=== PATIENT | male | born 1945 | race Caucasian/White ===

== ENCOUNTER → 2016-12-21 | Outpatient (CLI) | payer OTHER ==
[~2016-12-21] MED LIST: ALL300 PO; ASPEC81 PO; ASPI81TA28 PO; ATOR-26 PO; CARV25TA2 PO; CHOL100010 PO; CLOP1TAB15 PO; CPR500 PO; CRG25 PO; DULA1INJ SC; ENAL5TAB83 PO; FINA5TAB PO; INSU1SOL SQ; INSUINJ2 SC; LPR25 PO; MECL1TAB42 PO; METF-384 PO; METF1TAB53 PO; METO25TA56 PO; MULT-1093 PO; MULT-506 PO; OMEP20CA9 PO; ONDA4TAB46 PO; PLV75 PO; PRAV40TA2 PO; PRAV80TA2 PO; THIA50TA3 PO; VST5 PO; ZNT150 PO; ZNTT/150 PO
[2016-12-21 12:39] LABS: BASO % 0.6 %; BASO ABS # 0.04 K/uL (0-0.2); COMPLETE YES; EOS % 3.1 %; IG% 0.3 %; LYMPH % 30.7 %; LYMPH ABS # 2.15 K/uL (1.2-3.4); MEAN CELL VOLUME 96.2 fL (80-100); MEAN CORPUSCULAR HEMOGLOBIN 30.8 pg (25-34); NEUT % 58.3 %; PLATELET COUNT 208 K/uL (130-400); RED BLOOD COUNT 4.26 M/uL (4.7-6.1); WHITE BLOOD COUNT 7.01 K/uL (4.8-10.8)
[2016-12-21 12:59] LABS: ESTIMATED AVERAGE GLUCOSE 148 mg/dl; HA1C FLAG Normal (Normal)
[2016-12-21 13:04] LABS: ALT/SGPT 36 U/L (12-78); BLOOD UREA NITROGEN 18 mg/dl (7-18); BUN/CREATININE RATIO 12.8 (10-20); CARBON DIOXIDE 29 mmol/L (21-32); CHLORIDE 107 mmol/L (98-107); CHOLESTEROL 136 mg/dl (0-200); GLUCOSE 172 mg/dl (70-99); POTASSIUM 4.6 mmol/L (3.5-5.1); SODIUM 141 mmol/L (136-145); TRIGLYCERIDES 160 mg/dl (0-150); VERY LOW DENSITY LIPOPROT CALC 32 mg/dl
[2016-12-21 13:09] LABS: CALCIUM 8.9 mg/dl (8.5-10.1)
[2016-12-21 13:10] LABS: URINE APPEARANCE CLEAR (CLEAR); URINE BILIRUBIN NEG (NEG); URINE COLOR DK YELLOW; URINE EPITHELIAL CELL AUTO 20-30 /lpf (0-5); URINE NITRITE NEG (NEG); URINE SPECIFIC GRAVITY 1.023 (1.000-1.030); UROBILINOGEN NEG (NEG)
[2016-12-21 13:15] LABS: ALB/GLOB RATIO 1.1 (0.9-2); ALKALINE PHOSPHATASE 77 U/L (45-117); AST/SGOT 19 U/L (15-37); HDL CHOLESTEROL 34 mg/dl; LDL CHOLESTEROL CALCULATED 70 mg/dl; PROSTATE SPECIFIC ANTIGEN 0.285 ng/ml (0.000-4.000)
[2016-12-21 13:18] LABS: MANUAL MICROSCOPIC REQUIRED? NO; REVIEW REQ? YES
== END | disposition home or self-care (01) ==
LOC: C.LABPBG 09:35
PROVIDERS: ATTEND Internal Medicine
DX: N40.1 Benign prostatic hyperplasia with lower urinary tract symptoms (principal); N39.0 Urinary tract infection, site not specified; R33.9 Retention of urine, unspecified; E11.649 Type 2 diabetes mellitus with hypoglycemia without coma

== ENCOUNTER 2017-02-19 16:12 | Inpatient (IN) | payer OTHER ==
[~2017-02-19] VITALS: Ht 180.3 cm; Wt 122.7 kg
[~2017-02-19 16:12] MED LIST changes: -ASPEC81 PO; -ASPI81TA28 PO; -ATOR-26 PO; -CLOP1TAB15 PO; -CPR500 PO; -CRG25 PO; -DULA1INJ SC; -INSUINJ2 SC; -LPR25 PO; -METF-384 PO; -METO25TA56 PO; -MULT-1093 PO; -PLV75 PO; -PRAV80TA2 PO; -VST5 PO; -ZNT150 PO; -ZNTT/150 PO
[2017-02-19] MEDS ORDERED: ASPIRIN 81 MG CHEW PO STA (18:24)
[2017-02-19] MEDS ORDERED: ALUMINUM/MAGNESIUM SUSP 30 ML UDC PO STA (18:24)
--- NOTE | 2017-02-19 18:38 | EMERGENCY ROOM VISIT NOTE ---
History Report prepared by Jack: Farnaz Morgan Under the Supervision of: Dr. Kieran Sarah D.O. First contact with patient: 18:20 Chief Complaint: CHEST PAIN Stated Complaint: CHEST PAIN Nursing Triage Summary: Pt reports he has mikael having indigesting for about 4-5 days, today worsening chest pain that radiates into thoat and neck and mid back. Pt reports SOB with exertion. Pt spoke with his Inspector Chief Dr Lovell who referred to ED. Pt currently rates pain 09/22. Hx of Bipass surgeries 5 years ago. Hx of Diabetes History of Present Illness The patient is a 71 year old male who presents to the Emergency Room with complaints of chest pain beginning 5 days ago. The patient states that he is having indigestion and chest pain that radiates into his throat and intermittently into his back. He reports that his pain is worsened while he is laying down and at night. He denies any abdominal pain and chest pressure. The patient states that he has a history of 4 heart blockages and notes that he had bypass surgery. He notes that he felt chest pressure with his previous heart problems and he notes that he does not feel that same symptom today. The patient reports that he had a stress test 5 years ago and is scheduled for an echocardiogram in April. Source of History: patient Onset: 5 days ago Position: chest Quality: other (indegestion) Timing: intermittent Modifying Factors (Worsening): other (night time and laying down) Associated Symptoms: + back pain, No abdominal pain Note: The patient complains of throat pain. He denies any chest pressure. Review of Systems See HPI for pertinent positives & negatives. A total of 10 systems reviewed and were otherwise negative. Past Medical & Surgical Medical Problems: (1) ACS (acute coronary syndrome) (2) Cholecystectomy (3) Coronary artery bypass grafting (4) Diabetes (5) Diabetes mellitus (6) Heart disease (7) History of prostatitis (8) Post-op bleeding Surgical Problems: (1) H/O heart bypass surgery Family History FH: heart disease FHx: cancer Hypertension Social History Smoking Status: Never Smoker Smokeless Tobacco Use: No Alcohol Use: none Drug Use: none Marital Status: Housing Status: lives with family Occupation Status: retired Current/Historical Medications Scheduled Allopurinol (Allopurinol), 300 MG PO HS Carvedilol (Carvedilol), 12.5 MG PO BID Dulaglutide (Trulicity), 0.75 MG SC WK Enalapril Maleate (Enalapril Maleate), 5 MG PO HS Insulin Regular (Human) (Humulin R U-500 (Concentr), 18-20 UNITS SC TID Metformin Hcl (Glucophage), 1,000 MG PO BID Multivitamin (Multivitamin), 1 TAB PO QAM Omeprazole (Prilosec), 20 MG PO QAM Pravastatin Sodium (Pravastatin Sodium), 80 MG PO HS Allergies Coded Allergies: No Known Allergies (Verified , 04/20/16) Physical Exam Vital Signs Date Time Temp Pulse Resp B/P (MAP) Pulse Ox O2 Delivery O2 Flow Rate FiO2 02/19/17 19:07 83 02/19/17 18:44 96 Room Air 02/19/17 18:44 96 Room Air 02/19/17 18:15 87 16 152/81 95 Room Air 02/19/17 16:21 36.7 89 18 131/74 96 Room Air Physical Exam GENERAL: Patient is awake, alert, and in no acute distress. Patient is resting comfortably and mild anxiety EYES: The conjunctivae are clear. The pupils are round and reactive. EARS, NOSE, MOUTH AND THROAT: The nose is without any evidence of any deformity. Mucous membranes are moist tongue is midline NECK: The neck is nontender and supple. RESPIRATORY: Normal respiratory effort is noted there is no evidence of wheezing rhonchi or rales CARDIOVASCULAR: Regular rate and rhythm noted there no murmurs rubs or gallops normal S1 normal S2 GASTROINTESTINAL: The abdomen is soft. Bowel sounds are present in all quadrants. Abdomen is nontender MUSCULOSKELETAL/EXTREMITIES: There is no evidence of gross deformity full range of motion is noted in the hips and shoulders SKIN: There is no obvious evidence of any rash. There are no petechiae, pallor or cyanosis noted. Pedal edema bilaterally NEUROLOGIC: Patient is awake alert and oriented x3 Medical Decision & Procedures ER Provider Diagnostic Interpretation: X-ray results as stated below per interpretation by me and the radiologist. SINGLE VIEW CHEST FINDINGS: 2 AP, portable, upright chest radiographs are compared to study dated 04/03/2016 and correlated with chest CT dated 07/12/2015. The examination is degraded by portable technique and patient rotation. The patient is status post midline sternotomy. The heart is enlarged and there is atherosclerotic calcification of the thoracic aorta. The pulmonary vasculature is noncongested. There is bibasilar atelectasis. No airspace consolidation, large pleural effusion, or pneumothorax is seen. Scattered calcific granulomas are observed. The skeletal structures are osteopenic. Degenerative change is present throughout the thoracic spine. IMPRESSION: Cardiomegaly with no acute cardiopulmonary abnormality. Electronically signed by: Bernardino Billingsley M.D. 02/19/2017 6:59 PM Dictated Date/Time: 02/19/2017 6:56 PM Laboratory Results 02/19/17 18:35 Red Blood Count 4.64, Mean Corpuscular Volume 94.0, Mean Corpuscular Hemoglobin 29.3, Mean Corpuscular Hemoglobin Concent 31.2, Mean Platelet Volume 10.2, Neutrophils (%) (Auto) 61.9, Lymphocytes (%) (Auto) 28.0, Monocytes (%) (Auto) 6.8, Eosinophils (%) (Auto) 2.5, Basophils (%) (Auto) 0.7, Neutrophils # (Auto) 5.50, Lymphocytes # (Auto) 2.48, Monocytes # (Auto) 0.60, Eosinophils # (Auto) 0.22, Basophils # (Auto) 0.06 02/19/17 18:35 Test 02/19/17 18:35 White Blood Count 8.87 K/uL (4.8-10.8) Red Blood Count 4.64 M/uL (4.7-6.1) Hemoglobin 13.6 g/dL (14.0-18.0) Hematocrit 43.6 % (42-52) Mean Corpuscular Volume 94.0 fL (80-100) Mean Corpuscular Hemoglobin 29.3 pg (25-34) Mean Corpuscular Hemoglobin Concent 31.2 g/dl (32-36) Platelet Count 231 K/uL (130-400) Mean Platelet Volume 10.2 fL (7.4-10.4) Neutrophils (%) (Auto) 61.9 % Lymphocytes (%) (Auto) 28.0 % Monocytes (%) (Auto) 6.8 % Eosinophils (%) (Auto) 2.5 % Basophils (%) (Auto) 0.7 % Neutrophils # (Auto) 5.50 K/uL (1.4-6.5) Lymphocytes # (Auto) 2.48 K/uL (1.2-3.4) Monocytes # (Auto) 0.60 K/uL (0.11-0.59) Eosinophils # (Auto) 0.22 K/uL (0-0.5) Basophils # (Auto) 0.06 K/uL (0-0.2) RDW Standard Deviation 46.6 fL (36.4-46.3) RDW Coefficient of Variation 13.7 % (11.5-14.5) Immature Granulocyte % (Auto) 0.1 % Immature Granulocyte # (Auto) 0.01 K/uL (0.00-0.02) Prothrombin Time 10.0 SECONDS (9.0-12.0) Prothromb Time International Ratio 0.9 (0.9-1.1) Activated Partial Thromboplast Time 28.8 SECONDS (21.0-31.0) Partial Thromboplastin Ratio 1.1 Anion Gap 7.0 mmol/L (3-11) Est Creatinine Clear Calc Drug Dose 55.3 ml/min Estimated GFR () 48.8 Estimated GFR (Non- 42.1 BUN/Creatinine Ratio 10.0 (10-20) Calcium Level 9.5 mg/dl (8.5-10.1) Total Bilirubin 0.2 mg/dl (0.2-1) Direct Bilirubin < 0.1 mg/dl (0-0.2) Aspartate Amino Transf (AST/SGOT) 20 U/L (15-37) Alanine Aminotransferase (ALT/SGPT) 40 U/L (12-78) Alkaline Phosphatase 84 U/L (45-117) Total Creatine Kinase 87 U/L (39-308) Creatine Kinase MB 1.5 ng/ml (0.5-3.6) Creatine Kinase MB Ratio 1.7 (0-3.0) Pro-B-Type Natriuretic Peptide 628 pg/ml (0-900) Total Protein 7.7 gm/dl (6.4-8.2) Albumin 3.7 gm/dl (3.4-5.0) Lipase 463 U/L (73-393) Laboratory results per my review. Medications Administered Medications (Trade) Dose Ordered Sig/Mathew Route Start Time Stop Time Status Last Admin Dose Admin Aspirin (Aspirin Chew) 324 mg NOW STAT PO 02/19/17 18:24 02/19/17 18:26 DC 02/19/17 18:47 324 MG Al Hydroxide/Mg Hydroxide (Maalox Susp) 30 ml NOW STAT PO 02/19/17 18:24 02/19/17 18:26 DC 02/19/17 18:47 30 ML ECG Indication: chest pain Rate (beats per minute): 89 Rhythm: normal sinus Findings: RBBB, ST depression (Inferior and Lateral), T-wave inversion Comparison ECG Date: 04/03/16 Change: Changes are new. ED Course 1819: The patient was evaluated in room C4. A complete history and physical examination were performed. 1823: Maalox Susp 30ml PO, Aspirin Chew 324mg PO. 1931: I reevaluated and updated the patient. 1940: I discussed the patient's case with the resident for [place]. [place] [facility] The patient will be evaluated for further management. 1953: Upon reevaluation, the patient is doing well. I discussed results and treatment plan with the patient. He verbalizes agreement and understanding. I spoke with the resident for Dr. [place] [facility] The patient will be evaluated for further management and care. Medical Decision Differential diagnosis: Etiologies such as cardiac ischemia, aortic dissection, pulmonary embolism, pneumonia, pneumothorax, musculoskeletal, infections, pericarditis, myocarditis , esophageal rupture, gastrointestinal, as well as others were entertained. Medication Reconciliation: I attest that I have personally reviewed the patient' s current medications list. Blood pressure screening: Patient was found to have an elevated blood pressure and was referred to their primary doctor for recheck and further treatment. The patient is a 71-year-old male who presented to the emergency department for an evaluation of chest discomfort. The patient describes his discomfort as heartburn. He was found have a very abnormal EKG with ST segment depressions. The patient at the time of evaluation states his pain was significantly improved. He was treated with aspirin in emergency department and reevaluated multiple times. The patient was found have a mild elevation in his troponin. At this time I feel his condition is likely consistent with an acute coronary syndrome. For this reason I discussed his case with the on-call [facility] hospitalist. They've agreed to evaluate the patient in emergency department for further management and disposition. The patient continued to be pain-free. Consults Time Called: 1938 Consulting Physician: Resident of Dr. Corea Returned Call: 1940 I discussed the patient's case with the resident for Dr. Corea of [facility] The patient will be evaluated for further management. Impression Primary Impression: Substernal chest pain Additional Impressions: Abnormal EKG Elevated troponin Scribe Attestation The scribe's documentation has been prepared under my direction and personally reviewed by me in its entirety. I confirm that the note above accurately reflects all work, treatment, procedures, and medical decision making performed by me. Departure Information Dispostion Being Evaluated By Hospitalist Referrals No Doctor, Assigned (PCP) Patient Instructions [facility] Problem Qualifiers
--- NOTE | 2017-02-19 19:00 | DIAGNOSTIC IMAGING REPORT ---
SINGLE VIEW CHEST CLINICAL HISTORY: Atypical chest pain. FINDINGS: 2 AP, portable, upright chest radiographs are compared to study dated 04/03/2016 and correlated with chest CT dated 07/12/2015. The examination is degraded by portable technique and patient rotation. The patient is status post midline sternotomy. The heart is enlarged and there is atherosclerotic calcification of the thoracic aorta. The pulmonary vasculature is noncongested. There is bibasilar atelectasis. No airspace consolidation, large pleural effusion, or pneumothorax is seen. Scattered calcific granulomas are observed. The skeletal structures are osteopenic. Degenerative change is present throughout the thoracic spine. IMPRESSION: Cardiomegaly with no acute cardiopulmonary abnormality. Electronically signed by: Bernardino Billingsley M.D. 02/19/2017 6:59 PM Dictated Date/Time: 02/19/2017 6:56 PM
[2017-02-19 19:05] LABS: BASO % 0.7 %; BASO ABS # 0.06 K/uL (0-0.2); COMPLETE YES; EOS % 2.5 %; HEMATOCRIT 43.6 % (42-52); IG% 0.1 %; LYMPH ABS # 2.48 K/uL (1.2-3.4); MEAN CORPUSCULAR HEMOGLOBIN 29.3 pg (25-34); MEAN CORPUSCULAR HGB CONC 31.2 g/dl (32-36); MEAN PLATELET VOLUME 10.2 fL (7.4-10.4); MONO % 6.8 %; NEUT % 61.9 %; PLATELET COUNT 231 K/uL (130-400); RED BLOOD COUNT 4.64 M/uL (4.7-6.1); WHITE BLOOD COUNT 8.87 K/uL (4.8-10.8)
[2017-02-19 19:16] LABS: INR 0.9 (0.9-1.1); PARTIAL THROMBOPLASTIN RATIO 1.1
[2017-02-19] MEDS ORDERED: INSUINJ2 SC (19:20)
[2017-02-19] MEDS ORDERED: ALL300 PO (19:20)
[2017-02-19] MEDS ORDERED: CRG25 PO (19:20)
[2017-02-19] MEDS ORDERED: DULA1INJ SC (19:20)
[2017-02-19] MEDS ORDERED: PRAV80TA2 PO (19:20)
[2017-02-19] MEDS ORDERED: METF-384 PO (19:20)
[2017-02-19] MEDS ORDERED: VST5 PO (19:20)
[2017-02-19 19:25] LABS: ALT/SGPT 40 U/L (12-78); BLOOD UREA NITROGEN 16 mg/dl (7-18); CALCIUM 9.5 mg/dl (8.5-10.1); CARBON DIOXIDE 29 mmol/L (21-32); CHLORIDE 108 mmol/L (98-107); GLUCOSE 105 mg/dl (70-99); POTASSIUM 4.4 mmol/L (3.5-5.1); SODIUM 144 mmol/L (136-145)
[2017-02-19 19:31] LABS: ALKALINE PHOSPHATASE 84 U/L (45-117); AST/SGOT 20 U/L (15-37); CKMB/CK RATIO 1.7 (0-3.0)
[2017-02-19] MEDS ORDERED: ONDANSETRON INJ 2 MG/ML 2 ML VIAL IV PRN (21:00)
[2017-02-19] MEDS ORDERED: POLYETHYLENE (MIRALAX) 17 GM PACK PO PRN (21:00)
[2017-02-19] MEDS ORDERED: NITROGLYCERIN 0.4 MG SL PER TAB CHARGE SL PRN (21:00)
[2017-02-19] MEDS ORDERED: ALUMINUM/MAGNESIUM/SIMETH (MAALOX MAX) 30 ML UDC PO PRN (21:00)
[2017-02-19] MEDS ORDERED: ACETAMINOPHEN 325 MG TAB PO PRN (21:00)
--- NOTE | 2017-02-19 21:05 | History and Physical ---
History & Physical Date & Time of Service: Feb 19, 2017 at 21:05 Chief Complaint: Chest Pain Primary Care Physician: Ras Norton M.D. History of Present Illness 71-year-old male with past medical history of coronary artery disease status post CABG 5 years ago, diabetes mellitus presented to the ER with complaints of indigestion and chest pain which started about 5 days ago. The patient complains about chest pain in the middle of his chest radiating up to his throat and to the middle of his back. The pain is worse on exertion and on laying down. Denies any shortness of breath, palpitations, nausea or vomiting, diaphoresis. Denies any abdominal pain, fevers or chills or coughing. The patient has a history of coronary artery disease and had coronary artery bypass done about 5 years ago. Past Medical/Surgical History Medical Problems: (1) Cholecystectomy Status: Resolved (2) Coronary artery bypass grafting Status: Resolved (3) Diabetes Status: Chronic (4) Diabetes mellitus Status: Chronic (5) Heart disease Status: Chronic (6) History of prostatitis Status: Chronic Surgical Problems: (1) H/O heart bypass surgery Status: Chronic Family History FH: heart disease FHx: cancer Hypertension Social History Smoking Status: Never Smoker Smokeless Tobacco Use: No Drug Use: none Marital Status: Occupational Status: retired Immunizations History of Influenza Vaccine: Unknown Influenza Vaccine Date: May 16, 2013 History of Tetanus Vaccine?: Unknown History of Pneumococcal: Unknown Pneumococcal Date: Feb 07, 2009 History of Hepatitis B Vaccine: Unknown Multi-Drug Resistant Organisms History of MDRO: No Allergies Coded Allergies: No Known Allergies (Verified , 04/20/16) Home Medications Scheduled Allopurinol (Allopurinol), 300 MG PO HS Carvedilol (Carvedilol), 12.5 MG PO BID Dulaglutide (Trulicity), 0.75 MG SC WK Enalapril Maleate (Enalapril Maleate), 5 MG PO HS Insulin Regular (Human) (Humulin R U-500 (Concentr), 18-20 UNITS SC TID Metformin Hcl (Glucophage), 1,000 MG PO BID Multivitamin (Multivitamin), 1 TAB PO QAM Omeprazole (Prilosec), 20 MG PO QAM Pravastatin Sodium (Pravastatin Sodium), 80 MG PO HS Review of Systems Constitutional: No fever, No chills Eyes: No worsening of vision ENT: No hearing loss Respiratory: No cough, No sputum, No shortness of breath Cardiovascular: + chest pain, No edema, No palpitations Abdomen: No pain, No nausea, No vomiting, No diarrhea, No GI bleeding Musculoskeletal: No joint pain Genitourinary - Male: No hematuria, No dysuria, No urinary frequency Neurologic: No memory loss, No paralysis Psychiatric: No depression symptoms Endocrine: No fatigue Hematologic / Lymphatic: No abnormal bleeding/bruising Integumentary: No rash Physical Exam Vital Signs Date Time Temp Pulse Resp B/P (MAP) Pulse Ox O2 Delivery O2 Flow Rate FiO2 02/19/17 19:07 83 02/19/17 18:44 96 Room Air 02/19/17 18:44 96 Room Air 02/19/17 18:15 87 16 152/81 95 Room Air 02/19/17 16:21 36.7 89 18 131/74 96 Room Air General Appearance: WD/WN, no apparent distress Head: normocephalic Eyes: normal inspection ENT: hearing grossly normal Neck: supple Respiratory/Chest: chest non-tender, lungs clear, normal breath sounds, no respiratory distress, no accessory muscle use Cardiovascular: regular rate, rhythm Abdomen/GI: normal bowel sounds, non tender, soft Extremities/Musculoskelatal: no pedal edema Neurologic/Psych: alert, normal mood/affect, oriented x 3 Skin: normal color Diagnostics Laboratory Results Results Past 24 Hours Test 02/19/17 18:35 Range/Units White Blood Count 8.87 4.8-10.8 K/uL Red Blood Count 4.64 4.7-6.1 M/uL Hemoglobin 13.6 14.0-18.0 g/dL Hematocrit 43.6 42-52 % Mean Corpuscular Volume 94.0 80-100 fL Mean Corpuscular Hemoglobin 29.3 25-34 pg Mean Corpuscular Hemoglobin Concent 31.2 32-36 g/dl Platelet Count 231 130-400 K/uL Mean Platelet Volume 10.2 7.4-10.4 fL Neutrophils (%) (Auto) 61.9 % Lymphocytes (%) (Auto) 28.0 % Monocytes (%) (Auto) 6.8 % Eosinophils (%) (Auto) 2.5 % Basophils (%) (Auto) 0.7 % Neutrophils # (Auto) 5.50 1.4-6.5 K/uL Lymphocytes # (Auto) 2.48 1.2-3.4 K/uL Monocytes # (Auto) 0.60 0.11-0.59 K/uL Eosinophils # (Auto) 0.22 0-0.5 K/uL Basophils # (Auto) 0.06 0-0.2 K/uL RDW Standard Deviation 46.6 36.4-46.3 fL RDW Coefficient of Variation 13.7 11.5-14.5 % Immature Granulocyte % (Auto) 0.1 % Immature Granulocyte # (Auto) 0.01 0.00-0.02 K/uL Prothrombin Time 10.0 9.0-12.0 SECONDS Prothromb Time International Ratio 0.9 0.9-1.1 Activated Partial Thromboplast Time 28.8 21.0-31.0 SECONDS Partial Thromboplastin Ratio 1.1 Sodium Level 144 136-145 mmol/L Potassium Level 4.4 3.5-5.1 mmol/L Chloride Level 108 98-107 mmol/L Carbon Dioxide Level 29 21-32 mmol/L Anion Gap 7.0 3-11 mmol/L Blood Urea Nitrogen 16 7-18 mg/dl Creatinine 1.60 0.60-1.40 mg/dl Est Creatinine Clear Calc Drug Dose 55.3 ml/min Estimated GFR () 48.8 Estimated GFR (Non- 42.1 BUN/Creatinine Ratio 10.0 10-20 Random Glucose 105 70-99 mg/dl Calcium Level 9.5 8.5-10.1 mg/dl Total Bilirubin 0.2 0.2-1 mg/dl Direct Bilirubin < 0.1 0-0.2 mg/dl Aspartate Amino Transf (AST/SGOT) 20 15-37 U/L Alanine Aminotransferase (ALT/SGPT) 40 12-78 U/L Alkaline Phosphatase 84 45-117 U/L Total Creatine Kinase 87 39-308 U/L Creatine Kinase MB 1.5 0.5-3.6 ng/ml Creatine Kinase MB Ratio 1.7 0-3.0 Troponin I 0.039 0-0.045 ng/ml Pro-B-Type Natriuretic Peptide 628 0-900 pg/ml Total Protein 7.7 6.4-8.2 gm/dl Albumin 3.7 3.4-5.0 gm/dl Lipase 463 73-393 U/L Diagnostic Radiology SINGLE VIEW CHEST CLINICAL HISTORY: Atypical chest pain. FINDINGS: 2 AP, portable, upright chest radiographs are compared to study dated 04/03/2016 and correlated with chest CT dated 07/12/2015. The examination is degraded by portable technique and patient rotation. The patient is status post midline sternotomy. The heart is enlarged and there is atherosclerotic calcification of the thoracic aorta. The pulmonary vasculature is noncongested. There is bibasilar atelectasis. No airspace consolidation, large pleural effusion, or pneumothorax is seen. Scattered calcific granulomas are observed. The skeletal structures are osteopenic. Degenerative change is present throughout the thoracic spine. IMPRESSION: Cardiomegaly with no acute cardiopulmonary abnormality. Electronically signed by: Bernardino Billingsley M.D. 02/19/2017 6:59 PM Dictated Date/Time: 02/19/2017 6:56 PM EKG Normal sinus rhythm Left axis deviation Right bundle branch block T wave abnormality, consider lateral ischemia ST & T wave abnormality, consider anterior ischemia Abnormal ECG When compared with ECG of 03-APR-2016 13:48, ST now depressed in Anterior leads T wave inversion more evident in Anterolateral leads Confirmed by JEB MORRISSEY ([id number]) on 02/19/2017 10:16:11 PM Impression Assessment and Plan 71-year-old male with past medical history of coronary artery disease status post CABG 5 years ago, diabetes mellitus presented to the ER with complaints of indigestion and chest pain which started about 5 days ago. In the ER the patient was found to have EKG changes- ST-T depressions in anterior leads with T-wave inversions the patient complains of minimal chest pain. ACS/ CAD status post CABG 5 years ago - EKG: Normal sinus rhythm Left axis deviation Right bundle branch block T wave abnormality, consider lateral ischemia ST & T wave abnormality, consider anterior ischemia Abnormal ECG When compared with ECG of 03-APR-2016 13:48, ST now depressed in Anterior leads T wave inversion more evident in Anterolateral leads - Initial troponin 0.039-->0.030, trended every 8 hours - Started on heparin drip, Nitropaste - Cardiology consult - Continue aspirin, carvedilol, pravastatin, enalapril - Echo ordered - Lipid panel from 12/27: Total cholesterol 136, LDL 70, triglycerides 160, HDL 34 Acute kidney injury: Likely related to demand - Creatinine at 1.6, baseline 1.4 - Continue IV fluids Elevated lipase ? Pancreatitis - Lipase at 463 - Monitor lipase level - Triglycerides within normal limits, no history of alcohol abuse Diabetes mellitus: - Held home medications - Hemoglobin A1c 12/27 6.8 - Insulin sliding scale DVT prophylaxis: Heparin drip Full code Disposition: Admitted to telemetry Level of Care Telemetry Resuscitation Status FULL RESUSCITATION VTE Prophylaxis VTE Risk Assessment Done? Y/N: Yes Risk Level: Moderate Given or contraindicated: Other Anticoagulation (heparin drip) Resident Tracking Resident Involvement: Resident Care Provided Care Provided: [facility] Assessment and Plan Attending Addendum: I physically seen and examined this patient, have supervised the medical residents activities, and agree with the H&P as noted above with the following exceptions: NONE The patient is awake, well-developed and adequately nourished, alert and oriented 3, normocephalic and atraumatic, lying in bed and in no acute distress. HEENT--PERRL, EOMI, mucous membranes and oropharynx dry. Neck--supple, no JVD or bruits, thyroid normal, trachea midline, no adenopathy. Heart--normal S1 and S2, no extra beats, no murmurs, rubs or gallops. Lungs--clear bilaterally with good air movement, no respiratory distress, no accessory muscle use. Abdomen--normal bowel sounds and soft, nontender and nondistended, no hernias or masses, no organomegaly. Extremities--no cyanosis, clubbing or edema. There are good distal pulses b/l. Dermatologic--normal skin turgor, normal color, warm and dry, no abnormal lymph nodes, no rash. Neurologic--cranial nerves II through XII grossly intact. Rheumatologic--normal range of motion, nontender, muscles and joints. Psychiatric--normal affect. Assessment and Plan: 1. CAD/status post CABG 5 years ago/hypertension/presents with acute coronary syndrome--the patient will be admitted to telemetry for serial cardiac enzymes, cardiac rhythm monitoring and a 2-D echocardiogram with Dopplers. Place on Nitropaste 1 inch to anterior chest wall every 6 hours. Start heparin drip IV standard dose with bolus per protocol. Continue aspirin 81 mg by mouth daily, carvedilol, pravastatin and enalapril. Follow serial CBC with differential, BMP and magnesium levels. Consult cardiology.
[2017-02-19] MEDS ORDERED: HEPARIN 25000 UNIT/500 ML D5W ONE (21:57)
[2017-02-19] MEDS ORDERED: HEPARIN SOD 5000 UNIT/0.5 ML CARP ONE (21:57)
[2017-02-19] MEDS ORDERED: NITROGLYCERIN OINT 2% 1GM PACKET EXT STA (22:36)
[2017-02-19] MEDS: SODIUM CHLORIDE 0.9% 1000ML 1,000 ML IV SCH (22:43)
[2017-02-19 22:47] VITALS: BP 162/89; PULSE 87; TEMP 36.9; O2SAT 96; Ht 180.3 cm; Wt 122.7 kg
[2017-02-20] MEDS ORDERED: SODIUM CHLORIDE 0.9% 1000ML 1,000 ML IV SCH (01:30)
[2017-02-20] MEDS ORDERED: DEXTROSE 50% 50 ML SYR IV PRN (02:00)
[2017-02-20] MEDS ORDERED: GLUCOSE 40% GEL 15 GM TUBE PO PRN (02:00)
[2017-02-20] MEDS ORDERED: GLUCOSE 10 TABS/TUBE PO PRN (02:00)
[2017-02-20] MEDS ORDERED: GLUCAGON FOR INJ 1 MG VIAL SQ PRN (02:00)
[2017-02-20] MEDS: NITROGLYCERIN OINT 2% 1GM PACKET EXT SCH ×4 (03:32→21:38)
[2017-02-20 03:47] VITALS: BP 148/85; PULSE 80; TEMP 36.6; O2SAT 95
[2017-02-20 04:05] LABS: HEMATOCRIT 39.9 % (42-52); MEAN CELL VOLUME 95.7 fL (80-100); MEAN CORPUSCULAR HEMOGLOBIN 29.5 pg (25-34); MEAN CORPUSCULAR HGB CONC 30.8 g/dl (32-36); MEAN PLATELET VOLUME 10.5 fL (7.4-10.4); PLATELET COUNT 186 K/uL (130-400); RED BLOOD COUNT 4.17 M/uL (4.7-6.1); WHITE BLOOD COUNT 8.23 K/uL (4.8-10.8)
[2017-02-20 04:25] LABS: PARTIAL THROMBOPLASTIN RATIO 2.2
[2017-02-20 04:30] LABS: BUN/CREATININE RATIO 11.5 (10-20); CALCIUM 8.7 mg/dl (8.5-10.1); CREATININE 1.4 mg/dl (0.60-1.40); POTASSIUM 4.8 mmol/L (3.5-5.1)
[2017-02-20] MEDS: INSULIN ASPART 100 UNITS/ML 3 ML PEN SC SCH ×4 (07:00→21:00)
[2017-02-20 07:17] VITALS: BP 145/81; PULSE 78; TEMP 36.6; O2SAT 92
[2017-02-20] MEDS: SODIUM CHLORIDE 0.9% 1000ML 1,000 ML IV SCH ×2 (07:54→17:20)
[2017-02-20] MEDS: PANTOprazole SOD 40 MG TAB PO SCH ×2 (08:03→09:00)
[2017-02-20] MEDS: CARVEDILOL 12.5 MG TAB PO SCH ×3 (08:03→19:35)
--- NOTE | 2017-02-20 08:03 | Family Medicine Progress Note ---
Progress Note Date of Service Feb 20, 2017. Subjective Pt evaluation today including: conversation w/ patient, physical exam Voiding: no voiding problems, no incontinence Reviewed hx w/patient - reports hx of quadruple bypass surgery years ago, completed in [place]. Did not have an MD at that time, but had decreased exercise tolerance when walking 4 miles per day. Since then, has not had chest pain at rest or on exertion, and has not had any cardiac procedures. Is diabetic and BSGs usually 110 in AM. He reports Sunday he was urinating more frequently than usual and it was dark in color - denies hematuria, dysuria, hesitancy (though has known BPH s/p TURP). Over the last 5-6 days has had severe indigestion, was concerned it was cardiac. Reports is worse when laying flat, is associated with spells of diaphoresis, does not radiate. Denies any nausea/vomiting. Constitutional: No fever, No chills, No weakness Cardiovascular: + chest pain Abdomen: No pain, No nausea All Other Systems: Reviewed and Negative Medications Current Inpatient Medications Medications (Trade) Dose Ordered Sig/Mathew Route Start Time Stop Time Status Last Admin Dose Admin Acetaminophen (Tylenol Tab) 650 mg Q4H PRN PO 02/19/17 21:00 03/21/17 20:59 Al Hydrox/Mg Hydrox/Simethicone (Maalox Max Susp) 15 ml Q4H PRN PO 02/19/17 21:00 03/21/17 20:59 Ondansetron HCl (Zofran Inj) 4 mg Q6H PRN IV 02/19/17 21:00 03/21/17 20:59 Nitroglycerin (Nitrostat Tab) 0.4 mg UD PRN SL 02/19/17 21:00 03/21/17 20:59 Polyethylene (Miralax Powder Packet) 17 gm DAILY PRN PO 02/19/17 21:00 03/21/17 20:59 Allopurinol (Zyloprim Tab) 300 mg HS PO 02/20/17 21:00 03/22/17 20:59 Carvedilol (Coreg Tab) 12.5 mg BID PO 02/20/17 09:00 03/22/17 08:59 Enalapril Maleate (Vasotec Tab) 5 mg HS PO 02/20/17 21:00 03/22/17 20:59 Pantoprazole Sodium (Protonix Tab) 40 mg QAM PO 02/20/17 09:00 03/22/17 08:59 Pravastatin Sodium (Pravachol Tab) 80 mg HS PO 02/20/17 21:00 03/22/17 20:59 Sodium Chloride 1,000 ml @ 100 mls/hr Q10H IV 02/19/17 22:30 03/21/17 22:29 02/19/17 22:43 100 MLS/HR Nitroglycerin (Nitroglycerin 2% Oint) 1 inch Q6H EXT 02/20/17 04:00 03/22/17 03:59 02/20/17 03:32 1 INCH Heparin Sodium/ Dextrose 500 ml @ 34 mls/hr [id number] PRN IV 02/19/17 22:45 03/21/17 22:44 Insulin Aspart (novoLOG ASPART) SLIDING SCALE G... ACHS SC 02/20/17 07:00 03/22/17 06:59 Glucose (Glucose 40% Gel) 15-30 GRAMS 15 GRAMS... UD PRN PO 02/20/17 02:00 03/22/17 01:59 Glucose (Glucose Chew Tab) 4-8 Tablets 4 Tabl... UD PRN PO 02/20/17 02:00 03/22/17 01:59 Dextrose (Dextrose 50% 50ML Syringe) 25-50ML OF 50% DW IV FOR... UD PRN IV 02/20/17 02:00 03/22/17 01:59 Glucagon (Glucagon Inj) 1 mg UD PRN SQ 02/20/17 02:00 03/22/17 01:59 Objective Vital Signs Date Time Temp Pulse Resp B/P (MAP) Pulse Ox O2 Delivery O2 Flow Rate FiO2 02/20/17 07:17 36.6 78 16 145/81 (102) 92 Room Air 02/20/17 04:00 Room Air 02/20/17 03:47 36.6 80 18 148/85 (106) 95 Room Air 02/19/17 23:59 Room Air 02/19/17 22:47 36.9 87 18 162/89 96 Room Air 02/19/17 22:15 88 20 142/91 97 02/19/17 21:30 90 20 180/92 96 Room Air 02/19/17 19:07 83 02/19/17 18:44 96 Room Air 02/19/17 18:44 96 Room Air 02/19/17 18:15 87 16 152/81 95 Room Air 02/19/17 16:21 36.7 89 18 131/74 96 Room Air Physical Exam General Appearance: WD/WN, no apparent distress, + obese Eyes: normal inspection, PERRL ENT: hearing grossly normal Neck: supple, no JVD Respiratory/Chest: chest non-tender, lungs clear, normal breath sounds, no respiratory distress Cardiovascular: regular rate, rhythm, no murmur Abdomen: normal bowel sounds, non tender, soft Extremities: non-tender, no pedal edema Neurologic/Psychiatric: alert, normal mood/affect, oriented x 3 Skin: no rash Laboratory Results Last 24 Hours Test 02/19/17 18:35 02/19/17 21:30 02/20/17 03:42 02/20/17 06:37 White Blood Count 8.87 K/uL 8.23 K/uL Red Blood Count 4.64 M/uL 4.17 M/uL Hemoglobin 13.6 g/dL 12.3 g/dL Hematocrit 43.6 % 39.9 % Mean Corpuscular Volume 94.0 fL 95.7 fL Mean Corpuscular Hemoglobin 29.3 pg 29.5 pg Mean Corpuscular Hemoglobin Concent 31.2 g/dl 30.8 g/dl Platelet Count 231 K/uL 186 K/uL Mean Platelet Volume 10.2 fL 10.5 fL Neutrophils (%) (Auto) 61.9 % Lymphocytes (%) (Auto) 28.0 % Monocytes (%) (Auto) 6.8 % Eosinophils (%) (Auto) 2.5 % Basophils (%) (Auto) 0.7 % Neutrophils # (Auto) 5.50 K/uL Lymphocytes # (Auto) 2.48 K/uL Monocytes # (Auto) 0.60 K/uL Eosinophils # (Auto) 0.22 K/uL Basophils # (Auto) 0.06 K/uL RDW Standard Deviation 46.6 fL 47.7 fL RDW Coefficient of Variation 13.7 % 13.7 % Immature Granulocyte % (Auto) 0.1 % Immature Granulocyte # (Auto) 0.01 K/uL Prothrombin Time 10.0 SECONDS Prothromb Time International Ratio 0.9 Activated Partial Thromboplast Time 28.8 SECONDS 57.9 SECONDS Partial Thromboplastin Ratio 1.1 2.2 Sodium Level 144 mmol/L 146 mmol/L Potassium Level 4.4 mmol/L 4.8 mmol/L Chloride Level 108 mmol/L 110 mmol/L Carbon Dioxide Level 29 mmol/L 30 mmol/L Anion Gap 7.0 mmol/L 6.0 mmol/L Blood Urea Nitrogen 16 mg/dl 16 mg/dl Creatinine 1.60 mg/dl 1.40 mg/dl Est Creatinine Clear Calc Drug Dose 55.3 ml/min 63.2 ml/min Estimated GFR () 48.8 57.4 Estimated GFR (Non- 42.1 49.5 BUN/Creatinine Ratio 10.0 11.5 Random Glucose 105 mg/dl 171 mg/dl Calcium Level 9.5 mg/dl 8.7 mg/dl Total Bilirubin 0.2 mg/dl Direct Bilirubin < 0.1 mg/dl Aspartate Amino Transf (AST/SGOT) 20 U/L Alanine Aminotransferase (ALT/SGPT) 40 U/L Alkaline Phosphatase 84 U/L Total Creatine Kinase 87 U/L Creatine Kinase MB 1.5 ng/ml Creatine Kinase MB Ratio 1.7 Troponin I 0.039 ng/ml 0.030 ng/ml 0.029 ng/ml Pro-B-Type Natriuretic Peptide 628 pg/ml Total Protein 7.7 gm/dl Albumin 3.7 gm/dl Lipase 463 U/L 225 U/L Bedside Glucose 177 mg/dl Assessment and Plan 71 yo M with known CAD, s/p CABG, and T2DM who presents with 5 days of chest pain / indigestion - with EKG changes - ddx cardiac vs GI Chest pain on background of known CAD, s/p CABG 5y ago - Continue home aspirin, beta mis, statin, and ANETA-I - Echo ordered, pending for this AM - Cardiology consulted - Pt is NPO in case of cath - Trending cardiac enzymes, though they have already decreased (0.039 to 0.029). - Is on heparin drip Indigestion - Pt takes Nexium at home - Will provide IV Zantac now as pt is NPO, will transition to PO tomorrow/later today Acute on chronic renal insufficiency - Continue to monitor - Is on IV fluids Elevated lipase on admission (463) - Has decreased to 220 - No clinical signs of pancreatitis - Will continue to monitor Type 2 DM - Placed on insulin sliding scale - Last A1c on 12/21/16 was 6.8% DVT prophylaxis: Heparin drip Full code Disposition: Admitted to telemetry Resident Physician Supervision Note: I interviewed and examined the patient. Discussed with Dr. Grossman and agree with findings and plan as documented in the note. Any exceptions or clarifications are listed here: None Documented By: Owen Rose 2 different chest pains - came for chest pain substernal with associated burping and belching worse when he lays down no sob just worse sx. 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 revisited after stress test and explained results discussed situation at length answered all questions to the best of my ability and to his satisfaction/family satisfaction. d/w cardiology as well vitals noted nad breathing unlabored no pallor or icterus epigastric mild tenderness no guarding no rebound indigestion - ?related to GLP-1 - notes started shortly after resuming trulicity CAD/unstable angina - as manifest by exertional sx and then later (+) stress. for [facility] tomorrow. med management Resident Tracking Resident Involvement: Resident Care Provided Care Provided: Adult Hospital Medicine
[2017-02-20] MEDS ORDERED: RANITIDINE IV 50 MG in DEXTROSE 5% 100ML 100 ML IV ONE (08:30)
--- NOTE | 2017-02-20 09:34 | Cardiology Consultation ---
Cardiology Consultation Date of Consultation: Feb 20, 2017. Reason for Consultation: Chest Pain Pt evaluation today including: conversation w/ patient, physical exam, chart review, lab review, review of inpatient medication list History of Present Illness Mr. Goyal is a pleasant 71 year old man with a background history of a CABG, Diabetes Mellitus Type 2, hypercholesterolemia and hypertension who presented to the ED yesterday afternoon (02/19/2017) complaining of a 4-5 day history of a slow onset of chest pain. The pain has been constant, 2/10 in severity and then increasing to 7/10 at night or upon exertion. He reports that if he walked approximately ten feet, the pain would worsen and only lessen when he rested. The pain is substernal, just above his epigastric region, and radiates up to his throat and to his back. He denies radiation to his jaw or arms. He denies SOB, n/v, syncopal episodes, but states that he had episodes where he felt warm and sweaty. The pain is not pleuritic in nature. He took Tums, but this did not alleviate the pain. He subsequently called his tap grinder who advised that he come to the ED to be seen. With regards to his cardiac history, he had a quadruple bypass in April of 2012. This was done due to anginal symptoms - he states he had chest pain upon walking 4-5 miles that was relieved by rest. After this procedure, he has been free of chest pain until approximately one month ago, where he noticed that if he walked ~20 yards or more, he would experience chest pain that was relieved by approximately 2 minutes of rest. Past Medical/Surgical History Past Medical History: - CAD s/p quadruple bypass (Apr 2012) - Atrial Fibrillation (one episode after bypass, cardioverted on 08/08/10 and no episodes since) - Diabetes Mellitus Type 2 - Hypercholesterolemia - Hypertension - [place] - GERD Past Surgical History: - Cholecystectomy - Left knee replacement - TURP (2015) Family History FH: heart disease FHx: cancer Hypertension Social History Smoking Status: Never Smoker History of Alcohol Use: No Review of Systems Constitutional: No fever, No weight loss, No weakness, No fatigue Respiratory: No cough, No sputum, No wheezing, No shortness of breath, No dyspnea on exertion Cardiac: + chest pain, No orthopnea, No PND, No edema, No claudication, No palpitations Abdomen: No pain, No nausea, No vomiting, No diarrhea, No constipation Neurologic: No numbness/tingling All Other Systems: Reviewed and Negative Allergies Coded Allergies: No Known Allergies (Verified , 04/20/16) Medications Current Inpatient Medications Medications (Trade) Dose Ordered Sig/Mathew Route Start Time Stop Time Status Last Admin Dose Admin Acetaminophen (Tylenol Tab) 650 mg Q4H PRN PO 02/19/17 21:00 03/21/17 20:59 Al Hydrox/Mg Hydrox/Simethicone (Maalox Max Susp) 15 ml Q4H PRN PO 02/19/17 21:00 03/21/17 20:59 Ondansetron HCl (Zofran Inj) 4 mg Q6H PRN IV 02/19/17 21:00 03/21/17 20:59 Nitroglycerin (Nitrostat Tab) 0.4 mg UD PRN SL 02/19/17 21:00 03/21/17 20:59 Polyethylene (Miralax Powder Packet) 17 gm DAILY PRN PO 02/19/17 21:00 03/21/17 20:59 Allopurinol (Zyloprim Tab) 300 mg HS PO 02/20/17 21:00 03/22/17 20:59 Carvedilol (Coreg Tab) 12.5 mg BID PO 02/20/17 09:00 03/22/17 08:59 Enalapril Maleate (Vasotec Tab) 5 mg HS PO 02/20/17 21:00 03/22/17 20:59 Pantoprazole Sodium (Protonix Tab) 40 mg QAM PO 02/20/17 09:00 03/22/17 08:59 Pravastatin Sodium (Pravachol Tab) 80 mg HS PO 02/20/17 21:00 03/22/17 20:59 Sodium Chloride 1,000 ml @ 100 mls/hr Q10H IV 02/19/17 22:30 03/21/17 22:29 02/20/17 07:54 100 MLS/HR Nitroglycerin (Nitroglycerin 2% Oint) 1 inch Q6H EXT 02/20/17 04:00 03/22/17 03:59 02/20/17 08:53 1 INCH Heparin Sodium/ Dextrose 500 ml @ 34 mls/hr [id number] PRN IV 02/19/17 22:45 03/21/17 22:44 Insulin Aspart (novoLOG ASPART) SLIDING SCALE G... ACHS SC 02/20/17 07:00 03/22/17 06:59 Glucose (Glucose 40% Gel) 15-30 GRAMS 15 GRAMS... UD PRN PO 02/20/17 02:00 03/22/17 01:59 Glucose (Glucose Chew Tab) 4-8 Tablets 4 Tabl... UD PRN PO 02/20/17 02:00 03/22/17 01:59 Dextrose (Dextrose 50% 50ML Syringe) 25-50ML OF 50% DW IV FOR... UD PRN IV 02/20/17 02:00 03/22/17 01:59 Glucagon (Glucagon Inj) 1 mg UD PRN SQ 02/20/17 02:00 03/22/17 01:59 Physical Exam Vital Signs Past 12 Hours Date Time Temp Pulse Resp B/P (MAP) Pulse Ox O2 Delivery O2 Flow Rate FiO2 02/20/17 07:17 36.6 78 16 145/81 (102) 92 Room Air 02/20/17 04:00 Room Air 02/20/17 03:47 36.6 80 18 148/85 (106) 95 Room Air 02/19/17 23:59 Room Air 02/19/17 22:47 36.9 87 18 162/89 96 Room Air 02/19/17 22:15 88 20 142/91 97 02/19/17 21:30 90 20 180/92 96 Room Air Head: normocephalic, atraumatic Neck: supple, trachea midline Lungs: Respiratory effort: no dyspnea, good air movement Auscultation: breath sounds normal, CTA except as noted, no wheezing, no rales/crackles, no rhonchi Cardiovascular: Apical Impulse: not displaced Heart Auscultation: RRR, normal S1, normal S2, no murmurs, no rubs, no gallops Peripheral Pulses: Carotid Pulse: normal on the left, normal on the right Radial Pulse: normal on the right Abdomen: Bowel Sounds: normal Inspection & Palpation: soft, non-distended, no tenderness, guarding & rebound, no masses, no CVA tenderness Extremities: no cyanosis, no edema Data Laboratory Results: Last 24 Hours Test 02/19/17 18:35 02/19/17 21:30 02/20/17 03:42 02/20/17 06:37 White Blood Count 8.87 K/uL 8.23 K/uL Red Blood Count 4.64 M/uL 4.17 M/uL Hemoglobin 13.6 g/dL 12.3 g/dL Hematocrit 43.6 % 39.9 % Mean Corpuscular Volume 94.0 fL 95.7 fL Mean Corpuscular Hemoglobin 29.3 pg 29.5 pg Mean Corpuscular Hemoglobin Concent 31.2 g/dl 30.8 g/dl Platelet Count 231 K/uL 186 K/uL Mean Platelet Volume 10.2 fL 10.5 fL Neutrophils (%) (Auto) 61.9 % Lymphocytes (%) (Auto) 28.0 % Monocytes (%) (Auto) 6.8 % Eosinophils (%) (Auto) 2.5 % Basophils (%) (Auto) 0.7 % Neutrophils # (Auto) 5.50 K/uL Lymphocytes # (Auto) 2.48 K/uL Monocytes # (Auto) 0.60 K/uL Eosinophils # (Auto) 0.22 K/uL Basophils # (Auto) 0.06 K/uL RDW Standard Deviation 46.6 fL 47.7 fL RDW Coefficient of Variation 13.7 % 13.7 % Immature Granulocyte % (Auto) 0.1 % Immature Granulocyte # (Auto) 0.01 K/uL Prothrombin Time 10.0 SECONDS Prothromb Time International Ratio 0.9 Activated Partial Thromboplast Time 28.8 SECONDS 57.9 SECONDS Partial Thromboplastin Ratio 1.1 2.2 Sodium Level 144 mmol/L 146 mmol/L Potassium Level 4.4 mmol/L 4.8 mmol/L Chloride Level 108 mmol/L 110 mmol/L Carbon Dioxide Level 29 mmol/L 30 mmol/L Anion Gap 7.0 mmol/L 6.0 mmol/L Blood Urea Nitrogen 16 mg/dl 16 mg/dl Creatinine 1.60 mg/dl 1.40 mg/dl Est Creatinine Clear Calc Drug Dose 55.3 ml/min 63.2 ml/min Estimated GFR () 48.8 57.4 Estimated GFR (Non- 42.1 49.5 BUN/Creatinine Ratio 10.0 11.5 Random Glucose 105 mg/dl 171 mg/dl Calcium Level 9.5 mg/dl 8.7 mg/dl Total Bilirubin 0.2 mg/dl Direct Bilirubin < 0.1 mg/dl Aspartate Amino Transf (AST/SGOT) 20 U/L Alanine Aminotransferase (ALT/SGPT) 40 U/L Alkaline Phosphatase 84 U/L Total Creatine Kinase 87 U/L Creatine Kinase MB 1.5 ng/ml Creatine Kinase MB Ratio 1.7 Troponin I 0.039 ng/ml 0.030 ng/ml 0.029 ng/ml Pro-B-Type Natriuretic Peptide 628 pg/ml Total Protein 7.7 gm/dl Albumin 3.7 gm/dl Lipase 463 U/L 225 U/L Bedside Glucose 177 mg/dl Imaging: EKG: Telemetry reviewed: Assessment & Plan Chest Pain Chest xray in ED was normal, apart from cardiomegaly EKGs performed show left axis deviation, RBBB and ST wave inversions in anterior leads, however these changes were present on EKGs from 2014 and 2016. No new changes Initial troponin was 0.03 and 0.029 6 hours later. This downward trend is reassuring that his recent chest pain is likely not cardiac in origin His one month history of anginal symptoms is concerning, and therefore he will be sent for a stress test ECHO to assess overall heart function Continue aspirin, carvedilol, enalapril and pravastatin Indigestion IV Zantac, and patient takes Nexium at home Diabetes Mellitus type 2 home medications held On Insulin sliding scale Last Hemoglobin A1c 2 months ago - 6.8% The patient was seen and examined by me in conjunction with Dr. Lott. His case was discussed with her by me. His case was discussed with . Assessment and plan were discussed with the patient and his family. History, medications, social history, review of systems as above. The patient has a longstanding history of coronary artery disease. He underwent a cardiac catheterization March [address] This revealed a 70 percent left main stenosis. 80 percent lad stenosis. 50 percent left circumflex stenosis. 30 percent RCA stenosis. LV ejection fraction 55 percent. He underwent 4 vessel CABG surgery on May 02, 2010. Left internal mammary artery graft to LAD. Saphenous vein graft to LAD diagonal. Saphenous vein bridge graft to 3rd and 4th marginal branches. The patient states at that time his anginal symptoms were a retrosternal pressure. He presents now with 2 different types of chest discomfort. One is a lower retrosternal discomfort which improves with sitting up and belching. It is worsened by lying down. It is been constant for the past few days. No associated symptoms. No increase in the intensity with exertion. For the past month he also complains of an exertionally precipitated retrosternal aching pressure pain. This can radiate to his jaw and back. It can be associated with weakness and dyspnea. The episodes are relieved with rest within a few minutes. He feels that over the past month the discomfort is worsening in intensity. Is also being precipitated by decreasing amounts of exertion. No rest episodes. Today he underwent a stress echocardiogram. This precipitated this type of discomfort. It was relieved with rest within several minutes in the recovery phase. He was given a sublingual nitroglycerin tablet. He feels that the discomfort with likely resolved with rest by itself. Since the stress test no further complaints of chest discomfort. He normally has no dyspnea on exertion. No orthopnea or PND. Occasional episodes of vertigo. No palpitations or syncope. No peripheral edema. No claudication type complaints. No bleeding complaints. No cerebrovascular or peripheral vascular complaints. He has a history of sleep apnea. He does not wear CPAP. He states he cannot tolerate it. History of dyslipidemia, hypertension, diabetes mellitus, and family history of premature coronary artery disease. He also has a history of GE reflux disease and nephrolithiasis. History of diverticulosis and diverticulitis. Past surgical history includes CABG surgery, hand and carpal tunnel release surgery, cholecystectomy, arthroscopic knee surgery, left total knee replacement, TURP. He states that he may require full upper teeth extraction in the future. Exam this afternoon reveals an to be in no distress. Short and thick neck. Mouth: Moist mucous membranes. Poor dentition. Oropharynx not visualized. Neck: No jugular venous distention noted. Carotids 2/2 bilaterally. Normal upstroke. No bruits. Lungs: Normal respiratory effort. Clear. No rales or wheezes. Heart: PMI not palpable. No lifts or heaves. Regular rate and rhythm. S1-S2 normal. No S3 or S4. 2/6 systolic murmur 2nd right costal space lower sternal border. No diastolic murmur or rub. Abdomen: Obese. Soft. Nontender. No palpable masses organomegaly. Extremities: No pretibial edema. No cyanosis or clubbing. Radial pulses strongly palpable bilaterally. Dorsalis pedis and posterior tibial pulses weakly palpable bilaterally. Neurologic: Alert and oriented x3. Motor grossly intact. Psychiatric: Affect is normal. Her resting echocardiogram today with normal biventricular systolic function, mild concentric left ventricular hypertrophy, left ventricular diastolic dysfunction, moderate left atrial and mild right atrial dilatation, trace mitral regurgitation, normal central venous pressure, and mildly elevated estimated right ventricular systolic pressure. Labs today with WBC 8.23, hemoglobin 12.3, hematocrit 39.9, platelet count 186. Troponin I is than 0.039, 0.030, 0.029, and 0.051. Metabolic profile today revealed sodium 146, potassium 4.9, chloride 110, carbon dioxide 30, BUN 16, creatinine 1.40, random glucose 171. Electrocardiogram with normal sinus rhythm, right bundle branch block, T-wave inversions V2-V6. The ST depression V2-V6. Compared to an electrocardiogram of April 03, 2016 anterior T-wave inversions are now present. ST segment depressions are more prominent. The patient underwent a stress echocardiogram today. Positive for his typical anginal symptoms. Worsening of baseline ST segment depressions following exercise. Decrease in blood pressure with exercise. Slight dilatation of the left ventricle post exercise compared to rest. Relative hypokinesis of the anterior, apical, and inferior leavitt following exercise compared to the resting echo images. Findings consistent with multi-vessel and/ or left main disease. Assessment: 1. 2 types of chest discomfort. One exertionally precipitated. Present for the past month. Progressively worsening in regards to use of precipitation and intensity. No rest episodes. This discomfort radiates to his jaw and back. Associated weakness and dyspnea. This symptom is consistent with angina. He had the same symptom with exercise today. The other chest discomfort is suggestive of a GI discomfort. It is relieved with sitting up and or belching. 2. Normal resting left ventricular systolic function wall motion. No evidence of heart failure on exam. 3. CAD risk factors include hypertension, dyslipidemia, diabetes mellitus. 4. Sleep apnea. He is not compliant with CPAP. Despite this he has no evidence of any right ventricular dilatation or right ventricular systolic dysfunction. He does have mild pulmonary hypertension on today's resting echo. 5. Mildly elevated creatinine. 6. Initial troponin eyes were normal. last troponin night mildly increased. recommendations: 1. This been recommended patient to the undergo cardiac catheterization. The procedure, risks, benefits, alternatives were extensively discussed with the patient his . The possible therapeutic recommendations following cardiac catheterization were discussed with him. This would include continued medical therapy, repeat CABG surgery, or a percutaneous coronary intervention. The procedure, risks, benefits, alternatives of coronary intervention were discussed with him. He is agreeable to undergoing cardiac catheterization and possible coronary intervention. The procedures and was scheduled to be performed late tomorrow morning. NPO after 12 midnight tonight. 2. Intravenous fluids overnight to help decrease risk of contrast dye nephropathy. 3. For recommendations and plans will be based upon results of the cardiac catheterization procedure. Thank you for asking us to see this patient cardiology consultation. Resident Tracking Resident Involvement: Resident Care Provided Care Provided: [facility]
[2017-02-20 11:40] VITALS: BP 172/97; PULSE 82; TEMP 36.6; O2SAT 95
[2017-02-20] MEDS: HEPARIN 25,000 UNIT/500ML D5W 500 ML IV PRN (12:09)
[2017-02-20 15:30] VITALS: BP 148/82; PULSE 82; TEMP 36.6; O2SAT 96
--- NOTE | 2017-02-20 17:47 | Medical Student: [facility] ---
Med Student Progress Note Date of Service Feb 20, 2017. Subjective Pt evaluation today including: conversation w/ patient Mr. Goyal is a 71 year old male with a PMH significant for CAD s/p CABG in Apr 2012, b/l torn rotator cuffs, GERD, DM II, cholecystectomy, prostatitis, HLD, HTN, and left knee arthroplasty who presented on 02/19 with 1 month of worsening chest pain. The chest pain has been going on for a month and radiates to his throat, but not his arms. The pain comes on during exertion and is dull in nature. He denies associated diaphoresis, N/V, and SOB. On admission, vitals were WNL. Today, the patient denies any chest pain, SOB, SARMIENTO, abdominal pain, diarrhea or constipation. He does feel fatigued however. He is confused as to whether his pain is associated with indigestion or truly cardiac in nature. Review of Systems Constitutional: No fever, No chills Eyes: No worsening of vision ENT: No hearing loss Respiratory: No cough, No sputum, No wheezing, No shortness of breath Cardiac: No chest pain, No edema, No palpitations Abdomen: No pain, No nausea, No vomiting, No diarrhea, No constipation Musculoskeletal: No joint pain Male : No dysuria, No urinary frequency Endo: + fatigue Objective Vital Signs Date Time Temp Pulse Resp B/P (MAP) Pulse Ox O2 Delivery O2 Flow Rate FiO2 02/20/17 16:00 Room Air 02/20/17 15:30 36.6 82 22 148/82 (104) 96 Room Air 02/20/17 12:00 Room Air 02/20/17 11:40 36.6 82 16 172/97 (122) 95 02/20/17 08:00 Room Air 02/20/17 07:17 36.6 78 16 145/81 (102) 92 Room Air 02/20/17 04:00 Room Air 02/20/17 03:47 36.6 80 18 148/85 (106) 95 Room Air 02/19/17 23:59 Room Air 02/19/17 22:47 36.9 87 18 162/89 96 Room Air 02/19/17 22:15 88 20 142/91 97 02/19/17 21:30 90 20 180/92 96 Room Air 02/19/17 19:07 83 02/19/17 18:44 96 Room Air 02/19/17 18:44 96 Room Air 02/19/17 18:15 87 16 152/81 95 Room Air Physical Exam General Appearance: no apparent distress Eyes: bilateral eyes normal inspection, bilateral eyes PERRL, bilateral eyes EOMI ENT: normal ENT inspection, hearing grossly normal Neck: supple, no adenopathy, thyroid normal, no JVD Respiratory/Chest: lungs clear, normal breath sounds, no respiratory distress, no accessory muscle use Cardiovascular: regular rate, rhythm, no edema, no gallop, no murmur Abdomen: normal bowel sounds, non tender, soft, no organomegaly Extremities: normal range of motion, non-tender, no pedal edema, no calf tenderness 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, no motor/sensory deficits Skin: normal color, warm/dry Laboratory Results Last 24 Hours Test 02/19/17 18:35 02/19/17 21:30 02/20/17 03:42 02/20/17 06:37 White Blood Count 8.87 K/uL 8.23 K/uL Red Blood Count 4.64 M/uL 4.17 M/uL Hemoglobin 13.6 g/dL 12.3 g/dL Hematocrit 43.6 % 39.9 % Mean Corpuscular Volume 94.0 fL 95.7 fL Mean Corpuscular Hemoglobin 29.3 pg 29.5 pg Mean Corpuscular Hemoglobin Concent 31.2 g/dl 30.8 g/dl Platelet Count 231 K/uL 186 K/uL Mean Platelet Volume 10.2 fL 10.5 fL Neutrophils (%) (Auto) 61.9 % Lymphocytes (%) (Auto) 28.0 % Monocytes (%) (Auto) 6.8 % Eosinophils (%) (Auto) 2.5 % Basophils (%) (Auto) 0.7 % Neutrophils # (Auto) 5.50 K/uL Lymphocytes # (Auto) 2.48 K/uL Monocytes # (Auto) 0.60 K/uL Eosinophils # (Auto) 0.22 K/uL Basophils # (Auto) 0.06 K/uL RDW Standard Deviation 46.6 fL 47.7 fL RDW Coefficient of Variation 13.7 % 13.7 % Immature Granulocyte % (Auto) 0.1 % Immature Granulocyte # (Auto) 0.01 K/uL Prothrombin Time 10.0 SECONDS Prothromb Time International Ratio 0.9 Activated Partial Thromboplast Time 28.8 SECONDS 57.9 SECONDS Partial Thromboplastin Ratio 1.1 2.2 Sodium Level 144 mmol/L 146 mmol/L Potassium Level 4.4 mmol/L 4.8 mmol/L Chloride Level 108 mmol/L 110 mmol/L Carbon Dioxide Level 29 mmol/L 30 mmol/L Anion Gap 7.0 mmol/L 6.0 mmol/L Blood Urea Nitrogen 16 mg/dl 16 mg/dl Creatinine 1.60 mg/dl 1.40 mg/dl Est Creatinine Clear Calc Drug Dose 55.3 ml/min 63.2 ml/min Estimated GFR () 48.8 57.4 Estimated GFR (Non- 42.1 49.5 BUN/Creatinine Ratio 10.0 11.5 Random Glucose 105 mg/dl 171 mg/dl Calcium Level 9.5 mg/dl 8.7 mg/dl Total Bilirubin 0.2 mg/dl Direct Bilirubin < 0.1 mg/dl Aspartate Amino Transf (AST/SGOT) 20 U/L Alanine Aminotransferase (ALT/SGPT) 40 U/L Alkaline Phosphatase 84 U/L Total Creatine Kinase 87 U/L Creatine Kinase MB 1.5 ng/ml Creatine Kinase MB Ratio 1.7 Troponin I 0.039 ng/ml 0.030 ng/ml 0.029 ng/ml Pro-B-Type Natriuretic Peptide 628 pg/ml Total Protein 7.7 gm/dl Albumin 3.7 gm/dl Lipase 463 U/L 225 U/L Bedside Glucose 177 mg/dl Test 02/20/17 10:59 02/20/17 11:19 02/20/17 16:05 Troponin I 0.051 ng/ml Bedside Glucose 164 mg/dl 173 mg/dl Assessment and Plan Assessment and Plan: Assessment: Mr. Goyal is a 71 year old male with a PMH significant for CAD s/p CABG in Apr 2012, b/l torn rotator cuffs, GERD, DM II, cholecystectomy, prostatitis, HLD, HTN, and left knee arthroplasty who presented on 02/19 with 1 month of worsening chest pain. Differential diagnosis for the chest pain includes NSTEMI, unstable angina, GERD, aortic dissection, pneumothorax, and pneumonia. Chest X-ray showed cardiomegaly, calcifications in the thoracic aorta , a calcified granuloma and bibasilar atelectasis with no signs of pneumothorax , a widened mediastinum, or consolidation. The patient has remained afebrile, has had normal WBC counts, and does not have a history of cough, which also makes it unlikely the patient has pneumonia. It is also unlikely the patient has an aortic dissection considering the pain does not radiate to his back and the CXR did not show a widened mediastinum. EKGs have shown RBBB, anterolateral ST depressions and T wave inversions. Serial troponins were negative until today at 0.051. Stress testing today elicited anginal symptoms after 4 minutes on the treadmill, showed anterior wall motion abnormalities, and LV dilatation. It is likely the patient has been experiencing chest pain attributed to both a NSTEMI and indigestion considering symptomatology of different types of chest pain, one upon laying down at night and the other upon exertion. BNP was normal at 628. Plan: Chest pain - ACS/NSTEMI vs. GERD -Stress testing was positive for anginal symptoms, anterior wall motion abnormalities, and LV dilatation indicating that chest pain is cardiac in nature -most recent lipid panel on 12/27 - t chol 136, LDL 70, TRIG 160, and HDL 39 -per cardiology recommendation - heart catheterization planned for tomorrow, keep NPO overnight & d/c IV heparin and ASA for procedure tmr AM -order echo -nitropaste for chest pain -continue carvedilol 12.5 mg PO BID -continue enalapril 5 mg PO daily Dehydration & elevated Cr - resolved, Cr decreased from 1.6 to 1.4 -continue IVF NS 1000 cc @ 100cc/hr Diabetes -most recent HbA1C on 12/27 was 6.8 -d/c home dulaglutide -continue insulin sliding scale GERD Protonix 40 mg PO daily Hx nephrolithiasis -allopurinol 200 mg PO daily
--- NOTE | 2017-02-20 18:47 | EXERCISE STRESS ECHO ---
*NOTICE TO RECEIVING [employer] This information is strictly Confidential and protected under [place] law. [place] law prohibits you from making any further disclosure of this information unless further disclosure is expressly permitted by the written consent of the person to whom it pertains or is authorized by law. A general authorization for the release of medical or other information is not sufficient for this purpose. Hospital accepts no responsibility if the information is made available to any other person, INCLUDING THE PATIENT. Interpretation Summary * Name: AMY CONLEY Study Date: 02/20/2017 01:19 PM BP: 162/92 mmHg * Patient Location: .2T\S\S230\S\1 HR: 90 * : 1945 (M/d/yyy) Gender: Male Height: 71 in * Age: 71 yrs Ethnicity: [place] Weight: 275 lb * Ordering Physician: Owen Rose * Referring Physician: Alexa Lovell * Performed By: Peggy Hammond RDCS * * Reason For Study: Chest pain, ROSARIO * BSA: 2.4 m2 * Exercise stress echocardiogram to maximal heart rate of 137 beats per minute (93 percent maximum predicted heart rate) positive for patient's typical chest discomfort. The electrocardiographic ST segment changes following exercise are diagnostic of myocardial ischemia. Left ventricular dilatation post exercise. Relative hypokinesis in multiple LV segments postexercise. These findings are consistent with left main and or triple-vessel coronary artery disease. * Resting echocardiogram with normal biventricular systolic function. Mild concentric left ventricular hypertrophy. Left ventricular diastolic dysfunction. Moderate left atrial dilatation. Mild right atrial dilatation. Trace tricuspid regurgitation. Mild pulmonary hypertension. Normal estimated central venous pressure based on the appearance of the inferior vena cava. * -- Conclusions -- * Aortic valve sclerosis moderate, without significant aortic valvular stenosis. Procedure Details * ECHOEX, CPT #[id number] * ECHO DOPPLER, CPT #[id number] * ECHO COLOR FLOW, CPT #[id number] * A contrast injection of Definity was performed to improve assessment of LV function. * Contrast was injected into an intravenous site in the left arm. * One vial of Definity ultrasound contrast was diluted in normal saline to a total volume of 10 ml. A total of '5' ml of solution was administered during imaging. * Lot # [id number] of Definity utilized for procedure. * Expiration date MAR 30. * The attending nurse who injected the contrast agent was Fiorella Holguin RN. Left Ventricle * The left ventricle is normal in size. * There is mild concentric left ventricular hypertrophy. * Left ventricular systolic function is normal. * Ejection Fraction = 60-65%. * A full diastolic examination was done with clinical findings of Class I diastolic dysfunction. * The left ventricular wall motion is normal at rest. * Following exercise the left ventricle appeared to dilate compared to the resting images. Relative hypokinesis in the anteroseptal, anterior, and inferior leavitt compared with the resting echo images. Right Ventricle * The right ventricle is normal in size and function. * The right ventricular systolic function is normal as assessed by tricuspid annular plane systolic excursion (TAPSE) (normal >1.5 cm). Atria * The left atrium is moderately dilated. * The right atrium is mildly dilated. * No ASD detected; PFO is not assessed. Mitral Valve * There is moderate mitral annular calcification. * There is no mitral valve stenosis. * There is no mitral regurgitation noted. Tricuspid Valve * The tricuspid valve is not well visualized, but is grossly normal. * There is no tricuspid stenosis. * Right ventricular systolic pressure is elevated at 30-40mmHg. * There is trace tricuspid regurgitation. Aortic Valve * The aortic valve is trileaflet. * The aortic valve opens well. * Aortic valve sclerosis moderate, without significant aortic valvular stenosis. * No hemodynamically significant valvular aortic stenosis. * No aortic regurgitation is present. Pulmonic Valve * The pulmonic valve is not well seen, but is grossly normal. * Pulmonic stenosis is absent. * There is no pulmonic valvular regurgitation. Pericardium * There is no pericardial effusion. Stress Parameters * Normal sinus rhythm, right bundle branch block, ST depressions leads 2, 3, AVF, V2-V6. Inverted T-waves to biphasic T-waves in the inferior and anterolateral leads. * Worsening of the ST depression seen in the inferior and anterolateral leads. Initially pseudonormalization of the T-wave inversions. In the recovery phase T-wave inversions in leads 2, 3, AVF, V2-V6. 2.4-3.[address] depressions in the inferior leads post exercise. 1.0-2.0 ST depressions leads V2-V6. * Arrhythmia noted in recovery: frequent PVC's. * Rest heart rate was '90' BPM. * Rest blood pressure was '197/46' * Maximum heart rate achieved was 137 bpm. * Maximum heart rate was 93 % of maximum age-predicted heart rate. * Maximum blood pressure was '197/46' * Total exercise time was '3:30' * Maximum exercise MET level achieved was '5.20' METS * Maximum treadmill speed was '2.50' miles per hour. * Maximum treadmill elevation was '12.00'% grade. * Exercise was terminated due to 'dyspnea' * The patient experienced his typical anginal chest discomfort radiating to his back control with exercise. It resolved in the recovery phase. Decrease in systolic blood pressure with exercise. MMode 2D Measurements and Calculations IVSd 1.2 cm LVIDd 3.8 cm LVIDs 2.6 cm LVPWd 1.2 cm IVS/LVPW 1.1 FS 32.9 % EDV(Teich) 62.7 ml ESV(Teich) 23.8 ml EF(Teich) 62.1 % EDV(cubed) 55.8 ml ESV(cubed) 16.9 ml EF(cubed) 69.7 % LV mass(C)d 157.3 grams LV mass(C)dI 65.1 grams/m\S\2 SV(Teich) 39.0 ml SI(Teich) 16.1 ml/m\S\2 SV(cubed) 38.9 ml SI(cubed) 16.1 ml/m\S\2 Ao root diam 3.4 cm Ao root area 8.9 cm\S\2 ACS 1.7 cm LA dimension 5.0 cm LA/Ao 1.5 LVOT diam 2.0 cm LVOT area 3.1 cm\S\2 LVAd ap4 33.9 cm\S\2 LVLd ap4 8.6 cm EDV(MOD-sp4) 108.8 ml EDV(sp4-el) 113.6 ml LVAs ap4 20.5 cm\S\2 LVLs ap4 7.8 cm ESV(MOD-sp4) 45.6 ml ESV(sp4-el) 45.8 ml EF(MOD-sp4) 58.1 % EF(sp4-el) 59.7 % LVAd ap2 24.7 cm\S\2 LVLd ap2 7.9 cm EDV(MOD-sp2) 62.5 ml EDV(sp2-el) 65.4 ml LVAs ap2 14.6 cm\S\2 LVLs ap2 7.1 cm ESV(MOD-sp2) 24.6 ml ESV(sp2-el) 25.4 ml EF(MOD-sp2) 60.7 % EF(sp2-el) 61.2 % LVLd %diff -8.17 % EDV(MOD-bp) 86.2 ml LVLs %diff -9.42 % ESV(MOD-bp) 34.5 ml EF(MOD-bp) 59.9 % SV(MOD-sp4) 63.2 ml SI(MOD-sp4) 26.2 ml/m\S\2 SV(MOD-sp2) 38.0 ml SI(MOD-sp2) 15.7 ml/m\S\2 SV(MOD-bp) 51.7 ml SI(MOD-bp) 21.4 ml/m\S\2 SV(sp4-el) 67.8 ml SI(sp4-el) 28.1 ml/m\S\2 SV(sp2-el) 40.0 ml SI(sp2-el) 16.6 ml/m\S\2 Doppler Measurements and Calculations MV E max xuan 108.7 cm/sec MV A max xuan 108.2 cm/sec MV E/A 1.0 MV dec time 0.19 sec Ao V2 max 149.3 cm/sec Ao max PG 8.9 mmHg Ao max PG (full) 4.6 mmHg MILAN(V,A) 2.2 cm\S\2 MILAN(V,D) 2.2 cm\S\2 LV V1 max PG 4.3 mmHg LV V1 max 103.8 cm/sec PA V2 max 97.7 cm/sec PA max PG 3.8 mmHg PA acc slope 436.9 cm/sec\S\2 PA acc time 0.12 sec TR max xuan 275.5 cm/sec PA pr(Accel) 23.5 mmHg
[2017-02-20] MEDS: ALLOPURINOL 300 MG TAB PO SCH (19:35)
[2017-02-20] MEDS: ENALAPRIL MALEATE 5 MG TAB PO SCH (19:36)
[2017-02-20] MEDS ORDERED: ASPIRIN 81 MG CHEW PO STA (19:42)
[2017-02-20 19:52] VITALS: BP 152/92; PULSE 79; TEMP 36.7; O2SAT 93
[2017-02-20] MEDS ORDERED: PRAVASTATIN SOD 40 MG TAB PO SCH (21:00)
[2017-02-20 23:14] VITALS: BP 143/66; PULSE 80; TEMP 36.9; O2SAT 95
[2017-02-21] VITALS (17 sets, daily range): BP systolic 129–173; BP diastolic 62–91; PULSE 68–91; TEMP 36.5–37; O2SAT 93–98
[2017-02-21] MEDS: NITROGLYCERIN OINT 2% 1GM PACKET EXT SCH ×4 (03:26→21:04)
[2017-02-21] MEDS: SODIUM CHLORIDE 0.9% 1000ML 1,000 ML IV SCH (03:26)
[2017-02-21] MEDS: HEPARIN 25,000 UNIT/500ML D5W 500 ML IV PRN ×2 (05:11→07:01)
--- NOTE | 2017-02-21 06:22 | Procedure Note ---
Pre-Mod Sedation Assessment General Date of Moderate Sedation: Feb 21, 2017. Vital Signs: Vital Signs Past 12 Hours Date Time Temp Pulse Resp B/P (MAP) Pulse Ox O2 Delivery O2 Flow Rate FiO2 02/21/17 04:23 36.9 80 18 143/66 95 Room Air 02/21/17 04:11 36.5 74 18 159/64 (95) 98 Room Air 02/21/17 04:00 Room Air 02/21/17 00:14 Room Air 02/20/17 23:14 36.9 80 18 143/66 (91) 95 Room Air 02/20/17 19:52 36.7 79 22 152/92 (112) 93 Room Air 02/20/17 19:35 Room Air Review Cardiovascular: regular rate, rhythm, no edema, no gallop, + systolic murmur Abdomen: normal bowel sounds, non tender, soft Lungs: lungs clear Pre-Sedation Airway Assessment Oral Cavity: Dental Abnormalities Able to Visualize Vocal Cords: No Short Thick Neck: Yes Hx of Sleep Apnea: Yes Smoking Status: Never Smoker Mallampati Classification: Class IV Procedure Planning Contraindications-for Mod Sed: None Yes Notes The planned sedation has been discussed with the patient and consent obtained. I have identified the patient, determined the appropriateness of sedation and have assessed the patient immediately prior to the procedure. All medicine(s) and interventions are by my order.
[2017-02-21 06:25] LABS: HEMATOCRIT 38.2 % (42-52); MEAN CELL VOLUME 93.2 fL (80-100); MEAN CORPUSCULAR HGB CONC 31.2 g/dl (32-36); MEAN PLATELET VOLUME 10.1 fL (7.4-10.4); PLATELET COUNT 180 K/uL (130-400); WHITE BLOOD COUNT 6.88 K/uL (4.8-10.8)
[2017-02-21] MEDS: INSULIN ASPART 100 UNITS/ML 3 ML PEN SC SCH ×4 (07:00→20:28)
--- NOTE | 2017-02-21 07:12 | Clinical Documentation Query ---
QUERY 1 OF [address] HUTCHINSON, In your clinical opinion is this patient being managed for: ( x ) NSTEMI ( ) Other explanation of clinical findings (Please Explain) ( ) Unable to determine (Please Define) ( ) Need to Discuss ( ) Not Agree The medical record reflects the following clinical findings, treatment, and risk factors. Clinical Indicators: 71 yo male presenting with chest pain radiating into throat and back and indigestion symptoms x 5 days. Trops 0.039/0.030/0.029/0.051. ECHO showed The electrocardiographic ST segment changes following exercise are diagnostic of myocardial ischemia. Left ventricular dilatation post exercise. Relative hypokinesis in multiple LV segments postexercise. Treatment: IV heparin, pending cardiac cath, IV heparin, ECHO, cardiology consult, nitropaste, Continue aspirin, carvedilol, enalapril and pravastatin Risk Factors: age, DM, CAD QUERY 2 OF 2 The diagnosis of Acute Kidney Injury is noted on the H/P. Subsequent progress notes indicate "Acute on chronic renal insufficiency". Unfortunately, many physicians will use the terms acute renal insufficiency and acute renal failure as interchangeable diagnoses. In coding language, they are not synonymous. The code assignment for acute renal insufficiency is considered an unspecified disorder of the kidney and ureter - not likely the diagnosis or acuity intended by the physician. In your clinical opinion is this patient being managed for: ( x ) Acute kidney failure on CKD stage III ( ) Other explanation of clinical findings (Please Explain) ( ) Unable to determine (Please Define) ( ) Need to Discuss ( ) Not Agree The medical record reflects the following clinical findings, treatment, and risk factors. Clinical Indicators: GFR range of 42.1-60.1 over the past 2 years Treatment: acute phase treated with IV fluids, monitor PRP's, treatment of acute and chronic diseases Risk Factors: CAD, DM, age, NSTEMI Please clarify and document your clinical opinion in the progress notes and discharge summary. Terms such as "probable", "suspected", "likely", "questionable", "possible", or "still to be ruled out" are acceptable. IF IN AGREEMENT, YOU MUST DOCUMENT ABOVE DIAGNOSTIC STATEMENT IN DAILY PROGRESS NOTES AND DISCHARGE SUMMARY. This document is not part of the patient's record. Thank You, Lily Khan RN [phone]
--- NOTE | 2017-02-21 07:17 | Clinical Documentation Query ---
QUERY 1 OF [address] YOUNG, In your clinical opinion is this patient being managed for: ( x ) NSTEMI ( ) Other explanation of clinical findings (Please Explain) ( ) Unable to determine (Please Define) ( ) Need to Discuss ( ) Not Agree The medical record reflects the following clinical findings, treatment, and risk factors. Clinical Indicators: 71 yo male presenting with chest pain radiating into throat and back and indigestion symptoms x 5 days. Trops 0.039/0.030/0.029/0.051. EKG: ST & T wave abnormality, consider anterior ischemia. ECHO showed The electrocardiographic ST segment changes following exercise are diagnostic of myocardial ischemia. Left ventricular dilatation post exercise. Relative hypokinesis in multiple LV segments postexercise. Treatment: IV heparin, pending cardiac cath, IV heparin, ECHO, cardiology consult, nitropaste, Continue aspirin, carvedilol, enalapril and pravastatin Risk Factors: age, DM, CAD QUERY 2 OF 2 The diagnosis of Acute Kidney Injury is noted on the H/P. Subsequent progress notes indicate "Acute on chronic renal insufficiency". Unfortunately, many physicians will use the terms acute renal insufficiency and acute renal failure as interchangeable diagnoses. In coding language, they are not synonymous. The code assignment for acute renal insufficiency is considered an unspecified disorder of the kidney and ureter - not likely the diagnosis or acuity intended by the physician. In your clinical opinion is this patient being managed for: ( x) Acute kidney failure on CKD stage III ( ) Other explanation of clinical findings (Please Explain) ( ) Unable to determine (Please Define) ( ) Need to Discuss ( ) Not Agree The medical record reflects the following clinical findings, treatment, and risk factors. Clinical Indicators: GFR range of 42.1-60.1 over the past 2 years Treatment: acute phase treated with IV fluids, monitor PRP's, treatment of acute and chronic diseases Risk Factors: CAD, DM, age, NSTEMI Please clarify and document your clinical opinion in the progress notes and discharge summary. Terms such as "probable", "suspected", "likely", "questionable", "possible", or "still to be ruled out" are acceptable. IF IN AGREEMENT, YOU MUST DOCUMENT ABOVE DIAGNOSTIC STATEMENT IN DAILY PROGRESS NOTES AND DISCHARGE SUMMARY. This document is not part of the patient's record. Thank You, Lily Khan RN [phone]
[2017-02-21] MEDS: ASPIRIN 81 MG ECTAB PO SCH (07:56)
[2017-02-21] MEDS: PANTOprazole SOD 40 MG TAB PO SCH (07:56)
[2017-02-21] MEDS: CARVEDILOL 12.5 MG TAB PO SCH (07:56)
--- NOTE | 2017-02-21 11:26 | Family Medicine Progress Note ---
Progress Note Date of Service Feb 21, 2017. Subjective Pt evaluation today including: conversation w/ patient Feels well, is getting cath this AM, has been NPO. Denies any pain. Constitutional: No fever ENT: No hearing loss Respiratory: No cough, No sputum Cardiovascular: No chest pain All Other Systems: Reviewed and Negative Medications Current Inpatient Medications Medications (Trade) Dose Ordered Sig/Mathew Route Start Time Stop Time Status Last Admin Dose Admin Acetaminophen (Tylenol Tab) 650 mg Q4H PRN PO 02/19/17 21:00 03/21/17 20:59 Al Hydrox/Mg Hydrox/Simethicone (Maalox Max Susp) 15 ml Q4H PRN PO 02/19/17 21:00 03/21/17 20:59 Ondansetron HCl (Zofran Inj) 4 mg Q6H PRN IV 02/19/17 21:00 03/21/17 20:59 Nitroglycerin (Nitrostat Tab) 0.4 mg UD PRN SL 02/19/17 21:00 03/21/17 20:59 Polyethylene (Miralax Powder Packet) 17 gm DAILY PRN PO 02/19/17 21:00 03/21/17 20:59 Allopurinol (Zyloprim Tab) 300 mg HS PO 02/20/17 21:00 03/22/17 20:59 02/20/17 19:35 300 MG Carvedilol (Coreg Tab) 12.5 mg BID PO 02/20/17 09:00 03/22/17 08:59 02/21/17 07:56 12.5 MG Enalapril Maleate (Vasotec Tab) 5 mg HS PO 02/20/17 21:00 03/22/17 20:59 02/20/17 19:36 5 MG Pantoprazole Sodium (Protonix Tab) 40 mg QAM PO 02/20/17 09:00 03/22/17 08:59 02/21/17 07:56 40 MG Pravastatin Sodium (Pravachol Tab) 80 mg HS PO 02/20/17 21:00 03/22/17 20:59 02/20/17 19:36 80 MG Sodium Chloride 1,000 ml @ 100 mls/hr Q10H IV 02/19/17 22:30 03/21/17 22:29 02/21/17 03:26 100 MLS/HR Nitroglycerin (Nitroglycerin 2% Oint) 1 inch Q6H EXT 02/20/17 04:00 03/22/17 03:59 02/21/17 09:37 1 INCH Heparin Sodium/ Dextrose 500 ml @ 34 mls/hr [id number] PRN IV 02/19/17 22:45 03/21/17 22:44 02/21/17 05:11 34 MLS/HR Insulin Aspart (novoLOG ASPART) SLIDING SCALE G... ACHS SC 02/20/17 07:00 03/22/17 06:59 02/20/17 17:23 1 UNITS Glucose (Glucose 40% Gel) 15-30 GRAMS 15 GRAMS... UD PRN PO 02/20/17 02:00 03/22/17 01:59 Glucose (Glucose Chew Tab) 4-8 Tablets 4 Tabl... UD PRN PO 02/20/17 02:00 03/22/17 01:59 Dextrose (Dextrose 50% 50ML Syringe) 25-50ML OF 50% DW IV FOR... UD PRN IV 02/20/17 02:00 03/22/17 01:59 Glucagon (Glucagon Inj) 1 mg UD PRN SQ 02/20/17 02:00 03/22/17 01:59 Aspirin (Ecotrin Tab) 81 mg QAM PO 02/21/17 09:00 03/23/17 08:59 02/21/17 07:56 81 MG Objective Vital Signs Date Time Temp Pulse Resp B/P (MAP) Pulse Ox O2 Delivery O2 Flow Rate FiO2 02/21/17 11:02 36.8 72 18 149/77 (101) 97 Room Air 02/21/17 08:00 Room Air 02/21/17 07:54 36.7 73 20 157/73 (101) 94 Room Air 02/21/17 04:23 36.9 80 18 143/66 95 Room Air 02/21/17 04:11 36.5 74 18 159/64 (95) 98 Room Air 02/21/17 04:00 Room Air 02/21/17 00:14 Room Air 02/20/17 23:14 36.9 80 18 143/66 (91) 95 Room Air 02/20/17 19:52 36.7 79 22 152/92 (112) 93 Room Air 02/20/17 19:35 Room Air 02/20/17 16:00 Room Air 02/20/17 15:30 36.6 82 22 148/82 (104) 96 Room Air 02/20/17 12:00 Room Air 02/20/17 11:40 36.6 82 16 172/97 (122) 95 Physical Exam General Appearance: WD/WN, no apparent distress, + obese Eyes: normal inspection, PERRL ENT: hearing grossly normal Neck: supple, no JVD Respiratory/Chest: lungs clear, normal breath sounds, no respiratory distress Cardiovascular: regular rate, rhythm, no murmur Abdomen: normal bowel sounds, non tender, soft Extremities: non-tender, no pedal edema Neurologic/Psychiatric: alert, normal mood/affect, oriented x 3 Laboratory Results Last 24 Hours Test 02/20/17 16:05 02/20/17 20:06 02/21/17 05:28 02/21/17 06:49 Bedside Glucose 173 mg/dl 163 mg/dl 160 mg/dl White Blood Count 6.88 K/uL Red Blood Count 4.10 M/uL Hemoglobin 11.9 g/dL Hematocrit 38.2 % Mean Corpuscular Volume 93.2 fL Mean Corpuscular Hemoglobin 29.0 pg Mean Corpuscular Hemoglobin Concent 31.2 g/dl RDW Standard Deviation 46.2 fL RDW Coefficient of Variation 13.5 % Platelet Count 180 K/uL Mean Platelet Volume 10.1 fL Activated Partial Thromboplast Time 53.0 SECONDS Partial Thromboplastin Ratio 2.0 Assessment and Plan 71 yo M with known CAD, s/p CABG, and T2DM who presents with 5 days of chest pain / indigestion - with EKG changes - for cardiac cath today. Chest pain on background of known CAD, s/p CABG 5y ago - Continue home aspirin, beta mis, statin, and ANETA-I - Pending cardiac cath Indigestion - Pt takes Nexium at home - Will provide IV Zantac now as pt is NPO, will transition to PO tomorrow/later today Acute on chronic renal insufficiency - Continue to monitor - Is on IV fluids Elevated lipase on admission (463) - Has decreased to 220 - No clinical signs of pancreatitis - Will continue to monitor Type 2 DM - Placed on insulin sliding scale - Last A1c on 12/21/16 was 6.8% DVT prophylaxis: Heparin drip Full code Disposition: Admitted to telemetry Resident Physician Supervision Note: I interviewed and examined the patient. Discussed with Dr. Grossman and agree with findings and plan as documented in the note. Any exceptions or clarifications are listed here: None Documented By: wOen Rose feeling good post cath understands results stent and med plan. discussed med changes w pt and family. notes that he thinks maybe he got leg cramps w lipitor before and crestor upset his stomach, that's how he ended up on pravachol. also notes that w superiority for CAD he's more than willing to try again w lipitor and knows what to watch for if aches happen. all other ROS otherwise negative except for as above vitals noted nad breathing unlabored no pallor or icterus CAD unstable angina - stable post cath med management hopefully home tomorrow Resident Tracking Resident Involvement: Resident Care Provided Care Provided: Adult Hospital Medicine
[2017-02-21] MEDS ORDERED: MIDAZOLAM HCL 1 MG/ML 2ML VIAL ONE ×2 (11:59→13:31)
[2017-02-21] MEDS ORDERED: FENTANYL CITRATE INJ 50 MCG/1 ML 2 ML VIAL ONE ×2 (11:59→13:32)
[2017-02-21] MEDS ORDERED: NiCARDipine HCL INJ 2.5 MG/ML 10 ML AMP ONE (13:20)
[2017-02-21] MEDS ORDERED: HEPARIN SOD (PORCINE) 1000 UNIT/ML 10 ML VIAL ONE (13:20)
[2017-02-21] MEDS ORDERED: NITROGLYCERIN/D5W 100MCG/ML 20ML SYR ONE (13:20)
[2017-02-21] MEDS ORDERED: CLOPIDOGREL BISULFATE 300 MG TAB PO ONE (13:55)
--- NOTE | 2017-02-21 14:14 | Procedure Note ---
Pre-Mod Sedation Assessment General Date of Moderate Sedation: Feb 21, 2017. Vital Signs: Vital Signs Past 12 Hours Date Time Temp Pulse Resp B/P (MAP) Pulse Ox O2 Delivery O2 Flow Rate FiO2 02/21/17 13:54 69 18 158/97 (117) 97 Mask 3 02/21/17 11:44 36.8 72 18 149/77 97 Room Air 02/21/17 11:40 Room Air 02/21/17 11:02 36.8 72 18 149/77 (101) 97 Room Air 02/21/17 08:00 Room Air 02/21/17 07:54 36.7 73 20 157/73 (101) 94 Room Air 02/21/17 04:23 36.9 80 18 143/66 95 Room Air 02/21/17 04:11 36.5 74 18 159/64 (95) 98 Room Air 02/21/17 04:00 Room Air Review Cardiovascular: regular rate, rhythm, no edema, + systolic murmur Abdomen: normal bowel sounds, non tender, soft Lungs: lungs clear Pre-Sedation Airway Assessment Oral Cavity: WNL Able to Visualize Vocal Cords: No Short Thick Neck: Yes Hx of Sleep Apnea: Yes Smoking Status: Never Smoker Mallampati Classification: Class III ASA Classification: Class III Procedure Planning Contraindications-for Mod Sed: None Yes Notes The planned sedation has been discussed with the patient and consent obtained. I have identified the patient, determined the appropriateness of sedation and have assessed the patient immediately prior to the procedure. All medicine(s) and interventions are by my order.
--- NOTE | 2017-02-21 14:14 | Procedure Note ---
Post-Mod Sedation Assessment General Date of Moderate Sedation Feb 21, 2017. Vital Signs: Vital Signs Past 12 Hours Date Time Temp Pulse Resp B/P (MAP) Pulse Ox O2 Delivery O2 Flow Rate FiO2 02/21/17 13:54 69 18 158/97 (117) 97 Mask 3 02/21/17 11:44 36.8 72 18 149/77 97 Room Air 02/21/17 11:40 Room Air 02/21/17 11:02 36.8 72 18 149/77 (101) 97 Room Air 02/21/17 08:00 Room Air 02/21/17 07:54 36.7 73 20 157/73 (101) 94 Room Air 02/21/17 04:23 36.9 80 18 143/66 95 Room Air 02/21/17 04:11 36.5 74 18 159/64 (95) 98 Room Air 02/21/17 04:00 Room Air Review - Discharge Criteria Vital Signs Stable: Yes Alert/Oriented/Conversant: Yes Returned to Baseline Mental St: Yes Nausea Absent/Minimal: Yes Pain/Discomfort/Absent/Minimal: Yes Normal/Baseline Respirations: Yes Active Bleeding?: No Pt Received D/C Instructions: N/A Prescriptions Given: None Specific Proced. D/C Criteria Distal Pulses Present (Cardiac: Yes Groin site assessed-Card Cath: N/A Voided Prior To Discharge: N/A Discharged Patients Adult Escort/Transportation: Yes
--- NOTE | 2017-02-21 14:34 | Cardiac Catheterization ---
Procedure Note Procedure Date Feb 21, 2017. Pre-Procedure Diagnosis Non STEMI, Positive Stress Test AUC Score 8 Post-Procedure Diagnosis Severe CAD, Successful PCI Procedure(s) Performed Coronary Angiography, Drug Eluting Stent, Bypass Graft Angiography, Femoral Artery Angiography Supervisor [employer] Bill Creative Services Manager(s) Roger Estimated Blood Loss 20 Medication(s) Clopidogrel, Fentanyl, Heparin, Nicardipine, Versed, Lidocaine 1% Summary of Findings Indication: NSTEM, accelerating angina, Positive stress test Access: 6Fr Right Femoral Artery Catheters: JL4, JR4, LCB, AR1 guide Findings: LM - Heavily calcified, 70-80% distal stenosis LAD - Heavily calcified, 80% proximal stenosis, 70-80% stenosis in mid segment after 1st diagonal. Circumflex - Heavily calcified, subtotal occlusion at ostium RCA - Small caliber vessel, co-dominant, 30-40% proximally. Right to left septal collaterals. HAILE-LAD - small atretic SVG-Diagonal - not visualized. suspect chronically occluded SVG-OM3-OM4 - 95% proximal stenosis, remainder of graft without significant disease; retrofills OM1, OM2 and distal L-PDA -- PCI -- Antithrombotic therapy: Heparin, Clopidogrel Procedure: SVG-OM cannulated with AR1 guide Attempted to place filter wire distally but unable to pass past severe, fibrotic proximal SVG lesion despite pre-dilation with 2.0 balloon. BMW passed into distal vein graft, la posta circumflex SVG lesion predilated with 2.0, 3.0 compliant balloon Dilated lesion stented with 3.5 x 18 Resolute LAURIE brought back to ostium of SVG Stent post-dilated with 3.75 noncompliant balloon IC vasodilators administered for spasm Post procedure KAREN 3 flow, stent well expanded with minimal residual stenosis and no apparent cardiac complications. Arterial Closure: AngioSeal Summary: 1. Severe la posta multivessel coronary artery disease - 80% distal left main - 80% proximal, 70-80% mid LAD - Subtotal ostial circumflex occlusion 2. Patent SVG to OM3-OM4 with 95% proximal stenosis - Atretic HAILE-LAD - Occluded SVG-Diagonal 3. Successful PCI of ostial/proximal SVG-OM3-OM4 with 3.5 x 18 Resolute LAURIE Recommendations: To PCU for continued monitoring Loaded with Clopidogrel 600 mg Continue dual-antiplatelet therapy for at least 1 year Continue statin, and ASCVD risk factor modification Consult cardiac Rehab Medical management of chronic LM/LAD disease. If severe refractory symptoms as an outpatient PCI to LM/LAD could be considered. Due to heavy calcification would likely require atherectomy at a tertiary center. Hemodynamics Rest Ao: 151/78/110 Final Ao: 145/75/106 LV: -- Recommendations PCI without planned CABG Specimens None Radiation Exposure (mGy) 6413 Contrast (mls) 235 Fluids (cc crystalloids) 185 Drains None Anesthesia Moderate (12:13 - 13:54) Procedural Complication(s) None Disposition PCU ACC Data Cardiac Status Clinical evaluation leading to the procedure CAD Presntation: Non STEMI, Positive Stress Test Anginal Classification: CCS III Heart Failure: No, NYHA Class: CCS I Cardiogenic Shock w/in 24Hrs: No Cardiac Arrest w/in 24Hrs: No Imaging studies past 6 months: Yes Stress studies past 6 months: Yes Stress Echocardiogram: Yes - Positive, Risk/Extent of Ischemia (High) Coronary Anatomy Dominant: Co-dominant Left Main (% Stenosis): Distal LAD (% Stenosis): Proximal (80), Mid (80) Circumflex (% Stenosis): Ostial (99) RCA (% Stenosis): Proximal (30-40) Grafts - LAD (%): Distal (Atretic) Grafts - Circumflex (%): Proximal (95) Diagnostic Physician's Name: Lul Khan MD Status: Elective Closure Device Percutaneous Entry Location: Femoral Closure Device: Angio-Seal Recommendations: PCI without planned CABG PCI Indication: PCI for high risk Non-STEMI, + Stress Test Lesion Segment Name: SVG-OM3/4 Culprit Artery: Yes Stenosis Prior to Rx (%): 95 Chronic Total Occlusion: No IVUS: No FFR: No Ratio: less than or equal to 0.75% Pre-Procedure KAREN Flow: 3 Previously Treated Lesion: No Lesion Complexity: High/C Lesion Length (mm): 15 Thrombus Present: No Bifurcation Lesion: No Guidewire Across Lesion: Yes Guidewire: Stenosis Post-Procedure (%): 0 Post-Procedure KAREN Flow: 3 Device(s) Deployed: Yes Intraprocedure Events Significant Dissection: No Perforation: No
[2017-02-21] MEDS ORDERED: ATROPINE SULFATE 0.1 MG/ML 5ML SYR IV PRN (14:45)
[2017-02-21] MEDS ORDERED: ONDANSETRON INJ 2 MG/ML 2 ML VIAL IV PRN (14:45)
[2017-02-21] MEDS ORDERED: SODIUM CHLORIDE 0.9% 1000ML 1,000 ML IV SCH (14:45)
[2017-02-21] MEDS ORDERED: ACETAMINOPHEN 325 MG TAB PO PRN (14:45)
--- NOTE | 2017-02-21 17:46 | Medical Student: [facility] ---
Med Student Progress Note Date of Service Feb 21, 2017. Subjective No acute events overnight. Keep NPO for heart catheterization today. No complications from catheterization. Denies SARMIENTO, chest pain, SOB, abdominal pain, diarrhea or constipation. Review of Systems Constitutional: No fever, No chills, No sweats Eyes: No worsening of vision ENT: No hearing loss Respiratory: No cough, No sputum, No wheezing, No shortness of breath Cardiac: No chest pain, No edema, No palpitations Abdomen: No pain, No nausea, No vomiting, No diarrhea, No constipation Musculoskeletal: No joint pain Male : No dysuria Endo: + fatigue Skin: No rash, No itch Objective Vital Signs Date Time Temp Pulse Resp B/P (MAP) Pulse Ox O2 Delivery O2 Flow Rate FiO2 02/21/17 17:30 78 20 171/90 (117) 02/21/17 16:30 73 20 173/91 (118) 02/21/17 16:00 68 20 157/83 (107) 02/21/17 16:00 Room Air 02/21/17 15:30 69 20 135/77 (96) 02/21/17 15:15 74 20 134/76 (95) 02/21/17 15:00 71 20 142/77 (98) 02/21/17 14:45 76 20 131/62 (85) 02/21/17 14:25 36.5 73 18 129/75 (93) 93 Room Air 02/21/17 13:54 69 18 158/97 (117) 97 Mask 3 02/21/17 11:44 36.8 72 18 149/77 97 Room Air 02/21/17 11:40 Room Air 02/21/17 11:02 36.8 72 18 149/77 (101) 97 Room Air 02/21/17 08:00 Room Air 02/21/17 07:54 36.7 73 20 157/73 (101) 94 Room Air 02/21/17 04:23 36.9 80 18 143/66 95 Room Air 02/21/17 04:11 36.5 74 18 159/64 (95) 98 Room Air 02/21/17 04:00 Room Air 02/21/17 00:14 Room Air 02/20/17 23:14 36.9 80 18 143/66 (91) 95 Room Air 02/20/17 19:52 36.7 79 22 152/92 (112) 93 Room Air 02/20/17 19:35 Room Air Physical Exam General Appearance: WD/WN, no apparent distress Eyes: bilateral eyes normal inspection, bilateral eyes PERRL, bilateral eyes EOMI ENT: normal ENT inspection Neck: supple, no adenopathy Respiratory/Chest: chest non-tender, normal breath sounds, no respiratory distress Cardiovascular: regular rate, rhythm, no edema, no gallop, no JVD, no murmur Abdomen: normal bowel sounds, non tender, soft, no organomegaly Extremities: normal inspection, no pedal edema, no calf tenderness Neurologic/Psychiatric: rn bariatric II-XII nml as tested, no motor/sensory deficits, alert Skin: normal color, warm/dry, no rash Laboratory Results Last 24 Hours Test 02/20/17 20:06 02/21/17 05:28 02/21/17 06:49 02/21/17 11:19 Bedside Glucose 163 mg/dl 160 mg/dl 139 mg/dl White Blood Count 6.88 K/uL Red Blood Count 4.10 M/uL Hemoglobin 11.9 g/dL Hematocrit 38.2 % Mean Corpuscular Volume 93.2 fL Mean Corpuscular Hemoglobin 29.0 pg Mean Corpuscular Hemoglobin Concent 31.2 g/dl RDW Standard Deviation 46.2 fL RDW Coefficient of Variation 13.5 % Platelet Count 180 K/uL Mean Platelet Volume 10.1 fL Activated Partial Thromboplast Time 53.0 SECONDS Partial Thromboplastin Ratio 2.0 Test 02/21/17 13:14 02/21/17 16:27 Kaolin Activated Coagulation Time 235 SECONDS Bedside Glucose 136 mg/dl Assessment and Plan Assessment and Plan: Assessment: Mr. Goyal is a 71 year old male with a PMH significant for CAD s/p CABG in Apr 2012, b/l torn rotator cuffs, GERD, DM II, cholecystectomy, prostatitis, HLD, HTN, and left knee arthroplasty who presented on 02/19 with 1 month of worsening chest pain. Differential diagnosis for the chest pain includes NSTEMI, unstable angina, GERD, aortic dissection, pneumothorax, and pneumonia. Chest X-ray showed cardiomegaly, calcifications in the thoracic aorta , a calcified granuloma and bibasilar atelectasis with no signs of pneumothorax , a widened mediastinum, or consolidation. The patient has remained afebrile, has had normal WBC counts, and does not have a history of cough, which also makes it unlikely the patient has pneumonia. It is also unlikely the patient has an aortic dissection considering the pain does not radiate to his back and the CXR did not show a widened mediastinum. EKGs have shown RBBB, anterolateral ST depressions and T wave inversions. Serial troponins were negative until today at 0.051. Stress testing today elicited anginal symptoms after 4 minutes on the treadmill, showed anterior wall motion abnormalities, and LV dilatation. It is likely the patient has been experiencing chest pain attributed to both a NSTEMI and indigestion considering the symptomatology of different types of chest pain, one upon laying down at night and the other upon exertion. BNP was normal at 628. Plan: Chest pain - ACS/NSTEMI vs. GERD -Stress testing was positive for anginal symptoms, anterior wall motion abnormalities, and LV dilatation indicating that chest pain is cardiac in nature -Heart catheterization 02/21/2017 showed severe craig multi-vessel CAD -80% distal left main -80% proximal, 70-80% mid-LAD -subtotal ostial circumflex occlusion -patent SVG to OM3-OM4 with 95% proximal stenosis -atretic HAILE-LAD -occluded SVG-diagonal -per cardiology recommendations: -given Clopidogrel 600 mg -continue dual antiplatelet therapy for 1 year -most recent lipid panel on 12/27 - t chol 136, LDL 70, TRIG 160, and HDL 39 -nitropaste for chest pain -switch from carvedilol 12.5 mg PO BID to metoprolol 12.5 PO BID d/t patient hx of extreme fatigue -switch from pravastatin to atorvastatin 80 mg HS for more effective statin coverage -continue enalapril 5 mg PO daily -continue heparin/dextrose 500 mg @ 34 cc/hr Dehydration & elevated Cr - resolved, Cr decreased from 1.6 to 1.4 -continue IVF NS 1000 cc @ 100cc/hr Diabetes -most recent HbA1C on 12/27 was 6.8 -d/c home dulaglutide -continue insulin sliding scale GERD -possibly attributed in part to dulaglutide -Protonix 40 mg PO daily -start Raniditine 150 mg PO BID for better GERD control Hx nephrolithiasis -allopurinol 200 mg PO daily
[2017-02-21] MEDS ORDERED: ATORVASTATIN 40 MG TAB PO SCH (21:00)
[2017-02-21] MEDS: RANITIDINE HCL 150 MG TAB PO SCH (21:04)
[2017-02-21] MEDS: METOPROLOL TARTRATE 25 MG TAB PO SCH (21:04)
[2017-02-21] MEDS: ENALAPRIL MALEATE 5 MG TAB PO SCH (21:05)
[2017-02-21] MEDS: ALLOPURINOL 300 MG TAB PO SCH (21:05)
[2017-02-22 03:26] VITALS: BP 139/68; PULSE 72; TEMP 36.8; O2SAT 96
[2017-02-22] MEDS: NITROGLYCERIN OINT 2% 1GM PACKET EXT SCH ×2 (04:00→08:15)
[2017-02-22 05:33] LABS: BASO % 0.5 %; BASO ABS # 0.03 K/uL (0-0.2); COMPLETE YES; EOS % 2.9 %; HEMATOCRIT 37.1 % (42-52); IG% 0.2 %; LYMPH % 24.1 %; LYMPH ABS # 1.49 K/uL (1.2-3.4); MEAN CELL VOLUME 93.7 fL (80-100); MEAN CORPUSCULAR HEMOGLOBIN 29.8 pg (25-34); MEAN CORPUSCULAR HGB CONC 31.8 g/dl (32-36); MEAN PLATELET VOLUME 10.1 fL (7.4-10.4); MONO % 7.9 %; NEUT % 64.4 %; PLATELET COUNT 169 K/uL (130-400); RED BLOOD COUNT 3.96 M/uL (4.7-6.1); WHITE BLOOD COUNT 6.17 K/uL (4.8-10.8)
[2017-02-22 05:48] LABS: PARTIAL THROMBOPLASTIN RATIO 1.1
[2017-02-22 05:56] LABS: CALCIUM 8.5 mg/dl (8.5-10.1); CREATININE 1.4 mg/dl (0.60-1.40); POTASSIUM 4.7 mmol/L (3.5-5.1)
[2017-02-22] MEDS: INSULIN ASPART 100 UNITS/ML 3 ML PEN SC SCH (07:00)
[2017-02-22] MEDS ORDERED: ATOR-26 PO (07:26)
[2017-02-22] MEDS ORDERED: PLV75 PO (07:26)
[2017-02-22] MEDS ORDERED: LPR25 PO ×2 (07:26→10:19)
[2017-02-22] MEDS ORDERED: ZNT150 PO (07:26)
--- NOTE | 2017-02-22 07:33 | Discharge Instructions ---
Discharge Instructions Date of Service Feb 22, 2017. Admission Reason for Admission: ACS Discharge Discharge Diagnosis / Problem: NSTEMI Discharge Goals Goal(s): Improve disease control, Therapeutic intervention Activity Recommendations Activity Limitations: per Instructions/Follow-up section Exercise/Sports Limitations: as tolerated May Resume Sexual Activity: when tolerated Shower/Bathe: no limitations Driving or Machine Use: resume 3 days after discharge Follow up with Cardiology in 1-2 weeks, and your PCP within 1 week. . Instructions / Follow-Up Instructions / Follow-Up You were started on multiple medications for your heart, and some of your current medications were changed. HEART MEDICATIONS: Aspirin - 81mg daily - This keeps your blood thin. With this, avoid taking Ibuprofen or Aleve at the same time, as it can irritate the lining of the stomach. Clopidogrel (Plavix) - 75mg daily - This also keeps your blood thin. You will need to be on this for at least a year from when you had your stent placed (so until 02/21/2018) BLOOD PRESSURE MEDICATIONS: Carvedilol (Coreg) was switched to Metoprolol (Lopressor) - You may not even a notice a difference, but hopefully you feel less fatigued than when you were on the Coreg. CHOLESTEROL MEDICATIONS: Pravastatin was switched to Atorvastatin (Lipitor) - Lipitor is better at lowering cholesterol in the long run. If you notice muscle aches in your legs recur, please talk to your doctor about switching back to Pravastatin 80mg. REFLUX MEDICATIONS: Keep taking RANITIDINE (Zantac) every morning and night - this should help change the acid in your stomach to make indigestion less frequent. Keep taking PROTONIX (Pantoprazole) or NEXIUM in the morning and at night - but you should not be on this longer than 8 weeks. DIABETES MEDICATIONS: No changes were made. If you have any questions about your medications, please contact your PCP. Home Care: * Take your medications exactly as directed. Don't skip doses. * Remember that recovery after a heart attack takes time. Plan to rest for at lease 4-8 weeks while you recover. Then return to normal activity when your doctor says it's okay. * Ask your doctor about joining a heart rehabilitation program. * Tell your doctor if you are feeling depressed. Feelings of sadness are common after a heart attack, but it is important that you speak to someone if you are feeling overwhelmed by these feelings. * If you are having chest pain, call 911 for an ambulance. Do NOT drive yourself to the hospital. * Ask your family members to learn CPR. * Learn to take your own blood pressure and pulse. Keep a record of your results. Ask your doctor when you should seek emergency medical attention. He or she will tell you which blood pressure reading is dangerous. Lifestyle Changes: * Maintain a healthy weight. Get help to lose any extra pounds. * Cut back on salt. * Limit canned, dried, packaged, and fast foods. * Don't add salt to your food. * Season foods with herbs instead of salt when you cook. * Break the smoking habit. Enroll in a stop-smoking program to improve your chances of success. * Limit fatty foods. * Check your lipid levels regularly. (Your doctor can show you how to do this.) * Build up your activity according to your doctor's recommendation. * Ask your doctor when it's okay to resume sexual activity. * Tell your doctor about any erectile dysfunction (ED) medication you are taking. Some ED medications are not safe if you take certain heart medications. * Try to manage stress. Follow Up: It is important for you to keep your follow up appointments with your medical provider. Current Hospital Diet Patient's current hospital diet: AHA Diet (Heart Healthy) Discharge Diet Recommended Diet: AHA Diet (Heart Healthy), Diabetes Type 2 Diet Pending Studies Studies pending at discharge: no Laboratory Results Hemoglobin A1c Test 12/21/16 09:38 Range/Units Estimated Average Glucose 148 mg/dl Hemoglobin A1c 6.8 H 4.5-5.6 % Lipid Panel Test 12/21/16 09:38 Range/Units Triglycerides Level 160 H 0-150 mg/dl Cholesterol Level 136 0-200 mg/dl HDL Cholesterol 34 mg/dl Cholesterol/HDL Ratio 4.0 LDL Cholesterol, Calculated 70 mg/dl Medical Emergencies . Who to Call and When: Medical Emergencies: If at any time you feel your situation is an emergency, please call 911 immediately. Call 911 immediately or go to your nearest Emergency Room if you experience any of the following: Warning Signs and Symptoms of a Heart Attack * Chest pain that is not relieved by medication * Shortness of breath . Non-Emergent Contact Non-Emergency issues call your: Primary Care Provider, Financial Market Dealer . . "Provider Documentation" section prepared by Christina Grossman. . AMI Core Measures Reason no ASA as I/P: Treatment provided - N/A Reason no ASA at D/C: Treatment provided - N/A Reason no statin as I/P: Treatment provided - N/A Reason no statin at D/C: Treatment provided - N/A VTE Core Measure Inpt VTE Proph given/why not?: Other Anticoagulation (heparin drip)
[2017-02-22] MEDS ORDERED: ASPEC81 PO (07:34)
[2017-02-22 07:54] VITALS: BP 160/86; PULSE 69; TEMP 36.6; O2SAT 93
--- NOTE | 2017-02-22 08:10 | Discharge Summary ---
Discharge Summary Date of Service Feb 22, 2017. (Christina Grossman MD) Discharge Summary Admission Date: Feb 19, 2017 at 21:05 Discharge Date: Feb 22, 2017 Discharge Disposition: Home Principal Diagnosis: NSTEMI Problems/Secondary Diagnoses: GERD, Hiatal hernia, Hyperlipidemia, T2DM Immunizations: Have You Had Influenza Vaccine: Unknown Influenza Vaccine Date: May 16, 2013 History of Tetanus Vaccine?: Unknown History of Pneumococcal: Unknown Pneumococcal Date: Feb 07, 2009 History of Hepatitis B Vaccine: Unknown Procedures: Cardiac cath by Dr Khan on 02/21/17 1. Severe [place] multivessel coronary artery disease - 80% distal left main - 80% proximal, 70-80% mid LAD - Subtotal ostial circumflex occlusion 2. Patent SVG to OM3-OM4 with 95% proximal stenosis - Atretic HAILE-LAD - Occluded SVG-Diagonal 3. Successful PCI of ostial/proximal SVG-OM3-OM4 with 3.5 x 18 Resolute LAURIE Consultations: Cardiology (Christina Grossman MD) Medication Reconciliation New Medications: Aspirin (Aspirin EC Low Dose) 81 Mg Ectab 81 MG PO DAILY for 30 Days, #30 TAB Atorvastatin (Lipitor) 80 Mg Tab 1 TAB PO HS for 30 Days, #30 TAB Clopidogrel Bisulfate (Clopidogrel) 75 Mg Tab 75 MG PO QAM for 30 Days, #30 TAB 4 Refills You must remain on Plavix AND Aspirin for 1 year until 02/21/2018 Metoprolol Tartrate (Lopressor) 25 Mg Tab 25 MG PO BID for 30 Days, #60 TAB Ranitidine HCl (Ranitidine HCl) 150 Mg Tab 150 MG PO BID for 30 Days, #60 TAB Continued Medications: Allopurinol (Allopurinol) 300 Mg Tab 300 MG PO HS Dulaglutide (Trulicity) 0.75 Mg/0.5 Ml Inj 0.75 MG SC WK ADMINISTER EVERY SUNDAY Enalapril Maleate (Enalapril Maleate) 5 Mg Tab 5 MG PO HS Insulin Regular (Human) (Humulin R U-500 (Concentr) 500 Unit/Ml Inj 18-20 UNITS SC TID COVERAGE DIRECTED BY SLIDING SCALE Metformin Hcl (Glucophage) 1,000 Mg Tab 1000 MG PO BID Multivitamin (Multivitamin) Tab 1 TAB PO QAM, TAB Discontinued Medications: Carvedilol (Carvedilol) 25 Mg Tab 12.5 MG PO BID Omeprazole (Prilosec) 20 Mg Cap 20 MG PO QAM Pravastatin Sodium (Pravastatin Sodium) 80 Mg Tab 80 MG PO HS Discharge Exam Review of Systems: Constitutional: No fever, No chills, No sweats, No weight loss, No weakness Eyes: No worsening of vision ENT: No hearing loss Respiratory: No cough, No sputum, No wheezing Cardiovascular: No chest pain, No orthopnea Abdomen: No pain, No nausea, No vomiting Musculoskeletal: No joint pain Genitourinary - Male: No hematuria, No dysuria, No urinary frequency Neurologic: No paralysis, No weakness Psychiatric: No depression symptoms, No anhedonism Endocrine: No fatigue Hematologic / Lymphatic: No abnormal bleeding/bruising Integumentary: No rash Physical Exam: General Appearance: WD/WN, no apparent distress Eyes: normal inspection, PERRL ENT: hearing grossly normal Neck: supple, no JVD Respiratory/Chest: lungs clear, normal breath sounds, no respiratory distress Cardiovascular: regular rate, rhythm, no murmur, normal peripheral pulses Abdomen / GI: normal bowel sounds, non tender, soft Extremities: no calf tenderness, no pedal edema Neurologic/Psychiatric: alert, normal mood/affect, normal reflexes, oriented x 3 Skin: no rash (Christina Grossman MD) Hospital Course HPI: 71 yo M with known CAD, s/p CABG 5 y ago, hyperlipidemia and T2DM presented to the ED 02/19/17 with indigestion. He described pain which sounded like indigestion, as it was in the middle of his chest, radiating up to his throat and back, worse w/laying down, and burning sensation. He did have EKG changes, which showed lateral ischemia with ST and T wave changes. On further r/ v, he did report a new decreased exercise tolerance, fatigue with Carvedilol. HOSPITAL COURSE: Chest pain on background of known CAD, s/p CABG 5y ago - Cardiac cath on 02/21/17 as above, graft was stented - Should be on Aspirin and Plavix for 1 year, then Aspirin onwards (pt reports he is taking Aspirin EC daily) - Coreg changed to Metoprolol 25 mg BID - can increase / decrease as tolerated - F/U with Dr Khan Hyperlipidemia - Pravastatin changed to Atorvastatin, pt tolerated overnight - He reported a previous hx of muscle aches, but was ok with trying, advised him to monitor Indigestion - Pt takes Nexium at home - Provided Protonix 40mg BID and Zantac 150mg BID Elevated lipase on admission (463) - Has decreased to 220 - No clinical signs of pancreatitis, normalized during admission Type 2 DM - Placed on insulin sliding scale during admission - PCP to r/v his Trulicity, he does not feel as great on it. - Last A1c on 12/21/16 was 6.8% DVT prophylaxis: Heparin drip Full code Disposition: Discharged in good condition on 02/22/17 Total Time Spent: Greater than 30 minutes This includes examination of the patient, discharge planning, medication reconciliation, and communication with other providers. (Christina Grossman MD) Resident Physician Supervision Note: I interviewed and examined the patient. Discussed with Dr. Grossman and agree with findings and plan as documented in the note. Any exceptions or clarifications are listed here: None Documented By: Owen Rose feeling good wants to go home reviewed meds again. no complaints, expresses understanding. all questions answered to the best of my ability and to his satisfaction. all other ROS otherwise negative except for as above vitals noted nad breathing unlabored no pallor or icterus CAD/ ACS - doing better post stenting, meds changed (coreg changed to metoprolol due to his feeling that coreg might have been causing fatigue - we discussed this can happen with any beta mis but worth trial of changing to another that is still very beneficial for CAD to see if fatigue maybe goes away , discussed dose likely needing titration once he's "in the real world") ( pravachol changed to lipitor for better plaque stabilization - he recalls leg cramps probably related to lipitor but in discussions yesterday he indicated it wasn't completely clear the aches were related and for better disease management he wants to try again; can stop and revert to pravachol if happens ( crestor upset stomach)). stable for home (Owen Rose, D.O.) Discharge Instructions Please refer to the electronic Patient Visit Report (Discharge Instructions) for additional information. (Christina Grossman MD) Follow-Up - With PCP Dr Norton within a week - With Mannequin [facility]in[facility] Dr Khan within 1-2 weeks (Christina Grossman MD) Additional Copies To Ras Norton M.D.
[2017-02-22] MEDS: ASPIRIN 81 MG ECTAB PO SCH (08:11)
[2017-02-22] MEDS: METOPROLOL TARTRATE 25 MG TAB PO SCH (08:11)
[2017-02-22] MEDS: PANTOprazole SOD 40 MG TAB PO SCH (08:11)
[2017-02-22] MEDS: RANITIDINE HCL 150 MG TAB PO SCH (08:11)
[2017-02-22] MEDS ORDERED: CLOPIDOGREL BISULFATE 75 MG TAB PO SCH (09:00)
[2017-02-22 11:35] VITALS: BP 160/86; PULSE 69; TEMP 36.6; O2SAT 93
== END 2017-02-22 11:45 | disposition home or self-care (01) | DRG 247 ==
LOC: C.EDB 16:13 → C.2T 21:05 → ENRESERV 21:22
PROVIDERS: ADMIT Family Medicine; ATTEND Family Medicine
PROC: B2111ZZ Fluoroscopy of Multiple Coronary Arteries using Low Osmolar Contrast (ICD-10-PCS; principal; 2017-02-21 12:00)
PROC: 027034Z Dilation of Coronary Artery, One Artery with Drug-eluting Intraluminal Device, Percutaneous Approach (ICD-10-PCS; principal; 2017-02-21 12:00)
PROC: B2121ZZ Fluoroscopy of Single Coronary Artery Bypass Graft using Low Osmolar Contrast (ICD-10-PCS; principal; 2017-02-21 12:00)
PROC: 3E053PZ Introduction of Platelet Inhibitor into Peripheral Artery, Percutaneous Approach (ICD-10-PCS; principal; 2017-02-21 12:00)
DX: I21.4 Non-ST elevation (NSTEMI) myocardial infarction (principal); N17.9 Acute kidney failure, unspecified; I25.710 Atherosclerosis of autologous vein coronary artery bypass graft(s) with unstable angina pectoris; I25.110 Atherosclerotic heart disease of native coronary artery with unstable angina pectoris; Z95.1 Presence of aortocoronary bypass graft; E11.9 Type 2 diabetes mellitus without complications; K44.9 Diaphragmatic hernia without obstruction or gangrene; E78.5 Hyperlipidemia, unspecified; I10 Essential (primary) hypertension; K21.9 Gastro-esophageal reflux disease without esophagitis; G47.33 Obstructive sleep apnea (adult) (pediatric); Z96.652 Presence of left artificial knee joint; Z82.49 Family history of ischemic heart disease and other diseases of the circulatory system

== ENCOUNTER → 2017-02-23 | Outpatient (CLI) | payer OTHER ==
[~2017-02-23] MED LIST changes: +ASPEC81 PO; +ATOR-26 PO; -CARV25TA2 PO; -CHOL100010 PO; +DULA1INJ SC; -ENAL5TAB83 PO; -FINA5TAB PO; -INSU1SOL SQ; +INSUINJ2 SC; +LPR25 PO; -MECL1TAB42 PO; +METF-384 PO; -METF1TAB53 PO; -OMEP20CA9 PO; -ONDA4TAB46 PO; +PLV75 PO; -PRAV40TA2 PO; -THIA50TA3 PO; +VST5 PO; +ZNT150 PO
[2017-02-23 12:59] LABS: BLOOD UREA NITROGEN 13 mg/dl (7-18); BUN/CREATININE RATIO 8.4 (10-20); CALCIUM 9.3 mg/dl (8.5-10.1); CARBON DIOXIDE 26 mmol/L (21-32); CHLORIDE 107 mmol/L (98-107); GLUCOSE 161 mg/dl (70-99); PHOSPHORUS 2.9 mg/dl (2.5-4.9); POTASSIUM 4.3 mmol/L (3.5-5.1); SODIUM 142 mmol/L (136-145)
== END | disposition home or self-care (01) ==
LOC: C.LABPBG 11:08
PROVIDERS: ATTEND Internal Medicine Interventional Cardiology
DX: N28.9 Disorder of kidney and ureter, unspecified (principal)

== ENCOUNTER 2017-07-06 23:38 | Observation (INO) | payer OTHER ==
[~2017-07-06] VITALS: Ht 180.3 cm; Wt 110.3 kg
[2017-07-07 00:04] LABS: URINE APPEARANCE CLEAR (CLEAR); URINE BILIRUBIN NEG (NEG); URINE COLOR YELLOW; URINE EPITHELIAL CELL AUTO 0-5 /lpf (0-5); URINE NITRITE NEG (NEG); URINE PH 6.5 (4.5-7.5); URINE SPECIFIC GRAVITY 1.013 (1.000-1.030); UROBILINOGEN NEG (NEG); ZZUR CULT IF INDIC CLEAN CATCH YES
[2017-07-07] MEDS ORDERED: SODIUM CHLORIDE 0.9% 1000ML 1,000 ML IV STA ×2 (00:05→01:50)
[2017-07-07 00:13] LABS: MANUAL MICROSCOPIC REQUIRED? NO; REVIEW REQ? NO
[2017-07-07] MEDS ORDERED: PIPERACILLIN/TAZOBACTAM 3.375 GM/100ML D5W IV STA (00:28)
[2017-07-07] MEDS ORDERED: MULT-1093 PO (00:38)
[2017-07-07] MEDS ORDERED: ATOR-26 PO (00:38)
[2017-07-07] MEDS ORDERED: METO25TA56 PO (00:38)
[2017-07-07] MEDS ORDERED: MECL1TAB42 PO (00:38)
[2017-07-07] MEDS ORDERED: CLOP1TAB15 PO (00:38)
[2017-07-07] MEDS ORDERED: ZNTT/150 PO (00:38)
[2017-07-07] MEDS ORDERED: ASPI81TA28 PO (00:38)
[2017-07-07 00:49] LABS: BASO % 0.3 %; BASO ABS # 0.03 K/uL (0-0.2); COMPLETE YES; EOS % 1.8 %; HEMATOCRIT 41.8 % (42-52); IG% 0.3 %; LYMPH % 13.8 %; LYMPH ABS # 1.58 K/uL (1.2-3.4); MEAN CORPUSCULAR HEMOGLOBIN 30.9 pg (25-34); MEAN CORPUSCULAR HGB CONC 32.5 g/dl (32-36); MEAN PLATELET VOLUME 10.5 fL (7.4-10.4); NEUT % 75.8 %; PLATELET COUNT 186 K/uL (130-400); WHITE BLOOD COUNT 11.44 K/uL (4.8-10.8)
[2017-07-07 01:02] LABS: PROTHROMBIN TIME (PATIENT) 10.6 SECONDS (9.0-12.0)
[2017-07-07 01:06] LABS: ALT/SGPT 38 U/L (12-78); AST/SGOT 22 U/L (15-37); BLOOD UREA NITROGEN 21 mg/dl (7-18); BUN/CREATININE RATIO 13.3 (10-20); CALCIUM 9.1 mg/dl (8.5-10.1); CARBON DIOXIDE 26 mmol/L (21-32); CHLORIDE 101 mmol/L (98-107); CREATININE 1.58 mg/dl (0.60-1.40); GLUCOSE 113 mg/dl (70-99); MAGNESIUM 1.6 mg/dl (1.8-2.4); POTASSIUM 4.2 mmol/L (3.5-5.1); SODIUM 135 mmol/L (136-145)
[2017-07-07 01:11] LABS: ALB/GLOB RATIO 0.9 (0.9-2); ALKALINE PHOSPHATASE 119 U/L (45-117)
--- NOTE | 2017-07-07 02:15 | EMERGENCY ROOM VISIT NOTE ---
History Report prepared by Jack: Lorraine Mejía Under the Supervision of: Dr. Brook Pack D.O. First contact with patient: 23:54 Chief Complaint: URINARY SYMPTOMS Stated Complaint: INFECTION History of Present Illness The patient is a 72 year old male who presents to the Emergency Room with complaints of persistent urinary symptoms starting 1.5 weeks ago. He has not noticed any change in his urine itself, but notes that he has been urinating very little. This afternoon, he started having a headache, fever, and chills. He tried to warm up in bed, but continued to shiver. He thinks that he has a UTI. He has previously had a UTI which got into his blood and required a 5 day stay in the ICU. He is feeling weak, off balance, and dizzy. He denies any nausea or vomiting. He was able to eat and drink today. He denies any abdominal pain, back pain, or leg swelling. He has been having some diarrhea for the past week. He notes that he has had intermittent diarrhea with taking Trulicity. He notes that he has lost 40 lbs over the 9 months that he has been on Trulicity. He has a history of prostate problems and TURP. He denies any history of kidney problems. He denies any recent medication changes. Source of History: patient Onset: 1.5 weeks ago Position: other (global) Quality: other (urinary symptoms) Timing: other (persistent) Associated Symptoms: + fevers, + chills, + headache, + weakness, No nausea, No vomiting Note: Pt reports feeling dizzy, off balance. Review of Systems See HPI for pertinent positives & negatives. A total of 10 systems reviewed and were otherwise negative. Past Medical & Surgical Medical Problems: (1) ACS (acute coronary syndrome) (2) Cholecystectomy (3) Coronary artery bypass grafting (4) Diabetes (5) Diabetes mellitus (6) Heart disease (7) History of prostatitis (8) Post-op bleeding Surgical Problems: (1) H/O heart bypass surgery Family History FH: heart disease FHx: cancer Hypertension Social History Smoking Status: Never Smoker Alcohol Use: none Drug Use: none Marital Status: Housing Status: lives with family Occupation Status: retired Current/Historical Medications Scheduled Allopurinol (Allopurinol), 300 MG PO HS Aspirin (Aspirin Ec), 81 MG PO DAILY Atorvastatin (Lipitor), 80 MG PO HS Clopidogrel (Plavix), 75 MG PO QAM Dulaglutide (Trulicity), 0.75 MG SC WK Enalapril Maleate (Enalapril Maleate), 5 MG PO HS Insulin Regular (Human) (Humulin R U-500 (Concentr), UNITS SC TID Metformin Hcl (Glucophage), 1,000 MG PO BID Metoprolol Tartrate (Lopressor) (Lopressor), 25 MG PO BID Multiple Vitamins W/ Minerals (Centrum Silver 50+Men), 1 TAB PO DAILY Ranitidine (Zantac), 150 MG PO BID Scheduled PRN Meclizine Hcl (Meclizine Hcl), 25 MG PO Q6H PRN for Dizziness or Vertigo Allergies Coded Allergies: No Known Allergies (Verified , 07/07/17) Physical Exam Vital Signs Date Time Temp Pulse Resp B/P (MAP) Pulse Ox O2 Delivery O2 Flow Rate FiO2 07/07/17 01:45 107 15 151/81 97 Room Air 07/06/17 23:43 37.3 102 20 132/74 97 Room Air Physical Exam GENERAL: alert, ill appearing, well nourished, no distress, non-toxic EYE EXAM: normal conjunctiva, PERRL and EOM's grossly intact OROPHARYNX: no exudate, no erythema, lips, buccal mucosa, and tongue normal and mucous membranes are moist NECK: supple, no nuchal rigidity, no adenopathy, non-tender LUNGS: Clear to auscultation. Normal chest wall mechanics HEART: no murmurs, S1 normal and S2 normal ABDOMEN: abdomen soft, non-tender, normo-active bowel sounds, no masses, no rebound or guarding. BACK: Back is symmetrical on inspection and there is no deformity, no midline tenderness, no CVA tenderness. SKIN: no rashes and no bruising UPPER EXTREMITIES: upper extremities are grossly normal. LOWER EXTREMITIES: No pitting edema. NEURO EXAM: Normal sensorium, cranial nerves II-XII grossly intact, normal speech, no gross weakness of arms, no gross weakness of legs. Medical Decision & Procedures ER Provider Diagnostic Interpretation: Radiology results have been interpreted by the [facility] radiologist and reviewed by me. CT Abdomen & Pelvis without Contrast: Comparison: CT abdomen and pelvis 01/22/16. Status post cholecystectomy. Liver, spleen, pancreas, and adrenal glands are unremarkable. Extrarenal pelvises of both kidneys with mild caliectasis of the left kidney and bilateral mild perinephric stranding, nonspecific but can be seen with urinary tract infections. No radiopaque urinary stones. Urinary bladder is mildly distended. Prostate is enlarged. Normal appendix. No bowel obstruction or diverticulitis. No acute osseous findings. Laboratory Results 07/07/17 00:15 Red Blood Count 4.40, Mean Corpuscular Volume 95.0, Mean Corpuscular Hemoglobin 30.9, Mean Corpuscular Hemoglobin Concent 32.5, Mean Platelet Volume 10.5, Neutrophils (%) (Auto) 75.8, Lymphocytes (%) (Auto) 13.8, Monocytes (%) (Auto) 8.0, Eosinophils (%) (Auto) 1.8, Basophils (%) (Auto) 0.3, Neutrophils # (Auto) 8.67, Lymphocytes # (Auto) 1.58, Monocytes # (Auto) 0.92, Eosinophils # (Auto) 0.21, Basophils # (Auto) 0.03 07/07/17 00:15 Test 07/06/17 23:48 07/07/17 00:15 07/07/17 00:34 Urine Color YELLOW Urine Appearance CLEAR (CLEAR) Urine pH 6.5 (4.5-7.5) Urine Specific Outlook 1.013 (1.000-1.030) Urine Protein TRACE (NEG) Urine Glucose (UA) NEG (NEG) Urine Ketones NEG (NEG) Urine Occult Blood 1+ (NEG) Urine Nitrite NEG (NEG) Urine Bilirubin NEG (NEG) Urine Urobilinogen NEG (NEG) Urine Leukocyte Esterase LARGE (NEG) Urine WBC (Auto) >30 /hpf (0-5) Urine RBC (Auto) 5-10 /hpf (0-4) Urine Hyaline Casts (Auto) 1-5 /lpf (0-5) Urine Epithelial Cells (Auto) 0-5 /lpf (0-5) Urine Bacteria (Auto) NEG (NEG) White Blood Count 11.44 K/uL (4.8-10.8) Red Blood Count 4.40 M/uL (4.7-6.1) Hemoglobin 13.6 g/dL (14.0-18.0) Hematocrit 41.8 % (42-52) Mean Corpuscular Volume 95.0 fL (80-100) Mean Corpuscular Hemoglobin 30.9 pg (25-34) Mean Corpuscular Hemoglobin Concent 32.5 g/dl (32-36) Platelet Count 186 K/uL (130-400) Mean Platelet Volume 10.5 fL (7.4-10.4) Neutrophils (%) (Auto) 75.8 % Lymphocytes (%) (Auto) 13.8 % Monocytes (%) (Auto) 8.0 % Eosinophils (%) (Auto) 1.8 % Basophils (%) (Auto) 0.3 % Neutrophils # (Auto) 8.67 K/uL (1.4-6.5) Lymphocytes # (Auto) 1.58 K/uL (1.2-3.4) Monocytes # (Auto) 0.92 K/uL (0.11-0.59) Eosinophils # (Auto) 0.21 K/uL (0-0.5) Basophils # (Auto) 0.03 K/uL (0-0.2) RDW Standard Deviation 47.9 fL (36.4-46.3) RDW Coefficient of Variation 13.9 % (11.5-14.5) Immature Granulocyte % (Auto) 0.3 % Immature Granulocyte # (Auto) 0.03 K/uL (0.00-0.02) Prothrombin Time 10.6 SECONDS (9.0-12.0) Prothromb Time International Ratio 1.0 (0.9-1.1) Anion Gap 8.0 mmol/L (3-11) Est Creatinine Clear Calc Drug Dose 51.8 ml/min Estimated GFR () 49.2 Estimated GFR (Non- 42.5 BUN/Creatinine Ratio 13.3 (10-20) Calcium Level 9.1 mg/dl (8.5-10.1) Magnesium Level 1.6 mg/dl (1.8-2.4) Total Bilirubin 0.6 mg/dl (0.2-1) Aspartate Amino Transf (AST/SGOT) 22 U/L (15-37) Alanine Aminotransferase (ALT/SGPT) 38 U/L (12-78) Alkaline Phosphatase 119 U/L (45-117) Troponin I < 0.015 ng/ml (0-0.045) Pro-B-Type Natriuretic Peptide 299 pg/ml (0-900) Total Protein 7.8 gm/dl (6.4-8.2) Albumin 3.7 gm/dl (3.4-5.0) Globulin 4.1 gm/dl (2.5-4.0) Albumin/Globulin Ratio 0.9 (0.9-2) Bedside Lactic Acid Venous 1.59 mmol/L (0.90-1.70) Laboratory results per my review. Medications Administered Medications (Trade) Dose Ordered Sig/Mathew Route Start Time Stop Time Status Last Admin Dose Admin Sodium Chloride 1,000 ml @ 999 mls/hr Q1H1M STAT IV 07/07/17 00:05 07/07/17 01:05 DC 07/07/17 01:02 999 MLS/HR Piperacillin Sod/ Tazobactam Sod (Zosyn Iv) 3.375 gm NOW STAT IV 07/07/17 00:28 07/07/17 00:29 DC 07/07/17 01:02 3.375 GM Sodium Chloride 1,000 ml @ 999 mls/hr Q1H1M STAT IV 07/07/17 01:50 07/07/17 02:50 DC 07/07/17 02:06 999 MLS/HR ECG Indication: tachycardia Rate (beats per minute): 105 Rhythm: sinus tachycardia Findings: 1st degree AV block, RBBB, no acute ischemic change, other (normal axis, normal QTc) Comparison ECG Date: 21-Feb-2017 Change: Lateral TWI now appear more upgoing, otherwise no significant change. ED Course 2357: The patient was evaluated in room A10. A complete history and physical exam was performed. Review of EMR urine cultures shows patient has grown out E coli and klebsiella that are typically schmid sensitive. 0005: NSS 1000 ml @ 999 mls/hr IV. 0028: Zosyn Iv 3.375 gm IV. 0150: NSS 1000 ml @ 999 mls/hr IV. 0200: Upon reevaluation, the patient is feeling better. I discussed the findings and the treatment plan with the patient. He expresses agreement and understanding. He will be evaluated for further management. 0249: I reviewed the patient's case with Dr. Reeves, [facility] hospitalist. He will evaluate the patient for further management. Medical Decision Differential Diagnosis includes but is not limited to dehydration, stroke, anemia, hypoglycemia, hyponatremia, hypernatremia, urinary tract infection, pneumonia, bronchitis, sepsis, gastroenteritis, additional abdominal pathology, metabolic abnormalities and infections. Patient elderly, with prior history of urinary tract infections, clear UTI on UA tonight, and concern for evolving infection or sepsis. Patient ill-appearing , tachycardic on arrival, with minimal improvement and tachycardia following IV fluids. No significant leukocytosis, and renal insufficiency appears to be at baseline. Patient elderly and a diabetic, with prior history of UTIs evolving into sepsis requiring ICU stay. Given concern for the patient who is higher risk , asked hospitalist to evaluate for admission. CT did not reveal any additional acute obstructive pathology, however concern for possible perinephric stranding. Given clinical setting and symptoms over the last 7-10 days, patient with possibly evolving pyelonephritis. Medication Reconcilliation Current Medication List: was personally reviewed by me Blood Pressure Screening Patient's blood pressure: Elevated blood pressure Blood pressure disposition: Elevated BP felt to be situational Consults Time Called: 021 Consulting Physician: Dr. Reeves [facility] hospitalist Returned Call: [phone] I reviewed the patient's case with him. He will evaluate the patient for further management. Impression Primary Impression: UTI (urinary tract infection) Additional Impressions: Tachycardia CKD (chronic kidney disease) Scribe Attestation The scribe's documentation has been prepared under my direction and personally reviewed by me in its entirety. I confirm that the note above accurately reflects all work, treatment, procedures, and medical decision making performed by me. Departure Information Dispostion Being Evaluated By Hospitalist Referrals Ras Norton M.D. (PCP) Patient Instructions My [facility] Problem Qualifiers Primary Impression: UTI (urinary tract infection) Urinary tract infection type: acute cystitis Hematuria presence: with hematuria Qualified Codes: N30.01 - Acute cystitis with hematuria Additional Impressions: CKD (chronic kidney disease) Chronic kidney disease stage: unspecified stage Qualified Codes: N18.9 - Chronic kidney disease, unspecified
[2017-07-07] MEDS ORDERED: ONDANSETRON INJ 2 MG/ML 2 ML VIAL IV PRN (02:45)
[2017-07-07] MEDS ORDERED: GLUCOSE 10 TABS/TUBE PO PRN (02:45)
[2017-07-07] MEDS ORDERED: DEXTROSE 50% 50 ML SYR IV PRN (02:45)
[2017-07-07] MEDS ORDERED: POLYETHYLENE (MIRALAX) 17 GM PACK PO PRN (02:45)
[2017-07-07] MEDS ORDERED: MECLIZINE HCL 25 MG TAB PO PRN (02:45)
[2017-07-07] MEDS ORDERED: GLUCAGON FOR INJ 1 MG VIAL SQ PRN (02:45)
[2017-07-07] MEDS ORDERED: MAGNESIUM HYDROXIDE SUSP 30 ML UDC PO PRN (02:45)
[2017-07-07] MEDS ORDERED: ALUMINUM/MAGNESIUM/SIMETH (MAALOX MAX) 30 ML UDC PO PRN (02:45)
[2017-07-07] MEDS ORDERED: GLUCOSE 40% GEL 15 GM TUBE PO PRN (02:45)
--- NOTE | 2017-07-07 03:12 | History and Physical ---
History & Physical Date & Time of Service: Jul 07, 2017 at 03:04 Chief Complaint: Infection Primary Care Physician: Ras Norton M.D. History of Present Illness Source: patient 72 yo M with CAD, s/p CABG, type 2 diabetes, hx of urosepsis, and BPH, who presents with urinary symptoms for 1.5 weeks. He reports it initially started with dysuria, then he had more hesitancy going to the bathroom, and frequency as well. He denies any hematuria. He noticed fevers and chills yesterday evening so decided to come in. He reports he tends to get urine infections every 2 years or so. He was trying to drink more water yesterday, and had about 6 bottles, but that did not make him pee more. Once he drank unsweetened iced tea, he had to go. He is concerned about developing urosepsis again. He denies any chest pain, shortness of breath, leg swelling, or other new symptoms. Past Medical/Surgical History Medical Problems: (1) Cholecystectomy Status: Resolved (2) Coronary artery bypass grafting Status: Resolved (3) Diabetes Status: Chronic (4) Diabetes mellitus Status: Chronic (5) Heart disease Status: Chronic (6) History of prostatitis Status: Chronic Surgical Problems: (1) H/O heart bypass surgery Status: Chronic Family History FH: heart disease FHx: cancer Hypertension Social History Smoking Status: Never Smoker Drug Use: none Marital Status: Occupational Status: retired Immunizations History of Influenza Vaccine: Unknown Influenza Vaccine Date: May 16, 2013 History of Tetanus Vaccine?: Unknown History of Pneumococcal: Unknown Pneumococcal Date: Feb 07, 2009 History of Hepatitis B Vaccine: Unknown Multi-Drug Resistant Organisms History of MDRO: No Allergies Coded Allergies: No Known Allergies (Verified , 07/07/17) Home Medications Scheduled Allopurinol (Allopurinol), 300 MG PO HS Aspirin (Aspirin Ec), 81 MG PO DAILY Atorvastatin (Lipitor), 80 MG PO HS Clopidogrel (Plavix), 75 MG PO QAM Dulaglutide (Trulicity), 0.75 MG SC WK Enalapril Maleate (Enalapril Maleate), 5 MG PO HS Insulin Regular (Human) (Humulin R U-500 (Concentr), UNITS SC TID Metformin Hcl (Glucophage), 1,000 MG PO BID Metoprolol Tartrate (Lopressor) (Lopressor), 25 MG PO BID Multiple Vitamins W/ Minerals (Centrum Silver 50+Men), 1 TAB PO DAILY Ranitidine (Zantac), 150 MG PO BID Scheduled PRN Meclizine Hcl (Meclizine Hcl), 25 MG PO Q6H PRN for Dizziness or Vertigo Review of Systems See HPI for pertinent positives & negatives. A total of 10 systems reviewed and were otherwise negative. Physical Exam Vital Signs Date Time Temp Pulse Resp B/P (MAP) Pulse Ox O2 Delivery O2 Flow Rate FiO2 07/07/17 03:01 109 16 138/84 94 07/07/17 02:46 109 17 138/84 94 Room Air 07/07/17 01:45 107 15 151/81 97 Room Air 07/06/17 23:43 37.3 102 20 132/74 97 Room Air General Appearance: WD/WN, no apparent distress Head: normocephalic, atraumatic Eyes: normal inspection, PERRL ENT: hearing grossly normal Neck: supple, no JVD Respiratory/Chest: lungs clear, normal breath sounds, no respiratory distress Cardiovascular: regular rate, rhythm, no murmur, normal peripheral pulses Abdomen/GI: normal bowel sounds, non tender, soft, + pertinent finding (no suprapubic tenderness, no CVA tenderness) Back: no CVA tenderness, no muscle spasm, normal range of motion Extremities/Musculoskelatal: no calf tenderness, no pedal edema Neurologic/Psych: alert, normal mood/affect, normal reflexes, oriented x 3 Skin: no rash Diagnostics Laboratory Results Results Past 24 Hours Test 07/06/17 23:48 07/07/17 00:15 07/07/17 00:34 Range/Units Urine Color YELLOW Urine Appearance CLEAR CLEAR Urine pH 6.5 4.5-7.5 Urine Specific [place] 1.013 1.000-1.030 Urine Protein TRACE NEG Urine Glucose (UA) NEG NEG Urine Ketones NEG NEG Urine Occult Blood 1+ NEG Urine Nitrite NEG NEG Urine Bilirubin NEG NEG Urine Urobilinogen NEG NEG Urine Leukocyte Esterase LARGE NEG Urine WBC (Auto) >30 0-5 /hpf Urine RBC (Auto) 5-10 0-4 /hpf Urine Hyaline Casts (Auto) 1-5 0-5 /lpf Urine Epithelial Cells (Auto) 0-5 0-5 /lpf Urine Bacteria (Auto) NEG NEG White Blood Count 11.44 4.8-10.8 K/uL Red Blood Count 4.40 4.7-6.1 M/uL Hemoglobin 13.6 14.0-18.0 g/dL Hematocrit 41.8 42-52 % Mean Corpuscular Volume 95.0 80-100 fL Mean Corpuscular Hemoglobin 30.9 25-34 pg Mean Corpuscular Hemoglobin Concent 32.5 32-36 g/dl Platelet Count 186 130-400 K/uL Mean Platelet Volume 10.5 7.4-10.4 fL Neutrophils (%) (Auto) 75.8 % Lymphocytes (%) (Auto) 13.8 % Monocytes (%) (Auto) 8.0 % Eosinophils (%) (Auto) 1.8 % Basophils (%) (Auto) 0.3 % Neutrophils # (Auto) 8.67 1.4-6.5 K/uL Lymphocytes # (Auto) 1.58 1.2-3.4 K/uL Monocytes # (Auto) 0.92 0.11-0.59 K/uL Eosinophils # (Auto) 0.21 0-0.5 K/uL Basophils # (Auto) 0.03 0-0.2 K/uL RDW Standard Deviation 47.9 36.4-46.3 fL RDW Coefficient of Variation 13.9 11.5-14.5 % Immature Granulocyte % (Auto) 0.3 % Immature Granulocyte # (Auto) 0.03 0.00-0.02 K/uL Prothrombin Time 10.6 9.0-12.0 SECONDS Prothromb Time International Ratio 1.0 0.9-1.1 Sodium Level 135 136-145 mmol/L Potassium Level 4.2 3.5-5.1 mmol/L Chloride Level 101 98-107 mmol/L Carbon Dioxide Level 26 21-32 mmol/L Anion Gap 8.0 3-11 mmol/L Blood Urea Nitrogen 21 7-18 mg/dl Creatinine 1.58 0.60-1.40 mg/dl Est Creatinine Clear Calc Drug Dose 51.8 ml/min Estimated GFR () 49.2 Estimated GFR (Non- 42.5 BUN/Creatinine Ratio 13.3 10-20 Random Glucose 113 70-99 mg/dl Calcium Level 9.1 8.5-10.1 mg/dl Magnesium Level 1.6 1.8-2.4 mg/dl Total Bilirubin 0.6 0.2-1 mg/dl Aspartate Amino Transf (AST/SGOT) 22 15-37 U/L Alanine Aminotransferase (ALT/SGPT) 38 12-78 U/L Alkaline Phosphatase 119 45-117 U/L Troponin I < 0.015 0-0.045 ng/ml Pro-B-Type Natriuretic Peptide 299 0-900 pg/ml Total Protein 7.8 6.4-8.2 gm/dl Albumin 3.7 3.4-5.0 gm/dl Globulin 4.1 2.5-4.0 gm/dl Albumin/Globulin Ratio 0.9 0.9-2 Bedside Lactic Acid Venous 1.59 0.90-1.70 mmol/L Microbiology Results 07/07/17 Blood Culture, Received Pending 07/07/17 Blood Culture, Received Pending 07/06/17 Urine Culture, Received Pending Diagnostic Radiology CT A/P Pending EKG Sinus tachycardia with occasional Premature ventricular complexes and Fusion complexes Right bundle branch block Abnormal ECG No change from prior EKG Impression Assessment and Plan 72 yo M, hx of urosepsis and prostatitis, who presents with 1.5 wks of urinary sx with UTI findings on UA. Urinary tract infection - Awaiting CT A/P to evaluate for pyelonephritis - Received a dose of Zosyn in ED. 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 Grossman during the history and exam. I discussed the case with the resident and agree with the findings and plan as documented in the note. Any exceptions or clarifications are listed here: 72 y/o M Hx CAD, HTN, HPL, DM, CKD 2-3, urosepsis. Pt presents with dysuria > 1 week followed by rigors, weakness and generalized "ill feeling" - The pt has a history of urosepsis and a resultant prolonged ICU stay although he is not presently septic. UA is positive as expected OE AAO x 3 S1,2 R CTAB NT, ND No CCE P: Placed on Ceftriaxone based on previous cultures - his UTIs are infrequent but tend to occur every 1-2 years - additionally he received a dose of Cefepime in the ER Placed on SS for DM CKD/creat appears at baseline - IVF provided Cont B mis, ASA, Statin as prescribed Documented By: Nadir Reeves Level of Care Med/Surg VTE Prophylaxis VTE Risk Assessment Done? Y/N: Yes Risk Level: Moderate Resident Tracking Resident Involvement: Resident Care Provided Care Provided: Adult Hospital Medicine
[2017-07-07 03:15] VITALS: BP 139/87; PULSE 116; TEMP 37.2; O2SAT 98; Ht 180.3 cm; Wt 110.3 kg
[2017-07-07] MEDS ORDERED: IV FLUIDS COMPLETED PRN (04:15)
[2017-07-07] MEDS ORDERED: LACTATED RINGER'S 1000ML 1,000 ML IV SCH (04:30)
[2017-07-07] MEDS: INSULIN ASPART 100 UNITS/ML 3 ML PEN SC SCH ×4 (06:30→20:44)
[2017-07-07] MEDS: CEROVITE ADV FORMULA TAB PO SCH (07:34)
[2017-07-07] MEDS: ACETAMINOPHEN 325 MG TAB PO PRN (07:34)
[2017-07-07] MEDS: CLOPIDOGREL BISULFATE 75 MG TAB PO SCH (07:34)
[2017-07-07] MEDS: RANITIDINE HCL 150 MG TAB PO SCH ×2 (07:34→20:43)
[2017-07-07] MEDS: CEFTRIAXONE SOD INJ 1 GM in DEXTROSE 5% ADD-VANTAGE 50ML 50 ML IV SCH (07:34)
[2017-07-07] MEDS: ASPIRIN 81 MG ECTAB PO SCH (07:34)
[2017-07-07] MEDS: METOPROLOL TARTRATE 25 MG TAB PO SCH ×2 (07:34→20:44)
[2017-07-07 07:40] VITALS: BP 116/51; PULSE 114; TEMP 38.1; O2SAT 97
[2017-07-07 08:24] VITALS: TEMP 37.2
--- NOTE | 2017-07-07 09:34 | DIAGNOSTIC IMAGING REPORT ---
CT OF THE ABDOMEN AND PELVIS WITHOUT CONTRAST CLINICAL HISTORY: Urinary tract infection. Renal failure. COMPARISON STUDY: CT of the abdomen and pelvis January 22, 2016 and renal ultrasound January 24, 2016. TECHNIQUE: Axial images of the abdomen and pelvis were obtained without IV contrast. Images were reviewed in the axial, sagittal, and coronal planes. A dose lowering technique was utilized adhering to the principles of ALARA. FINDINGS: There is mild dilatation of the right renal pelvis which suggests an extrarenal pelvis. There is mild left pelvicaliectasis. There are no ureteral calculi. No renal or bladder calculi are identified. Bladder is moderately distended. Prostate is mildly enlarged. Evaluation of the remainder of the abdomen and pelvis is suboptimal on this unenhanced examination. Unenhanced images of liver, spleen, adrenal glands and pancreas are unremarkable. There is sigmoid diverticulosis without evidence for acute diverticulitis. There are no suspicious osseous lesions. There is no biliary ductal dilatation status post cholecystectomy. IMPRESSION: 1. No urinary calculi. Mild left pelvicaliectasis of uncertain etiology. Moderate dilatation of the bladder. 2. Sigmoid diverticulosis without evidence for acute diverticulitis. Electronically signed by: Jos Holt M.D. 07/07/2017 9:32 AM Dictated Date/Time: 07/07/2017 9:26 AM
--- NOTE | 2017-07-07 12:03 | Progress Note ---
Subjective Date of Service: Jul 07, 2017. Subjective pt feels somewhat better but is fatigued and washed out, inital CT reading of some perinephric inflammation has been revised to not comment on this, clinically has a uti at the least Problem List Medical Problems: (1) Abdominal pain Status: Acute (2) Abnormal EKG Status: Acute (3) JULIO CESAR (acute kidney injury) Status: Acute (4) Chest wall pain Status: Acute (5) CKD (chronic kidney disease) Status: Acute (6) Constipation Status: Acute (7) Hydronephrosis of left kidney Status: Acute (8) Pyelonephritis Status: Acute (9) Pyelonephritis Status: Acute (10) Renal colic on left side Status: Acute (11) SIRS (systemic inflammatory response syndrome) Status: Acute (12) Substernal chest pain Status: Acute (13) Tachycardia Status: Acute (14) UTI (urinary tract infection) Status: Acute Review of Systems Constitutional: + weakness, + fatigue, No fever, No chills Respiratory: No cough, No sputum Cardiac: No chest pain, No orthopnea Abdomen: + pain (improved from admission tho), No nausea, No vomiting, No diarrhea Psychiatric: No depression symptoms, No anhedonism Objective Vital Signs Date Time Temp Pulse Resp B/P (MAP) Pulse Ox O2 Delivery O2 Flow Rate FiO2 07/07/17 07:40 38.1 114 20 116/51 (72) 97 Room Air 07/07/17 03:15 37.2 116 18 139/87 98 Room Air 07/07/17 03:01 109 16 138/84 94 07/07/17 02:46 109 17 138/84 94 Room Air 07/07/17 01:45 107 15 151/81 97 Room Air 07/06/17 23:43 37.3 102 20 132/74 97 Room Air Physical Exam General Appearance: WD/WN, + mild distress Eyes: PERRL, EOMI Neck: supple, no JVD Respiratory/Chest: chest non-tender, lungs clear, normal breath sounds Cardiovascular: regular rate, rhythm, no murmur Abdomen: normal bowel sounds, soft, + tenderness (mild) Neurologic/Psychiatric: alert, oriented x 3 Laboratory Results Last 24 Hours Test 07/06/17 23:48 07/07/17 00:15 07/07/17 00:34 07/07/17 07:26 Urine Color YELLOW Urine Appearance CLEAR Urine pH 6.5 Urine Specific [place] 1.013 Urine Protein TRACE Urine Glucose (UA) NEG Urine Ketones NEG Urine Occult Blood 1+ Urine Nitrite NEG Urine Bilirubin NEG Urine Urobilinogen NEG Urine Leukocyte Esterase LARGE Urine WBC (Auto) >30 /hpf Urine RBC (Auto) 5-10 /hpf Urine Hyaline Casts (Auto) 1-5 /lpf Urine Epithelial Cells (Auto) 0-5 /lpf Urine Bacteria (Auto) NEG White Blood Count 11.44 K/uL Red Blood Count 4.40 M/uL Hemoglobin 13.6 g/dL Hematocrit 41.8 % Mean Corpuscular Volume 95.0 fL Mean Corpuscular Hemoglobin 30.9 pg Mean Corpuscular Hemoglobin Concent 32.5 g/dl Platelet Count 186 K/uL Mean Platelet Volume 10.5 fL Neutrophils (%) (Auto) 75.8 % Lymphocytes (%) (Auto) 13.8 % Monocytes (%) (Auto) 8.0 % Eosinophils (%) (Auto) 1.8 % Basophils (%) (Auto) 0.3 % Neutrophils # (Auto) 8.67 K/uL Lymphocytes # (Auto) 1.58 K/uL Monocytes # (Auto) 0.92 K/uL Eosinophils # (Auto) 0.21 K/uL Basophils # (Auto) 0.03 K/uL RDW Standard Deviation 47.9 fL RDW Coefficient of Variation 13.9 % Immature Granulocyte % (Auto) 0.3 % Immature Granulocyte # (Auto) 0.03 K/uL Prothrombin Time 10.6 SECONDS Prothromb Time International Ratio 1.0 Sodium Level 135 mmol/L Potassium Level 4.2 mmol/L Chloride Level 101 mmol/L Carbon Dioxide Level 26 mmol/L Anion Gap 8.0 mmol/L Blood Urea Nitrogen 21 mg/dl Creatinine 1.58 mg/dl Est Creatinine Clear Calc Drug Dose 51.8 ml/min Estimated GFR () 49.2 Estimated GFR (Non- 42.5 BUN/Creatinine Ratio 13.3 Random Glucose 113 mg/dl Calcium Level 9.1 mg/dl Magnesium Level 1.6 mg/dl Total Bilirubin 0.6 mg/dl Aspartate Amino Transf (AST/SGOT) 22 U/L Alanine Aminotransferase (ALT/SGPT) 38 U/L Alkaline Phosphatase 119 U/L Troponin I < 0.015 ng/ml Pro-B-Type Natriuretic Peptide 299 pg/ml Total Protein 7.8 gm/dl Albumin 3.7 gm/dl Globulin 4.1 gm/dl Albumin/Globulin Ratio 0.9 Bedside Lactic Acid Venous 1.59 mmol/L Bedside Glucose 177 mg/dl Assessment and Plan 72 yo M, hx of uti, sepsis and prostatitis, who presents with 1.5 wks of urinary sx with UTI findings on UA. Urinary tract infection recent actual infection was E Coli, pansensitive - Rocephin daily based on previous cultures, inital night CT suggests some perinephric inflammation, will treat as such CKD 2-3- Hold Metformin and Trulicity CAD s/p CABG stable no symptoms, aspirin, ANETA-I, statin, Metoprolol Type 2 DM held metformin and trulicity- Sliding scale insulin Full code, DVT prevention is Heparin
[2017-07-07 16:55] VITALS: BP 119/71; PULSE 105; TEMP 37.5; O2SAT 95
[2017-07-07 20:41] VITALS: BP 109/68; PULSE 105
[2017-07-07] MEDS: ALLOPURINOL 300 MG TAB PO SCH (20:43)
[2017-07-07] MEDS: ATORVASTATIN 40 MG TAB PO SCH (20:43)
[2017-07-07] MEDS: ENALAPRIL MALEATE 5 MG TAB PO SCH (20:44)
[2017-07-08] VITALS (9 sets, daily range): BP systolic 93–127; BP diastolic 60–70; PULSE 82–101; TEMP 36.4–38; O2SAT 93–94
[2017-07-08] MEDS: ACETAMINOPHEN 325 MG TAB PO PRN (03:19)
[2017-07-08] MEDS: CEFTRIAXONE SOD INJ 1 GM in DEXTROSE 5% ADD-VANTAGE 50ML 50 ML IV SCH (07:30)
[2017-07-08] MEDS: RANITIDINE HCL 150 MG TAB PO SCH ×2 (07:34→20:24)
[2017-07-08] MEDS: ASPIRIN 81 MG ECTAB PO SCH (07:35)
[2017-07-08] MEDS: CLOPIDOGREL BISULFATE 75 MG TAB PO SCH (07:35)
[2017-07-08] MEDS: CEROVITE ADV FORMULA TAB PO SCH (07:35)
[2017-07-08] MEDS: METOPROLOL TARTRATE 25 MG TAB PO SCH ×3 (07:35→20:23)
[2017-07-08] MEDS: INSULIN ASPART 100 UNITS/ML 3 ML PEN SC SCH ×4 (07:54→20:21)
[2017-07-08] MEDS: CIPROFLOXACIN / D5W 400 MG in PREMIXED IN D5W 200 ML IV SCH ×2 (09:39→20:22)
--- NOTE | 2017-07-08 14:11 | Progress Note ---
Subjective Date of Service: Jul 08, 2017. Subjective fever again overnight, change of antibiotic, urine growing gram negative pt clinically feels improved except during times of fever Problem List Medical Problems: (1) Abdominal pain Status: Acute (2) Abnormal EKG Status: Acute (3) JULIO CESAR (acute kidney injury) Status: Acute (4) Chest wall pain Status: Acute (5) CKD (chronic kidney disease) Status: Acute (6) Constipation Status: Acute (7) Hydronephrosis of left kidney Status: Acute (8) Pyelonephritis Status: Acute (9) Pyelonephritis Status: Acute (10) Renal colic on left side Status: Acute (11) SIRS (systemic inflammatory response syndrome) Status: Acute (12) Substernal chest pain Status: Acute (13) Tachycardia Status: Acute (14) UTI (urinary tract infection) Status: Acute Review of Systems Constitutional: No fever, No chills Respiratory: No cough, No sputum, No wheezing Cardiac: No chest pain, No PND, No edema Abdomen: No pain, No nausea, No vomiting, No diarrhea Musculoskeletal: No joint pain, No muscle pain Male : No dysuria, No urinary frequency, No incontinence Psychiatric: No depression symptoms, No anhedonism Objective Vital Signs Date Time Temp Pulse Resp B/P (MAP) Pulse Ox O2 Delivery O2 Flow Rate FiO2 07/08/17 08:00 93 Room Air 07/08/17 07:57 36.4 82 20 93/70 (78) 93 Room Air 07/08/17 04:58 36.6 07/08/17 03:18 38.0 07/08/17 00:16 37.7 101 18 107/65 (79) 93 Room Air 07/08/17 00:00 Room Air 07/07/17 20:41 105 109/68 (82) 07/07/17 16:55 37.5 105 18 119/71 (87) 95 Room Air 07/07/17 16:00 Room Air Physical Exam General Appearance: WD/WN, no apparent distress Eyes: PERRL, EOMI Respiratory/Chest: chest non-tender, lungs clear, normal breath sounds Cardiovascular: regular rate, rhythm, no murmur Abdomen: normal bowel sounds, non tender, soft Extremities: no pedal edema, no calf tenderness Neurologic/Psychiatric: alert, oriented x 3 Laboratory Results Last 24 Hours Test 07/07/17 16:44 07/07/17 20:39 07/08/17 05:12 07/08/17 07:10 Bedside Glucose 144 mg/dl 136 mg/dl 151 mg/dl Test 07/08/17 11:29 Bedside Glucose 202 mg/dl Assessment and Plan 72 yo M, hx of uti, sepsis and prostatitis, who presents with 1.5 wks of urinary sx with UTI findings on UA. Urinary tract infection recent infection was E Coli, pansensitive -, inital night CT suggests some perinephric inflammation,fever on rocephin will change to cipro 07/08, urine shows gram negative >100,000 CKD 2-3 follow labs clinically taking po wekk CAD s/p CABG stable no symptoms, aspirin, ANETA-I, statin, Metoprolol Type 2 DM initially held metformin and trulicity- Sliding scale insulin, will consider restart metformin 07/08 Full code, DVT prevention is Heparin
[2017-07-08] MEDS: METFORMIN HCL 500 MG TAB PO SCH (18:04)
[2017-07-08] MEDS: ATORVASTATIN 40 MG TAB PO SCH (20:23)
[2017-07-08] MEDS: ENALAPRIL MALEATE 5 MG TAB PO SCH (20:24)
[2017-07-08] MEDS: ALLOPURINOL 300 MG TAB PO SCH (20:24)
[2017-07-09] VITALS: O2SAT 93
[2017-07-09 07:33] VITALS: BP 113/70; PULSE 84; TEMP 36.9; O2SAT 93
[2017-07-09 07:44] LABS: BUN/CREATININE RATIO 15.7 (10-20); CALCIUM 8.8 mg/dl (8.5-10.1); CREATININE 1.38 mg/dl (0.60-1.40); POTASSIUM 4.2 mmol/L (3.5-5.1)
[2017-07-09 08:00] LABS: ESTIMATED AVERAGE GLUCOSE 140 mg/dl; HA1C FLAG Normal (Normal)
[2017-07-09] MEDS: CIPROFLOXACIN / D5W 400 MG in PREMIXED IN D5W 200 ML IV SCH (08:27)
[2017-07-09] MEDS: CLOPIDOGREL BISULFATE 75 MG TAB PO SCH (08:27)
[2017-07-09] MEDS: ASPIRIN 81 MG ECTAB PO SCH (08:27)
[2017-07-09] MEDS: CEROVITE ADV FORMULA TAB PO SCH (08:28)
[2017-07-09] MEDS: METFORMIN HCL 500 MG TAB PO SCH (08:28)
[2017-07-09] MEDS: RANITIDINE HCL 150 MG TAB PO SCH (08:28)
[2017-07-09] MEDS: METOPROLOL TARTRATE 25 MG TAB PO SCH (08:28)
[2017-07-09] MEDS: INSULIN ASPART 100 UNITS/ML 3 ML PEN SC SCH ×2 (08:37→12:53)
[2017-07-09 09:58] LABS: HEMATOCRIT 34.8 % (42-52); MEAN CELL VOLUME 94.6 fL (80-100); MEAN CORPUSCULAR HEMOGLOBIN 30.7 pg (25-34); MEAN CORPUSCULAR HGB CONC 32.5 g/dl (32-36); MEAN PLATELET VOLUME 10.1 fL (7.4-10.4); PLATELET COUNT 159 K/uL (130-400); RED BLOOD COUNT 3.68 M/uL (4.7-6.1); WHITE BLOOD COUNT 9.95 K/uL (4.8-10.8)
[2017-07-09] MEDS ORDERED: CPR500 PO (13:43)
--- NOTE | 2017-07-09 13:56 | Discharge Instructions ---
Discharge Instructions Date of Service Jul 09, 2017. Admission Reason for Admission: UTI Discharge Discharge Diagnosis / Problem: Urinary tract infection, prostatitis Discharge Goals Goal(s): Decrease discomfort, Improve function, Diagnostic testing, Therapeutic intervention Activity Recommendations Activity Limitations: resume your previous activity (as tolerated) . Instructions / Follow-Up Instructions / Follow-Up You were admitted to the hospital after presenting with fevers, chills, weakness and some burning with urination. You were found to have a urinary tract infection. You were initially treated with IV antibiotics. Due to your history of prostatitis and enlarged prostate on CT scan, you will be treated with a prolonged course of an oral antibiotic for presumed prostatitis ( inflammation of the prostate). Medications: *Please take ciprofloxacin (Cipro) 500 mg by mouth twice daily for 4 weeks. *Continue your home medications as prescribed. Follow up: *You have been scheduled to follow up at Dr. Norton's office on July 16 at 2:30 pm. Please seek medical attention if you experience fevers, chills, sweats, dizziness/lightheadedness, loss of consciousness, chest pain, shortness of breath, nausea, vomiting, numbness or tingling. Current Hospital Diet Patient's current hospital diet: Diabetes Type 2 Diet, AHA Diet (Heart Healthy) Discharge Diet Recommended Diet: AHA Diet (Heart Healthy), Diabetes Type 2 Diet Pending Studies Studies pending at discharge: no Laboratory Results Hemoglobin A1c Test 07/08/17 05:12 Range/Units Estimated Average Glucose 140 mg/dl Hemoglobin A1c 6.5 H 4.5-5.6 % Lipid Panel Test 06/15/17 11:11 Range/Units Triglycerides Level 146 0-150 mg/dl Cholesterol Level 103 0-200 mg/dl HDL Cholesterol 35 mg/dl Cholesterol/HDL Ratio 2.9 LDL Cholesterol, Calculated 39 mg/dl Medical Emergencies . Who to Call and When: Medical Emergencies: If at any time you feel your situation is an emergency, please call 911 immediately. . Non-Emergent Contact Non-Emergency issues call your: Primary Care Provider, Urologist Call Non-Emergent contact if: you have a fever, you have any medication questions . Past History Medical & Surgical History: (1) Prostatitis (2) UTI (urinary tract infection) . "Provider Documentation" section prepared by Mame Drew. . VTE Core Measure Inpt VTE Proph given/why not?: SCD's Reviewed: Pt Seen/Exam by Me Assessment/Plan You should take a probiotic for the next 2 months due to the extensive amount of time you will be on antibiotics. You should ask the pharmacist for help finding a probiotic that contains multiple strains, including both Lactobacillus and Bifidobacter. A good brand is [employer] EPS, it is available at [employer] [employer] in [place]. It may also be available at [facility]
[2017-07-09 14:11] VITALS: BP 113/70; PULSE 84; TEMP 36.9; O2SAT 93
--- NOTE | 2017-07-09 14:18 | Discharge Summary ---
Discharge Summary Date of Service Jul 09, 2017. (Mame Drew .TIARA) Discharge Summary Admission Date: Jul 07, 2017 at 02:40 Discharge Date: Jul 09, 2017 Discharge Disposition: Home Principal Diagnosis: UTI, prostatitis Immunizations: Have You Had Influenza Vaccine: Unknown Influenza Vaccine Date: May 16, 2013 History of Tetanus Vaccine?: Unknown History of Pneumococcal: Unknown Pneumococcal Date: Feb 07, 2009 History of Hepatitis B Vaccine: Unknown Procedures: CT OF THE ABDOMEN AND PELVIS WITHOUT CONTRAST CLINICAL HISTORY: Urinary tract infection. Renal failure. COMPARISON STUDY: CT of the abdomen and pelvis January 22, 2016 and renal ultrasound January 24, 2016. TECHNIQUE: Axial images of the abdomen and pelvis were obtained without IV contrast. Images were reviewed in the axial, sagittal, and coronal planes. A dose lowering technique was utilized adhering to the principles of ALARA. FINDINGS: There is mild dilatation of the right renal pelvis which suggests an extrarenal pelvis. There is mild left pelvicaliectasis. There are no ureteral calculi. No renal or bladder calculi are identified. Bladder is moderately distended. Prostate is mildly enlarged. Evaluation of the remainder of the abdomen and pelvis is suboptimal on this unenhanced examination. Unenhanced images of liver, spleen, adrenal glands and pancreas are unremarkable. There is sigmoid diverticulosis without evidence for acute diverticulitis. There are no suspicious osseous lesions. There is no biliary ductal dilatation status post cholecystectomy. IMPRESSION: 1. No urinary calculi. Mild left pelvicaliectasis of uncertain etiology. Moderate dilatation of the bladder. 2. Sigmoid diverticulosis without evidence for acute diverticulitis. (Mame Drew .ALEXANDERC) Medication Reconciliation New Medications: Ciprofloxacin (Ciprofloxacin HCl) 500 Mg Tab 500 MG PO BID for 28 Days, #56 TAB Continued Medications: Allopurinol (Allopurinol) 300 Mg Tab 300 MG PO HS Aspirin (Aspirin Ec) 81 Mg Tab 81 MG PO DAILY Atorvastatin (Lipitor) 80 Mg Tab 80 MG PO HS, TAB Clopidogrel (Plavix) 75 Mg Tab 75 MG PO QAM, TAB Dulaglutide (Trulicity) 0.75 Mg/0.5 Ml Inj 0.75 MG SC WK ADMINISTER EVERY SUNDAY Enalapril Maleate (Enalapril Maleate) 5 Mg Tab 5 MG PO HS Insulin Regular (Human) (Humulin R U-500 (Concentr) 500 Unit/Ml Inj UNITS SC TID COVERAGE DIRECTED BY SLIDING SCALE Meclizine Hcl (Meclizine Hcl) 25 Mg Tab 25 MG PO Q6H PRN for Dizziness or Vertigo for 10 Days, #40 TAB Metformin Hcl (Glucophage) 1,000 Mg Tab 1000 MG PO BID Metoprolol Tartrate (Lopressor) (Lopressor) 25 Mg Tab 25 MG PO BID, TAB Multiple Vitamins W/ Minerals (Centrum Silver 50+Men) 1 Tab Tab 1 TAB PO DAILY Ranitidine (Zantac) 150 Mg Tab 150 MG PO BID, TAB Discharge Exam Patient reports feeling well. He denies any fevers or chills in the last 24 hours and states that his initial weakness has now resolved and he feels back to normal. He denies any urinary symptoms. The patient denies fevers, chills, sweats, chest pain, palpitations, claudication, cough, wheezing, shortness of breath, nausea, vomiting, abdominal pain, dysuria, hematuria, urinary retention , paralysis, weakness, numbness and tingling. Review of Systems: Constitutional: No fever, No chills, No sweats, No weakness, No fatigue Eyes: No worsening of vision, No eye pain, No diplopia ENT: No hearing loss, No nasal symptoms, No trouble swallowing Respiratory: No cough, No wheezing, No shortness of breath Cardiovascular: No chest pain, No claudication, No palpitations Abdomen: No pain, No nausea, No vomiting Musculoskeletal: No joint pain, No muscle pain, No swelling Genitourinary - Male: No hematuria, No dysuria, No urinary frequency, No urinary urgency, No urinary retention Neurologic: No paralysis, No weakness, No numbness/tingling Integumentary: No rash, No itch, No color change Physical Exam: General Appearance: WD/WN, no apparent distress, + obese Eyes: normal inspection, PERRL, EOMI ENT: normal ENT inspection, hearing grossly normal, pharynx normal Neck: supple, no JVD, trachea midline Respiratory/Chest: lungs clear, normal breath sounds, no respiratory distress Cardiovascular: regular rate, rhythm, no gallop, no murmur Abdomen / GI: normal bowel sounds, non tender, soft Extremities: normal inspection, no calf tenderness, no pedal edema Neurologic/Psychiatric: alert, normal mood/affect, oriented x 3 (Mame Drew ., PA-C) Hospital Course 72 y/o male with a history of recurrent UTI w/sepsis, prostatitis, HTN, HLD, chronic diastolic CHF, h/o a-fib, DM II, BPH, gout and GERD who presents with urinary symptoms and UTI. Urinary tract infection, prostatitis -Admit to med/surg for obs -A/P CT shows mild left hydronephrosis of unknown etiology. No stones. Mild distention of bladder and enlargement of prostate -Cipro 500 mg PO BID x 4 weeks for prostatitis -Blood culture NGTD -Urine culture positive for klebsiella, resistant to Macrobid but otherwise sensitive H/o A-fib, HTN, HLD, chronic diastolic CHF--stable, NSR -Continue ASA, Plavix, enalapril 5 mg PO qd, Lopressor 25 mg PO BID, Lipitor 80 mg PO qd CKD stage III--stable, at baseline DM II--A1c 6.5 on 07/08/17 -Insulin sliding scale -Check BSGs q ac and qhs -Resume metformin 1000 mg PO BID -Resume Trulicity 0.75 mg SC weekly Gout -Continue allopurinol 300 mg PO qd DVT prophylaxis -SCDs Code Status -Level I, FULL RESUSCITATION STATUS Total Time Spent: Greater than 30 minutes This includes examination of the patient, discharge planning, medication reconciliation, and communication with other providers. (Mame Drew PA-C) Discharge Instructions Please refer to the electronic Patient Visit Report (Discharge Instructions) for additional information. (Mame Drew PA-C) Additional Copies To Ras Norton M.D. Reviewed: Pt Seen/Exam by Me (Rashida Mayen DO) History Pt is feeling overall improved. Tolerating PO without issue. No chest pain or SOB. Agree with HPI/ROS as noted. (Rashida Mayen, ) General Appearance: WD/WN, no apparent distress Respiratory: normal breath sounds, no respiratory distress Cardiovascular: regular rate, rhythm, no edema Gastrointestinal: non tender, soft Extremities: non-tender, no pedal edema Neurologic/Psychiatric: alert, normal mood/affect, oriented x 3 Skin Characteristics: normal color, warm/dry (Rashida Mayen DO) Assessment/Plan Agree with plan as outlined above Prostatitis, will cover with cipro x4 weeks given hx of same Urine cx noted with sensitivity to cipro Blood cx neg Advised concurrent probiotic as well (Rashida Mayen, DO)
[2017-07-09] MEDS ORDERED: CIPROFLOXACIN 500 MG TAB PO SCH (21:00)
== END 2017-07-09 15:33 | disposition home or self-care (01) ==
LOC: C.EDB 23:39 → C.MED 07-07 02:40 → ENRESERV 07-07 02:52 → C.MS2W 07-08 19:34
PROVIDERS: ADMIT Internal Medicine; ATTEND Internal Medicine
DX: N39.0 Urinary tract infection, site not specified (principal); B96.20 Unspecified Escherichia coli [E. coli] as the cause of diseases classified elsewhere; N41.9 Inflammatory disease of prostate, unspecified; I13.0 Hypertensive heart and chronic kidney disease with heart failure and stage 1 through stage 4 chronic kidney disease, or unspecified chronic kidney disease; N18.3 Chronic kidney disease, stage 3 (moderate); I50.32 Chronic diastolic (congestive) heart failure; N40.0 Benign prostatic hyperplasia without lower urinary tract symptoms; E11.9 Type 2 diabetes mellitus without complications; M10.9 Gout, unspecified; Z79.82 Long term (current) use of aspirin; Z79.4 Long term (current) use of insulin; Z87.440 Personal history of urinary (tract) infections; Z86.19 Personal history of other infectious and parasitic diseases; Z95.1 Presence of aortocoronary bypass graft; Z90.49 Acquired absence of other specified parts of digestive tract; Z82.49 Family history of ischemic heart disease and other diseases of the circulatory system

== ENCOUNTER → 2018-02-27 | Outpatient (CLI) | payer OTHER ==
[~2018-02-27] MED LIST changes: -ASPEC81 PO; +ASPI81TA28 PO; +CLOP1TAB15 PO; +CPR500 PO; -LPR25 PO; +MECL1TAB42 PO; +METO25TA56 PO; +MULT-1093 PO; -MULT-506 PO; -PLV75 PO; +RANI150T85 PO; -ZNT150 PO
[2018-02-27 16:45] LABS: BASO % 0.5 %; BASO ABS # 0.03 K/uL (0-0.2); EOS % 4.1 %; EOS ABS # 0.25 K/uL (0-0.5); HEMATOCRIT 38.6 % (42-52); HEMOGLOBIN 12.4 g/dL (14.0-18.0); IG# 0.01 K/uL (0.00-0.02); LYMPH % 25.3 %; LYMPH ABS # 1.56 K/uL (1.2-3.4); MEAN CELL VOLUME 92.8 fL (80-100); MEAN CORPUSCULAR HEMOGLOBIN 29.8 pg (25-34); MEAN CORPUSCULAR HGB CONC 32.1 g/dl (32-36); MEAN PLATELET VOLUME 10.5 fL (7.4-10.4); MONO % 8.4 %; MONO ABS # 0.52 K/uL (0.11-0.59); NEUT % 61.5 %; PLATELET COUNT 208 K/uL (130-400); RED CELL DISTRIBUTION WIDTH CV 14.5 % (11.5-14.5); RED CELL DISTRIBUTION WIDTH SD 48.7 fL (36.4-46.3); WHITE BLOOD COUNT 6.17 K/uL (4.8-10.8)
[2018-02-27 17:13] LABS: ALBUMIN 3.5 gm/dl (3.4-5.0); ALKALINE PHOSPHATASE 111 U/L (45-117); ALT/SGPT 27 U/L (12-78); AST/SGOT 13 U/L (15-37); BLOOD UREA NITROGEN 21 mg/dl (7-18); CALCIUM 8.7 mg/dl (8.5-10.1); CARBON DIOXIDE 26 mmol/L (21-32); CHOLESTEROL 109 mg/dl (0-200); CREATININE 1.43 mg/dl (0.60-1.40); GLUCOSE 150 mg/dl (70-99); LDL CHOLESTEROL CALCULATED 28 mg/dl; POTASSIUM 4.5 mmol/L (3.5-5.1); SODIUM 140 mmol/L (136-145); TOTAL PROTEIN 7.3 gm/dl (6.4-8.2)
[2018-02-28 06:54] LABS: HEMOGLOBIN A1C 7.3 % (4.5-5.6)
== END | disposition home or self-care (01) ==
LOC: C.LABPBG 14:07
PROVIDERS: ATTEND Internal Medicine
DX: I25.10 Atherosclerotic heart disease of native coronary artery without angina pectoris (principal); E11.22 Type 2 diabetes mellitus with diabetic chronic kidney disease

== ENCOUNTER 2022-08-27 20:00 | Inpatient (IN) ==
[2022-08-27 20:30] LABS: Basophils # (auto) 0.06 K/uL (0-0.2); Basophils % (auto) 0.7 %; Eosinophils # (auto) 0.17 K/uL (0-0.50); Hematocrit (blood only) 39.4 % (40.1-51.0); Hemoglobin 12.7 g/dl (14.0-18.0); Immature Granulocytes # (auto) 0.03 K/uL (0.00-0.02); Immature Granulocytes % (auto) 0.4 %; Lymphocytes # (auto) 1.84 K/uL (1.2-3.4); Mean Corpuscular Hemoglobin 28.9 pg (25.0-34.0); Mean Corpuscular Hgb Conc 32.2 g/dL (32.0-36.0); Mean Corpuscular Volume 89.5 fL (80.0-100.0); Mean Platelet Volume 10.3 fL (9.4-12.4); Monocytes # (auto) 0.58 K/uL (0.24-0.82); Monocytes % (auto) 6.9 %; Neutrophils # (auto) 5.67 K/uL (1.4-6.5); Platelet Count 203 K/uL (130-400); RDW Coefficient of Variation 15.4 % (11.5-14.5); RDW Standard Deviation 50.4 fL (36.4-46.3); White Blood Count 8.35 K/ul (4.8-10.8)
[2022-08-27 20:48] LABS: BUN Creatinine Ratio 15.6 (10-20); Calcium 9.6 mg/dl (8.5-10.1); Creatinine Clr Calc Pharmacy 52.2 ml/min; Est GFR (African American) 51.8 ml/min; Est GFR (Non-African American) 44.7 ml/min; Potassium 4.2 mmol/L (3.5-5.1)
[2022-08-27 20:54] LABS: Troponin I High Sensitivity 21.3 pg/ml (0-20)
--- NOTE | 2022-08-27 22:13 | XRay Report ---
SINGLE VIEW CHEST CLINICAL HISTORY: Atypical chest pain FINDINGS: An AP, portable, upright chest radiograph is compared to study dated 02/19/2017. The examina tion is degraded by portable technique and apical lordotic positioning. The patient is status post mi dline sternotomy. The heart is enlarged. The pulmonary vasculature is noncongested. There is bibasila r scarring/atelectasis. There are scattered calcified granulomas. The lungs and pleural spaces are ot herwise clear. No pneumothorax is seen. The skeletal structures are osteopenic. The bony thorax is gr ossly intact. IMPRESSION: Cardiomegaly with no acute cardiopulmonary abnormality identified. ACT 112: Negative or not required by law. Electronically signed by: Bernardino Billingsley M.D. 08/27/2022 10:11 PM
--- NOTE | 2022-08-27 22:38 | History & Physical Report ---
Date of Service August 27, 2022 Assessment & Plan (1) Chest pain: Plan: 77yo male with known CAD s/p CABG with subsequent stenting presents with episode of acute chest pain 08/27/22 at 17:30 which was relieved with Nitro. Troponin has increased from 21.3 --> 117.6. Patient remains chest pain free -Admit to medical with telemetry -Trend troponin to peak -Check 2D echo -Initiate heparin gtt for concern for NSTEMI -Continue ASA 81mg daily -Continue Plavix 75mg daily -Continue Atorvastatin 80mg daily -Continue Isosorbide -Cardiology consultation appreciated -Patient reports he has been unable to tolerate a beta mis in the past due to fatigue and low energy caused by them (2) Hyperlipidemia: Plan: Chronic. Stable -Continue Atorvastatin 80mg po daily (3) Controlled type 2 diabetes mellitus with insulin therapy: Plan: Chronic. Overall fairly well controlled on Trulicity, Insulin 70/30 and Metformin. Last HgbA1C in January 2022 = 7.3 -Lantus 10u BID -ISS -Goal blood sugar 110- 140 (4) Hypertension: Plan: Well controlled -Continue Isosorbide -Monitor (5) Esophageal reflux: Plan: Chronic. Stable -Continue Protonix 40mg po daily History of Present Illness Chief Complaint: chest pain Primary Care Provider: Lj Cho DO [place] Goyal is a 77yo male with multiple medical comorbidities to include CAD s/p CABG x 4V with subsequent stenting, DM, HTN, HLP, CHF and AF presenting with chest pain. Patient was at home around 17:30 today when he developed acute onset of substernal chest pressure with radiation into his back. He denies diaphoresis, nausea or lightheadedness. He took two Nitro with improvement. He does admit to an episode of chest pain yesterday as well which occurred while he was walking to his daughter's house in the cold. Presently feeling well. Patient is chest pain free. He denies cough, SOB, abdominal pain, nausea, vomiting, diarrhea. Patient follows with Cardiology, Dr. Lovell in [place]. He last saw him several weeks ago. Patient had CABG x 4V approximately 15 years ago. He has had multiple stents placed since with most recent being 6 months ago. Allergies Allergy/AdvReac Type Severity Reaction Status Date / Time No Known Drug Allergies Allergy Verified 06/14/22 12:47 Home Medications Medication Instructions Recorded Confirmed Type multivitamin 1 tab PO DAILY 05/08/19 06/14/22 History blood-glucose meter (OneTouch #1 ea 05/09/19 06/14/22 Rx Verio Flex Start kit) insulin syringe-needle U-100 1 mL #200 ea 02/23/20 06/14/22 Rx 31 gauge x 5/16" (BD Insulin Syringe Ultra-Fine) metformin 1,000 mg tablet 1,000 mg PO BID #180 tabs 03/08/21 06/14/22 Rx insulin aspar prt-insulin aspart See Rx Instructions subcut BIDM 03/11/21 06/14/22 Rx 100 unit/mL (70-30) subcutaneous #50 mL soln (Novolog Mix 70-30 U-100 Insuln) atorvastatin 80 mg tablet 80 mg PO DAILY #90 tabs 03/25/21 06/14/22 Rx clopidogrel 75 mg tablet 75 mg PO DAILY #90 tabs 04/08/21 06/14/22 Rx blood sugar diagnostic #300 ea 04/28/21 06/14/22 Rx allopurinol 300 mg tablet 300 mg PO DAILY #90 tabs 10/04/21 06/14/22 Rx aspirin 325 mg tablet 325 mg PO DAILY 05/30/22 06/14/22 History bisoprolol fumarate 5 mg tablet 2.5 mg PO DAILY 05/30/22 06/14/22 History clotrimazole 1 % topical solution 1 applic topical BID 05/30/22 06/14/22 History dulaglutide 1.5 mg/0.5 mL 3 mg subcut WEEKLY 05/30/22 06/14/22 History subcutaneous pen injector (Trulicity) isosorbide mononitrate 60 mg 60 mg PO DAILY 05/30/22 06/14/22 History tablet,extended release 24 hr pantoprazole 40 mg tablet,delayed 40 mg PO DAILY 05/30/22 06/14/22 History release (Protonix) Past Med/Surg History Medical History ACS (acute coronary syndrome) Basal cell carcinoma of skin of trunk Basal cell carcinoma, face Cerumen impaction Incomplete bladder emptying Iron deficiency anemia Kidney stone Pericardial effusion Primary osteoarthritis of left knee Sepsis Stage 3b chronic kidney disease Vitamin D deficiency Surgical History H/O transurethral resection of prostate History of ankle surgery History of arthroplasty of knee (~05/14/13) left - Dr. Peterson History of cholecystectomy History of four vessel coronary artery bypass graft History of lithotripsy Status post repair of nerve Family History Brother Diabetes Heart disease Prostate cancer End stage renal disease Myocardial infarction Sister Diabetes Mother Heart disease Myocardial infarction Father Heart disease Myocardial infarction Unknown Hypercholesteremia Denies family history of Ovarian cancer Hearing loss Breast cancer Colorectal cancer Hypertension Social History Smoking Status: Never smoker Second Hand Exposure: No; Hx Alcohol Use: No Hx Substance Use: No Preferred Language: Turkmen Communication Ability: Effective Visual Impairment: No Limitations Hearing Ability: Use of Hearing Aid Sill Worker Required: No Beliefs That Will Affect Care: None marital status: Current Living Situation: Spouse current occupational status: retired 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 Other Information That Helps Us Care for You: No Feels Safe at Home: Yes Safety Concerns: Feels Safe At This Time Childhood Exposure to Second-Hand Smoke: Yes Diet Comment: no added salt caffeine: Yes Dental Care, Regularly: No Physical Activity Frequency: Daily Seatbelt Use: never Sunscreen Use: No Assistive Devices: Denture - Upper Review of Systems Review of Systems: All systems reviewed & are unremarkable except as noted in HPI & below Physical Exam Physical Exam: General: patient resting comfortably, NAD, non-toxic in appearance, AA&O x 4 Skin: warm, dry, intact, no rashes or lesions HEENT: NC/AT, PERRL, EOMI, anicteric sclera, conjunctiva without injection, external ear normal to inspection and nontender, nares patent, moist mucus membranes, dentition intact, no oropharyngeal lesions, neck supple, trachea midline, no LAD, no thyromegaly, no JVD Heart: +S1/S2, regular, no m/r/g Lungs: equal air entry bilaterally, no rales/rhonchi/wheezes Abd: +BS, soft, NT/ND, no masses/organomegaly/ascites Ext: warm, 2+ pulses in UE/LE bilaterally, no clubbing/cyanosis or edema Neuro: nonfocal, patient AA&O x 4, speech intact, no facial droop, moving all extremities on command with equal strength 5/5 Results & Data Results & Data ([facility]) Vital Signs (Past 12 Hours) Vital Signs Temp Pulse Pulse Resp BP BP Pulse Ox 08/27/22 22:20 89 17 98 08/27/22 22:10 89 22 95 08/27/22 22:00 91 H 23 95 08/27/22 22:00 149/73 H 08/27/22 21:50 92 H 23 95 08/27/22 21:40 95 H 22 96 08/27/22 21:30 96 H 23 96 08/27/22 21:30 151/72 H 08/27/22 21:20 97 H 17 96 08/27/22 21:19 143/79 H 08/27/22 21:19 94 H 24 96 08/27/22 21:10 98 H 20 97 08/27/22 21:01 106 H 99 08/27/22 20:50 95 H 24 95 08/27/22 20:45 171/99 H 08/27/22 20:45 96 H 20 97 08/27/22 20:40 95 H 22 96 08/27/22 20:30 97 H 21 97 08/27/22 20:30 193/100 H 08/27/22 20:20 94 H 21 97 08/27/22 20:16 185/99 H 08/27/22 20:16 97 H 20 96 08/27/22 20:10 96 H 22 97 08/27/22 20:05 99 H 18 96 08/27/22 20:04 178/100 H 08/27/22 20:14 95 H 20 96 08/27/22 20:03 36.5 C 97 H 20 178/100 H 98 08/27/22 20:03 97 08/27/22 20:03 101 H 19 178/100 H 98 O2 Del Method 08/27/22 22:20 08/27/22 22:10 08/27/22 22:00 08/27/22 22:00 08/27/22 21:50 08/27/22 21:40 08/27/22 21:30 08/27/22 21:30 08/27/22 21:20 08/27/22 21:19 08/27/22 21:19 08/27/22 21:10 08/27/22 21:01 08/27/22 20:50 08/27/22 20:45 08/27/22 20:45 08/27/22 20:40 08/27/22 20:30 08/27/22 20:30 08/27/22 20:20 08/27/22 20:16 08/27/22 20:16 08/27/22 20:10 08/27/22 20:05 08/27/22 20:04 08/27/22 20:14 Room Air 08/27/22 20:03 Room Air 08/27/22 20:03 Room Air 08/27/22 20:03 Room Air Laboratory Results Laboratory Results WBC 8.35 K/ul (4.8-10.8) 08/27/22 20:19 RBC 4.40 M/uL (4.63-6.08) L 08/27/22 20:19 Hgb 12.7 g/dl (14.0-18.0) L 08/27/22 20:19 Hct 39.4 % (40.1-51.0) L 08/27/22 20:19 MCV 89.5 fL (80.0-100.0) 08/27/22 20:19 MCH 28.9 pg (25.0-34.0) 08/27/22 20:19 MCHC 32.2 g/dL (32.0-36.0) 08/27/22 20:19 RDW Std Deviation 50.4 fL (36.4-46.3) H 08/27/22 20:19 RDW Coeff of Cherelle 15.4 % (11.5-14.5) H 08/27/22 20:19 Plt Count 203 K/uL (130-400) 08/27/22 20:19 MPV 10.3 fL (9.4-12.4) 08/27/22 20:19 Immature Gran % (Auto) 0.4 % 08/27/22 20:19 Neut % (Auto) 68.0 % 08/27/22 20:19 Lymph % (Auto) 22.0 % 08/27/22 20:19 [place] % (Auto) 6.9 % 08/27/22 20:19 Eos % (Auto) 2.0 % 08/27/22 20:19 Baso % (Auto) 0.7 % 08/27/22 20:19 Neut # (Auto) 5.67 K/uL (1.4-6.5) 08/27/22 20:19 Lymph # (Auto) 1.84 K/uL (1.2-3.4) 08/27/22 20:19 [place] # (Auto) 0.58 K/uL (0.24-0.82) 08/27/22 20:19 Eos # (Auto) 0.17 K/uL (0-0.50) 08/27/22 20:19 Baso # (Auto) 0.06 K/uL (0-0.2) 08/27/22 20:19 Immature Gran # (Auto) 0.03 K/uL (0.00-0.02) H 08/27/22 20:19 Sodium 139 mmol/L (136-145) 08/27/22 20:19 Potassium 4.2 mmol/L (3.5-5.1) 08/27/22 20:19 Chloride 103 mmol/L (98-107) 08/27/22 20:19 Carbon Dioxide 27 mmol/L (21-32) 08/27/22 20:19 Anion Gap 9 (3-11) 08/27/22 20:19 BUN 23 mg/dl (6-23) 08/27/22 20:19 Creatinine 1.47 mg/dl (0.6-1.4) H 08/27/22 20:19 Est Cr Clr Drug Dosing 52.2 ml/min 08/27/22 20:19 Est GFR ( Amer) 51.8 ml/min 08/27/22 20:19 Est GFR (Non-Af Amer) 44.7 ml/min 08/27/22 20:19 BUN/Creatinine Ratio 15.6 (10-20) 08/27/22 20:19 Glucose 174 mg/dl (70-99(Fasting)) H 08/27/22 20:19 Calcium 9.6 mg/dl (8.5-10.1) 08/27/22 20:19 Magnesium 1.5 mg/dl (1.7-2.4) L 08/28/22 00:49 Troponin I High Sens 117.6 pg/ml (0-20) H* D 08/28/22 00:49 Lipase 52 U/L (11-82) 08/27/22 20:19 SARS-CoV-2, RNA, NAAT NEGATIVE (NEGATIVE) 08/27/22 22:51 Impressions Chest X-Ray 08/27/22 20:13 SINGLE VIEW CHEST CLINICAL HISTORY: Atypical chest pain FINDINGS: An AP, portable, upright chest radiograph is compared to study dated 02/19/2017. The examination is degraded by portable technique and apical lordotic positioning. The patient is status post midline sternotomy. The heart is enlarged. The pulmonary vasculature is noncongested. There is bibasilar scarring/atelectasis. There are scattered calcified granulomas. The lungs and pleural spaces are otherwise clear. No pneumothorax is seen. The skeletal structures are osteopenic. The bony thorax is grossly intact. IMPRESSION: Cardiomegaly with no acute cardiopulmonary abnormality identified. ACT 112: Negative or not required by law. Electronically signed by: Bernardino Billingsley M.D. 08/27/2022 10:11 PM PG Care Time/CCT Total # of Minutes Spent Total Time Spent with Patient: Total time spent is greater than 50% in coordination of care (as documented) at patient's floor/unit and/or counseling patient: Coding Level of Care Code 77051 INT INP/OBS CARE 2/55MIN Diagnoses Chest pain R07.9 Chest pain type: unspecified Hyperlipidemia E78.5 Controlled type 2 diabetes mellitus with insulin therapy E11.9; Z79.4 Hypertension I10 Esophageal reflux K21.9 (1) Chest pain Chest pain type: unspecified Qualified Code(s): R07.9 - Chest pain, unspecified
[2022-08-28] MEDS ORDERED: GLUCOSE 40% GEL 15 GM TUBE PO PRN (00:22)
[2022-08-28] MEDS ORDERED: DEXTROSE 50% 50 ML SYRINGE IV PRN (00:22)
[2022-08-28] MEDS ORDERED: NITROGLYCERIN SL 0.4 MG/TAB TAB SL PRN (00:22)
[2022-08-28] MEDS ORDERED: CARBOHYDRATES FOR HYPOGLYCEMIA PO PRN (00:22)
[2022-08-28] MEDS ORDERED: ACETAMINOPHEN 325 MG TAB PO PRN (00:22)
[2022-08-28] MEDS ORDERED: GLUCAGON FOR INJ 1 MG VIAL SQ PRN (00:22)
[2022-08-28] MEDS ORDERED: GLUCOSE 10 TAB/TUBE PO PRN (00:22)
[2022-08-28] MEDS: INSULIN ASPART PER UNIT SC SCH ×5 (01:11→20:56)
--- NOTE | 2022-08-28 01:18 | Emergency Department Note ---
History of Present Illness General Chief complaint: Cardiac Assessment Time Seen by Provider: 08/27/22 20:08 History of Present Illness Provider complaint: Chest pain Onset (ago): hour(s) (2.5) Maximum Pain Intensity: 3 Current Pain Intensity: 0 Quality: + aching Relieved By: + medication (SL NTG) Exacerbated By: + none Associated symptoms: + chest pain 77-year-old male with history of coronary artery disease presents emergency department for chest pain. Chest pain began acutely today at 1730 while he was eating. He states the chest pain resolved with 2 sublingual nitroglycerin and aspirin administered by EMS. He reports no difficulty breathing. No palpitations. Patient is not on any blood thinners except for Plavix. Patient reports no chest pain at this time. Home Medications Medication Instructions Recorded Confirmed Type multivitamin 1 tab PO DAILY 05/08/19 06/14/22 History blood-glucose meter (OneTouch #1 ea 05/09/19 06/14/22 Rx Verio Flex Start kit) insulin syringe-needle U-100 1 mL #200 ea 02/23/20 06/14/22 Rx 31 gauge x 5/16" (BD Insulin Syringe Ultra-Fine) metformin 1,000 mg tablet 1,000 mg PO BID #180 tabs 03/08/21 06/14/22 Rx insulin aspar prt-insulin aspart See Rx Instructions subcut BIDM 03/11/21 06/14/22 Rx 100 unit/mL (70-30) subcutaneous #50 mL soln (Novolog Mix 70-30 U-100 Insuln) atorvastatin 80 mg tablet 80 mg PO DAILY #90 tabs 03/25/21 06/14/22 Rx clopidogrel 75 mg tablet 75 mg PO DAILY #90 tabs 04/08/21 06/14/22 Rx blood sugar diagnostic #300 ea 04/28/21 06/14/22 Rx allopurinol 300 mg tablet 300 mg PO DAILY #90 tabs 10/04/21 06/14/22 Rx aspirin 325 mg tablet 325 mg PO DAILY 05/30/22 06/14/22 History bisoprolol fumarate 5 mg tablet 2.5 mg PO DAILY 05/30/22 06/14/22 History clotrimazole 1 % topical solution 1 applic topical BID 05/30/22 06/14/22 History dulaglutide 1.5 mg/0.5 mL 3 mg subcut WEEKLY 05/30/22 06/14/22 History subcutaneous pen injector (Trulicity) isosorbide mononitrate 60 mg 60 mg PO DAILY 05/30/22 06/14/22 History tablet,extended release 24 hr pantoprazole 40 mg tablet,delayed 40 mg PO DAILY 05/30/22 06/14/22 History release (Protonix) Allergies Allergy/AdvReac Type Severity Reaction Status Date / Time No Known Drug Allergies Allergy Verified 06/14/22 12:47 Past Med/Surg History Medical History ACS (acute coronary syndrome) Basal cell carcinoma of skin of trunk Basal cell carcinoma, face Cerumen impaction Incomplete bladder emptying Iron deficiency anemia Kidney stone Pericardial effusion Primary osteoarthritis of left knee Sepsis Stage 3b chronic kidney disease Vitamin D deficiency Surgical History H/O transurethral resection of prostate History of ankle surgery History of arthroplasty of knee (~05/14/13) left - Dr. Peterson History of cholecystectomy History of four vessel coronary artery bypass graft History of lithotripsy Status post repair of nerve Family History Brother Diabetes Heart disease Prostate cancer End stage renal disease Myocardial infarction Sister Diabetes Mother Heart disease Myocardial infarction Father Heart disease Myocardial infarction Unknown Hypercholesteremia Denies family history of Ovarian cancer Hearing loss Breast cancer Colorectal cancer Hypertension Social History Smoking Status: Never smoker Second Hand Exposure: No; Hx Alcohol Use: No Hx Substance Use: No Preferred Language: Citizen Of [place] Communication Ability: Effective Visual Impairment: No Limitations Hearing Ability: Use of Hearing Aid marital status: Current Living Situation: Spouse current occupational status: retired 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 Feels Safe at Home: Yes Childhood Exposure to Second-Hand Smoke: Yes Diet Comment: no added salt caffeine: Yes Dental Care, Regularly: No Physical Activity Frequency: Daily Seatbelt Use: never Sunscreen Use: No Assistive Devices: Denture - Upper, Denture - Lower and Hearing Aid - Right Physical Exam Vital Signs Vital Signs - 24 hr 08/27/22 20:03 08/27/22 20:03 08/27/22 20:03 Temperature 36.5 C Temperature Source Oral Pulse Rate 101 H Pulse Rate [Apical] 97 H Pulse Rate from SpO2 Sensor Pulse Rhythm Regular Pulse Rhythm [Apical] Regular Pulse Strength Normal Pulse Strength [Apical] Normal Respiratory Rate 19 20 Respiratory Effort / Characteristics Non-Labored Spontaneous Non-Labored Spontaneous Respiratory Depth Normal Normal Respiratory Pattern Regular Regular Blood Pressure 178/100 H Blood Pressure [Right Arm] 178/100 H Blood Pressure Mean 126 Blood Pressure Mean [Right Arm] 126 Pulse Oximetry 98 97 98 Oxygen Delivery Method Room Air Room Air Room Air Sepsis Recent Fever Within 48 Hours No Sepsis New/Unexplained Change in Mental Status No Sepsis Action Taken by Nursing No Action Required 08/27/22 20:14 08/27/22 20:04 08/27/22 20:05 Temperature Temperature Source Pulse Rate 95 H 99 H Pulse Rate [Apical] Pulse Rate from SpO2 Sensor 100 H Pulse Rhythm Regular Pulse Rhythm [Apical] Pulse Strength Pulse Strength [Apical] Respiratory Rate 20 18 Respiratory Effort / Characteristics Respiratory Depth Respiratory Pattern Blood Pressure 178/100 H Blood Pressure [Right Arm] Blood Pressure Mean 126 Blood Pressure Mean [Right Arm] Pulse Oximetry 96 96 Oxygen Delivery Method Room Air Sepsis Recent Fever Within 48 Hours Sepsis New/Unexplained Change in Mental Status Sepsis Action Taken by Nursing 08/27/22 20:10 08/27/22 20:16 08/27/22 20:16 Temperature Temperature Source Pulse Rate 96 H 97 H Pulse Rate [Apical] Pulse Rate from SpO2 Sensor 98 H 97 H Pulse Rhythm Pulse Rhythm [Apical] Pulse Strength Pulse Strength [Apical] Respiratory Rate 22 20 Respiratory Effort / Characteristics Respiratory Depth Respiratory Pattern Blood Pressure 185/99 H Blood Pressure [Right Arm] Blood Pressure Mean 127 Blood Pressure Mean [Right Arm] Pulse Oximetry 97 96 Oxygen Delivery Method Sepsis Recent Fever Within 48 Hours Sepsis New/Unexplained Change in Mental Status Sepsis Action Taken by Nursing 08/27/22 20:20 08/27/22 20:30 08/27/22 20:30 Temperature Temperature Source Pulse Rate 94 H 97 H Pulse Rate [Apical] Pulse Rate from SpO2 Sensor 93 H 96 H Pulse Rhythm Pulse Rhythm [Apical] Pulse Strength Pulse Strength [Apical] Respiratory Rate 21 21 Respiratory Effort / Characteristics Respiratory Depth Respiratory Pattern Blood Pressure 193/100 H Blood Pressure [Right Arm] Blood Pressure Mean 131 Blood Pressure Mean [Right Arm] Pulse Oximetry 97 97 Oxygen Delivery Method Sepsis Recent Fever Within 48 Hours Sepsis New/Unexplained Change in Mental Status Sepsis Action Taken by Nursing 08/27/22 20:40 08/27/22 20:45 08/27/22 20:45 Temperature Temperature Source Pulse Rate 95 H 96 H Pulse Rate [Apical] Pulse Rate from SpO2 Sensor 95 H 95 H Pulse Rhythm Pulse Rhythm [Apical] Pulse Strength Pulse Strength [Apical] Respiratory Rate 22 20 Respiratory Effort / Characteristics Respiratory Depth Respiratory Pattern Blood Pressure 171/99 H Blood Pressure [Right Arm] Blood Pressure Mean 123 Blood Pressure Mean [Right Arm] Pulse Oximetry 96 97 Oxygen Delivery Method Sepsis Recent Fever Within 48 Hours Sepsis New/Unexplained Change in Mental Status Sepsis Action Taken by Nursing 08/27/22 20:50 08/27/22 21:01 08/27/22 21:10 Temperature Temperature Source Pulse Rate 95 H 106 H 98 H Pulse Rate [Apical] Pulse Rate from SpO2 Sensor 95 H 106 H 97 H Pulse Rhythm Pulse Rhythm [Apical] Pulse Strength Pulse Strength [Apical] Respiratory Rate 24 20 Respiratory Effort / Characteristics Respiratory Depth Respiratory Pattern Blood Pressure Blood Pressure [Right Arm] Blood Pressure Mean Blood Pressure Mean [Right Arm] Pulse Oximetry 95 99 97 Oxygen Delivery Method Sepsis Recent Fever Within 48 Hours Sepsis New/Unexplained Change in Mental Status Sepsis Action Taken by Nursing 08/27/22 21:19 08/27/22 21:19 08/27/22 21:20 Temperature Temperature Source Pulse Rate 94 H 97 H Pulse Rate [Apical] Pulse Rate from SpO2 Sensor 95 H 98 H Pulse Rhythm Pulse Rhythm [Apical] Pulse Strength Pulse Strength [Apical] Respiratory Rate 24 17 Respiratory Effort / Characteristics Respiratory Depth Respiratory Pattern Blood Pressure 143/79 H Blood Pressure [Right Arm] Blood Pressure Mean 100 Blood Pressure Mean [Right Arm] Pulse Oximetry 96 96 Oxygen Delivery Method Sepsis Recent Fever Within 48 Hours Sepsis New/Unexplained Change in Mental Status Sepsis Action Taken by Nursing 08/27/22 21:30 08/27/22 21:30 08/27/22 21:40 Temperature Temperature Source Pulse Rate 96 H 95 H Pulse Rate [Apical] Pulse Rate from SpO2 Sensor 97 H 96 H Pulse Rhythm Pulse Rhythm [Apical] Pulse Strength Pulse Strength [Apical] Respiratory Rate 23 22 Respiratory Effort / Characteristics Respiratory Depth Respiratory Pattern Blood Pressure 151/72 H Blood Pressure [Right Arm] Blood Pressure Mean 98 Blood Pressure Mean [Right Arm] Pulse Oximetry 96 96 Oxygen Delivery Method Sepsis Recent Fever Within 48 Hours Sepsis New/Unexplained Change in Mental Status Sepsis Action Taken by Nursing 08/27/22 21:50 08/27/22 22:00 08/27/22 22:00 Temperature Temperature Source Pulse Rate 92 H 91 H Pulse Rate [Apical] Pulse Rate from SpO2 Sensor 93 H 91 H Pulse Rhythm Pulse Rhythm [Apical] Pulse Strength Pulse Strength [Apical] Respiratory Rate 23 23 Respiratory Effort / Characteristics Respiratory Depth Respiratory Pattern Blood Pressure 149/73 H Blood Pressure [Right Arm] Blood Pressure Mean 98 Blood Pressure Mean [Right Arm] Pulse Oximetry 95 95 Oxygen Delivery Method Sepsis Recent Fever Within 48 Hours Sepsis New/Unexplained Change in Mental Status Sepsis Action Taken by Nursing 08/27/22 22:10 08/27/22 22:20 08/27/22 22:30 Temperature Temperature Source Pulse Rate 89 89 Pulse Rate [Apical] Pulse Rate from SpO2 Sensor 90 90 Pulse Rhythm Pulse Rhythm [Apical] Pulse Strength Pulse Strength [Apical] Respiratory Rate 22 17 Respiratory Effort / Characteristics Respiratory Depth Respiratory Pattern Blood Pressure 159/73 H Blood Pressure [Right Arm] Blood Pressure Mean 101 Blood Pressure Mean [Right Arm] Pulse Oximetry 95 98 Oxygen Delivery Method Sepsis Recent Fever Within 48 Hours Sepsis New/Unexplained Change in Mental Status Sepsis Action Taken by Nursing 08/27/22 22:30 Temperature Temperature Source Pulse Rate 92 H Pulse Rate [Apical] Pulse Rate from SpO2 Sensor 93 H Pulse Rhythm Pulse Rhythm [Apical] Pulse Strength Pulse Strength [Apical] Respiratory Rate 21 Respiratory Effort / Characteristics Respiratory Depth Respiratory Pattern Blood Pressure Blood Pressure [Right Arm] Blood Pressure Mean Blood Pressure Mean [Right Arm] Pulse Oximetry 96 Oxygen Delivery Method Sepsis Recent Fever Within 48 Hours Sepsis New/Unexplained Change in Mental Status Sepsis Action Taken by Nursing Physical Exam GENERAL: He is oriented to person, place, and time. He appears well-developed and well-nourished. HENT: Exam performed. - Head: Normocephalic and atraumatic. EYES: Conjunctivae and EOM are normal. Right eye exhibits no discharge. Left eye exhibits no discharge. No scleral icterus. NECK: Normal range of motion. Neck supple. No JVD present. CV: Normal rate, regular rhythm, normal heart sounds and intact distal pulses. There is no peripheral edema. Palpable radial pulses bue. PULM/CHEST: Effort normal and breath sounds normal. No respiratory distress. No stridor. He has no wheezes. He has no rales. ABD: The abdomen is soft. There is no tenderness. NEURO: Motor and sensation grossly intact. SKIN: Skin is warm and dry. He is not diaphoretic. PSYCH: He has a normal mood and affect. Behavior is normal. Judgment and thought content normal. Course Course 2007: The patient was evaluated in room B9. A complete history and physical exam was performed Cardiac monitoring: An order was placed for continuous cardiac monitoring. The monitor shows a rate of 100 with sinus rhythm 2120: Vital signs stable. Labs show mildly elevated high-sensitivity troponin at 21.3. Patient currently reports no chest pain saying it all resolved with sublingual nitroglycerin he received in the prehospital setting. Patient will be admitted to the hospitalist service given his high heart score and mildly elevated troponin. HEART Score for Major Cardiac Events from [employer] on 08/28/2022 All calculations should be rechecked by clinician prior to use RESULT SUMMARY: 7 points High Score (7-10 points) Risk of MACE of 50-65%. INPUTS: History > 2 = Highly suspicious EKG > 0 = Normal Age > 2 = >=5 Risk factors > 2 = >= risk factors or history of atherosclerotic disease Initial troponin > 1 = 13 normal limit Administered Medications Insulin Aspart (Insulin Aspart Per Unit) 0 units SC Q6 ALANNAH Stop: 09/27/22 00:44 Last Admin: 08/28/22 01:11 Dose: Not Given Documented By: MAGNO Medical Decision Making Laboratory Data Attestation: I reviewed the patient's lab results. 08/27/22 20:19 08/27/22 20:19 Lab Results 08/27/22 08/27/22 Range/Units 20:19 20:19 WBC 8.35 (4.8-10.8) K/ul RBC 4.40 L (4.63-6.08) M/uL Hgb 12.7 L (14.0-18.0) g/dl Hct 39.4 L (40.1-51.0) % MCV 89.5 (80.0-100.0) fL MCH 28.9 (25.0-34.0) pg MCHC 32.2 (32.0-36.0) g/dL RDW Std Deviation 50.4 H (36.4-46.3) fL RDW Coeff of Cherelle 15.4 H (11.5-14.5) % Plt Count 203 (130-400) K/uL MPV 10.3 (9.4-12.4) fL Immature Gran % (Auto) 0.4 % Neut % (Auto) 68.0 % Lymph % (Auto) 22.0 % [place]go % (Auto) 6.9 % Eos % (Auto) 2.0 % Baso % (Auto) 0.7 % Neut # (Auto) 5.67 (1.4-6.5) K/uL Lymph # (Auto) 1.84 (1.2-3.4) K/uL [place]go # (Auto) 0.58 (0.24-0.82) K/uL Eos # (Auto) 0.17 (0-0.50) K/uL Baso # (Auto) 0.06 (0-0.2) K/uL Immature Gran # (Auto) 0.03 H (0.00-0.02) K/uL Sodium 139 (136-145) mmol/L Potassium 4.2 (3.5-5.1) mmol/L Chloride 103 (98-107) mmol/L Carbon Dioxide 27 (21-32) mmol/L Anion Gap 9 (3-11) BUN 23 (6-23) mg/dl Creatinine 1.47 H (0.6-1.4) mg/dl Est Cr Clr Drug Dosing 52.2 ml/min Est GFR ( Amer) 51.8 ml/min Est GFR (Non-Af Amer) 44.7 ml/min BUN/Creatinine Ratio 15.6 (10-20) Glucose 174 H (70-99(Fasting)) mg/dl Calcium 9.6 (8.5-10.1) mg/dl Troponin I High Sens 21.3 H (0-20) pg/ml Lipase 52 (11-82) U/L Imaging Data Radiologist's Impression: Chest X-Ray 08/27/22 20:13 SINGLE VIEW CHEST CLINICAL HISTORY: Atypical chest pain FINDINGS: An AP, portable, upright chest radiograph is compared to study dated 02/19/2017. The examination is degraded by portable technique and apical lordotic positioning. The patient is status post midline sternotomy. The heart is enlarged. The pulmonary vasculature is noncongested. There is bibasilar scarring/atelectasis. There are scattered calcified granulomas. The lungs and pleural spaces are otherwise clear. No pneumothorax is seen. The skeletal structures are osteopenic. The bony thorax is grossly intact. IMPRESSION: Cardiomegaly with no acute cardiopulmonary abnormality identified. ACT 112: Negative or not required by law. Electronically signed by: Bernardino Billingsley M.D. 08/27/2022 10:11 PM ECG Data Indication: + chest pain Rate (beats per minute): 100 Rhythm: + normal sinus ECG Intervals/blocks: + Left anterior fascicular block and + Right Bundle branch block ECG ST segments: + Normal ST segments Comparison ECG Date: from (December 2021) Change: no significant change Additional Comments: FL 184 QRS 138 QTC 490 MDM Narrative Vital signs stable. Labs show mildly elevated high-sensitivity troponin at 21.3. Patient currently reports no chest pain saying it all resolved with sublingual nitroglycerin he received in the prehospital setting. Patient will be admitted to the hospitalist service given his high heart score and mildly elevated troponin. HEART Score for Major Cardiac Events from [employer] on 08/28/2022 All calculations should be rechecked by clinician prior to use RESULT SUMMARY: 7 points High Score (7-10 points) Risk of MACE of 50-65%. INPUTS: History > 2 = Highly suspicious EKG > 0 = Normal Age > 2 = >=5 Risk factors > 2 = >= risk factors or history of atherosclerotic disease Initial troponin > 1 = 13 normal limit Impression & Plan Chest pain Discharge Plan Visit Data Chief Complaint: Cardiac Assessment ED Provider: Raul Araujo Discharge Problem: Chest pain Patient Disposition: Admitted As Inpatient Discharge Instructions Interventions: ED Discharge Assessment Last Done: 08/28/22 00:03
[2022-08-28 01:35] LABS: Magnesium 1.5 mg/dl (1.7-2.4)
[2022-08-28 02:14] LABS: Troponin I High Sensitivity 117.6 pg/ml (0-20)
[2022-08-28] MEDS ORDERED: Heparin IV Adult Wt-Based Standard WITH Bolus Protocol IV STA (03:19)
[2022-08-28] MEDS ORDERED: HEPARIN SODIUM/DEXTROSE 25,000 UNITS/500 ML BAG IV SCH (03:45)
[2022-08-28] MEDS ORDERED: HEPARIN SOD (PORCINE) 1000 UNIT/ML IV ONE (03:45)
[2022-08-28 03:48] LABS: Basophils # (auto) 0.05 K/uL (0-0.2); Basophils % (auto) 0.7 %; Eosinophils % (auto) 2.8 %; Hematocrit (blood only) 36.4 % (40.1-51.0); Hemoglobin 11.8 g/dl (14.0-18.0); Immature Granulocytes # (auto) 0.03 K/uL (0.00-0.02); Immature Granulocytes % (auto) 0.4 %; Lymphocytes # (auto) 2.12 K/uL (1.2-3.4); Lymphocytes % (auto) 29.9 %; Mean Corpuscular Hemoglobin 28.9 pg (25.0-34.0); Mean Corpuscular Hgb Conc 32.4 g/dL (32.0-36.0); Mean Platelet Volume 10.1 fL (9.4-12.4); Monocytes # (auto) 0.63 K/uL (0.24-0.82); Monocytes % (auto) 8.9 %; Neutrophils # (auto) 4.05 K/uL (1.4-6.5); Neutrophils % (auto) 57.3 %; Platelet Count 183 K/uL (130-400); RDW Coefficient of Variation 15.6 % (11.5-14.5); RDW Standard Deviation 49.9 fL (36.4-46.3); Red Blood Count 4.09 M/uL (4.63-6.08); White Blood Count 7.08 K/ul (4.8-10.8)
[2022-08-28 04:07] LABS: Partial Thromboplastin Time 27.2 Seconds (21.0-31.0); Prothrombin Time 10.9 Seconds (9.0-12.0)
[2022-08-28 04:10] LABS: BUN Creatinine Ratio 15.9 (10-20); Calcium 8.8 mg/dl (8.5-10.1); Creatinine Clr Calc Pharmacy 54.9 ml/min; Est GFR (Non-African American) 48.3 ml/min; Potassium 4.5 mmol/L (3.5-5.1)
[2022-08-28 04:16] LABS: Troponin I High Sensitivity 218.6 pg/ml (0-20)
[2022-08-28] MEDS: MAGNESIUM SULFATE / D5W 1 GM/100 ML BAG IV SCH ×2 (04:30→05:56)
[2022-08-28] MEDS: ATORVASTATIN 40 MG TAB PO SCH (08:02)
[2022-08-28] MEDS: ASPIRIN 81 MG ECTAB PO SCH (08:02)
[2022-08-28] MEDS: ISOSORBIDE MONO EXTENDED REL 60 MG TABCR PO SCH (08:02)
[2022-08-28] MEDS: CLOPIDOGREL BISULFATE 75 MG TAB PO SCH (08:02)
[2022-08-28] MEDS: PANTOprazole 40 MG TAB PO SCH (08:02)
[2022-08-28] MEDS: allopurinoL 300 MG TAB PO SCH (08:02)
[2022-08-28] MEDS: LANTUS PER UNIT CHARGE SQ SCH ×2 (08:06→20:57)
[2022-08-28 11:07] LABS: Magnesium 1.9 mg/dl (1.7-2.4)
[2022-08-28 11:13] LABS: Partial Thromboplastin Ratio 3.2
[2022-08-28 11:16] LABS: Troponin I High Sensitivity 419.1 pg/ml (0-20)
[2022-08-28] MEDS ORDERED: fentaNYL citrate 100 MCG/2 ML VIAL ONE (11:22)
[2022-08-28] MEDS ORDERED: HEPARIN (PORCINE) 1000 UNIT/ML 10 ML (CATH LAB USE ONLY) ONE ×2 (11:22→12:45)
[2022-08-28] MEDS ORDERED: niCARdipine HCL INJ 2.5 MG/ML 10 ML AMP ONE (11:22)
[2022-08-28] MEDS ORDERED: MIDAZOLAM HCL 1 MG/ML 2ML VIAL ONE (11:22)
[2022-08-28 11:23] LABS: Partial Thromboplastin Time 87.8 Seconds (21.0-31.0)
[2022-08-28] MEDS ORDERED: NITROGLYCERIN/D5W 100MCG/ML 20ML SYR ONE (11:23)
[2022-08-28] MEDS ORDERED: LIDOCAINE 1% LOCAL 20 ML VIAL ONE (11:29)
--- NOTE | 2022-08-28 11:30 | Pre Anesthesia Assessment ---
Date of Service August 28, 2022 Pre Sedation Assessment Vital Signs Temp Pulse Pulse Pulse Resp BP BP 08/28/22 11:16 92 H 20 08/28/22 07:47 36.5 C 88 20 08/28/22 07:36 96 H 08/28/22 02:55 36.5 C 85 16 129/78 08/28/22 00:19 88 08/28/22 00:00 36.5 C 83 18 08/28/22 00:22 36.5 C 83 18 08/27/22 22:40 87 21 08/27/22 22:30 92 H 21 08/27/22 22:30 159/73 H 08/27/22 22:20 89 17 08/27/22 22:10 89 22 08/27/22 22:00 91 H 23 08/27/22 22:00 149/73 H 08/27/22 21:50 92 H 23 08/27/22 21:40 95 H 22 08/27/22 21:30 96 H 23 08/27/22 21:30 151/72 H 08/27/22 21:20 97 H 17 08/27/22 21:19 143/79 H 08/27/22 21:19 94 H 24 08/27/22 21:10 98 H 20 08/27/22 21:01 106 H 08/27/22 20:50 95 H 24 08/27/22 20:45 171/99 H 08/27/22 20:45 96 H 20 08/27/22 20:40 95 H 22 08/27/22 20:30 97 H 21 08/27/22 20:30 193/100 H 08/27/22 20:20 94 H 21 08/27/22 20:16 185/99 H 08/27/22 20:16 97 H 20 08/27/22 20:10 96 H 22 08/27/22 20:05 99 H 18 08/27/22 20:04 178/100 H 08/27/22 20:14 95 H 20 08/27/22 20:03 36.5 C 97 H 20 08/27/22 20:03 08/27/22 20:03 101 H 19 178/100 H BP Pulse Ox O2 Del Method 08/28/22 11:16 152/68 H 08/28/22 07:47 151/84 H 94 Room Air 08/28/22 07:36 08/28/22 02:55 95 Room Air 08/28/22 00:19 08/28/22 00:00 163/77 H 96 Room Air 08/28/22 00:22 163/77 H 96 Room Air 08/27/22 22:40 97 08/27/22 22:30 96 08/27/22 22:30 08/27/22 22:20 98 08/27/22 22:10 95 08/27/22 22:00 95 08/27/22 22:00 08/27/22 21:50 95 08/27/22 21:40 96 08/27/22 21:30 96 08/27/22 21:30 08/27/22 21:20 96 08/27/22 21:19 08/27/22 21:19 96 08/27/22 21:10 97 08/27/22 21:01 99 08/27/22 20:50 95 08/27/22 20:45 08/27/22 20:45 97 08/27/22 20:40 96 08/27/22 20:30 97 08/27/22 20:30 08/27/22 20:20 97 08/27/22 20:16 08/27/22 20:16 96 08/27/22 20:10 97 08/27/22 20:05 96 08/27/22 20:04 08/27/22 20:14 96 Room Air 08/27/22 20:03 178/100 H 98 Room Air 08/27/22 20:03 97 Room Air 08/27/22 20:03 98 Room Air Cardiovascular RRR, no murmur, no edema Respiratory normal respiratory effort, lungs clear to auscultation Pre-Sedation Airway Assessment Smoking Status: Never smoker Hx Sleep Apnea: No Short, Thick Neck: No Thyromental Distance: > or= 3.5 Finger Breadths Oral Cavity: + Dentures and + WNL Mallampati Class: III Mallampati III ASA: ASA3 ASA III NPO Status Date of Last Intake of Fluids: 08/28/22 Time of Last Intake of Fluids: 08:00 Date of Last Intake of Solid Food: 08/27/22 Time of Last Intake of Solid Foods: 18:00 Notes The planned sedation has been discussed with the patient. Informed Consent was obtained. I have identified the patient, determined the appropriateness of sedation and have assessed the patient immediately prior to the procedure. All medicine(s) and interventions are by my order.
[2022-08-28] MEDS ORDERED: CLOPIDOGREL BISULFATE 300 MG TAB ONE (12:37)
--- NOTE | 2022-08-28 13:30 | Post Anesthesia Assessment ---
Date of Service August 28, 2022 Post Sedation Assessment Vital Signs Temp Pulse Pulse Pulse Resp BP BP 08/28/22 13:15 90 08/28/22 13:00 91 H 08/28/22 11:16 92 H 20 08/28/22 07:47 36.5 C 88 20 08/28/22 07:36 96 H 08/28/22 02:55 36.5 C 85 16 129/78 08/28/22 00:19 88 08/28/22 00:00 36.5 C 83 18 08/28/22 00:22 36.5 C 83 18 08/27/22 22:40 87 21 08/27/22 22:30 92 H 21 08/27/22 22:30 159/73 H 08/27/22 22:20 89 17 08/27/22 22:10 89 22 08/27/22 22:00 91 H 23 08/27/22 22:00 149/73 H 08/27/22 21:50 92 H 23 08/27/22 21:40 95 H 22 08/27/22 21:30 96 H 23 08/27/22 21:30 151/72 H 08/27/22 21:20 97 H 17 08/27/22 21:19 143/79 H 08/27/22 21:19 94 H 24 08/27/22 21:10 98 H 20 08/27/22 21:01 106 H 08/27/22 20:50 95 H 24 08/27/22 20:45 171/99 H 08/27/22 20:45 96 H 20 08/27/22 20:40 95 H 22 08/27/22 20:30 97 H 21 08/27/22 20:30 193/100 H 08/27/22 20:20 94 H 21 08/27/22 20:16 185/99 H 08/27/22 20:16 97 H 20 08/27/22 20:10 96 H 22 08/27/22 20:05 99 H 18 08/27/22 20:04 178/100 H 08/27/22 20:14 95 H 20 08/27/22 20:03 36.5 C 97 H 20 08/27/22 20:03 08/27/22 20:03 101 H 19 178/100 H BP Pulse Ox O2 Del Method 01/16/23 13:15 118/68 93 Room Air 08/28/22 13:00 115/67 94 Room Air 08/28/22 11:16 152/68 H 08/28/22 07:47 151/84 H 94 Room Air 08/28/22 07:36 08/28/22 02:55 95 Room Air 08/28/22 00:19 08/28/22 00:00 163/77 H 96 Room Air 08/28/22 00:22 163/77 H 96 Room Air 08/27/22 22:40 97 08/27/22 22:30 96 08/27/22 22:30 08/27/22 22:20 98 08/27/22 22:10 95 08/27/22 22:00 95 08/27/22 22:00 08/27/22 21:50 95 08/27/22 21:40 96 08/27/22 21:30 96 08/27/22 21:30 08/27/22 21:20 96 08/27/22 21:19 08/27/22 21:19 96 08/27/22 21:10 97 08/27/22 21:01 99 08/27/22 20:50 95 08/27/22 20:45 08/27/22 20:45 97 08/27/22 20:40 96 08/27/22 20:30 97 08/27/22 20:30 08/27/22 20:20 97 08/27/22 20:16 08/27/22 20:16 96 08/27/22 20:10 97 08/27/22 20:05 96 08/27/22 20:04 08/27/22 20:14 96 Room Air 08/27/22 20:03 178/100 H 98 Room Air 08/27/22 20:03 97 Room Air 08/27/22 20:03 98 Room Air Recovery Score Activity: Moves 4 extremities Respiration: Deep Breath/Cough Circulation: +/-20% PreAnes Value Consciousness: Fully Awake Oxygen Saturation: > 92% On Room Air Post Anesthesia Score: 10 Discharge Sedation Level of Care: Phase I Post Sedation Plan On clinical assessment, the patient appears to have tolerated the sedation without complications. Patient is recovering as anticipated. Patient will continue to be monitored by nursing and may be discharged when sedation discharge criteria are met per below protocol. Upon Completions of procedure up to 15 minutes continue every 5 minute vital signs and the P.A.R. score; then discharge to a Phase I or Fast Track to Phase II per the following guidelines: * Discharge Patient to appropriate Phase II area if PAR is 8 or greater or return to pre- procedure baseline. The post - procedure orders will be as directed. * If PAR score is less than 8 or not return to pre-procedure baseline then patient will follow Phase I monitoring till PAR is reached for Phase II. The Phase I may be done in procedure room or may call to secure a Phase I area. * If naloxone or flumazenil are used for reversal, hold in Phase I for continued monitoring from when last reversal dose was given for a minimum of 60 minutes or longer pending the nurse and/or physician discretion of patient condition before discharge to Phase II. Please call the Sedation Physician to re-evaluate and complete post-note for discharge to Phase II area. Do NOT discharge from procedure sedation or Phase 1 until post- sedation evaluation note is complete by procedure /sedation MD Sedation Discharge Instructions to be given to the patient at discharge to home. [facility] [place] Procedure Codes (Charges) Indication for Procedure Indication for procedure: NSTEMI Sedation/Anesthesia Procedure 1: Sedation/Anesthesia: 14257 Mod Sedation by the same physician;Init15 Min Child Age 5 & Up (intial 15 mins) Total Sedation Time (minutes): 65 Procedure 2: Sedation/Anesthesia: 27192 Mod Sedation by the same physician; Ea [id number] Minutes (additional 50 mins) Total Sedation Time (minutes): 65
--- NOTE | 2022-08-28 13:45 | Cardiac Catheterization ---
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 diffuse moderate to severe) Grafts - LAD (%): Normal (atretic, KAREN 1, distal anastamosis ok, [place] vessel 100% (diagonal?)) Grafts - Circumflex (%): Ostial (stent patent. Anastamosis to OM 3 and PLB widely patent. Diffuse, severe [place] LCx disease.) Diagnostic Physicians Name: Ryder Ortiz MD, PhD Closure Device Recommendations: Medical Therapy and/or Counseling and PCI without planned CABG Lesion Segment Name: distal LAD ISRS Culprit Artery: Yes Stenosis Prior to Rx (%): 90% Chronic Total Occlusion: No Pre-Procedure KAREN Flow: 2 Previously Treated Lesion: Yes Lesion Complexity: Non-High/Non-C Lesion Length (mm): 8 mm Thrombus Present: No Bifurcation Lesion: Yes Guidewire Across Lesion: Yes Cardiac Cath Procedure Full Procedure Date August 28, 2022 Pre-Procedure Diagnosis Pre-Procedure Diagnosis: Non STEMI AUC Score AUC Score: 07 Post-Procedure Diagnosis Post-Procedure Diagnosis: Severe CAD Procedure(s) Performed Procedure(s) Performed: Coronary Angiography, PTCA, Drug Eluting Stent, Ultr asound Guided Vascular Access and Bypass Graft Angiography Wire Winding Machine Operator Ryder Ortiz MD, PhD Estimated Blood Loss Estimated Blood Loss: 10 ml Medication(s) Medication(s): Fentanyl, Heparin, Lidocaine 1%, Nitroglycerin and Versed Summary of Findings Brief description: Patient was brought to the cardiac catheterization suite where he was shaved and prepped in a sterile fashion. Sedated using IV Versed and fentanyl. Soft tissues of the right groin were anesthetized using 10 mL of 1% Xylocaine. Using the ultrasound for guidance (image saved), the right femoral artery was accessed and a 5 [place] femoral artery sheath was placed. All catheters were advanced and exchanged over a 0.035 J-tip wire. Left coronary angiography in orthogonal views with a 5 [place] JL 4 diagnostic catheter. Right coronary angiography in orthogonal views with a 5 [place] JR4 diagnostic catheter Arterial and venous bypass graft angiography was performed with a 5 [place] JR4 diagnostic catheter. Diagnostic catheters were removed. PCI of the LAD was undertaken using a 6 [place] JL 4 guide catheter. First, the 5 [place] femoral artery sheath was upsized to a 6 [place] femoral artery sheath. Then, the ACT was checked and patient was provided IV heparin as needed to maintain therapeutic ACT. A [employer] versa guidewire was advanced through the guide catheter and positioned distally in the LAD. Predilatation of the in-stent restenosis was performed multiple times using a 2.5 x 12 mm trek balloon. Then, a 2.5 x 12 mm NC sprinter was used to perform angioplasty within the stented region. Finally, a 2.25 x 15 mm Óscar stent was placed in an overlapped fashion such that its proximal segment overlapped with the distal stent train segment but did not cross the diagonal ostium. This was then deployed. The overlap segment was t hen postdilated using the NC sprinter 2.5 x 12 mm balloon and multiple inflations. Noncompliant balloon was removed. Highway Patrol Pilot angiography was then performed. The guidewire was removed. Final angiographic evaluation was performed. The guide catheter was then removed. Limited right femoral artery angiography was performed to evaluate for closure. Findings were favorable, therefore, the femoral artery sheath was exchanged for a 6 [place] Angio-Seal closure device. This was deployed in the recommended fashion. We obtained immediate hemostasis and the patient remained hemodynamically stable. Patient was returned to the recovery area. This ended the case. Coronary and bypass graft angiography: LMT: Large-caliber vessel bifurcating into LAD and left circumflex. Large stent is widely patent. No significant disease. LAD: Large caliber and transapical. Gives 2 major diagonal branches. There is a stent train which begins in the left main and continues through the proximal, mid, and early distal LAD. This is widely patent with less than 10% in-stent restenosis until just after the large second diagonal branch. There, it is 95% stenosed. There is KAREN II flow beyond this. The stent train ends shortly thereafter. The [place] vessel just beyond the stent edge then becomes diseased with 50 to 70% stenosis with diffuse mild disease throughout as the vessel tapers. Diagonal 1 is relatively small. Second diagonal is medium to large with ostial 95-99% stenosis. LCx: Dominant vessel. 100% occluded at the ostium. Eek vessel is seen via bypass graft angiography and demonstrates severe AV groove disease. There is a small OM1 with chronic ostial occlusion fills late via left to left collateralization. Small caliber OM 2 and OM 3 each of which has severe disease. There is a large posterior lateral branch and then 2 small to medium caliber PDA branches with diffuse mild disease. RCA: Small to medium caliber nondominant vessel. Diffuse severe disease. HAILE to LAD: Medium to large caliber but is atretic as it approaches the distal vessel anastomosis. The graft is patent and touches on a very small caliber [place] vessel which appears to be a diagonal. That vessel is 100% occluded. SVG jump graft OM 2 posterior lateral branch: Ostial to proximal stent is widely patent. The graft is large in caliber with minimal disease. Distal anastomosis on the large posterior lateral branch is widely patent. There is good antegrade flow down the [place] posterior lateral branch as well as retrograde flow into the AV groove circumflex which then supplies the obtuse marginal branches and the PDA branches. PCI of the LAD stent train/in-stent restenosis: Less than 10% residual in-stent restenosis. KAREN-3 flow. There is KAREN II flow in the diagonal post PCI (started as 95 to 99% ostial stenosis) No evidence of dissection or perforation Summary: Successful PCI for severe in-stent restenosis of the LAD with implantation of a drug-eluting stent Atretic HAILE graft (previously known), patent SVG OM 2 PLB jump graft with patent prior stent. Continue dual antiplatelet therapy with aspirin and Plavix. Continue guideline directed medical therapy for secondary prevention of coronary disease Hemodynamics Rest Ao:: 131/74 mm Hg, mean 102 mm Hg Final Ao: 112/63 mm Hg, mean 116 mm Hg LV: NA Recommendations Recommendations: Medical Therapy and/or Counseling and PCI without planned CABG Radiation Exposure (mGy) 2952 m Gy, FT 16.8 min Contrast (mls) 150 ml Anesthesia 2 mg IV Versed, 100 mcg IV Fentanyl Procedural Complication(s) None Disposition Recovery Room\PACU I attest to the content of the Intraoperative Record and any orders documented therein. Any exceptions are noted below. [facility] Card Cath Procedure Codes Cardiac Catheterization Procedure 1: Cardiovascular Cath Procedures: 61414 Coronaries and Grafts/IM (venous & atrial) Therapeutic Services & Ancillary Procedure 1: Cardiovascular Tx and Anc Procedures: 89575 Ultrasonic Guidance Vascular Access Stenting Procedure 1: Cardiovascular Stent Procedures: 62556 Perc transcatheter placement of intracoronary stent(s), with ang PG Care Time/CCT Total # of Minutes Spent Total Time Spent with Patient: Total time spent is greater than 50% in coordination of care (as documented) at patient's floor/unit and/or counseling patient:
[2022-08-28] MEDS ORDERED: Nursing to Pharmacy Communication SCH (15:45)
--- NOTE | 2022-08-28 16:38 | Hospitalist Progress Note ---
Date of Service August 28, 2022 Assessment & Plan (1) NSTEMI (non-ST elevated myocardial infarction): Plan: 77yo male with known CAD s/p CABG with subsequent stenting presents with episode of acute chest pain 08/27/22 at 17:30 which was relieved with Nitro. Troponin has increased from 21.3 --> 400 Patient remains chest pain free ECG with ST depressions in anterior leads He was started on a heparin gtt initially With NSTEMI Seen by Cardiology after admission and had cardiac catheterization: Successful PCI for severe in-stent restenosis of the LAD with implantation of a drug- eluting stent, Atretic HAILE graft (previously known), patent SVG OM 2 PLB jump graft with patent prior stent. -Continue dual antiplatelet therapy with aspirin and Plavix. -Continue guideline directed medical therapy for secondary prevention of coronary disease -Check 2D echo-still pending -Continue Atorvastatin 80mg daily -Continue Isosorbide -Cardiology consultation appreciated -Patient reports he has been unable to tolerate a beta mis in the past due to fatigue and low energy caused by them (2) Hyperlipidemia: Plan: Chronic. Stable -Continue Atorvastatin 80mg po daily (3) Controlled type 2 diabetes mellitus with insulin therapy: Plan: Chronic. Overall fairly well controlled on Trulicity, Insulin 70/30 using 32 units qAM and 60 units qPM at home, and Metformin. Last HgbA1C in January 2022 = 7.3 -Lantus 10u BID and Novolog SSI while here, glucose well controlled thus far -Goal blood sugar 110- 140 -ADA diet -advised to hold on restarting metformin at home until 08/30 (4) Hypertension: Plan: Well controlled -Continue Isosorbide -Monitor (5) Esophageal reflux: Plan: Chronic. Stable -Continue Protonix 40mg po daily (6) CAD (coronary artery disease): Plan: h/o CABG, stents as above (7) Iron deficiency anemia: Plan: mild, follow up with PCP (8) Stage 3b chronic kidney disease: Plan: director sports at 1.3 -Avoid nephrotoxins -renally dose meds when appropriate -follow BMP in AM (9) Gout: Plan: continue home allopurinol Plan DVT proph-heparin gtt now turned off Dispo-continued stay on PCU, likely dc to home tomorrow if doing wlel, no arrhythmias on tele Admission and Anticipated Discharge Date Admission Date: August 28, 2022 Subjective Pt went to skilled labor today and had stent placed to LAD. Seen after recovery and doing well. Denies CP, SOB, nausea, abd pain, lightheadedness. Tele with NSR, rates in the 90s Review of Systems Review of Systems: All systems reviewed & are unremarkable except as noted in HPI & below Physical Exam Constitutional: WD/WN, vitals as above Eyes: + anicteric sclerae Neck: trachea midline, no thyromegaly Respiratory: normal respiratory effort, lungs clear to auscultation Cardiovascular: RRR, no murmur, no edema Vessels: dorsalis pedis pulses present Chest (Breasts): Chest: normal inspection of chest Gastrointestinal (Abdomen): normal bowel sounds, soft, nontender, no hepatosplenomegaly Musculoskeletal: Extremities: extremities normal to inspection; no cyanosis and no clubbing Skin: no rashes, warm and dry right femoral cath site with dressing in place c/d/i Neurologic: moves all extremities and awake; no focal motor deficits Psychiatric: A+Ox3, euthymic affect Lymphatic: no lymphedema Results & Data Results & Data ([facility] [place]) Vital Signs (Past 12 Hours) Vital Signs Temp Pulse Pulse Pulse Resp BP BP 08/28/22 16:11 84 18 119/75 08/28/22 15:30 94 H 20 126/77 08/28/22 15:11 86 20 131/77 08/28/22 14:42 36.7 C 87 20 134/74 08/28/22 14:15 88 20 122/67 08/28/22 14:00 94 H 20 125/72 08/28/22 13:45 91 H 20 120/74 08/28/22 13:30 90 100/66 08/28/22 13:15 90 118/68 08/28/22 13:00 91 H 115/67 08/28/22 11:16 92 H 20 152/68 H 08/28/22 07:47 36.5 C 88 20 151/84 H 08/28/22 07:36 96 H Pulse Ox O2 Del Method 08/28/22 16:11 95 Room Air 08/28/22 15:30 95 Room Air 08/28/22 15:11 95 Room Air 08/28/22 14:42 95 Room Air 08/28/22 14:15 95 Room Air 08/28/22 14:00 96 Room Air 08/28/22 13:45 97 Room Air 08/28/22 13:30 94 Room Air 08/28/22 13:15 93 Room Air 08/28/22 13:00 94 Room Air 08/28/22 11:16 08/28/22 07:47 94 Room Air 08/28/22 07:36 Laboratory Results 08/28/22 08/28/22 08/28/22 Range/Units 16:23 12:41 12:32 WBC (4.8-10.8) K/ul RBC (4.63-6.08) M/uL Hgb (14.0-18.0) g/dl Hct (40.1-51.0) % MCV (80.0-100.0) fL MCH (25.0-34.0) pg MCHC (32.0-36.0) g/dL RDW Std Deviation (36.4-46.3) fL RDW Coeff of Cherelle (11.5-14.5) % Plt Count (130-400) K/uL MPV (9.4-12.4) fL Immature Gran % (Auto) % Neut % (Auto) % Lymph % (Auto) % [place] % (Auto) % Eos % (Auto) % Baso % (Auto) % Neut # (Auto) (1.4-6.5) K/uL Lymph # (Auto) (1.2-3.4) K/uL [place]er # (Auto) (0.24-0.82) K/uL Eos # (Auto) (0-0.50) K/uL Baso # (Auto) (0-0.2) K/uL Immature Gran # (Auto) (0.00-0.02) K/uL PT (9.0-12.0) Seconds INR (0.9-1.1) APTT (21.0-31.0) Seconds PTT Ratio Activ Coag Time Kaolin 227 H 546 H (94-140) SECONDS Sodium (136-145) mmol/L Potassium (3.5-5.1) mmol/L Chloride (98-107) mmol/L Carbon Dioxide (21-32) mmol/L Anion Gap (3-11) BUN (6-23) mg/dl Creatinine (0.6-1.4) mg/dl Est Cr Clr Drug Dosing ml/min Est GFR ( Amer) ml/min Est GFR (Non-Af Amer) ml/min BUN/Creatinine Ratio (10-20) Glucose (70-99(Fasting)) mg/dl POC Glucose 133 H (70-99) mg/dl Calcium (8.5-10.1) mg/dl Magnesium (1.7-2.4) mg/dl Troponin I High Sens (0-20) pg/ml Lipase (11-82) U/L SARS-CoV-2, RNA, NAAT (NEGATIVE) 08/28/22 08/28/22 08/28/22 Range/Units 12:16 10:29 10:29 WBC (4.8-10.8) K/ul RBC (4.63-6.08) M/uL Hgb (14.0-18.0) g/dl Hct (40.1-51.0) % MCV (80.0-100.0) fL MCH (25.0-34.0) pg MCHC (32.0-36.0) g/dL RDW Std Deviation (36.4-46.3) fL RDW Coeff of Cherelle (11.5-14.5) % Plt Count (130-400) K/uL MPV (9.4-12.4) fL Immature Gran % (Auto) % Neut % (Auto) % Lymph % (Auto) % [place] % (Auto) % Eos % (Auto) % Baso % (Auto) % Neut # (Auto) (1.4-6.5) K/uL Lymph # (Auto) (1.2-3.4) K/uL [place]er # (Auto) (0.24-0.82) K/uL Eos # (Auto) (0-0.50) K/uL Baso # (Auto) (0-0.2) K/uL Immature Gran # (Auto) (0.00-0.02) K/uL PT (9.0-12.0) Seconds INR (0.9-1.1) APTT (21.0-31.0) Seconds PTT Ratio Activ Coag Time Kaolin 173 H (94-140) SECONDS Sodium (136-145) mmol/L Potassium (3.5-5.1) mmol/L Chloride (98-107) mmol/L Carbon Dioxide (21-32) mmol/L Anion Gap (3-11) BUN (6-23) mg/dl Creatinine (0.6-1.4) mg/dl Est Cr Clr Drug Dosing ml/min Est GFR ( Amer) ml/min Est GFR (Non-Af Amer) ml/min BUN/Creatinine Ratio (10-20) Glucose (70-99(Fasting)) mg/dl POC Glucose (70-99) mg/dl Calcium (8.5-10.1) mg/dl Magnesium 1.9 Cancelled (1.7-2.4) mg/dl Troponin I High Sens 419.1 H* D (0-20) pg/ml Lipase (11-82) U/L SARS-CoV-2, RNA, NAAT (NEGATIVE) 08/28/22 08/28/22 08/28/22 Range/Units 10:29 05:55 03:32 WBC (4.8-10.8) K/ul RBC (4.63-6.08) M/uL Hgb (14.0-18.0) g/dl Hct (40.1-51.0) % MCV (80.0-100.0) fL MCH (25.0-34.0) pg MCHC (32.0-36.0) g/dL RDW Std Deviation (36.4-46.3) fL RDW Coeff of Cherelle (11.5-14.5) % Plt Count (130-400) K/uL MPV (9.4-12.4) fL Immature Gran % (Auto) % Neut % (Auto) % Lymph % (Auto) % [place] % (Auto) % Eos % (Auto) % Baso % (Auto) % Neut # (Auto) (1.4-6.5) K/uL Lymph # (Auto) (1.2-3.4) K/uL [place]er # (Auto) (0.24-0.82) K/uL Eos # (Auto) (0-0.50) K/uL Baso # (Auto) (0-0.2) K/uL Immature Gran # (Auto) (0.00-0.02) K/uL PT 10.9 (9.0-12.0) Seconds INR 1.0 (0.9-1.1) APTT 87.8 H* 27.2 (21.0-31.0) Seconds PTT Ratio 3.2 1.0 Activ Coag Time Kaolin (94-140) SECONDS Sodium (136-145) mmol/L Potassium (3.5-5.1) mmol/L Chloride (98-107) mmol/L Carbon Dioxide (21-32) mmol/L Anion Gap (3-11) BUN (6-23) mg/dl Creatinine (0.6-1.4) mg/dl Est Cr Clr Drug Dosing ml/min Est GFR ( Amer) ml/min Est GFR (Non-Af Amer) ml/min BUN/Creatinine Ratio (10-20) Glucose (70-99(Fasting)) mg/dl POC Glucose 133 H (70-99) mg/dl Calcium (8.5-10.1) mg/dl Magnesium (1.7-2.4) mg/dl Troponin I High Sens (0-20) pg/ml Lipase (11-82) U/L SARS-CoV-2, RNA, NAAT (NEGATIVE) 08/28/22 08/28/22 08/28/22 Range/Units 03:32 03:32 00:49 WBC 7.08 (4.8-10.8) K/ul RBC 4.09 L (4.63-6.08) M/uL Hgb 11.8 L (14.0-18.0) g/dl Hct 36.4 L (40.1-51.0) % MCV 89.0 (80.0-100.0) fL MCH 28.9 (25.0-34.0) pg MCHC 32.4 (32.0-36.0) g/dL RDW Std Deviation 49.9 H (36.4-46.3) fL RDW Coeff of Cherelle 15.6 H (11.5-14.5) % Plt Count 183 (130-400) K/uL MPV 10.1 (9.4-12.4) fL Immature Gran % (Auto) 0.4 % Neut % (Auto) 57.3 % Lymph % (Auto) 29.9 % Waller % (Auto) 8.9 % Eos % (Auto) 2.8 % Baso % (Auto) 0.7 % Neut # (Auto) 4.05 (1.4-6.5) K/uL Lymph # (Auto) 2.12 (1.2-3.4) K/uL Waller # (Auto) 0.63 (0.24-0.82) K/uL Eos # (Auto) 0.20 (0-0.50) K/uL Baso # (Auto) 0.05 (0-0.2) K/uL Immature Gran # (Auto) 0.03 H (0.00-0.02) K/uL PT (9.0-12.0) Seconds INR (0.9-1.1) APTT (21.0-31.0) Seconds PTT Ratio Activ Coag Time Kaolin (94-140) SECONDS Sodium 140 (136-145) mmol/L Potassium 4.5 (3.5-5.1) mmol/L Chloride 106 (98-107) mmol/L Carbon Dioxide 32 (21-32) mmol/L Anion Gap 2 L (3-11) BUN 22 (6-23) mg/dl Creatinine 1.38 (0.6-1.4) mg/dl Est Cr Clr Drug Dosing 54.9 ml/min Est GFR ( Amer) 56.0 ml/min Est GFR (Non-Af Amer) 48.3 ml/min BUN/Creatinine Ratio 15.9 (10-20) Glucose 150 H (70-99(Fasting)) mg/dl POC Glucose (70-99) mg/dl Calcium 8.8 (8.5-10.1) mg/dl Magnesium 1.5 L (1.7-2.4) mg/dl Troponin I High Sens 218.6 H* D 117.6 H* D (0-20) pg/ml Lipase (11-82) U/L SARS-CoV-2, RNA, NAAT (NEGATIVE) 08/27/22 08/27/22 08/27/22 Range/Units 22:51 20:19 20:19 WBC 8.35 (4.8-10.8) K/ul RBC 4.40 L (4.63-6.08) M/uL Hgb 12.7 L (14.0-18.0) g/dl Hct 39.4 L (40.1-51.0) % MCV 89.5 (80.0-100.0) fL MCH 28.9 (25.0-34.0) pg MCHC 32.2 (32.0-36.0) g/dL RDW Std Deviation 50.4 H (36.4-46.3) fL RDW Coeff of Cherelle 15.4 H (11.5-14.5) % Plt Count 203 (130-400) K/uL MPV 10.3 (9.4-12.4) fL Immature Gran % (Auto) 0.4 % Neut % (Auto) 68.0 % Lymph % (Auto) 22.0 % Waller % (Auto) 6.9 % Eos % (Auto) 2.0 % Baso % (Auto) 0.7 % Neut # (Auto) 5.67 (1.4-6.5) K/uL Lymph # (Auto) 1.84 (1.2-3.4) K/uL Waller # (Auto) 0.58 (0.24-0.82) K/uL Eos # (Auto) 0.17 (0-0.50) K/uL Baso # (Auto) 0.06 (0-0.2) K/uL Immature Gran # (Auto) 0.03 H (0.00-0.02) K/uL PT (9.0-12.0) Seconds INR (0.9-1.1) APTT (21.0-31.0) Seconds PTT Ratio Activ Coag Time Kaolin (94-140) SECONDS Sodium 139 (136-145) mmol/L Potassium 4.2 (3.5-5.1) mmol/L Chloride 103 (98-107) mmol/L Carbon Dioxide 27 (21-32) mmol/L Anion Gap 9 (3-11) BUN 23 (6-23) mg/dl Creatinine 1.47 H (0.6-1.4) mg/dl Est Cr Clr Drug Dosing 52.2 ml/min Est GFR ( Amer) 51.8 ml/min Est GFR (Non-Af Amer) 44.7 ml/min BUN/Creatinine Ratio 15.6 (10-20) Glucose 174 H (70-99(Fasting)) mg/dl POC Glucose (70-99) mg/dl Calcium 9.6 (8.5-10.1) mg/dl Magnesium (1.7-2.4) mg/dl Troponin I High Sens 21.3 H (0-20) pg/ml Lipase 52 (11-82) U/L SARS-CoV-2, RNA, NAAT NEGATIVE (NEGATIVE) PG Care Time/CCT Total # of Minutes Spent Total Time Spent with Patient: Total time spent is greater than 50% in coordination of care (as documented) at patient's floor/unit and/or counseling patient: Coding Level of Care Code 74878 SUB INP/OBS CARE 235MIN Diagnoses NSTEMI (non-ST elevated myocardial infarction) I21.4 Hyperlipidemia E78.5 Controlled type 2 diabetes mellitus with insulin therapy E11.9; Z79.4 Hypertension I10 Esophageal reflux K21.9 CAD (coronary artery disease) I25.10 Iron deficiency anemia D50.9 Stage 3b chronic kidney disease N18.32 Gout M10.9
--- NOTE | 2022-08-28 17:43 | XCELERA ---
[id number]
--- NOTE | 2022-08-28 19:29 | Cardiology Consultation ---
Date of Consultation August 28, 2022 Assessment & Plan (1) NSTEMI (non-ST elevated myocardial infarction): Patient was taken for cardiac catheterization. This revealed patent SVG stent and patent graft to the OM and posterolateral branch. Atretic HAILE to diagonal. Left main and proximal to mid LAD stent train was widely patent. However, the ostium of the larger diagonal was nearly occluded and at the same level there was severe in-stent restenosis in the distal LAD. He underwent PCI with PTCA of the in-stent restenosis and then implantation of a drug-eluting stent extending beyond the previous distal edge. Good angiographic results. He will remain on dual antiplatelet therapy with aspirin and Plavix. Continue guideline directed medical therapy for secondary prevention of coronary disease including high intensity statin, but has been intolerant to beta-mis in the past. We could certainly consider an ANETA inhibitor/ARB as long as his renal function remained stable. This would give him myocardial and nephro protection. 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 Currently his blood pressure is at target on isosorbide mononitrate 60 mg daily. We should consider reducing his isosorbide mononitrate to 30 mg daily and adding an ANETA inhibitor or angiotensin receptor mis. I will have to review his outside records to see if he had any intolerance to those medications in the past. (3) Hyperlipidemia: High risk. High intensity statin therapy ongoing with a atorvastatin 80 mg daily. Plan We will continue to tweak his medical regimen. He will likely be appropriate for discharge tomorrow. History of Present Illness Reason for Consultation: Non-ST elevation OH and chest pain Attending Physician: Yvette Herman MD History of Present Illness Pleasant 77-year-old gentleman with a prior history of coronary artery bypass grafting performed at [facility]. Subsequent multiple PCI's. His last PCI was approximately 6 months ago involving stent placement of the SVG to OM jump graft as well as PCI of the left main through proximal LAD. He presented at this time with sudden onset chest pressure and discomfort. He thought initially it may be he has hiatal hernia. However, he has noted increasing frequency of chest discomfort particularly with exertion. In the emergency department he received nitroglycerin which significantly improved his chest discomfort. He did not have ischemic EKG changes but his cardiac troponin was found to be elevated. An echocardiogram was performed without new findings. I was asked to see him for the elevated troponin and chest pain. We have reviewed his recent and past history. He could not recall if his current chest pain was similar to his prior angina. He could not recall his cardiac surgeon. However, he did recall his recent catheterizations and stenting. He also noted that he had not been feeling all that well lately. In addition to exertional chest tightness and "heartburn" he has experienced exertional dyspnea. He denied any diaphoresis but was told by his spouse that he looked rich when he was having his chest pain. He denies syncope, near syncope, orthopnea, PND, racing heartbeat, palpitations, or edema. Allergies Allergy/AdvReac Type Severity Reaction Status Date / Time No Known Drug Allergies Allergy Verified 06/14/22 12:47 Home Medications Medication Instructions Recorded Confirmed Type blood-glucose meter (OneTouch #1 ea 05/09/19 08/28/22 Rx Verio Flex Start kit) insulin syringe-needle U-100 1 mL #200 ea 02/23/20 08/28/22 Rx 31 gauge x 5/16" (BD Insulin Syringe Ultra-Fine) metformin 1,000 mg tablet 1,000 mg PO BID #180 tabs 03/08/21 08/28/22 Rx insulin aspar prt-insulin aspart See Rx Instructions subcut BIDM 03/11/21 08/28/22 Rx 100 unit/mL (70-30) subcutaneous #50 mL soln (Novolog Mix 70-30 U-100 Insuln) atorvastatin 80 mg tablet 80 mg PO DAILY #90 tabs 03/25/21 08/28/22 Rx clopidogrel 75 mg tablet 75 mg PO DAILY #90 tabs 04/08/21 08/28/22 Rx blood sugar diagnostic #300 ea 04/28/21 08/28/22 Rx allopurinol 300 mg tablet 300 mg PO DAILY #90 tabs 10/04/21 08/28/22 Rx dulaglutide 1.5 mg/0.5 mL 3 mg subcut WEEKLY 05/30/22 08/28/22 History subcutaneous pen injector (Trulicity) isosorbide mononitrate 60 mg 60 mg PO DAILY 05/30/22 08/28/22 History tablet,extended release 24 hr amoxicillin 500 mg capsule 2,000 mg PO ONCE PRN pre-procedure 08/28/22 08/28/22 History aspirin 81 mg tablet,delayed 81 mg PO DAILY 08/28/22 08/28/22 History release pantoprazole 40 mg tablet,delayed 40 mg PO QAM 08/28/22 08/28/22 History release Patient History Medical History ACS (acute coronary syndrome) Basal cell carcinoma of skin of trunk Basal cell carcinoma, face Benign prostatic hyperplasia with urinary obstruction CAD (coronary artery disease) Cerumen impaction Controlled type 2 diabetes mellitus with chronic kidney disease Esophageal reflux Gout Hyperlipidemia Hypertension Incomplete bladder emptying Iron deficiency anemia Kidney stone Pericardial effusion Primary osteoarthritis of left knee Right bundle branch block Sepsis Sleep apnea Stage 3b chronic kidney disease Vitamin D deficiency Surgical History H/O transurethral resection of prostate History of ankle surgery History of arthroplasty of knee (~05/14/13) left - Dr. Peterson History of cholecystectomy History of four vessel coronary artery bypass graft History of lithotripsy Status post repair of nerve Family History Brother Diabetes Heart disease Prostate cancer End stage renal disease Myocardial infarction Sister Diabetes Mother Heart disease Myocardial infarction Father Heart disease Myocardial infarction Unknown Hypercholesteremia Denies family history of Ovarian cancer Hearing loss Breast cancer Colorectal cancer Hypertension Social History Smoking Status: Never smoker Second Hand Exposure: No; Hx Alcohol Use: No Hx Substance Use: No Preferred Language: Italian Communication Ability: Effective Visual Impairment: No Limitations Hearing Ability: Use of Hearing Aid Curator Of 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 Required: No Beliefs That Will Affect Care: None marital status: Current Living Situation: Spouse current occupational status: retired 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 No acute distress) Eyes: Extraocular muscles intact. Sclera are anicteric. ENMT: Oral mucosa is pink, moist, and intact. Neck: Thick. No JVD appreciated. Respiratory: normal respiratory effort, lungs clear to auscultation (No wheezing or rhonchi. Fair air movement.) Cardiovascular: Regular rate and rhythm. S4 gallop. Soft systolic murmur. Trace bilateral lower extremity edema. Gastrointestinal (Abdomen): Obese. Normal bowel sounds. Musculoskeletal: no cyanosis or clubbing, extremities motor strength 5/5 Neurologic: Cognition is intact. Reduced hearing. Speech is fluent. No focal deficits. No tremor. Psychiatric: A+Ox3, euthymic affect Results & Data ([facility]) Vital Signs (Past 12 Hours) Vital Signs Temp Pulse Pulse Pulse Resp BP BP 08/28/22 19:08 36.5 C 97 H 16 113/68 08/28/22 18:11 89 20 124/75 08/28/22 17:11 36.7 C 97 H 20 148/69 H 08/28/22 16:11 84 18 119/75 08/28/22 15:30 94 H 20 126/77 08/28/22 15:11 86 20 131/77 08/28/22 14:42 36.7 C 87 20 134/74 08/28/22 14:15 88 20 122/67 08/28/22 14:00 94 H 20 125/72 08/28/22 13:45 91 H 20 120/74 08/28/22 13:30 90 100/66 08/28/22 13:15 90 118/68 08/28/22 13:00 91 H 115/67 08/28/22 11:16 92 H 20 152/68 H 08/28/22 07:47 36.5 C 88 20 151/84 H 08/28/22 07:36 96 H Pulse Ox O2 Del Method 08/28/22 19:08 94 Room Air 08/28/22 18:11 95 Room Air 08/28/22 17:11 96 Room Air 08/28/22 16:11 95 Room Air 08/28/22 15:30 95 Room Air 08/28/22 15:11 95 Room Air 08/28/22 14:42 95 Room Air 08/28/22 14:15 95 Room Air 08/28/22 14:00 96 Room Air 08/28/22 13:45 97 Room Air 08/28/22 13:30 94 Room Air 08/28/22 13:15 93 Room Air 08/28/22 13:00 94 Room Air 08/28/22 11:16 08/28/22 07:47 94 Room Air 08/28/22 07:36 PG Care Time/CCT Total # of Minutes Spent Total Time Spent with Patient: Total time spent is greater than 50% in coordination of care (as documented) at patient's floor/unit and/or counseling patient: Coding Level of Care Code 78546 INT INP/OBS CARE 3/75MIN Diagnoses NSTEMI (non-ST elevated myocardial infarction) I21.4 Hypertension I10 Hyperlipidemia E78.5
--- NOTE | 2022-08-28 21:49 | Electrocardiogram Report ---
Test Reason : Blood Pressure : / mmHG Vent. Rate : 100 BPM Atrial Rate : 100 BPM P-R Int : 184 ms QRS Dur : 138 ms QT Int : 380 ms P-R-T Axes : 000 -65 038 degrees QTc Int : 490 ms Normal sinus rhythm Right bundle branch block Left anterior fascicular block Bifascicular block Abnormal ECG When compared with ECG of 07-JUL-2017 00:50, Left anterior fascicular block is now Present ST now depressed in Anterior leads Confirmed by Jonathon Pickering ([id number]) on 08/28/2022 9:49:27 PM Referred By: REFERRED SELF Confirmed By:Jonathon Pickering
[2022-08-29 05:09] LABS: Basophils # (auto) 0.03 K/uL (0-0.2); Basophils % (auto) 0.4 %; Eosinophils # (auto) 0.16 K/uL (0-0.50); Eosinophils % (auto) 2.3 %; Hematocrit (blood only) 35.9 % (40.1-51.0); Hemoglobin 11.9 g/dl (14.0-18.0); Immature Granulocytes # (auto) 0.02 K/uL (0.00-0.02); Immature Granulocytes % (auto) 0.3 %; Lymphocytes # (auto) 1.32 K/uL (1.2-3.4); Lymphocytes % (auto) 19.1 %; Mean Corpuscular Hemoglobin 28.9 pg (25.0-34.0); Mean Corpuscular Hgb Conc 33.1 g/dL (32.0-36.0); Mean Corpuscular Volume 87.1 fL (80.0-100.0); Mean Platelet Volume 10.3 fL (9.4-12.4); Monocytes # (auto) 0.62 K/uL (0.24-0.82); Neutrophils # (auto) 4.77 K/uL (1.4-6.5); Neutrophils % (auto) 68.9 %; Platelet Count 171 K/uL (130-400); RDW Coefficient of Variation 15.6 % (11.5-14.5); RDW Standard Deviation 49.1 fL (36.4-46.3); Red Blood Count 4.12 M/uL (4.63-6.08); White Blood Count 6.92 K/ul (4.8-10.8)
--- NOTE | 2022-08-29 06:28 | Electrocardiogram Report ---
Test Reason : Blood Pressure : / mmHG Vent. Rate : 089 BPM Atrial Rate : 089 BPM P-R Int : 148 ms QRS Dur : 118 ms QT Int : 392 ms P-R-T Axes : 000 -47 038 degrees QTc Int : 476 ms Poor data quality, interpretation may be adversely affected Possible Sinus rhythm Right bundle branch block Left anterior fascicular block Bifascicular block Abnormal ECG When compared with ECG of 27-AUG-2022 20:06, No significant change Confirmed by Jonathon Pickering ([id number]) on 08/29/2022 6:27:41 AM Referred By: REFERRED SELF Confirmed By:Jonathon Pickering
[2022-08-29 06:41] LABS: Calcium 8.5 mg/dl (8.5-10.1); Magnesium 1.8 mg/dl (1.7-2.4); Potassium 4.4 mmol/L (3.5-5.1); Troponin I High Sensitivity 923.3 pg/ml (0-20)
[2022-08-29 07:13] LABS: BUN Creatinine Ratio 13.8 (10-20); Creatinine Clr Calc Pharmacy 52.2 ml/min; Est GFR (African American) 52.7 ml/min; Est GFR (Non-African American) 45.5 ml/min
[2022-08-29] MEDS: INSULIN ASPART PER UNIT SC SCH ×2 (08:54→12:43)
[2022-08-29] MEDS: LANTUS PER UNIT CHARGE SQ SCH (08:54)
[2022-08-29] MEDS: PANTOprazole 40 MG TAB PO SCH (11:04)
[2022-08-29] MEDS: CLOPIDOGREL BISULFATE 75 MG TAB PO SCH (11:04)
[2022-08-29] MEDS: ASPIRIN 81 MG ECTAB PO SCH (11:04)
[2022-08-29] MEDS: allopurinoL 300 MG TAB PO SCH (11:04)
[2022-08-29] MEDS: ISOSORBIDE MONO EXTENDED REL 60 MG TABCR PO SCH (11:04)
[2022-08-29] MEDS: ATORVASTATIN 40 MG TAB PO SCH (11:04)
[2022-08-29 11:33] LABS: Estimated Average Glucose 180 mg/dl; Hemoglobin A1C 7.9 % (4.5-5.6)
--- NOTE | 2022-08-29 15:33 | Discharge Summary ---
Date of Service date of admission - August 27, 2022 date of discharge - August 29, 2022 Admission HPI Per Admitting Provider Wild Goyal is a 77yo male with multiple medical comorbidities to include CAD s/p CABG x 4V with subsequent stenting, DM, HTN, HLP, CHF and AF presenting with chest pain. Patient was at home around 17:30 today when he developed acute onset of substernal chest pressure with radiation into his back. He denies diaphoresis, nausea or lightheadedness. He took two Nitro with improvement. He does admit to an episode of chest pain yesterday as well which occurred while he was walking to his daughter's house in the cold. Presently feeling well. Patient is chest pain free. He denies cough, SOB, abdominal pain, nausea, vomiting, diarrhea. Patient follows with Cardiology, Dr. Lovell in [place]. He last saw him several weeks ago. Patient had CABG x 4V approximately 15 years ago. He has had multiple stents placed since with most recent being 6 months ago. Principal Diagnosis NSTEMI Discharge Exam gen - NAD, pleasant neck - no JVD mouth - MMM heart - RRR, s1 s2, no murmur lungs - CTA b/l abd - soft NT ND BS+ ext - no edema, pulses 2+ b/l vascular - right femoral groin cath site clean, no hematoma, no aneurysm Discharge Data Allergies Allergy/AdvReac Type Severity Reaction Status Date / Time No Known Drug Allergies Allergy Verified 06/14/22 12:47 Consultations Cardiology - Ryder Ortiz MD Procedures Performed Operation Date: 08/28/22 11:30 Actual Procedures p Drug Eluting Stent SGl Vessel - Ryder Ortiz MD, PhD s Cineradiography w/Routine Exam - Ryder Ortiz MD, PhD s Cath, Cors with Grafts (no LV) - Ryder Ortiz MD, PhD s Ultrasound Vascular Access - Ryder Ortiz MD, PhD s Placement Art Occlusive Device - Ryder Ortiz MD, PhD Coronary Anatomy Dominant: Left Left Main (% Stenosis): Normal LAD (% Stenosis): Proximal (stent patent), Mid (stent patent), Distal (distal 90% ISRS) and Normal D1 (% Stenosis): Distal and Normal (diffuse mild.) D2 (% Stenosis): Ostial (99%) Circumflex (% Stenosis): Ostial (100% 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 diffuse moderate to severe) Grafts - LAD (%): Normal (atretic, KAREN 1, distal anastamosis ok, council vessel 100% (diagonal?)) Grafts - Circumflex (%): Ostial (stent patent. Anastamosis to OM 3 and PLB widely patent. Diffuse, severe council LCx disease.) Summary: Successful PCI for severe in-stent restenosis of the LAD with implantation of a drug-eluting stent. Atretic HAILE graft (previously known), patent SVG OM 2 PLB jump graft with patent prior stent. Ordered Studies 08/28/22 10:58 Cath Imgs for PACS use only Stat Echocardiogram - * EF 50-55% * mild LVH * septal motion c/w conduction abnormality * mild mid-distal anterior, didier-septal, and apical hypokinesis * normal valve function * no pericardial effusion * normal RV function * PA pressures wnl Hospital Course (1) NSTEMI (non-ST elevated myocardial infarction): Peak HS troponin was ~900. Presenting ECG with ST depressions in anterior leads. Initiated on heparin drip. Remained chest pain free following admission. Telemetry was normal. Presentation was consistent with NSTEMI. Seen by [facility] Cardiology and underwent cardiac catheterization. He had successful PCI for severe in-stent restenosis of the LAD with implantation of a drug-eluting stent. There was an atretic HAILE graft (previously known) but a patent SVG OM 2 PLB jump graft with patent prior stent. Echocardiogram showed low-normal EF (50-55%) with anterior wall motion abnormalities. He was compensated from a volume standpoint while here. He will continue the following - * aspirin 81mg daily * lipitor 80mg daily * plavix 75mg daily * imdur 60mg daily Strongly recommend initiation of ANETA or ARB therapy post-discharge. Of note - patient reports he has been unable to tolerate a beta mis in the past due to fatigue and low energy. A refill on SL nitroglycerin was given at discharge. Post-OK instructions were distributed at discharge. The patient follows with cardiology in [place]. A CD-ROM of his cardiac cath images and echo was given to the patient at discharge. He will f/u with his director appointment in [place] in 1-2 weeks post-discharge. (2) Hyperlipidemia: Continue Atorvastatin 80mg po daily. Lipid profile this admission - LDL = 51 HDL = 35 Triglycerides = 95 (3) Controlled type 2 diabetes mellitus with insulin therapy: HbA1C 7.9%. Takes combination of Trulicity, Insulin 70/30 using 32 units qAM and 60 units qPM at home, and Metformin. Due to contrast usage he will hold metformin at discharge and report for a repeat BMP in 48 hours. If creatinine is stable can resume metformin then. (4) Hypertension: Well controlled during the stay. Strongly consider ANETA or ARB in light of T2DM and known CAD. Defer to outpatient providers. (5) Esophageal reflux: Continue Protonix 40mg po daily (6) CAD (coronary artery disease): h/o CABG - 4 vessel - performed at [facility] in the past. Multiple stents. His last PCI was approximately 6 months ago involving stent placement of the SVG to OM jump graft as well as PCI of the left main through proximal LAD. (7) Iron deficiency anemia: Hb 11.8 to 12.7 while hospitalized. Iron studies were deferred while here. f/u with PCP for this. (8) Gout: continue home allopurinol for prophylaxis (9) Chronic kidney disease, stage 3a: Creatinine was 1.4 while here. CrCl is low 50s at baseline c/w Again, due to contrast administration for his heart cath, he should hold metformin at discharge and have a follow-up creatinine 48 hours post-discharge. Total Time Total Time Spent Total Time Spent (In Minutes): 40 Discharge Plan Discharge Items Patient Disposition: Home - Self-Care Reason For Visit: CHEST PAIN Discharge Diagnosis: 1. Chest pain/Mild Heart Attack due to blocked stent in the left anterior descending artery - new stent placement by Dr Ryder Ortiz 2. Uncontrolled type 2 diabetes - hemoglobin a1c 7.9% Activity: Per Instructions section Lifting: No more than 10 pounds Sexual Activity: Wait until after follow-up appointment Exercise/Sports: Wait until after follow-up appointment Driving/Machine Use: Resume 3 days after discharge Non-emergency contact: Primary Care Provider and Glass Decorator Call non-emergency contact if: you have any medication questions, your symptoms worsen and your pain is not controlled Follow-up/Referrals: Lj Cho DO [Primary Care Provider] - 09/05/22 2:45 pm (follow up with Dr. Andreas Sierra 2022 @ 2:45pm) Alexa Lovell M.D. [Outside Practitioners] - (1-2 weeks) Diet: Carb Consistent or DM2 and Heart Healthy Alexis Attending Provider Instructions: Mr Goyal, You were hospitalized at [facility] after having had chest pain. Blood work showed evidence of a very mild heart attack. Dr Ryder Ortiz performed heart catheterization on 08/28/22 and this showed that a previously placed stent in your left anterior descending artery had developed a new blockage. Dr Ortiz placed a new stent across this blockage. Following your heart catheterization you remained stable with normal vital signs, heart monitoring, etc. Your echocardiogram showed that your ejection fraction is 50-55% (this is the squeezing ability of the heart). Anything greater than 50% is considered normal. Your hemoglobin a1c diabetes test was 7.9%. Your LDL cholesterol ("bad" cholesterol) was 51; goal is <70. Your HDL cholesterol ("good" cholesterol) was 35; ideally we like this >45. Please talk to Dr Cho about ways to improve your diabetes control as uncontrolled diabetes can contribute to ongoing problems with coronary artery disease and plaque build-up. You will need to HOLD your metformin at this time until your kidney function level is repeated this week. This is a precautionary measure due to contrast given to you during your heart cath procedure. Please go to the [facility] office and have a blood draw on AM, 08/31/22. I will call you and let you know your lab results and whether it is ok to resume your metformin. I have prescribed a new bottle of nitroglycerin for you. Keep this with you for emergency purposes at all times. Follow-up - see separate section Return to [facility] if - * you have recurrent chest pains * you are short of breath * you have to use nitroglycerin tablets * you are concerned about your heart cath site in the right groin (excessive bruising, bleeding, pain, etc) * any other concerns It was our pleasure to care for you at [facility]! Dr Alice Espinoza Stock Driver Provider Instructions: Post-Heart Catheterization Instructions - For femoral cardiac cath * Do not strain during bowel movements for the first 3 to 4 days after the procedure to prevent bleeding from the catheter insertion site (right groin). * Avoid heavy lifting (more than 10 pounds) and pushing or pulling heavy objects for the first 5 to 7 days after the procedure. * Do not participate in strenuous activities until you see your director appointment. This includes most sports - jogging, golfing, play tennis, and bowling. No shoveling snow. * You may climb stairs if needed, but walk up and down the stairs more slowly than usual. * No DRIVING for 3 days. * Gradually increase your activities within the next week but, again, avoid STRENUOUS activities until you see cardiology. Keep the dressing in place for the next 2 days. You can remove the dressing on AM, 08/31/22. Ok to shower at this time. However, please keep the dressing clean/dry/intact until it is removed on AM. No tub baths or immersion in water (no swimming, etc). Additional instructions following your heart event: Home Care: * Take your medications exactly as directed. Don't skip doses. * Remember that recovery after a heart attack takes time. Plan to rest for at lease 4-8 weeks while you recover. Then return to normal activity when your doctor says it's okay. * Ask your doctor about joining a heart rehabilitation program. * Tell your doctor if you are feeling depressed. Feelings of sadness are common after a heart attack, but it is important that you speak to someone if you are feeling overwhelmed by these feelings. * If you are having chest pain, call 911 for an ambulance. Do NOT drive yourself to the hospital. * Ask your family members to learn CPR. * Learn to take your own blood pressure and pulse. Keep a record of your results. Ask your doctor when you should seek emergency medical attention. He or she will tell you which blood pressure reading is dangerous. Lifestyle Changes: * Maintain a healthy weight. Get help to lose any extra pounds. * Cut back on salt. * Limit canned, dried, packaged, and fast foods. * Don't add salt to your food. * Season foods with herbs instead of salt when you cook. * Break the smoking habit. Enroll in a stop-smoking program to improve your chances of success. * Limit fatty foods. * Ask your doctor about having your lipid levels checked regularly. * Build up your activity according to your doctor's recommendation. * Ask your doctor when it's okay to resume sexual activity. * Tell your doctor about any erectile dysfunction (ED) medication you are taking. Some ED medications are not safe if you take certain heart medications. * Try to manage stress. Pending Studies at Discharge: No Stand-Alone Forms: My [facility], Smoking Cessation Medications and DC Order Prescriptions: New nitroglycerin [Nitrostat] 0.4 mg Tablet, Sublingual 0.4 mg sublingual Q5M PRN (Reason: chest pain) Qty: 1 0RF Rx Instructions: max 3 tabs in 15 minutes Continued Novolog Mix 70-30 U-100 Insuln 100 unit/mL (70-30) solution See Rx Instructions SQ BIDM Qty: 50 5RF Dose Instruction: Take 50 units before breakfast and 70 units before dinner or as directed SQ BIDM; Rx Instructions: Take 32 units before breakfast and 60 units before dinner or as directed SQ BIDM; atorvastatin 80 mg tablet 80 mg PO DAILY Qty: 90 3RF clopidogrel 75 mg tablet 75 mg PO DAILY Qty: 90 3RF (DME) blood sugar diagnostic Strip See Dose Instructions .ROUTE .MEDSUPPLY Qty: 300 3RF Dose Instruction: As directed Rx Instructions: TEST 3 TIMES DAILY allopurinol 300 mg tablet 300 mg PO DAILY Qty: 90 3RF (DME) insulin syringe-needle U-100 [BD Insulin Syringe Ultra-Fine] 1 mL 31 gauge x 5/16 syringe See Rx Instructions .ROUTE .MEDSUPPLY Qty: 200 5RF Rx Instructions: USE BID E11.2 Trulicity 1.5 mg/0.5 mL pen injector 3 mg SQ WEEKLY Rx Instructions: on Saturdays isosorbide mononitrate 60 mg tablet extended release 24 hr 60 mg PO DAILY (DME) blood-glucose meter [OneTouch Verio Flex Start] kit See Dose Instructions .ROUTE .MEDSUPPLY Qty: 1 0RF Dose Instruction: As directed Rx Instructions: As directed amoxicillin 500 mg capsule 2,000 mg PO ONCE PRN (Reason: pre-procedure) aspirin 81 mg Tablet,Delayed Release (Dr/Ec) 81 mg PO DAILY pantoprazole 40 mg tablet,delayed release (DR/EC) 40 mg PO QAM Discontinued metformin 1,000 mg tablet 1,000 mg PO BID Qty: 180 1RF Discharge Orders: Discharge Order (Routine); Ordered 08/29/22 Ordered By: Nicholas Wheat/Other Patient Handouts: Managing Type 2 Diabetes Admission Data Admit Date/Time: 08/28/22 15:02 Attending Provider: Nicholas Jenkins Admit Provider: Corrie Corrigan Primary Care Provider: Lj Cho Other Providers: Corrie Corrigan ; Jonathon Pickering Other Interventions: Discharge Summary Assessment (RN) Last Done: 08/29/22 16:29 Coding Level of Care Code HOSP INP/OBS DISCH >30 MIN Diagnoses NSTEMI (non-ST elevated myocardial infarction) I21.4 Hyperlipidemia E78.5 Controlled type 2 diabetes mellitus with insulin therapy E11.9; Z79.4 Hypertension I10 Esophageal reflux K21.9 CAD (coronary artery disease) I25.10 Iron deficiency anemia D50.9 Gout M10.9 Chronic kidney disease, stage 3a N18.31
== END 2022-08-29 17:05 | disposition home or self-care (01) | DRG 247 ==
LOC: 2N 20:00 → ED 20:00 → SUATTDRO 22:37 → 2N 08-28 00:03 → 2S 08-28 11:26 → PACUINP 08-28 13:32 → 4W 08-28 14:53 → SUATTDRO 08-28 15:02
PROC: CLB.CCG (2022-08-28 11:30)
DX: Z79.02 Long term (current) use of antithrombotics/antiplatelets; Z79.85 Long-term (current) use of injectable non-insulin antidiabetic drugs; I21.4 Non-ST elevation (NSTEMI) myocardial infarction; K21.9 Gastro-esophageal reflux disease without esophagitis; Z96.652 Presence of left artificial knee joint; D50.9 Iron deficiency anemia, unspecified; Z95.5 Presence of coronary angioplasty implant and graft; Z83.3 Family history of diabetes mellitus; I25.10 Atherosclerotic heart disease of native coronary artery without angina pectoris; E11.22 Type 2 diabetes mellitus with diabetic chronic kidney disease; Y92.019 Unspecified place in single-family (private) house as the place of occurrence of the external cause; Y71.2 Prosthetic and other implants, materials and accessory cardiovascular devices associated with adverse incidents; Z79.4 Long term (current) use of insulin; N18.32 Chronic kidney disease, stage 3b; Z95.1 Presence of aortocoronary bypass graft; Z79.82 Long term (current) use of aspirin; T82.855A Stenosis of coronary artery stent, initial encounter; Z79.84 Long term (current) use of oral hypoglycemic drugs; E78.5 Hyperlipidemia, unspecified

== ENCOUNTER 2022-12-20 17:21 | Observation (INO) ==
--- NOTE | 2022-12-20 18:16 | Emergency Department Note ---
Impression & Plan Chest pain, exertional, Atrial flutter, Elevated troponin ED Provider Note ED Provider Note NAME: AMY CONLEY AGE:77 SEX: Male : 1945 ARRIVES VIA: Private vehicle INFORMANT: Patient ED PROVIDER(s): Brook Pack DO CHIEF COMPLAINT: Chest pain HPI: This is a 77-year-old male presents emergency department due to concern for chest pain. Patient states over the last several weeks he had noticed that with any exertion he developed a central chest tightness and pain which requires him to then sit down. He states occasion with the pain he also develops a sense of feeling short of breath, dizziness, nausea. He denies any diaphoresis. He states after approximately 10 minutes the pain will subside. He states this process repeats anytime he wants to go anywhere or do something. He states he has not noted any pain at rest. Patient also prior cardiac history including prior CABG as well as stent placement. Patient denies any recent fevers, chills, or URI symptoms. He denies any coming leg swelling or worsening cough. He states he does have history of GERD as well as hiatal hernia but states that this does not feel similar to prior episodes of reflux/heartburn. He states the pain does not radiate to his back or arms. Patient denies any sense of palpitations. PAST MEDICAL HISTORY:See Below PAST SURGICAL HISTORY:See Below FAMILY HISTORY:See Below SOCIAL HISTORY:See Below HOME MEDICATIONS:See Below ALLERGIES:See Below VITALS:See Below PHYSICAL EXAMINATION: GENERAL: alert, well appearing, well nourished, no distress, non-toxic EYE EXAM: normal conjunctiva, PERRL and EOM's grossly intact OROPHARYNX: no exudate, no erythema, lips, buccal mucosa, and tongue normal and mucous membranes are moist NECK: supple, no nuchal rigidity, no adenopathy, non-tender LUNGS: Clear to auscultation. Normal chest wall mechanics, no w/r/r HEART: no murmurs, S1 normal and S2 normal, no reproducible chest wall tenderness with palpation ABDOMEN: abdomen soft, non-tender, normo-active bowel sounds, no masses, no rebound or guarding. BACK: Back is symmetrical on inspection and there is no deformity, no midline tenderness, no CVA tenderness. SKIN: no rashes, petechiae, orbruising UPPER EXTREMITIES: upper extremities are grossly normal. FROM, nml pulses b/l. LOWER EXTREMITIES: Trace b/l pitting edema. FROM, nml pulses b/l. NEURO EXAM: Normal sensorium, cranial nerves II-XII grossly intact, normal speech, no facial droop,nogross weakness of arms, no gross weakness of legs. Gross sensation intact. No ataxia. Vital Signs: reviewed and remarkable Differential Diagnosis: Differential diagnoses includes but is not limited to acute coronary syndrome, pericarditis, pulmonary embolus, aortic dissection, pneumonia, pneumothorax, musculoskeletal, GERD, perforation, GI bleed MEDICAL DECISION MAKING: This is a 77-year-old male presents emergency department due to concern for chest pain and dyspnea with exertion. Patient with significant cardiac history. Patient was afebrile and vital signs stable, he had no pain or discomfort during my exam while at rest. Labs drawn and sent, IV established, EKG and chest x-ray performed at bedside and interpreted by me. Patient noted to have atrial flutter which I cannot find prior record of. I did find prior record of atrial fibrillation. Patient was rate controlled however. Nasal swab negative for acute viral infection. Patient sent for CT angiography of the chest additionally as a precaution to rule out other pathology contributing to his symptoms and was reassuring. Given elevated troponin, exertional symptoms, and cardiac history, case discussed with hospitalist for additional evaluation and management. Consultation(s): 2044: Discussed with Dr. Pineda and Dr. Corea. ER Treatment Provided: See below Diagnostics Interpreted By Me: -ECG: Atrial flutter at 63, leftward axis, RBBB, nonspecific ST/T wave changes -Cardiac Monitoring: An order was placed for continuous cardiac monitoring. The monitor shows a rate of 66 with a.flutter rhythm. -Laboratory studies: As stated above and show below. -Imaging studies: X-ray Chest: A single view study of the chest was reviewed and was negative for cardiomegaly, focal infiltrate, effusion, pulmonary edema, or wide mediastinum. Triage Nursing Note Reviewed Prior/Outside Records Reviewed -prior echo/cath from August reviewed Past Med/Surg History Medical History (Updated 12/21/22 @ 16:45 by Jonathon Pickering MD) ACS (acute coronary syndrome) Basal cell carcinoma of skin of trunk Basal cell carcinoma, face Benign prostatic hyperplasia with urinary obstruction CAD (coronary artery disease) Cerumen impaction Controlled type 2 diabetes mellitus with chronic kidney disease Controlled type 2 diabetes mellitus with insulin therapy Esophageal reflux Gout Hyperlipidemia Hypertension Incomplete bladder emptying Iron deficiency anemia Kidney stone NSTEMI (non-ST elevated myocardial infarction) Pericardial effusion Primary osteoarthritis of left knee Right bundle branch block Sepsis Sleep apnea Stage 3b chronic kidney disease Vitamin D deficiency Surgical History (Updated 12/21/22 @ 16:45 by Jonathon Pickering MD) H/O transurethral resection of prostate History of ankle surgery History of arthroplasty of knee (~05/14/13) left - Dr. Peterson History of cholecystectomy History of four vessel coronary artery bypass graft History of lithotripsy S/P CABG (coronary artery bypass graft) S/P coronary artery stent placement Status post repair of nerve Family History Brother Diabetes Heart disease Prostate cancer End stage renal disease Myocardial infarction Sister Diabetes Mother Heart disease Myocardial infarction Father Heart disease Myocardial infarction Unknown Hypercholesteremia Denies family history of Ovarian cancer Hearing loss Breast cancer Colorectal cancer Hypertension Social History Smoking Status: Never smoker Second Hand Exposure: No; Do You Dip or Chew Tobacco: No; Hx Alcohol Use: No Hx Substance Use: No Preferred Language: Bulgarian Communication Ability: Effective Visual Impairment: No Limitations Hearing Ability: Use of Hearing Aid Body Care Manager Required: No Beliefs That Will Affect Care: None marital status: Current Living Situation: Spouse current occupational status: retired 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 [employer] Feels Safe at Home: Yes Childhood Exposure to Second-Hand Smoke: Yes Diet: regular Diet Comment: no added salt caffeine: Yes Dental Care, Regularly: No Physical Activity Frequency: Daily Seatbelt Use: never Sunscreen Use: No Assistive Devices: None Allergies Allergies Allergy/AdvReac Type Severity Reaction Status Date / Time No Known Drug Allergies Allergy Unknown Verified 12/20/22 18:42 Home Meds Home Medications Medication Instructions Recorded Confirmed aspirin 81 mg tablet,delayed 81 mg PO QAM 08/28/22 12/20/22 release pantoprazole 40 mg tablet,delayed 40 mg PO QAM 08/28/22 12/20/22 release allopurinol 300 mg tablet 300 mg PO QAM 12/20/22 12/20/22 amoxicillin 500 mg capsule 2,000 mg PO ONCE PRN prior to 12/20/22 12/20/22 dental procedures atorvastatin 80 mg tablet 80 mg PO QPM 12/20/22 12/20/22 cephalexin 500 mg capsule 500 mg PO TID 12/20/22 12/20/22 dulaglutide 3 mg/0.5 mL 3 mg subcut WK 12/20/22 12/20/22 subcutaneous pen injector (Trulicity) famotidine 20 mg tablet 20 mg PO QPM 12/20/22 12/20/22 isosorbide mononitrate 60 mg 60 mg PO QAM 12/20/22 12/20/22 tablet,extended release 24 hr metformin 1,000 mg tablet 1,000 mg PO BID 12/20/22 12/20/22 Previous Rx's Medication Instructions Recorded blood-glucose meter (OneTouch #1 ea 05/09/19 Verio Flex Start kit) insulin syringe-needle U-100 1 mL #200 ea 02/23/20 31 gauge x 5/16" (BD Insulin Syringe Ultra-Fine) insulin aspar prt-insulin aspart See Rx Instructions subcut BIDM 03/11/21 100 unit/mL (70-30) subcutaneous #50 mL soln (Novolog Mix 70-30 U-100 Insuln) clopidogrel 75 mg tablet 75 mg PO DAILY #90 tabs 04/08/21 blood sugar diagnostic #300 ea 04/28/21 nitroglycerin 0.4 mg sublingual 0.4 mg sublingual Q5M PRN chest 08/29/22 tablet (Nitrostat) pain #1 btl apixaban 5 mg tablet (Eliquis) 5 mg PO BID 1 month #60 tabs 12/21/22 Results & Data (ED) Vital Signs Vital Signs - 24 hr 12/20/22 17:25 12/20/22 18:05 12/20/22 18:04 Temperature 36.5 C Temperature Source Temporal Artery Scan Pulse Rate 85 64 64 Pulse Rate from SpO2 Sensor 64 Respiratory Rate 18 21 Respiratory Effort / Characteristics Non-Labored Respiratory Depth Normal Respiratory Pattern Regular Blood Pressure 145/67 H Blood Pressure Mean 93 Pulse Oximetry 97 96 Oxygen Delivery Method Room Air Sepsis Recent Fever Within 48 Hours No Sepsis New/Unexplained Change in Mental Status N/A Sepsis Action Taken by Nursing No Action Required 12/20/22 18:30 12/20/22 18:30 12/20/22 19:00 Temperature Temperature Source Pulse Rate 66 Pulse Rate from SpO2 Sensor 66 Respiratory Rate 23 Respiratory Effort / Characteristics Respiratory Depth Respiratory Pattern Blood Pressure 139/65 145/68 H Blood Pressure Mean 89 93 Pulse Oximetry 95 Oxygen Delivery Method Sepsis Recent Fever Within 48 Hours Sepsis New/Unexplained Change in Mental Status Sepsis Action Taken by Nursing 12/20/22 19:00 12/20/22 19:30 12/20/22 19:30 Temperature Temperature Source Pulse Rate 73 77 Pulse Rate from SpO2 Sensor 70 72 Respiratory Rate 20 19 Respiratory Effort / Characteristics Respiratory Depth Respiratory Pattern Blood Pressure 148/75 H Blood Pressure Mean 99 Pulse Oximetry 94 97 Oxygen Delivery Method Sepsis Recent Fever Within 48 Hours Sepsis New/Unexplained Change in Mental Status Sepsis Action Taken by Nursing 12/20/22 19:59 12/20/22 20:00 12/20/22 20:16 Temperature Temperature Source Pulse Rate 63 Pulse Rate from SpO2 Sensor Respiratory Rate 24 21 Respiratory Effort / Characteristics Respiratory Depth Respiratory Pattern Blood Pressure 148/75 H Blood Pressure Mean 99 Pulse Oximetry Oxygen Delivery Method Sepsis Recent Fever Within 48 Hours Sepsis New/Unexplained Change in Mental Status Sepsis Action Taken by Nursing Laboratory Data 12/20/22 17:41 12/20/22 17:41 Lab Results 12/20/22 12/20/22 12/20/22 Range/Units 17:41 17:41 17:41 WBC 6.64 (4.8-10.8) K/ul RBC 3.86 L (4.70-6.10) M/uL Hgb 11.5 L (14.0-18.0) g/dl Hct 36.2 L (42.0-52.0) % MCV 93.8 (80.0-100.0) fL MCH 29.8 (25.0-34.0) pg MCHC 31.8 L (32.0-36.0) g/dL RDW Std Deviation 49.7 H (36.4-46.3) fL RDW Coeff of Cherelle 14.6 H (11.5-14.5) % Plt Count 198 (130-400) K/uL MPV 10.5 (9.4-12.4) fL Immature Gran % (Auto) 0.5 % Neut % (Auto) 62.1 % Lymph % (Auto) 25.0 % Lea % (Auto) 8.6 % Eos % (Auto) 3.0 % Baso % (Auto) 0.8 % Neut # (Auto) 4.13 (1.40-6.50) K/uL Lymph # (Auto) 1.66 (1.2-3.4) K/uL Lea # (Auto) 0.57 (0.11-0.59) K/uL Eos # (Auto) 0.20 (0-0.50) K/uL Baso # (Auto) 0.05 (0-0.2) K/uL Immature Gran # (Auto) 0.03 (0.01-0.20) K/uL PT 11.1 (9.0-12.0) Seconds INR 1.0 (0.9-1.1) APTT (21.0-31.0) Seconds PTT Ratio D-Dimer 530 H* (0-500) ug/L FEU Sodium 140 (136-145) mmol/L Potassium 4.1 (3.5-5.1) mmol/L Chloride 107 (98-107) mmol/L Carbon Dioxide 25 (21-32) mmol/L Anion Gap 8 (3-11) BUN 17 (6-23) mg/dl Creatinine 1.61 H (0.6-1.4) mg/dl Est Cr Clr Drug Dosing 47.6 ml/min Est GFR ( Amer) 46.4 ml/min Est GFR (Non-Af Amer) 40.1 ml/min BUN/Creatinine Ratio 10.6 (10-20) Glucose 99 (70-99(Fasting)) mg/dl Calcium 9.2 (8.6-10.3) mg/dl Magnesium 1.6 L (1.7-2.4) mg/dl Total Bilirubin 0.6 (0.2-1.0) mg/dl AST 18 (13-39) U/L ALT 26 (7-52) U/L Alkaline Phosphatase 91 (34-104) U/L Troponin I High Sens 51.8 H* (0-20) pg/ml Total Protein 6.9 (6.0-8.3) gm/dl Albumin 4.1 (3.4-5.0) gm/dl Globulin 2.8 (2.5-4.0) gm/dl Albumin/Globulin Ratio 1.5 (0.9-2) Lipase 42 (11-82) U/L TSH (0.300-4.500) uIu/ml SARS-CoV-2 (PCR) (Negative) Influenza Type A (PCR) (Neg) Influenza Type B (PCR) (Neg) RSV (RT-PCR) (Neg) 12/20/22 12/20/22 12/20/22 Range/Units 17:41 17:41 17:48 WBC (4.8-10.8) K/ul RBC (4.70-6.10) M/uL Hgb (14.0-18.0) g/dl Hct (42.0-52.0) % MCV (80.0-100.0) fL MCH (25.0-34.0) pg MCHC (32.0-36.0) g/dL RDW Std Deviation (36.4-46.3) fL RDW Coeff of Cherelle (11.5-14.5) % Plt Count (130-400) K/uL MPV (9.4-12.4) fL Immature Gran % (Auto) % Neut % (Auto) % Lymph % (Auto) % Lea % (Auto) % Eos % (Auto) % Baso % (Auto) % Neut # (Auto) (1.40-6.50) K/uL Lymph # (Auto) (1.2-3.4) K/uL Lea # (Auto) (0.11-0.59) K/uL Eos # (Auto) (0-0.50) K/uL Baso # (Auto) (0-0.2) K/uL Immature Gran # (Auto) (0.01-0.20) K/uL PT (9.0-12.0) Seconds INR (0.9-1.1) APTT 28.5 (21.0-31.0) Seconds PTT Ratio 1.0 D-Dimer (0-500) ug/L FEU Sodium (136-145) mmol/L Potassium (3.5-5.1) mmol/L Chloride (98-107) mmol/L Carbon Dioxide (21-32) mmol/L Anion Gap (3-11) BUN (6-23) mg/dl Creatinine (0.6-1.4) mg/dl Est Cr Clr Drug Dosing ml/min Est GFR ( Amer) ml/min Est GFR (Non-Af Amer) ml/min BUN/Creatinine Ratio (10-20) Glucose (70-99(Fasting)) mg/dl Calcium (8.6-10.3) mg/dl Magnesium (1.7-2.4) mg/dl Total Bilirubin (0.2-1.0) mg/dl AST (13-39) U/L ALT (7-52) U/L Alkaline Phosphatase (34-104) U/L Troponin I High Sens (0-20) pg/ml Total Protein (6.0-8.3) gm/dl Albumin (3.4-5.0) gm/dl Globulin (2.5-4.0) gm/dl Albumin/Globulin Ratio (0.9-2) Lipase (11-82) U/L TSH 1.837 (0.300-4.500) uIu/ml SARS-CoV-2 (PCR) NEGATIVE (Negative) Influenza Type A (PCR) Negative (Neg) Influenza Type B (PCR) Negative (Neg) RSV (RT-PCR) Negative (Neg) 12/20/22 Range/Units 21:16 WBC (4.8-10.8) K/ul RBC (4.70-6.10) M/uL Hgb (14.0-18.0) g/dl Hct (42.0-52.0) % MCV (80.0-100.0) fL MCH (25.0-34.0) pg MCHC (32.0-36.0) g/dL RDW Std Deviation (36.4-46.3) fL RDW Coeff of Cherelle (11.5-14.5) % Plt Count (130-400) K/uL MPV (9.4-12.4) fL Immature Gran % (Auto) % Neut % (Auto) % Lymph % (Auto) % Lea % (Auto) % Eos % (Auto) % Baso % (Auto) % Neut # (Auto) (1.40-6.50) K/uL Lymph # (Auto) (1.2-3.4) K/uL Lea # (Auto) (0.11-0.59) K/uL Eos # (Auto) (0-0.50) K/uL Baso # (Auto) (0-0.2) K/uL Immature Gran # (Auto) (0.01-0.20) K/uL PT (9.0-12.0) Seconds INR (0.9-1.1) APTT (21.0-31.0) Seconds PTT Ratio D-Dimer (0-500) ug/L FEU Sodium (136-145) mmol/L Potassium (3.5-5.1) mmol/L Chloride (98-107) mmol/L Carbon Dioxide (21-32) mmol/L Anion Gap (3-11) BUN (6-23) mg/dl Creatinine (0.6-1.4) mg/dl Est Cr Clr Drug Dosing ml/min Est GFR ( Amer) ml/min Est GFR (Non-Af Amer) ml/min BUN/Creatinine Ratio (10-20) Glucose (70-99(Fasting)) mg/dl Calcium (8.6-10.3) mg/dl Magnesium (1.7-2.4) mg/dl Total Bilirubin (0.2-1.0) mg/dl AST (13-39) U/L ALT (7-52) U/L Alkaline Phosphatase (34-104) U/L Troponin I High Sens 48.2 H (0-20) pg/ml Total Protein (6.0-8.3) gm/dl Albumin (3.4-5.0) gm/dl Globulin (2.5-4.0) gm/dl Albumin/Globulin Ratio (0.9-2) Lipase (11-82) U/L TSH (0.300-4.500) uIu/ml SARS-CoV-2 (PCR) (Negative) Influenza Type A (PCR) (Neg) Influenza Type B (PCR) (Neg) RSV (RT-PCR) (Neg) Administered Medications Discontinued Medications Allopurinol (Allopurinol 300 Mg Tab) 300 mg PO [facility] Stop: 01/20/23 08:59 Last Admin: 12/21/22 08:29 Dose: 300 mg Documented By: Apixaban (Apixaban 5 Mg Tablet) 5 mg PO NOW ONE Stop: 12/21/22 19:46 Last Admin: 12/21/22 20:02 Dose: 5 mg Documented By: AZ Aspirin (Aspirin 81 Mg Ectab) 81 mg PO QAM ALANNAH Stop: 01/20/23 08:59 Last Admin: 12/21/22 08:29 Dose: 81 mg Documented By: GRACE Atorvastatin Calcium (Atorvastatin 40 Mg Tab) 80 mg PO QPM ALANNAH Stop: 01/20/23 20:59 Last Admin: 12/21/22 20:02 Dose: 80 mg Documented By: AZ Cephalexin HCl (Cephalexin 500 Mg Cap) 500 mg PO BID ALANNAH; Protocol Stop: 12/23/22 08:59 Last Admin: 12/21/22 20:02 Dose: 500 mg Documented By: Admin: 12/21/22 08:29 Dose: 500 mg Documented By: GRACE Clopidogrel Bisulfate (Clopidogrel Bisulfate 75 Mg Tab) 75 mg PO DAILY [facility] Stop: 01/20/23 08:59 Last Admin: 12/21/22 08:29 Dose: 75 mg Documented By: GRACE Enoxaparin Sodium (Enoxaparin Inj 120 Mg/0.8 Ml Syr) 111 mg SQ Q12H ALANNAH Stop: 01/19/23 21:59 Last Admin: 12/21/22 12:07 Dose: Not Given Documented By: Admin: 12/21/22 01:08 Dose: 111 mg Documented By: ANDREA Famotidine (Famotidine 20 Mg Tab) 20 mg PO QPM ALANNAH Stop: 01/20/23 20:59 Last Admin: 12/21/22 20:02 Dose: 20 mg Documented By: AZ Furosemide (Furosemide Inj 20 Mg/2 Ml Vial) 20 mg IV NOW STA Stop: 12/21/22 18:34 Last Admin: 12/21/22 18:44 Dose: 20 mg Documented By: GRACE Sodium Chloride (Nss 1000ml) 1,000 mls @ 125 mls/hr IV .Q8H ALANNAH Stop: 01/19/23 19:14 Last Infusion: 12/21/22 09:28 Dose: 0 mls/hr Documented By: Admin: 12/21/22 03:13 Dose: 125 mls/hr Documented By: Infusion: 12/21/22 03:13 Dose: 125 mls/hr Documented By: Admin: 12/20/22 20:22 Dose: 125 mls/hr Documented By: RSL Magnesium Sulfate/Dextrose (Magnesium Sulfate / D5w) 1 gm in 100 mls @ 50 mls/hr IV Q2H ALANNAH Stop: 12/21/22 04:59 Last Infusion: 12/21/22 03:13 Dose: 0 mls/hr Documented By: Admin: 12/21/22 01:08 Dose: 50 mls/hr Documented By: Infusion: 12/21/22 01:08 Dose: 50 mls/hr Documented By: Admin: 12/20/22 23:28 Dose: 50 mls/hr Documented By: Infusion: 12/20/22 22:57 Dose: 0 mls/hr Documented By: Admin: 12/20/22 22:09 Dose: 50 mls/hr Documented By: Infusion: 12/20/22 22:09 Dose: 50 mls/hr Documented By: Admin: 12/20/22 21:02 Dose: 50 mls/hr Documented By: BERTRAND Insulin Aspart (Insulin Aspart Per Unit Charge) 0 units SC ACHS [facility] Stop: 01/20/23 07:29 Last Admin: 12/21/22 20:09 Dose: Not Given Documented By: Admin: 12/21/22 16:51 Dose: 2 units Documented By: GRACE Co-signed By: NANCY Admin: 12/21/22 12:08 Dose: Not Given Documented By: Admin: 12/21/22 08:25 Dose: 3 units Documented By: GRACE Co-signed By: MEENAKSHI Insulin Glargine (Lantus Per Unit Charge) 10 units SQ BID [facility] Stop: 01/20/23 08:59 Last Admin: 12/21/22 20:12 Dose: 10 units Documented By: [place] Co-signed By: ZULEMA Admin: 12/21/22 08:26 Dose: 10 units Documented By: GRACE Co-signed By: MEENAKSHI Ioversol (Optiray 320 500ml) 105 ml IV ONCE ONE Stop: 12/20/22 20:11 Last Admin: 12/20/22 20:13 Dose: 105 ml Documented By: BHARATHI Isosorbide Mononitrate (Isosorbide Lea Extended Rel 60 Mg Tabcr) 60 mg PO QAM [facility] Stop: 01/20/23 08:59 Last Admin: 12/21/22 08:30 Dose: 60 mg Documented By: GRACE Pantoprazole Sodium (Pantoprazole 40 Mg Tab) 40 mg PO QAM [facility] Stop: 01/20/23 08:59 Last Admin: 12/21/22 08:30 Dose: 40 mg Documented By: Imaging Data Radiologist's Impression: Chest X-Ray 12/20/22 17:52 XR chest 1V portable HISTORY: 77 years-old Male chest pain acute chest pain COMPARISON: 12/11/2022 TECHNIQUE: AP view the chest FINDINGS: Cardiac silhouette is enlarged prior median sternotomy with CABG. Coronary arterial stenting. No pneumothorax, pleural effusion, airspace consolidation or pulmonary edema. Degenerative changes of the shoulders and spine. IMPRESSION: No acute process. ACT 112: Negative or not required by law. The above report was generated using voice recognition software. It may contain grammatical, syntax or spelling errors. Electronically signed by: Rishabh Marques M.D. 12/20/2022 6:28 PM Chest CTA 12/20/22 19:06 CT angio chest PE protocol CT DOSE: 850.61 mGy.cm HISTORY: 77 years-old Male with PE. Acute shortness of breath TECHNIQUE: Multiple CTA images of the chest were obtained after the intravenous administration of 105 ml Optiray. Coronal and sagittal MIPS were obtained from the axial data set and were submitted for review. All measurements were obtained according to NASCET criteria. A dose lowering technique was utilized adhering to the principles of ALARA. COMPARISON: Chest radiograph of same day, CTA chest 07/12/2015 FINDINGS: CTA: Mild cardiomegaly. There is no pericardial effusion. Prior median sternotomy with CABG. Extensive [place] coronary artery calcifications with coronary arterial stenting. Atherosclerosis of the thoracic aorta without aneurysm. Reflux of contrast into the IVC and hepatic veins. No pulmonary emboli are identified. Suboptimal evaluation of the subsegmental branches secondary to respiratory motion artifact. CT CHEST: No thyroid nodule. Borderline enlarged mediastinal and hilar lymph nodes measuring up to 9 mm a likely physiologic. Trace right pleural effusion. Partially imaged lung bases. Mild bronchial wall thickening and intralobular septal thickening. No pneumothorax or lobar space consolidation. Calcified granuloma of the left lung apex. No acute process of the imaged upper abdomen. Unremarkable soft tissues. Spondylotic spurring of the thoracic spine. No acute fracture. IMPRESSION: 1. Cardiomegaly with mild pulmonary edema and trace right pleural effusion. 2. No pulmonary emboli identified. 3. No airspace consolidation typical for pneumonia. ACT 112: Negative or not required by law. The above report was generated using voice recognition software. It may contain grammatical, syntax or spelling errors. Electronically signed by: Rishabh Marques M.D. 12/20/2022 8:27 PM Discharge Plan Visit Data Chief Complaint: Cardiac Assessment Stated Complaint: REF BY DOC,HEART ISSUES,CARRDIAC ISSUES ED Provider: Brook Pack Discharge Problem: Chest pain, exertional, Atrial flutter, Elevated troponin Patient Disposition: Admitted As Inpatient Discharge Instructions Interventions: ED Discharge Assessment Last Done: 12/20/22 22:55
--- NOTE | 2022-12-20 18:29 | XRay Report ---
XR chest 1V portable HISTORY: 77 years-old Male chest pain acute chest pain COMPARISON: 12/11/2022 TECHNIQUE: AP view the chest FINDINGS: Cardiac silhouette is enlarged prior median sternotomy with CABG. Coronary arterial stenting. No pneu mothorax, pleural effusion, airspace consolidation or pulmonary edema. Degenerative changes of the sh oulders and spine. IMPRESSION: No acute process. ACT 112: Negative or not required by law. The above report was generated using voice recognition software. It may contain grammatical, syntax o r spelling errors. Electronically signed by: Rishabh Marques M.D. 12/20/2022 6:28 PM
[2022-12-20 18:41] LABS: Basophils # (auto) 0.05 K/uL (0-0.2); Basophils % (auto) 0.8 %; Hematocrit (blood only) 36.2 % (42.0-52.0); Hemoglobin 11.5 g/dl (14.0-18.0); Immature Granulocytes # (auto) 0.03 K/uL (0.01-0.20); Immature Granulocytes % (auto) 0.5 %; Lymphocytes # (auto) 1.66 K/uL (1.2-3.4); Mean Corpuscular Hemoglobin 29.8 pg (25.0-34.0); Mean Corpuscular Hgb Conc 31.8 g/dL (32.0-36.0); Mean Corpuscular Volume 93.8 fL (80.0-100.0); Mean Platelet Volume 10.5 fL (9.4-12.4); Monocytes # (auto) 0.57 K/uL (0.11-0.59); Monocytes % (auto) 8.6 %; Neutrophils # (auto) 4.13 K/uL (1.40-6.50); Neutrophils % (auto) 62.1 %; Platelet Count 198 K/uL (130-400); RDW Coefficient of Variation 14.6 % (11.5-14.5); RDW Standard Deviation 49.7 fL (36.4-46.3); Red Blood Count 3.86 M/uL (4.70-6.10); White Blood Count 6.64 K/ul (4.8-10.8)
[2022-12-20 18:52] LABS: Prothrombin Time 11.1 Seconds (9.0-12.0)
[2022-12-20 18:55] LABS: Albumin Level 4.1 gm/dl (3.4-5.0); Bilirubin,Total 0.6 mg/dl (0.2-1.0); Calcium 9.2 mg/dl (8.6-10.3); Magnesium 1.6 mg/dl (1.7-2.4); Potassium 4.1 mmol/L (3.5-5.1)
[2022-12-20 18:56] LABS: D Dimer 530 ug/L FEU (0-500)
[2022-12-20 19:02] LABS: Albumin Globulin Ratio 1.5 (0.9-2); BUN Creatinine Ratio 10.6 (10-20); Creatinine Clr Calc Pharmacy 47.6 ml/min; Est GFR (African American) 46.4 ml/min; Est GFR (Non-African American) 40.1 ml/min; Globulin 2.8 gm/dl (2.5-4.0); Total Protein 6.9 gm/dl (6.0-8.3)
[2022-12-20 19:06] LABS: Troponin I High Sensitivity 51.8 pg/ml (0-20)
[2022-12-20 19:25] LABS: Influenza A virus by PCR Negative (Neg); Influenza B virus by PCR Negative (Neg); RSV by PCR Negative (Neg); SARS CoV2 RNA(COVID-19) Ceph NEGATIVE (Negative)
[2022-12-20] MEDS ORDERED: OPTIRAY 320 500ml IV ONE (20:10)
[2022-12-20] MEDS: SODIUM CHLORIDE 0.9% 1000ML 1,000 ML IV SCH (20:22)
--- NOTE | 2022-12-20 20:30 | CT Scan Report ---
CT angio chest PE protocol CT DOSE: 850.61 mGy.cm HISTORY: 77 years-old Male with PE. Acute shortness of breath TECHNIQUE: Multiple CTA images of the chest were obtained after the intravenous administration of 105 ml Optiray. Coronal and sagittal MIPS were obtained from the axial data set and were submitted for review. All measurements were obtained according to NASCET criteria. A dose lowering technique was u tilized adhering to the principles of ALARA. COMPARISON: Chest radiograph of same day, CTA chest 07/12/2015 FINDINGS: CTA: Mild cardiomegaly. There is no pericardial effusion. Prior median sternotomy with CABG. Extensive cassia radha coronary artery calcifications with coronary arterial stenting. Atherosclerosis of the thoracic a corin without aneurysm. Reflux of contrast into the IVC and hepatic veins. No pulmonary emboli are julieta ntified. Suboptimal evaluation of the subsegmental branches secondary to respiratory motion artifact. CT CHEST: No thyroid nodule. Borderline enlarged mediastinal and hilar lymph nodes measuring up to 9 mm a likel y physiologic. Trace right pleural effusion. Partially imaged lung bases. Mild bronchial wall thicken ing and intralobular septal thickening. No pneumothorax or lobar space consolidation. Calcified granu dalia of the left lung apex. No acute process of the imaged upper abdomen. Unremarkable soft tissues. Spondylotic spurring of the thoracic spine. No acute fracture. IMPRESSION: 1. Cardiomegaly with mild pulmonary edema and trace right pleural effusion. 2. No pulmonary emboli identified. 3. No airspace consolidation typical for pneumonia. ACT 112: Negative or not required by law. The above report was generated using voice recognition software. It may contain grammatical, syntax o r spelling errors. Electronically signed by: Rishabh Marques M.D. 12/20/2022 8:27 PM
[2022-12-20] MEDS: MAGNESIUM SULFATE / D5W 1 GM/100 ML BAG IV SCH ×3 (21:02→23:28)
--- NOTE | 2022-12-20 21:23 | History & Physical Report ---
Date of Service December 20, 2022 Assessment & Plan (1) Chest pain, exertional: Plan: 77yo Male with PMH CABG, s/p 6 stents last placed August, CKD3, CHF EF 55% (08/28), Afib, DM2, BPH here for worsened chest pain dyspnea on exertion. Chest pain dyspnea on exertion with hx CABG and stentx6 -prior echo 08/28 EF 50-55% mild anterior didier-septal and apical hypokinesis -last cardiac cath with stent placed 08/28 -trop 51.8 repeat pending -EKG shows a flutter, new, ventricular HR 63 -received 1L NSS in ED -admit to PCU/tele -CTA chest no PE trace pleural effusion on R lung -CXR wnl -ordered echo -consult placed to cardiology -started on lovenox 1mg/kg BID Aflutter, new -repleting Mg 1.6 HFrEF -continue home aspirin plavix -continue isosorbide mononitrate -continue atorvastatin DM2 -hold home medications -ordered SSI Hx. Gout -continue allopurinol GERD -continue famotidine protonix Skin infection of left toe -started on kelfex in outpatient -december complete last 2 days on keflex course FENa: heart healthy DM2 Code Status: Full DVT PPX: lovenox 1mg/kg BID Dispo: PCU/tele Lazara Johns D.O. PGY 2, FCM (2) Elevated troponin: (3) Chronic kidney disease, stage 3a: (4) Right bundle branch block: (5) Controlled type 2 diabetes mellitus with chronic kidney disease: (6) Benign prostatic hyperplasia with urinary obstruction: History of Present Illness Chief Complaint: Chest Pain Primary Care Provider: Lj Cho DO 77yo Male with PMH CABG, s/p 6 stents last placed August, CKD3, CHF EF 55% (08/28), Afib, DM2, BPH here for worsened chest pain dyspnea on exertion. Patient states over the last 6-8 weeks he has noticed more chest pain with exertion and increased SOB, describes the pain as sharp travels up his neck, improves with rest. also notes worsened feelings of indigestion, burping more. Patient describes increased weakness of his legs this past week and swelling in his left lower leg. Patient manages his own medications, uses them appropriately. He denies smoking. Allergies Allergy/AdvReac Type Severity Reaction Status Date / Time No Known Drug Allergies Allergy Unknown Verified 12/20/22 18:42 Home Medications Medication Instructions Recorded Confirmed Type blood-glucose meter (OneTouch #1 ea 05/09/19 12/20/22 Rx Verio Flex Start kit) insulin syringe-needle U-100 1 mL #200 ea 02/23/20 12/20/22 Rx 31 gauge x 5/16" (BD Insulin Syringe Ultra-Fine) insulin aspar prt-insulin aspart See Rx Instructions subcut BIDM 03/11/21 12/20/22 Rx 100 unit/mL (70-30) subcutaneous #50 mL soln (Novolog Mix 70-30 U-100 Insuln) clopidogrel 75 mg tablet 75 mg PO DAILY #90 tabs 04/08/21 12/20/22 Rx blood sugar diagnostic #300 ea 04/28/21 12/20/22 Rx aspirin 81 mg tablet,delayed 81 mg PO QAM 08/28/22 12/20/22 History release pantoprazole 40 mg tablet,delayed 40 mg PO QAM 08/28/22 12/20/22 History release nitroglycerin 0.4 mg sublingual 0.4 mg sublingual Q5M PRN chest 08/29/22 12/20/22 Rx tablet (Nitrostat) pain #1 btl allopurinol 300 mg tablet 300 mg PO QAM 12/20/22 12/20/22 History amoxicillin 500 mg capsule 2,000 mg PO ONCE PRN prior to 12/20/22 12/20/22 History dental procedures atorvastatin 80 mg tablet 80 mg PO QPM 12/20/22 12/20/22 History cephalexin 500 mg capsule 500 mg PO TID 12/20/22 12/20/22 History dulaglutide 3 mg/0.5 mL 3 mg subcut WK 12/20/22 12/20/22 History subcutaneous pen injector (Trulicity) famotidine 20 mg tablet 20 mg PO QPM 12/20/22 12/20/22 History isosorbide mononitrate 60 mg 60 mg PO QAM 12/20/22 12/20/22 History tablet,extended release 24 hr metformin 1,000 mg tablet 1,000 mg PO BID 12/20/22 12/20/22 History apixaban 5 mg tablet (Eliquis) 5 mg PO BID 1 month #60 tabs 12/21/22 Rx Past Med/Surg History Medical History (Updated 12/21/22 @ 16:45 by Jonathon Pickering MD) ACS (acute coronary syndrome) Basal cell carcinoma of skin of trunk Basal cell carcinoma, face Benign prostatic hyperplasia with urinary obstruction CAD (coronary artery disease) Cerumen impaction Controlled type 2 diabetes mellitus with chronic kidney disease Controlled type 2 diabetes mellitus with insulin therapy Esophageal reflux Gout Hyperlipidemia Hypertension Incomplete bladder emptying Iron deficiency anemia Kidney stone NSTEMI (non-ST elevated myocardial infarction) Pericardial effusion Primary osteoarthritis of left knee Right bundle branch block Sepsis Sleep apnea Stage 3b chronic kidney disease Vitamin D deficiency Surgical History (Updated 12/21/22 @ 16:45 by Jonathon Pickering MD) H/O transurethral resection of prostate History of ankle surgery History of arthroplasty of knee (~05/14/13) left - Dr. Peterson History of cholecystectomy History of four vessel coronary artery bypass graft History of lithotripsy S/P CABG (coronary artery bypass graft) S/P coronary artery stent placement Status post repair of nerve Family History Brother Diabetes Heart disease Prostate cancer End stage renal disease Myocardial infarction Sister Diabetes Mother Heart disease Myocardial infarction Father Heart disease Myocardial infarction Unknown Hypercholesteremia Denies family history of Ovarian cancer Hearing loss Breast cancer Colorectal cancer Hypertension Social History Smoking Status: Never smoker Second Hand Exposure: No; Do You Dip or Chew Tobacco: No; Hx Alcohol Use: No Hx Substance Use: No Preferred Language: [place] Leonean Communication Ability: Effective Visual Impairment: No Limitations Hearing Ability: Use of Hearing Aid Environmental Resource Specialist Required: No Beliefs That Will Affect Care: None marital status: Current Living Situation: Spouse current occupational status: retired 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 [employer] Feels Safe at Home: Yes Childhood Exposure to Second-Hand Smoke: Yes Diet: regular Diet Comment: no added salt caffeine: Yes Dental Care, Regularly: No Physical Activity Frequency: Daily Seatbelt Use: never Sunscreen Use: No Assistive Devices: None Physical Exam Constitutional: well developed, well nourished, cooperative and comfortable Eyes: PERRL, conjunctivae normal, anicteric sclerae ENMT: external ear and nose normal, oropharynx normal Neck: trachea midline, no thyromegaly Respiratory: normal respiratory effort, lungs clear to auscultation Cardiovascular: Rate/Rhythm: regular rate and regular rhythm Extremities: + edema (+2 pitting edema L>R) Gastrointestinal (Abdomen): Inspection/Auscultation: abdomen normal to inspection Percussion/Palpation: abdomen soft; abdomen nontender Skin: no rashes, warm and dry healing scab noted on lateral side of left 1st toe, no pain redness increased wa rmth noted Neurologic: moves all extremities sensation intact in b/l LE Results & Data Results & Data Vital Signs (Past 12 Hours) Vital Signs Temp Pulse Resp BP Pulse Ox O2 Del Method 12/20/22 20:16 21 12/20/22 20:00 148/75 H 12/20/22 19:59 63 24 12/20/22 19:30 77 19 97 12/20/22 19:30 148/75 H 12/20/22 19:00 73 20 94 12/20/22 19:00 145/68 H 12/20/22 18:30 66 23 95 12/20/22 18:30 139/65 12/20/22 18:04 64 21 96 12/20/22 18:05 64 12/20/22 17:25 36.5 C 85 18 145/67 H 97 Room Air Supervising Physician Co-Signing Physician Notes Attending addendum: I have physically seen this patient, have supervised the medical residents activities, and agree with the H&P unless as otherwise noted. Assessment and Plan: Elevated troponin/new onset atrial flutter /CAD/exertional chest pain/status post CABG/RBBB/stented coronary artery/HFrEF- The patient will be admitted to telemetry for serial cardiac enzymes, serial EKG's, cardiac rhythm monitoring and a 2-D echocardiogram with Dopplers. Troponin 51.8 Status post 1 L normal saline CTA chest negative for PE Lovenox 1 mg/kg SQ twice daily Target potassium 4, magnesium 2 Continue aspirin, clopidogrel, isosorbide mononitrate Consult cardiology Hyperlipidemia- Continue atorvastatin Diabetes mellitus type 2- Hold insulin 70/30, metformin and Trulicity Placed on Accu-Cheks with NovoLog SSI Gout- Continue allopurinol Resident Activity Tracking Resident Involvement: Resident Care Provided Care Provided: [facility]
[2022-12-20] MEDS ORDERED: ENOXAPARIN INJ 40 MG/0.4 ML SYR SQ SCH ×2 (21:45)
[2022-12-20 21:47] LABS: Partial Thromboplastin Time 28.5 Seconds (21.0-31.0)
[2022-12-20] MEDS ORDERED: POLYETHYLENE (MIRALAX) 17 GM PACK PO PRN (22:54)
[2022-12-20] MEDS ORDERED: ACETAMINOPHEN 325 MG TAB PO PRN (22:54)
[2022-12-20] MEDS ORDERED: DEXTROSE 50% 50 ML SYRINGE IV PRN (22:54)
[2022-12-20] MEDS ORDERED: CARBOHYDRATES FOR HYPOGLYCEMIA PO PRN (22:54)
[2022-12-20] MEDS ORDERED: GLUCOSE 10 TAB/TUBE PO PRN (22:54)
[2022-12-20] MEDS ORDERED: GLUCAGON FOR INJ 1 MG VIAL SQ PRN (22:54)
[2022-12-20] MEDS ORDERED: GLUCOSE 40% GEL 15 GM TUBE PO PRN (22:54)
[2022-12-21] MEDS: MAGNESIUM SULFATE / D5W 1 GM/100 ML BAG IV SCH (01:08)
[2022-12-21] MEDS: ENOXAPARIN INJ 120 MG/0.8 ML SYR SQ SCH ×2 (01:08→12:07)
[2022-12-21] MEDS: SODIUM CHLORIDE 0.9% 1000ML 1,000 ML IV SCH (03:13)
--- NOTE | 2022-12-21 07:24 | Hospitalist Progress Note ---
Date of Service December 21, 2022 Assessment & Plan (1) Chest pain, exertional: Plan: 77yo Male with PMH CABG, s/p 6 stents last placed August, CKD3, CHF EF 55% (08/28), Afib, DM2, BPH here for worsened chest pain dyspnea on exertion. Unstable angina in the setting of severe CAD -prior echo 08/28 EF 50-55% mild anterior anteroseptal and apical hypokinesis -last cardiac cath with stent placed 08/28 -trop 51.8 repeat already downtrending (48.2) -CTA chest no PE trace pleural effusion on R lung -CXR wnl * Currently in PCU * Cardiology consulted to evaluate for cath vs ablation vs TTE cardioversion. Appreciate recommendations Aneta, new -Discussed with cardiology. Will schedule patient outpatient for ablation procedure in the next few days. * Started on Eliquis 5 mg twice daily for anticoagulation, per cardiology recommendations. HFrEF * continue home aspirin Plavix * continue isosorbide mononitrate * continue atorvastatin DM2 -hold home medications -ordered SSI Hx. Gout -continue allopurinol GERD -continue home famotidine, Protonix Skin infection of left toe -started on Keflex in outpatient -december complete last 2 days on Keflex course FENa: heart healthy DM2 Code Status: Full DVT PPX: Eliquis 5 mg BID Dispo: PCU/tele (2) Elevated troponin: (3) Chronic kidney disease, stage 3a: (4) Right bundle branch block: (5) Controlled type 2 diabetes mellitus with chronic kidney disease: (6) Benign prostatic hyperplasia with urinary obstruction: Admission and Anticipated Discharge Date Admission Date: December 20, 2022 Subjective Resting comfortably in bed this morning. Denies SOB or chest pain at rest. He has no acute concerns at this time. Review of Systems Review of Systems: All systems reviewed & are unremarkable except as noted in HPI & below Physical Exam Physical Exam: General: No acute distress HEENT: PERRLA. Normal conjunctiva, anicteric sclera. Oropharynx normal. Respiratory: Normal respiratory effort, CTABL. Cardiovascular: RRR. 2/6 murmur heard loudest at 5th ICS at mid axillary line. No gallops, or rubs. 2+ pedal edema. GI: Soft abdomen with normal bowel sounds heard on auscultation. Nontender x4 quadrants Neuro: Alert and oriented x3. Results & Data Results & Data Vital Signs (Past 12 Hours) Vital Signs Temp Pulse Pulse Resp BP BP Pulse Ox 12/21/22 03:14 36.5 C 62 20 128/61 95 12/20/22 23:10 84 12/20/22 23:19 36.5 C 63 18 139/75 97 12/20/22 22:30 62 20 93 12/20/22 22:30 123/68 12/20/22 22:01 143/77 H 12/20/22 22:01 63 18 95 12/20/22 22:00 63 20 94 12/20/22 21:30 63 22 95 12/20/22 21:30 139/74 12/20/22 21:00 69 23 96 12/20/22 21:00 143/76 H 12/20/22 20:30 64 27 H 96 12/20/22 20:30 146/76 H 12/20/22 20:24 65 19 95 12/20/22 20:24 147/67 H 12/20/22 22:04 62 12/20/22 20:16 21 12/20/22 20:00 148/75 H 12/20/22 19:59 63 24 12/20/22 19:30 77 19 97 12/20/22 19:30 148/75 H O2 Del Method 12/21/22 03:14 Room Air 12/20/22 23:10 12/20/22 23:19 Room Air 12/20/22 22:30 12/20/22 22:30 12/20/22 22:01 12/20/22 22:01 12/20/22 22:00 12/20/22 21:30 12/20/22 21:30 12/20/22 21:00 12/20/22 21:00 12/20/22 20:30 12/20/22 20:30 12/20/22 20:24 12/20/22 20:24 12/20/22 22:04 12/20/22 20:16 12/20/22 20:00 12/20/22 19:59 12/20/22 19:30 12/20/22 19:30
[2022-12-21 08:10] LABS: Hematocrit (blood only) 33.5 % (42.0-52.0); Mean Corpuscular Hemoglobin 30.1 pg (25.0-34.0); Mean Corpuscular Hgb Conc 32.8 g/dL (32.0-36.0); Mean Corpuscular Volume 91.8 fL (80.0-100.0); Mean Platelet Volume 10.5 fL (9.4-12.4); Platelet Count 165 K/uL (130-400); RDW Coefficient of Variation 14.5 % (11.5-14.5); Red Blood Count 3.65 M/uL (4.70-6.10); White Blood Count 6.09 K/ul (4.8-10.8)
[2022-12-21 08:23] LABS: Partial Thromboplastin Ratio 1.3; Partial Thromboplastin Time 36.2 Seconds (21.0-31.0); Prothrombin Time 11.4 Seconds (9.0-12.0)
[2022-12-21] MEDS: INSULIN ASPART PER UNIT CHARGE SC SCH ×4 (08:25→20:09)
[2022-12-21] MEDS: LANTUS PER UNIT CHARGE SQ SCH ×2 (08:26→20:12)
[2022-12-21] MEDS: cephALEXin 500 MG CAP PO SCH ×2 (08:29→20:02)
[2022-12-21 08:35] LABS: BUN Creatinine Ratio 10.6 (10-20); Calcium 8.2 mg/dl (8.6-10.3); Creatinine Clr Calc Pharmacy 50.8 ml/min; Est GFR (African American) 50.2 ml/min; Est GFR (Non-African American) 43.3 ml/min; Potassium 4.5 mmol/L (3.5-5.1)
[2022-12-21] MEDS ORDERED: allopurinoL 300 MG TAB PO SCH (09:00)
[2022-12-21] MEDS ORDERED: PANTOprazole 40 MG TAB PO SCH (09:00)
[2022-12-21] MEDS ORDERED: CLOPIDOGREL BISULFATE 75 MG TAB PO SCH (09:00)
[2022-12-21] MEDS ORDERED: ASPIRIN 81 MG ECTAB PO SCH (09:00)
[2022-12-21] MEDS ORDERED: ISOSORBIDE MONO EXTENDED REL 60 MG TABCR PO SCH (09:00)
--- NOTE | 2022-12-21 10:18 | XCELERA ---
[id number]
--- NOTE | 2022-12-21 16:23 | Cardiology Consultation ---
Date of Consultation December 21, 2022 Assessment & Plan (1) Atrial flutter: (2) Chest pain, exertional: (3) Elevated troponin: (4) CAD (coronary artery disease): (5) S/P coronary artery stent placement: (6) S/P CABG (coronary artery bypass graft): (7) Hyperlipidemia: (8) Pulmonary hypertension: Plan ASSESSMENT/PLAN: 1. Exertional chest pain/angina: Has severe underlying CAD, with small caliber severe branch vessel disease. Did not present with acute coronary syndrome and now with new diagnosis of atrial flutter that has rapid ventricular response with minimal exertion. Atrial flutter with tachycardia likely playing significant role in his exertional symptoms. Recommend restoring sinus rhythm rather than pursuing further coronary angiography at this point. No urgent indication for cardiac catheterization. If has continued symptoms while in sinus rhythm and better heart rate control, then could consider further ischemic evaluation versus more aggressive medical therapy. 2. Atrial flutter: New diagnosis. Discussed with him in detail. Discussed treatment strategies such as transesophageal echo and if no thrombus, cardioversion which could likely be completed tomorrow. Also considered ablation. After discussion, he prefers more definitive treatment and would like to pursue atrial flutter ablation. Electrophysiology consultation placed and discussed with Dr. Mckeon who plans on seeing him today. With heart rate often lower 60s, rate controlling medications would be difficult and potentially cause bradycardia. Recommend anticoagulation for stroke risk reduction. 3. CAD s/p CABG and multivessel PCI: Not likely that he occluded his more rece nt PCI given downtrending high-sensitivity troponin levels. Would anticipate improved anginal symptoms with moravian of sinus rhythm and avoidance of significant tachycardia. When starting therapeutic anticoagulation therapy, can discontinue aspirin and continue Plavix. If he undergoes ablation and no longer requires therapeutic anticoagulation therapy, would resume dual antiplatelet therapy. If heart rates can tolerate, low-dose beta-mis however heart rate often low 60s today. High intensity statin therapy. Will initiate isosorbide mononitrate 30 mg once daily. 4. Elevated troponin: As above. 5. Dyslipidemia: Most recent LDL was excellent. Continue high intensity statin therapy. 6. Pulmonary hypertension: He may be mildly hypervolemic. He did initially receive IV fluids. Has lower extremity edema. Can consider low-dose Lasix 20 mg IV x1. Otherwise, has documented sleep apnea which is currently untreated which could also contribute to pulmonary hypertension. 7. Disposition: Plan of care discussed with Dr. Rose and Dr. Wilson of the primary hospitalist service. Also discussed with Dr. Mckeon of electrophysiology. Appreciate Dr. Mckeon's input. Highly complex medical issues. Thank you for allowing me to participate in the care of your patient. Please call for any other questions or concerns. Sincerely, Nain Pickering M.D. History of Present Illness Reason for Consultation: chest pain on exertion Requesting Physician: Lazara Johns Attending Physician: Owen Rose, History of Present Illness Mr. Goyal is a pleasant 77-year-old gentleman with a history significant for CAD s/p CABG x 4 and multiple subsequent PCI, type 2 diabetes, hypertension, dyslipidemia, CKD, and sleep apnea (did not tolerate CPAP). His primary braille coder is Dr. Lovell in [place]. He has had the following studies/procedures: 1. CABG x4 prior to 2012 in [place]. 2. Cardiac cath 08/28/2022 [facility] (Dr. Ortiz): Patent LM stent. Proximal LAD stent patent. Mid LAD stent patent. Distal LAD instent 95%, with KAREN II flow. Ostial D2 99%. Ostial circumflex 100% [employer]. Dominant circumflex. Small OM1 100% and fills via L to L collaterals. Small OM2 and OM3 with severe CAD. Small to medium nondominant RCA with diffuse severe disease. HAILE to LAD atretic (appears to anastomose with small diagonal which is occluded. SVG jump graft to OM 2 PL widely patent and patent SVG stent. SVG provides flow into the AV groove circumflex and OM and PDA branches. Underwent PCI of LAD in-stent restenosis with 2.25 x 15 mm Óscar LAURIE. Postdilated 2.5 NC. 3. Echo 12/21/2022: Low normal LV systolic function. EF 50 to 55%. Possible mild hypokinesis of the inferolateral wall. Hypokinesis of the mid to distal an terolateral and distal anterior wall segments. Mild LVH. Moderate left atrial dilation. Sclerotic aortic valve. Moderate MR. RVSP 56 He was admitted on 12/20/2022 with exertional chest discomfort. He had similar symptoms prior to PCI in August. He states that if he improved, it was short- lived since that PCI. Symptoms are exertional and described as a substernal "hard pain." There is associated shortness of breath and at times discomfort can occasionally radiate towards the neck. He believes that symptoms have worsened over the past month. He denies rest symptoms and denies symptoms with usual activities around his home. He denies melena, hematochezia, hematuria, or other bleeding. He denies syncope, near syncope, palpitations, orthopnea. On presentation, he was noted to have newly diagnosed atrial flutter with initial ECG demonstrating a heart rate of 63 bpm. His previous ECG on 08/28/2022 demonstrated sinus rhythm. He has not had any chest discomfort since presentation. He has been able to ambulate in his hospital room without chest discomfort. Review of systems: As above. Review of systems otherwise negative/unremarkable. Family history: Mother at 54 from SD. Father at 60 with SD. Sister at 54 with SD. Brother at 30 with SD. Social history: He denies tobacco, alcohol, or drug abuse. He lives at home with his . He has 2 daughters, 6 grandchildren and 6 great-grandchildren. He was unaccompanied in his hospital room. Allergies Allergy/AdvReac Type Severity Reaction Status Date / Time No Known Drug Allergies Allergy Unknown Verified 12/20/22 18:42 Home Medications Medication Instructions Recorded Confirmed Type blood-glucose meter (OneTouch #1 ea 05/09/19 12/20/22 Rx Verio Flex Start kit) insulin syringe-needle U-100 1 mL #200 ea 02/23/20 12/20/22 Rx 31 gauge x 5/16" (BD Insulin Syringe Ultra-Fine) insulin aspar prt-insulin aspart See Rx Instructions subcut BIDM 03/11/21 12/20/22 Rx 100 unit/mL (70-30) subcutaneous #50 mL soln (Novolog Mix 70-30 U-100 Insuln) clopidogrel 75 mg tablet 75 mg PO DAILY #90 tabs 04/08/21 12/20/22 Rx blood sugar diagnostic #300 ea 04/28/21 12/20/22 Rx aspirin 81 mg tablet,delayed 81 mg PO QAM 08/28/22 12/20/22 History release pantoprazole 40 mg tablet,delayed 40 mg PO QAM 08/28/22 12/20/22 History release nitroglycerin 0.4 mg sublingual 0.4 mg sublingual Q5M PRN chest 08/29/22 12/20/22 Rx tablet (Nitrostat) pain #1 btl allopurinol 300 mg tablet 300 mg PO QAM 12/20/22 12/20/22 History amoxicillin 500 mg capsule 2,000 mg PO ONCE PRN prior to 12/20/22 12/20/22 History dental procedures atorvastatin 80 mg tablet 80 mg PO QPM 12/20/22 12/20/22 History cephalexin 500 mg capsule 500 mg PO TID 12/20/22 12/20/22 History dulaglutide 3 mg/0.5 mL 3 mg subcut WK 12/20/22 12/20/22 History subcutaneous pen injector (Trulicity) famotidine 20 mg tablet 20 mg PO QPM 12/20/22 12/20/22 History isosorbide mononitrate 60 mg 60 mg PO QAM 12/20/22 12/20/22 History tablet,extended release 24 hr metformin 1,000 mg tablet 1,000 mg PO BID 12/20/22 12/20/22 History Patient History Medical History (Updated 12/21/22 @ 16:45 by Jonathon Pickering MD) ACS (acute coronary syndrome) Basal cell carcinoma of skin of trunk Basal cell carcinoma, face Benign prostatic hyperplasia with urinary obstruction CAD (coronary artery disease) Cerumen impaction Controlled type 2 diabetes mellitus with chronic kidney disease Controlled type 2 diabetes mellitus with insulin therapy Esophageal reflux Gout Hyperlipidemia Hypertension Incomplete bladder emptying Iron deficiency anemia Kidney stone NSTEMI (non-ST elevated myocardial infarction) Pericardial effusion Primary osteoarthritis of left knee Right bundle branch block Sepsis Sleep apnea Stage 3b chronic kidney disease Vitamin D deficiency Surgical History (Updated 12/21/22 @ 16:45 by Jonathon Pickreing MD) H/O transurethral resection of prostate History of ankle surgery History of arthroplasty of knee (~05/14/13) left - Dr. Peterson History of cholecystectomy History of four vessel coronary artery bypass graft History of lithotripsy S/P CABG (coronary artery bypass graft) S/P coronary artery stent placement Status post repair of nerve Family History Brother Diabetes Heart disease Prostate cancer End stage renal disease Myocardial infarction Sister Diabetes Mother Heart disease Myocardial infarction Father Heart disease Myocardial infarction Unknown Hypercholesteremia Denies family history of Ovarian cancer Hearing loss Breast cancer Colorectal cancer Hypertension Social History Smoking Status: Never smoker Second Hand Exposure: No; Do You Dip or Chew Tobacco: No; Hx Alcohol Use: No Hx Substance Use: No Preferred Language: Thai Communication Ability: Effective Visual Impairment: No Limitations Hearing Ability: Use of Hearing Aid Automation Consultant Required: No Beliefs That Will Affect Care: None marital status: Current Living Situation: Spouse current occupational status: retired 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 Alert and oriented. HEENT: Anicteric sclera. Neck: Thick neck. No bruits. Normal carotid upstrokes bilaterally. Cardiac: No ventricular heave. Regular with occasional irregularity. Normal S1-S2. No murmurs, rubs, or gallops. Pulmonary: Clear to auscultation bilaterally without wheezes, rales, or rhonchi. Abdomen: Soft, nontender, nondistended, with normoactive bowel sounds. No bruits noted. Extremities: 2+ radial pulses bilaterally. 2+ posterior tibialis pulses bilaterally. Trace to 1+ bilateral lower extremity edema. No cyanosis. Psychiatric: Affect appears appropriate. Results & Data Vital Signs (Past 12 Hours) Vital Signs Temp Pulse Pulse Resp BP Pulse Ox O2 Del Method 12/21/22 11:51 36.7 C 69 18 159/70 H 97 Room Air 12/21/22 08:00 60 12/21/22 07:57 36.6 C 65 18 163/89 H 96 Room Air Laboratory Results Laboratory Results - last 24 hr 12/20/22 12/20/22 12/20/22 17:41 17:41 17:41 WBC 6.64 RBC 3.86 L Hgb 11.5 L Hct 36.2 L MCV 93.8 MCH 29.8 MCHC 31.8 L RDW Std Deviation 49.7 H RDW Coeff of Cherelle 14.6 H Plt Count 198 MPV 10.5 Immature Gran % (Auto) 0.5 Neut % (Auto) 62.1 Lymph % (Auto) 25.0 Drew % (Auto) 8.6 Eos % (Auto) 3.0 Baso % (Auto) 0.8 Neut # (Auto) 4.13 Lymph # (Auto) 1.66 Drew # (Auto) 0.57 Eos # (Auto) 0.20 Baso # (Auto) 0.05 Immature Gran # (Auto) 0.03 PT 11.1 INR 1.0 APTT PTT Ratio D-Dimer 530 H* Sodium 140 Potassium 4.1 Chloride 107 Carbon Dioxide 25 Anion Gap 8 BUN 17 Creatinine 1.61 H Est Cr Clr Drug Dosing 47.6 Est GFR ( Amer) 46.4 Est GFR (Non-Af Amer) 40.1 BUN/Creatinine Ratio 10.6 Glucose 99 POC Glucose Calcium 9.2 Magnesium 1.6 L Iron Total Bilirubin 0.6 AST 18 ALT 26 Alkaline Phosphatase 91 Troponin I High Sens 51.8 H* Total Protein 6.9 Albumin 4.1 Globulin 2.8 Albumin/Globulin Ratio 1.5 Lipase 42 TSH SARS-CoV-2 (PCR) Influenza Type A (PCR) Influenza Type B (PCR) RSV (RT-PCR) 12/20/22 12/20/22 12/20/22 17:41 17:41 17:48 WBC RBC Hgb Hct MCV MCH MCHC RDW Std Deviation RDW Coeff of Cherelle Plt Count MPV Immature Gran % (Auto) Neut % (Auto) Lymph % (Auto) Drew % (Auto) Eos % (Auto) Baso % (Auto) Neut # (Auto) Lymph # (Auto) Drew # (Auto) Eos # (Auto) Baso # (Auto) Immature Gran # (Auto) PT INR APTT 28.5 PTT Ratio 1.0 D-Dimer Sodium Potassium Chloride Carbon Dioxide Anion Gap BUN Creatinine Est Cr Clr Drug Dosing Est GFR ( Amer) Est GFR (Non-Af Amer) BUN/Creatinine Ratio Glucose POC Glucose Calcium Magnesium Iron Total Bilirubin AST ALT Alkaline Phosphatase Troponin I High Sens Total Protein Albumin Globulin Albumin/Globulin Ratio Lipase TSH 1.837 SARS-CoV-2 (PCR) NEGATIVE Influenza Type A (PCR) Negative Influenza Type B (PCR) Negative RSV (RT-PCR) Negative 12/20/22 12/21/22 12/21/22 21:16 07:37 07:37 WBC 6.09 RBC 3.65 L Hgb 11.0 L Hct 33.5 L MCV 91.8 MCH 30.1 MCHC 32.8 RDW Std Deviation 49.0 H RDW Coeff of Cherelle 14.5 Plt Count 165 MPV 10.5 Immature Gran % (Auto) Neut % (Auto) Lymph % (Auto) Drew % (Auto) Eos % (Auto) Baso % (Auto) Neut # (Auto) Lymph # (Auto) Drew # (Auto) Eos # (Auto) Baso # (Auto) Immature Gran # (Auto) PT INR APTT PTT Ratio D-Dimer Sodium 141 Potassium 4.5 Chloride 109 H Carbon Dioxide 25 Anion Gap 7 BUN 16 Creatinine 1.51 H Est Cr Clr Drug Dosing 50.8 Est GFR ( Amer) 50.2 Est GFR (Non-Af Amer) 43.3 BUN/Creatinine Ratio 10.6 Glucose 103 H POC Glucose Calcium 8.2 L Magnesium Iron 29 L Total Bilirubin AST ALT Alkaline Phosphatase Troponin I High Sens 48.2 H Total Protein Albumin Globulin Albumin/Globulin Ratio Lipase TSH SARS-CoV-2 (PCR) Influenza Type A (PCR) Influenza Type B (PCR) RSV (RT-PCR) 12/21/22 12/21/22 12/21/22 07:37 07:45 11:10 WBC RBC Hgb Hct MCV MCH MCHC RDW Std Deviation RDW Coeff of Cherelle Plt Count MPV Immature Gran % (Auto) Neut % (Auto) Lymph % (Auto) Drew % (Auto) Eos % (Auto) Baso % (Auto) Neut # (Auto) Lymph # (Auto) Drew # (Auto) Eos # (Auto) Baso # (Auto) Immature Gran # (Auto) PT 11.4 INR 1.0 APTT 36.2 H PTT Ratio 1.3 D-Dimer Sodium Potassium Chloride Carbon Dioxide Anion Gap BUN Creatinine Est Cr Clr Drug Dosing Est GFR ( Amer) Est GFR (Non-Af Amer) BUN/Creatinine Ratio Glucose POC Glucose 103 H 123 H Calcium Magnesium Iron Total Bilirubin AST ALT Alkaline Phosphatase Troponin I High Sens Total Protein Albumin Globulin Albumin/Globulin Ratio Lipase TSH SARS-CoV-2 (PCR) Influenza Type A (PCR) Influenza Type B (PCR) RSV (RT-PCR) Diagnostic Findings Telemetry personally reviewed: Atrial flutter mostly in the 60s. Heart rate increased to 120s with light activity in his room. ECG personally reviewed from 12/20/2022: Atrial flutter 63 bpm. RBBB. LAFB. Echo report reviewed as noted above in HPI. Cardiac catheterization report reviewed as noted above in HPI. History and physical report from 12/20/2022 reviewed. Labs reviewed and notable for downtrending high-sensitivity troponin on presentation with a peak of 51, abnormal but stable renal function, mild anemia, excellent LDL. CTA chest report reviewed from 12/20/2022: No PE. Mild pulmonary edema per radiology. Medications Administered Current Inpatient Medications Acetaminophen (Acetaminophen 325 Mg Tab) 650 mg PO Q4H PRN PRN Reason: Pain or Fever Stop: 01/19/23 22:53 Allopurinol (Allopurinol 300 Mg Tab) 300 mg PO QAM ALANNAH Stop: 01/20/23 08:59 Last Admin: 12/21/22 08:29 Dose: 300 mg Atorvastatin Calcium (Atorvastatin 40 Mg Tab) 80 mg PO QPM ALANNAH Stop: 01/20/23 20:59 Cephalexin HCl (Cephalexin 500 Mg Cap) 500 mg PO BID ALANNAH; Protocol Stop: 12/23/22 08:59 Last Admin: 12/21/22 08:29 Dose: 500 mg Clopidogrel Bisulfate (Clopidogrel Bisulfate 75 Mg Tab) 75 mg PO DAILY ALANNAH Stop: 01/20/23 08:59 Last Admin: 12/21/22 08:29 Dose: 75 mg Dextrose (Dextrose 50% 50 Ml Syringe) 25 - 50 ml IV UD PRN; Protocol PRN Reason: Hypoglycemia Protocol Stop: 01/19/23 22:53 Famotidine (Famotidine 20 Mg Tab) 20 mg PO QPM ALANNAH Stop: 01/20/23 20:59 Glucagon (Glucagon For Inj 1 Mg Vial) 1 mg SQ UD PRN; Protocol PRN Reason: Hypoglycemia Protocol Stop: 01/19/23 22:53 Glucose (Glucose 10 Tab/Tube) 4 - 8 tab PO UD PRN; Protocol PRN Reason: Hypoglycemia Treatment Stop: 01/19/23 22:53 Glucose (Glucose 40% Gel 15 Gm Tube) 15 - 30 gm PO UD PRN; Protocol PRN Reason: Hypoglycemia Protocol Stop: 01/19/23 22:53 Insulin Aspart (Insulin Aspart Per Unit Charge) 0 units SC ACHS [facility] Stop: 01/20/23 07:29 Last Admin: 12/21/22 12:08 Dose: Not Given Insulin Glargine (Lantus Per Unit Charge) 10 units SQ BID [facility] Stop: 01/20/23 08:59 Last Admin: 12/21/22 08:26 Dose: 10 units Isosorbide Mononitrate (Isosorbide Drew Extended Rel 60 Mg Tabcr) 60 mg PO QAM [facility] Stop: 01/20/23 08:59 Last Admin: 12/21/22 08:30 Dose: 60 mg Miscellaneous (Carbohydrates For Hypoglycemia ) 15 - 30 gm PO UD PRN PRN Reason: Hypoglycemia Protocol Stop: 01/19/23 22:53 Pantoprazole Sodium (Pantoprazole 40 Mg Tab) 40 mg PO QAM [facility] Stop: 01/20/23 08:59 Last Admin: 12/21/22 08:30 Dose: 40 mg Polyethylene Glycol (Polyethylene (Miralax) 17 Gm Pack) 17 gm PO DAILY PRN PRN Reason: Constipation Stop: 01/19/23 22:53 PG Care Time/CCT Total # of Minutes Spent Total Time Spent with Patient: Total time spent is greater than 50% in coordination of care (as documented) at patient's floor/unit and/or counseling patient: Coding Level of Care Code 72473 INT INP/OBS CARE 3/75MIN Diagnoses Atrial flutter I48.92 Chest pain, exertional R07.9 Elevated troponin R77.8 CAD (coronary artery disease) I25.10 S/P coronary artery stent placement Z95.5 S/P CABG (coronary artery bypass graft) Z95.1 Hyperlipidemia E78.5 Pulmonary hypertension I27.20
--- NOTE | 2022-12-21 16:33 | Cardiology Consultation ---
Date of Consultation December 21, 2022 Assessment & Plan (1) Atrial flutter: Plan 1. Atrial flutter: This appears to be a new diagnosis. He has a remote history of atrial fibrillation involving a cardioversion in 2009. No mention of recurrence. Not currently on anticoagulation. It certainly possible that he converted to this rhythm a few weeks ago and his symptoms are related. With activity around the harris he developed high heart rates and similar symptoms. Unclear if his symptoms could be related to recurrent coronary stenosis. No evidence of an acute coronary syndrome. We discussed options for treating the arrhythmia and potentially improving his symptoms. The most immediate option would be a ALIREZA and cardioversion. However, he was more interested in a definitive treatment. We discussed catheter-based therapy and the attendant risks and potential benefits. His symptoms appear to be purely exertional. As such she was more interested in returning home, limiting his activity and planning on an ablation. I think this could be performed in the next few days. Again, he will require a ALIREZA immediately prior to exclude thrombus. He should be started on systemic anticoagulation. Based on a degree of mild renal insufficiency I think he would be best served by apixaban 5 mg twice daily. History of Present Illness Reason for Consultation: Exertional chest pain Requesting Physician: Raheel Attending Physician: Owen Rose DO History of Present Illness The patient is a 77-year-old gentleman with a history of coronary artery disease and surgical revascularization who has also undergone multiple percutaneous procedures for recurrent symptoms. He was most recently in our hospital in August of this year with symptoms of exertional chest discomfort. At that time he underwent intervention to the left anterior descending. Patient states that he cannot recall any significant improvement in his symptoms around that time, he states that he is relatively sedentary and generally does not feel "well", but was able to perform his usual activities until approximately 2 to 3 weeks ago. At that point he began to have symptoms of severe chest discomfort. These tended to occur with what he described as moderate activity. The symptoms also involved an element of dyspnea and mild dizziness recently. His discomfort would resolve with discontinuation of activity. On several occasions he attempted to continue activity with worsening of his symptoms. He did not describe chest pain at rest. He was not aware of any palpitations or rapid heartbeats. He did not report orthopnea or paroxysmal nocturnal dyspnea. He has noted some increasing lower extremity edema recently. With regard to prior symptoms, he feels that his current symptoms are slightly different. He cannot elaborate on the notable difference. Allergies Allergy/AdvReac Type Severity Reaction Status Date / Time No Known Drug Allergies Allergy Unknown Verified 12/20/22 18:42 Home Medications Medication Instructions Recorded Confirmed Type blood-glucose meter (OneTouch #1 ea 05/09/19 12/20/22 Rx Verio Flex Start kit) insulin syringe-needle U-100 1 mL #200 ea 02/23/20 12/20/22 Rx 31 gauge x 5/16" (BD Insulin Syringe Ultra-Fine) insulin aspar prt-insulin aspart See Rx Instructions subcut BIDM 03/11/21 12/20/22 Rx 100 unit/mL (70-30) subcutaneous #50 mL soln (Novolog Mix 70-30 U-100 Insuln) clopidogrel 75 mg tablet 75 mg PO DAILY #90 tabs 04/08/21 12/20/22 Rx blood sugar diagnostic #300 ea 04/28/21 12/20/22 Rx aspirin 81 mg tablet,delayed 81 mg PO QAM 08/28/22 12/20/22 History release pantoprazole 40 mg tablet,delayed 40 mg PO QAM 08/28/22 12/20/22 History release nitroglycerin 0.4 mg sublingual 0.4 mg sublingual Q5M PRN chest 08/29/22 12/20/22 Rx tablet (Nitrostat) pain #1 btl allopurinol 300 mg tablet 300 mg PO QAM 12/20/22 12/20/22 History amoxicillin 500 mg capsule 2,000 mg PO ONCE PRN prior to 12/20/22 12/20/22 History dental procedures atorvastatin 80 mg tablet 80 mg PO QPM 12/20/22 12/20/22 History cephalexin 500 mg capsule 500 mg PO TID 12/20/22 12/20/22 History dulaglutide 3 mg/0.5 mL 3 mg subcut WK 12/20/22 12/20/22 History subcutaneous pen injector (Trulicity) famotidine 20 mg tablet 20 mg PO QPM 12/20/22 12/20/22 History isosorbide mononitrate 60 mg 60 mg PO QAM 12/20/22 12/20/22 History tablet,extended release 24 hr metformin 1,000 mg tablet 1,000 mg PO BID 12/20/22 12/20/22 History Patient History Medical History ACS (acute coronary syndrome) Basal cell carcinoma of skin of trunk Basal cell carcinoma, face Benign prostatic hyperplasia with urinary obstruction CAD (coronary artery disease) Cerumen impaction Controlled type 2 diabetes mellitus with chronic kidney disease Controlled type 2 diabetes mellitus with insulin therapy Esophageal reflux Gout Hyperlipidemia Hypertension Incomplete bladder emptying Iron deficiency anemia Kidney stone NSTEMI (non-ST elevated myocardial infarction) Pericardial effusion Primary osteoarthritis of left knee Right bundle branch block Sepsis Sleep apnea Stage 3b chronic kidney disease Vitamin D deficiency Surgical History H/O transurethral resection of prostate History of ankle surgery History of arthroplasty of knee (~05/14/13) left - Dr. Peterson History of cholecystectomy History of four vessel coronary artery bypass graft History of lithotripsy Status post repair of nerve Family History Brother Diabetes Heart disease Prostate cancer End stage renal disease Myocardial infarction Sister Diabetes Mother Heart disease Myocardial infarction Father Heart disease Myocardial infarction Unknown Hypercholesteremia Denies family history of Ovarian cancer Hearing loss Breast cancer Colorectal cancer Hypertension Social History Smoking Status: Never smoker Second Hand Exposure: No; Do You Dip or Chew Tobacco: No; Hx Alcohol Use: No Hx Substance Use: No Preferred Language: Syriac Communication Ability: Effective Visual Impairment: No Limitations Hearing Ability: Use of Hearing Aid Loader Magazine Grinder Required: No Beliefs That Will Affect Care: None marital status: Current Living Situation: Spouse current occupational status: retired 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 Mood and affect appeared normal. He answered all questions appropriately. HEENT: Pupils are equal and reactive to light and accommodation. Extraocular movements are intact. The sclerae are anicteric. Neuro: Cranial nerves intact Neck: Patient's neck is supple. Lungs: Normal respiratory effort Cardiac: Heart demonstrates a regular rate and rhythm. Pulses: The patient has palpable radial pulses bilaterally that are equal in intensity Extremities: There was no evidence of hypoperfusion. There is no cyanosis or clubbing. Mild lower extremity edema Skin: I did not appreciate any rashes on examination today. Atrial fibrillation Results & Data Vital Signs (Past 12 Hours) Vital Signs Temp Pulse Pulse Resp BP Pulse Ox O2 Del Method 12/21/22 15:30 69 12/21/22 11:51 36.7 C 69 18 159/70 H 97 Room Air 12/21/22 08:00 60 12/21/22 07:57 36.6 C 65 18 163/89 H 96 Room Air Laboratory Results Abnormal Lab Results 12/20/22 12/20/22 12/20/22 17:41 17:41 17:41 WBC 6.64 RBC 3.86 L Hgb 11.5 L Hct 36.2 L MCV 93.8 MCH 29.8 MCHC 31.8 L RDW Std Deviation 49.7 H RDW Coeff of Cherelle 14.6 H Plt Count 198 MPV 10.5 Immature Gran % (Auto) 0.5 Neut % (Auto) 62.1 Lymph % (Auto) 25.0 [place] % (Auto) 8.6 Eos % (Auto) 3.0 Baso % (Auto) 0.8 Neut # (Auto) 4.13 Lymph # (Auto) 1.66 [place] # (Auto) 0.57 Eos # (Auto) 0.20 Baso # (Auto) 0.05 Immature Gran # (Auto) 0.03 PT 11.1 INR 1.0 APTT PTT Ratio D-Dimer 530 H* Sodium 140 Potassium 4.1 Chloride 107 Carbon Dioxide 25 Anion Gap 8 BUN 17 Creatinine 1.61 H Est Cr Clr Drug Dosing 47.6 Est GFR ( Amer) 46.4 Est GFR (Non-Af Amer) 40.1 BUN/Creatinine Ratio 10.6 Glucose 99 POC Glucose Calcium 9.2 Magnesium 1.6 L Iron Total Bilirubin 0.6 AST 18 ALT 26 Alkaline Phosphatase 91 Troponin I High Sens 51.8 H* Total Protein 6.9 Albumin 4.1 Globulin 2.8 Albumin/Globulin Ratio 1.5 Lipase 42 TSH SARS-CoV-2 (PCR) Influenza Type A (PCR) Influenza Type B (PCR) RSV (RT-PCR) 12/20/22 12/20/22 12/20/22 17:41 17:41 17:48 WBC RBC Hgb Hct MCV MCH MCHC RDW Std Deviation RDW Coeff of Cherelle Plt Count MPV Immature Gran % (Auto) Neut % (Auto) Lymph % (Auto) [place] % (Auto) Eos % (Auto) Baso % (Auto) Neut # (Auto) Lymph # (Auto) [place] # (Auto) Eos # (Auto) Baso # (Auto) Immature Gran # (Auto) PT INR APTT 28.5 PTT Ratio 1.0 D-Dimer Sodium Potassium Chloride Carbon Dioxide Anion Gap BUN Creatinine Est Cr Clr Drug Dosing Est GFR ( Amer) Est GFR (Non-Af Amer) BUN/Creatinine Ratio Glucose POC Glucose Calcium Magnesium Iron Total Bilirubin AST ALT Alkaline Phosphatase Troponin I High Sens Total Protein Albumin Globulin Albumin/Globulin Ratio Lipase TSH 1.837 SARS-CoV-2 (PCR) NEGATIVE Influenza Type A (PCR) Negative Influenza Type B (PCR) Negative RSV (RT-PCR) Negative 12/20/22 12/21/22 12/21/22 21:16 07:37 07:37 WBC 6.09 RBC 3.65 L Hgb 11.0 L Hct 33.5 L MCV 91.8 MCH 30.1 MCHC 32.8 RDW Std Deviation 49.0 H RDW Coeff of Cherelle 14.5 Plt Count 165 MPV 10.5 Immature Gran % (Auto) Neut % (Auto) Lymph % (Auto) [place] % (Auto) Eos % (Auto) Baso % (Auto) Neut # (Auto) Lymph # (Auto) [place] # (Auto) Eos # (Auto) Baso # (Auto) Immature Gran # (Auto) PT INR APTT PTT Ratio D-Dimer Sodium 141 Potassium 4.5 Chloride 109 H Carbon Dioxide 25 Anion Gap 7 BUN 16 Creatinine 1.51 H Est Cr Clr Drug Dosing 50.8 Est GFR ( Amer) 50.2 Est GFR (Non-Af Amer) 43.3 BUN/Creatinine Ratio 10.6 Glucose 103 H POC Glucose Calcium 8.2 L Magnesium Iron 29 L Total Bilirubin AST ALT Alkaline Phosphatase Troponin I High Sens 48.2 H Total Protein Albumin Globulin Albumin/Globulin Ratio Lipase TSH SARS-CoV-2 (PCR) Influenza Type A (PCR) Influenza Type B (PCR) RSV (RT-PCR) 12/21/22 12/21/22 12/21/22 07:37 07:45 11:10 WBC RBC Hgb Hct MCV MCH MCHC RDW Std Deviation RDW Coeff of Cherelle Plt Count MPV Immature Gran % (Auto) Neut % (Auto) Lymph % (Auto) [place] % (Auto) Eos % (Auto) Baso % (Auto) Neut # (Auto) Lymph # (Auto) [place] # (Auto) Eos # (Auto) Baso # (Auto) Immature Gran # (Auto) PT 11.4 INR 1.0 APTT 36.2 H PTT Ratio 1.3 D-Dimer Sodium Potassium Chloride Carbon Dioxide Anion Gap BUN Creatinine Est Cr Clr Drug Dosing Est GFR ( Amer) Est GFR (Non-Af Amer) BUN/Creatinine Ratio Glucose POC Glucose 103 H 123 H Calcium Magnesium Iron Total Bilirubin AST ALT Alkaline Phosphatase Troponin I High Sens Total Protein Albumin Globulin Albumin/Globulin Ratio Lipase TSH SARS-CoV-2 (PCR) Influenza Type A (PCR) Influenza Type B (PCR) RSV (RT-PCR) Diagnostic Findings Chest x-ray obtained the time admission having any acute cardiopulmonary process Chest CTA did not demonstrate any pulmonary embolus. There was evidence of mild pulmonary vascular congestion. Echocardiogram obtained today revealed normal LV systolic function with some regional wall motion abnormalities. Moderate left atrial dilation. Moderate mitral regurgitation. Pulmonary hypertension. ECG Additional Comments: EKG obtained admission revealed atrial flutter with bifascicular block. PG Care Time/CCT Total # of Minutes Spent Total Time Spent with Patient: Total time spent is greater than 50% in coordination of care (as documented) at patient's floor/unit and/or counseling patient: Coding Level of Care Code 79614 INT INP/OBS CARE 3/75MIN Diagnoses Atrial flutter I48.92
[2022-12-21] MEDS ORDERED: FUROSEMIDE INJ 20 MG/2 ML VIAL IV STA (18:33)
--- NOTE | 2022-12-21 19:11 | Discharge Summary ---
Date of Service December 21, 2022 Admission HPI Per Admitting Provider 77yo Male with PMH CABG, s/p 6 stents last placed August, CKD3, CHF EF 55% (08/28), Afib, DM2, BPH here for worsened chest pain dyspnea on exertion. Patient states over the last 6-8 weeks he has noticed more chest pain with exertion and increased SOB, describes the pain as sharp travels up his neck, improves with rest. also notes worsened feelings of indigestion, burping more. Patient describes increased weakness of his legs this past week and swelling in his left lower leg. Patient manages his own medications, uses them appropriately. He denies smoking. Admission Exam Per Admitting Provider Constitutional: well developed, well nourished, cooperative and comfortable Eyes: PERRL, conjunctivae normal, anicteric sclerae ENMT: external ear and nose normal, oropharynx normal Neck: trachea midline, no thyromegaly Respiratory: normal respiratory effort, lungs clear to auscultation Cardiovascular: Rate/Rhythm: regular rate and regular rhythm Extremities: + edema (+2 pitting edema L>R) Gastrointestinal (Abdomen): Inspection/Auscultation: abdomen normal to inspection Percussion/Palpation: abdomen soft; abdomen nontender Skin: no rashes, warm and dry healing scab noted on lateral side of left 1st toe, no pain redness increased warmth noted Neurologic: moves all extremities sensation intact in b/l LE Principal Diagnosis Unstable angina, atrial flutter Discharge Exam General: No acute distress HEENT: PERRLA. Normal conjunctiva, anicteric sclera. Oropharynx normal. Respiratory: Normal respiratory effort, CTABL. Cardiovascular: RRR systolic murmur 2/6 loudest at fifth ICS at mid axillary line. No gallops or rubs. 2+ pedal edema. GI: Soft abdomen with normal bowel sounds heard on auscultation. Nontender x4 quadrants Neuro: Alert and oriented x3. Discharge Data Allergies Allergy/AdvReac Type Severity Reaction Status Date / Time No Known Drug Allergies Allergy Unknown Verified 12/20/22 18:42 Consultations 12/20/22 20:48 ED Decision to Admit Stat 12/20/22 22:54 Consult Cardiology Routine 12/21/22 15:37 Consult Cardiac Electrophysiology Routine Ordered Studies 12/20/22 19:06 CT angio chest PE protocol Stat Hospital Course (1) Chest pain, exertional: 77yo Male with PMH CABG, s/p 6 stents last placed August, CKD3, CHF EF 55% (08/28), Afib, DM2, BPH here for worsened chest pain dyspnea on exertion. Unstable angina in the setting of severe CAD -prior echo 08/28 EF 50-55% mild anterior anteroseptal and apical hypokinesis -last cardiac cath with stent placed 08/28 -trop 51.8 repeat already downtrending (48.2) -CTA chest no PE trace pleural effusion on R lung -CXR wnl * Admitted to PCU * Cardiology consulted to evaluate for cath vs ablation vs TTE cardioversion. * Patient opted for ablation versus ALIREZA cardioversion. Cardiology will perform in next few days. Was started on Eliquis 5 mg twice daily. Aflutter, new -Discussed with cardiology. Will schedule patient outpatient for ablation procedure in the next few days. * Started on Eliquis 5 mg twice daily for anticoagulation, per cardiology recommendations. HFrEF * continue home aspirin Plavix * continue isosorbide mononitrate * continue atorvastatin DM2 -hold home medications -ordered SSI Hx. Gout -continue allopurinol GERD -continue home famotidine, Protonix Skin infection of left toe -started on Keflex in outpatient -may complete last 2 days on Keflex course (2) Elevated troponin: (3) Chronic kidney disease, stage 3a: (4) Right bundle branch block: (5) Controlled type 2 diabetes mellitus with chronic kidney disease: (6) Benign prostatic hyperplasia with urinary obstruction: Total Time Total Time Spent Total Time Spent (In Minutes): <30 Discharge Plan Discharge Items Patient Disposition: Home - Self-Care Reason For Visit: CHEST PAIN Discharge Diagnosis: Unstable angina, atrial flutter Activity: Per Instructions section Non-emergency contact: Primary Care Provider Call non-emergency contact if: you have any medication questions Follow-up/Referrals: Lj Cho DO [Primary Care Provider] - (Patient (son) will make follow up appointment with Dr. Cho. Patient has procedure with Dr Mckeon in next few days and will follow up with pcp after that.) Diet: Regular Addtl Attending Provider Instructions: Dear Wild, You came to the hospital because of chest pain worsened by minimal exertion. We admitted you for further evaluation due to concerns for an acute coronary process. We also consulted the packager to determine whether your symptoms would necessitate a coronary catheterization. Following evaluation, it was determined that your symptoms were more consistent with a new onset atrial flutter in the setting of your chronic coronary artery disease. The packager discussed either TTE cardioversion or an ablation with you. As you preferred an ablation, your packager has elected to schedule you for an outpatient procedure in the next few days. Therefore, we feel that you are ready to be discharged home. Your packager's office will be in touch with you to schedule for the outpatient procedure. If you do not hear from them, feel free to call the office to schedule a time. Medications * Your packager added a medication called apixaban, or Eliquis, to your medication list. We have sent this medication to your pharmacy. Please take Eliquis 5 mg twice daily. * We made no other changes to medications. Continue to take them as directed unless otherwise instructed to by your primary care physician. If your symptoms return while you are at home, or occur with even less exertion or activity, it is important that you come to the hospital as soon as you can. It is important that you limit yourself only to activities that you are able to complete without causing you any chest pain. Thank you for trusting us with your care here at [facility]. If you have any questions or concerns about your stay here, please contact us at [phone]. Pending Studies at Discharge: No Stand-Alone Forms: My [facility], Smoking Cessation Medications and DC Order Prescriptions: New Eliquis 5 mg tablet 5 mg PO BID 30 Days Qty: 60 0RF Continued Novolog Mix 70-30 U-100 Insuln 100 unit/mL (70-30) solution See Rx Instructions SQ BIDM Qty: 50 5RF Dose Instruction: Take 50 units before breakfast and 70 units before dinner or as directed SQ BIDM; Rx Instructions: Take 40 units before breakfast and 60 units before dinner or as directed SQ BIDM; clopidogrel 75 mg tablet 75 mg PO DAILY Qty: 90 3RF (DME) blood sugar diagnostic Strip See Dose Instructions .ROUTE .MEDSUPPLY Qty: 300 3RF Dose Instruction: As directed Rx Instructions: TEST 3 TIMES DAILY (DME) insulin syringe-needle U-100 [BD Insulin Syringe Ultra-Fine] 1 mL 31 gauge x 5/16 syringe See Rx Instructions .ROUTE .MEDSUPPLY Qty: 200 5RF Rx Instructions: USE BID E11.2 (DME) blood-glucose meter [OneTouch Verio Flex Start] kit See Dose Instructions .ROUTE .MEDSUPPLY Qty: 1 0RF Dose Instruction: As directed Rx Instructions: As directed aspirin 81 mg Tablet,Delayed Release (Dr/Ec) 81 mg PO QAM pantoprazole 40 mg tablet,delayed release (DR/EC) 40 mg PO QAM nitroglycerin [Nitrostat] 0.4 mg Tablet, Sublingual 0.4 mg sublingual Q5M PRN (Reason: chest pain) Qty: 1 0RF Rx Instructions: max 3 tabs in 15 minutes Trulicity 3 mg/0.5 mL pen injector 3 mg SUBCUT WK Rx Instructions: saturdays amoxicillin 500 mg capsule 2,000 mg PO ONCE PRN (Reason: prior to dental procedures) famotidine 20 mg tablet 20 mg PO QPM metformin 1,000 mg tablet 1,000 mg PO BID isosorbide mononitrate 60 mg tablet extended release 24 hr 60 mg PO QAM atorvastatin 80 mg tablet 80 mg PO QPM allopurinol 300 mg tablet 300 mg PO QAM cephalexin 500 mg capsule 500 mg PO TID Rx Instructions: take for 10 days..ordered 12/11/22 Discharge Orders: Discharge Order (Routine); Ordered 12/21/22 Ordered By: Lauro Wilson Admission Data Admit Date/Time: 12/20/22 21:17 Attending Provider: Owen Rose Admit Provider: Lazara Johns Primary Care Provider: Lj Cho Other Providers: Pavan Corea ; Jonathon Pickering ; Lul Mckeon Other Interventions: Discharge Summary Assessment (RN) Last Done: 12/21/22 19:18 Supervising Physician Co-Signing Physician Notes I personally examined the patient and verified all augustin points of history and exam, discussed case, and agree with decision making with Dr Wilson Feeling okay at rest. Discussed with cardiology, EP input appreciated. Vitals noted, in general in no distress. Breathing unlabored no accessory muscle use good effort. Echo noted. Cardiology input appreciated greatly. Chest painappears to be probably a combination of angina (he does have rather significant coronary disease), and a degree of acute diastolic CHF (mitral regurg and rate)but this Thal is likely being driven by his atrial flutter. If we are able to "slow down the treadmill" by controlling the flutter, hopefully the rest of his symptoms will improve as well. If not we can escalate med management for them. Appreciate cardiology input on this. Starting on apixaban. Cannot really escalate beta-blockade because of his heart rates being fairly low, was planning on increasing afterload reduction or preload reduction (increasing nitrates) but his pressures may not tolerate itgiven that he does well at rest and cardiology is recommended that he really limit his activity until ablationfor now it is probably safest to send him home with the Eliquis as the only new prescription. otherwise as above
[2022-12-21] MEDS ORDERED: APIXABAN 5 MG TABLET PO ONE (19:45)
--- NOTE | 2022-12-21 20:38 | Billing Data ---
Date of Service December 21, 2022 Coding Level of Care Code 74852 IN/OBS DISCH 30 MIN/LESS
[2022-12-21] MEDS ORDERED: FAMOTIDINE 20 MG TAB PO SCH (21:00)
[2022-12-21] MEDS ORDERED: ATORVASTATIN 40 MG TAB PO SCH (21:00)
--- NOTE | 2022-12-22 05:10 | Electrocardiogram Report ---
Test Reason : Blood Pressure : / mmHG Vent. Rate : 063 BPM Atrial Rate : 252 BPM P-R Int : 000 ms QRS Dur : 130 ms QT Int : 436 ms P-R-T Axes : -87 -67 031 degrees QTc Int : 446 ms Atrial flutter with 4:1 A-V conduction Right bundle branch block Left anterior fascicular block Bifascicular block Abnormal ECG When compared with ECG of 28-AUG-2022 14:36, Atrial flutter has replaced Sinus rhythm ST no longer depressed in Anterior leads T wave inversion no longer evident in Anterior leads Confirmed by Jonathon Pickering ([id number]) on 12/22/2022 5:10:36 AM Referred By: Lj Cho Confirmed By:Jonathon Pickering
--- NOTE | 2022-12-22 21:29 | Billing Data ---
Date of Service December 22, 2022 Coding Level of Care Code 81909 INT INP/OBS CARE
== END 2022-12-21 20:20 | disposition home or self-care (01) | DRG 308 ==
LOC: ED 17:21 → 2E 21:17 → SUATTDRO 21:17 → INTOOBSV 21:17 → 2E 22:55

== ENCOUNTER 2024-05-12 19:37 | Inpatient (IN) ==
[2024-05-12 20:18] LABS: Appearance Urine Clear (Clear); Bilirubin Urine Negative (Negative); Blood Urine 3+ (Negative); Color Urine Yellow; Glucose Urine UA 2+ (Negative); Ketones Urine Negative (Negative); Leukocyte Esterase Urine 1+ (Negative); Nitrite Urine Negative (Negative); Protein Urine 2+ (Negative); Urobilinogen Urine Negative (Negative); pH Urine 5.5 (4.5-7.5)
[2024-05-12 20:19] LABS: Basophils # (auto) 0.05 K/uL (0.00-0.20); Basophils % (auto) 0.2 %; Eosinophils # (auto) 0.06 K/uL (0.00-0.50); Eosinophils % (auto) 0.3 %; Hematocrit (blood only) 42.6 % (42.0-52.0); Hemoglobin 13.7 g/dl (14.0-18.0); Immature Granulocytes # (auto) 0.29 K/uL (0.01-0.20); Immature Granulocytes % (auto) 1.4 %; Lymphocytes # (auto) 1.34 K/uL (1.20-3.40); Lymphocytes % (auto) 6.6 %; Mean Corpuscular Hemoglobin 29.9 pg (25.0-34.0); Mean Corpuscular Hgb Conc 32.2 g/dL (32.0-36.0); Mean Platelet Volume 10.4 fL (9.4-12.4); Monocytes # (auto) 1.28 K/uL (0.11-0.59); Monocytes % (auto) 6.3 %; Neutrophils % (auto) 85.2 %; Platelet Count 171 K/uL (130-400); RDW Coefficient of Variation 15.1 % (11.5-14.5); RDW Standard Deviation 51.6 fL (36.4-46.3); Red Blood Count 4.58 M/uL (4.70-6.10); White Blood Count 20.22 K/ul (4.8-10.8)
[2024-05-12 20:35] LABS: Albumin Globulin Ratio 1.4 (0.9-2); Albumin Level 4.2 gm/dl (3.4-5.0); BUN Creatinine Ratio 13.9 (10-20); Bilirubin,Total 1.1 mg/dl (0.2-1.0); Calcium 9.4 mg/dl (8.6-10.3); Creatinine Clr Calc Pharmacy 33.7 ml/min; Est GFR (African American) 32.1 ml/min; Est GFR (Non-African American) 27.7 ml/min; Globulin 3.1 gm/dl (2.5-4.0); Magnesium 1.7 mg/dl (1.7-2.4); Potassium 4.9 mmol/L (3.5-5.1); Total Protein 7.3 gm/dl (6.0-8.3)
[2024-05-12 20:45] LABS: INR 1.1 (0.9-1.1); Partial Thromboplastin Ratio 1.2; Partial Thromboplastin Time 31 Seconds (21-31); Prothrombin Time 11.4 Seconds (9.0-12.0)
[2024-05-12 20:50] LABS: Thyroid Stimulating Hormone 0.771 uIu/ml (0.300-4.500)
[2024-05-12 20:51] LABS: Troponin I High Sensitivity 52.9 pg/ml (0-20)
[2024-05-12 21:21] LABS: Epithelial Cell Urine 0-2 /hpf (0-2)
[2024-05-12 21:22] LABS: Bacteria Urine 1+ (None Seen)
--- NOTE | 2024-05-12 21:52 | Emergency Department Note ---
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) Vitamin D deficiency (Acute) Testicular hypofunction (Acute) Hiatal hernia (Acute) Gastroparesis (Acute) Diabetes mellitus with stage 3 chronic kidney disease (Chronic) Diabetes mellitus with hypoglycemia (Acute) Chronic diastolic (congestive) heart failure (Acute) Atrial fibrillation (Acute) Actinic keratosis (Acute) Impacted cerumen of right ear Vitamin D deficiency Chronic kidney disease, stage 3a Chest pain, exertional (Acute) Atrial flutter (Acute) Elevated troponin (Acute) 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 Lovell/Shira) per hospital notes>severe in-stent restenosis of the LAD with implantation of a drug-eluting stent. CAD (coronary artery disease) Sleep apnea (Acute) no device Right bundle branch block (Acute) Benign prostatic hyperplasia with urinary obstruction (Acute) Medical History Arthritis Dysphagia Hiatal hernia Diabetes mellitus, type 2 Hx of basal cell carcinoma History of atrial fibrillation History of kidney stones History of COVID-19 Hx of gout NSTEMI (non-ST elevated myocardial infarction) Stage 3b chronic kidney disease Benign prostatic hyperplasia with urinary obstruction Esophageal reflux Hypertension Pericardial effusion Right bundle branch block Sleep apnea Hyperlipidemia CAD (coronary artery disease) Surgical History History of carpal tunnel release History of total knee replacement History of colonoscopy History of tooth extraction History of cardiac radiofrequency ablation S/P coronary artery stent placement H/O transurethral resection of prostate History of ankle surgery History of lithotripsy History of cholecystectomy History of four vessel coronary artery bypass graft Family History Brother Prostate cancer Diabetes Heart disease Myocardial infarction End stage renal disease Sister Diabetes Mother Heart disease Myocardial infarction Father Heart disease Myocardial infarction Unknown Hypercholesteremia Other No family history of adverse response to anesthesia Denies family history of Ovarian cancer Hearing loss Breast cancer Colorectal cancer Hypertension Social History Smoking Status: Never smoker Second Hand Exposure: Yes (as a child); Do You Dip or Chew Tobacco: No; Hx Alcohol Use: No Hx Substance Use: No Preferred Language: [place]ar[place] Communication Ability: Effective Visual Impairment: No Limitations Hearing Ability: Use of Hearing Aid Shed Hand Required: No Beliefs That Will Affect Care: None marital status: Current Living Situation: Spouse current occupational status: retired 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 [employer] Feels Safe at Home: Yes Childhood Exposure to Second-Hand Smoke: Yes Diet: regular Diet Comment: no added salt caffeine: Yes Dental Care, Regularly: No Physical Activity Frequency: Daily Seatbelt Use: never Sunscreen Use: No Assistive Devices: Denture - Upper and Hearing Aid - Bilateral Allergies Allergies Allergy/AdvReac Type Severity Reaction Status Date / Time No Known Drug Allergies Allergy Unknown Verified 11/06/23 13:16 Home Meds Home Medications Medication Instructions Recorded Confirmed aspirin 81 mg tablet,delayed 81 mg PO QPM 08/28/22 03/11/24 release pantoprazole 40 mg tablet,delayed 40 mg PO QAM 08/28/22 03/11/24 release allopurinol 300 mg tablet 300 mg PO QPM 12/20/22 03/11/24 amoxicillin 500 mg capsule 2,000 mg PO ONCE PRN prior to 12/20/22 03/11/24 dental procedures atorvastatin 80 mg tablet 80 mg PO QPM 12/20/22 03/11/24 dulaglutide 3 mg/0.5 mL 3 mg subcut WK 12/20/22 03/11/24 [facility] famotidine 20 mg tablet 20 mg PO QPM 12/20/22 03/11/24 isosorbide mononitrate 60 mg 60 mg PO QPM 12/20/22 03/11/24 tablet,extended release 24 hr multivitamin 1 tab PO QAM 01/29/23 03/11/24 acebutolol 200 mg capsule 200 mg PO BID 05/24/23 03/11/24 dapagliflozin propanediol 10 mg 10 mg PO DAILY 05/24/23 03/11/24 tablet (Farxiga) sacubitril 24 mg-valsartan 26 mg 1 tab PO BID 05/24/23 03/11/24 tablet (Entresto) ticagrelor 90 mg tablet (Brilinta) 90 mg PO BID 05/24/23 03/11/24 torsemide 20 mg tablet 20 mg PO DAILY PRN 05/24/23 03/11/24 Previous Rx's Medication Instructions Recorded blood-glucose meter (OneTouch #1 ea 05/09/19 Verio Flex Start kit) insulin syringe-needle U-100 1 mL #200 ea 02/23/20 31 gauge x 5/16" (BD Insulin Syringe Ultra-Fine) insulin aspar prt-insulin aspart See Rx Instructions subcut BIDM 03/11/21 100 unit/mL (70-30) subcutaneous #50 mL soln (Novolog Mix 70-30 U-100 Insuln) blood sugar diagnostic #300 ea 04/28/21 nitroglycerin 0.4 mg sublingual 0.4 mg sublingual Q5M PRN chest 08/29/22 tablet (Nitrostat) pain #1 btl Results & Data (ED) Vital Signs Vital Signs - 24 hr 05/12/24 19:42 05/12/24 20:37 05/12/24 20:38 Temperature 37.2 C Temperature Source Oral Pulse Rate 88 89 Pulse Rate [Left Apical] Respiratory Rate 17 Respiratory Effort / Characteristics Non-Labored Spontaneous Respiratory Depth Normal Respiratory Pattern Regular Blood Pressure 117/59 L 127/66 Blood Pressure [Left Arm] Blood Pressure Mean 78 84 Blood Pressure Mean [Left Arm] Blood Pressure Position [Left Arm] Pulse Oximetry 99 Oxygen Delivery Method Room Air Sepsis Recent Fever Within 48 Hours No Sepsis New/Unexplained Change in Mental Status N/A Sepsis Action Taken by Nursing No Action Required 05/12/24 20:39 05/12/24 21:00 05/12/24 21:03 Temperature Temperature Source Pulse Rate 92 H 94 H Pulse Rate [Left Apical] Respiratory Rate 19 Respiratory Effort / Characteristics Respiratory Depth Respiratory Pattern Blood Pressure 114/61 Blood Pressure [Left Arm] Blood Pressure Mean 86 Blood Pressure Mean [Left Arm] Blood Pressure Position [Left Arm] Pulse Oximetry 99 95 Oxygen Delivery Method Room Air Room Air Sepsis Recent Fever Within 48 Hours Sepsis New/Unexplained Change in Mental Status Sepsis Action Taken by Nursing 05/12/24 21:15 05/12/24 21:18 05/12/24 21:30 Temperature Temperature Source Pulse Rate 92 H 94 H Pulse Rate [Left Apical] Respiratory Rate Respiratory Effort / Characteristics Respiratory Depth Respiratory Pattern Blood Pressure 115/63 Blood Pressure [Left Arm] Blood Pressure Mean 87 Blood Pressure Mean [Left Arm] Blood Pressure Position [Left Arm] Pulse Oximetry 95 95 Oxygen Delivery Method Room Air Room Air Sepsis Recent Fever Within 48 Hours Sepsis New/Unexplained Change in Mental Status Sepsis Action Taken by Nursing 05/12/24 21:33 05/12/24 21:34 05/12/24 21:34 Temperature Temperature Source Pulse Rate 92 H Pulse Rate [Left Apical] 96 H Respiratory Rate 13 24 Respiratory Effort / Characteristics Non-Labored Spontaneous Respiratory Depth Normal Respiratory Pattern Regular Blood Pressure Blood Pressure [Left Arm] 93/48 L Blood Pressure Mean Blood Pressure Mean [Left Arm] 63 Blood Pressure Position [Left Arm] Right Lateral Pulse Oximetry 98 96 96 Oxygen Delivery Method Room Air Room Air Room Air Sepsis Recent Fever Within 48 Hours Sepsis New/Unexplained Change in Mental Status Sepsis Action Taken by Nursing Laboratory Data 05/12/24 20:00 05/12/24 20:00 Lab Results 05/12/24 Range/Units 20:00 WBC 20.22 H (4.8-10.8) K/ul RBC 4.58 L (4.70-6.10) M/uL Hgb 13.7 L (14.0-18.0) g/dl Hct 42.6 (42.0-52.0) % MCV 93.0 (80.0-100.0) fL MCH 29.9 (25.0-34.0) pg MCHC 32.2 (32.0-36.0) g/dL RDW Std Deviation 51.6 H (36.4-46.3) fL RDW Coeff of Cherelle 15.1 H (11.5-14.5) % Plt Count 171 (130-400) K/uL MPV 10.4 (9.4-12.4) fL Immature Gran % (Auto) 1.4 % Neut % (Auto) 85.2 % Lymph % (Auto) 6.6 % Levy % (Auto) 6.3 % Eos % (Auto) 0.3 % Baso % (Auto) 0.2 % Neut # (Auto) 17.20 H (1.40-6.50) K/uL Lymph # (Auto) 1.34 (1.20-3.40) K/uL Levy # (Auto) 1.28 H (0.11-0.59) K/uL Eos # (Auto) 0.06 (0.00-0.50) K/uL Baso # (Auto) 0.05 (0.00-0.20) K/uL Immature Gran # (Auto) 0.29 H (0.01-0.20) K/uL PT 11.4 (9.0-12.0) Seconds INR 1.1 (0.9-1.1) APTT 31 (21-31) Seconds PTT Ratio 1.2 Sodium 136 (136-145) mmol/L Potassium 4.9 (3.5-5.1) mmol/L Chloride 103 (98-107) mmol/L Carbon Dioxide 22 (21-32) mmol/L Anion Gap 11 (3-11) BUN 30 H (6-23) mg/dl Creatinine 2.16 H (0.6-1.4) mg/dl Est Cr Clr Drug Dosing 33.7 ml/min Est GFR ( Amer) 32.1 ml/min Est GFR (Non-Af Amer) 27.7 ml/min BUN/Creatinine Ratio 13.9 (10-20) Glucose 196 H (70-99(Fasting)) mg/dl Calcium 9.4 (8.6-10.3) mg/dl Magnesium 1.7 (1.7-2.4) mg/dl Total Bilirubin 1.1 H (0.2-1.0) mg/dl AST 17 (13-39) U/L ALT 20 (7-52) U/L Alkaline Phosphatase 121 H (34-104) U/L Troponin I High Sens 52.9 H* (0-20) pg/ml Total Protein 7.3 (6.0-8.3) gm/dl Albumin 4.2 (3.4-5.0) gm/dl Globulin 3.1 (2.5-4.0) gm/dl Albumin/Globulin Ratio 1.4 (0.9-2) TSH 0.771 (0.300-4.500) uIu/ml Urine Color Yellow Urine Appearance Clear (Clear) Urine pH 5.5 (4.5-7.5) Ur Specific Cod[place] 1.020 (1.000-1.030) Urine Protein 2+ H (Negative) Urine Glucose (UA) 2+ H (Negative) Urine Ketones Negative (Negative) Urine Blood 3+ H (Negative) Urine Nitrite Negative (Negative) Urine Bilirubin Negative (Negative) Urine Urobilinogen Negative (Negative) Ur Leukocyte Esterase 1+ H (Negative) Urine RBC 11-20 H (0-2) /hpf Urine WBC 11-20 H (0-5) /hpf Ur Epithelial Cells 0-2 (0-2) /hpf Urine Bacteria 1+ H (None Seen) Discharge Plan Visit Data Chief Complaint: Urinary Symptoms Stated Complaint: WEAKNESS, NAUSEA, FEVER/CHILLS, BURNING/FREQ URINE ED Provider: Daniel Calderón Forms Stand Alone Forms: My [facility] IID Prescriptions Prescriptions: No Action Novolog Mix 70-30 U-100 Insuln 100 unit/mL (70-30) solution See Rx Instructions SQ BIDM Qty: 50 5RF Dose Instruction: Take 50 units before breakfast and 70 units before dinner or as directed SQ BIDM; Patient Comments: takes 35 units qam/60 units qpm Rx Instructions: Take 40 units before breakfast and 60 units before dinner or as directed SQ BIDM; (DME) blood sugar diagnostic Strip See Dose Instructions .ROUTE .MEDSUPPLY Qty: 300 3RF Dose Instruction: As directed Rx Instructions: TEST 3 TIMES DAILY (DME) insulin syringe-needle U-100 [BD Insulin Syringe Ultra-Fine] 1 mL 31 gauge x 5/16 syringe See Rx Instructions .ROUTE .MEDSUPPLY Qty: 200 5RF Rx Instructions: USE BID E11.2 acebutolol 200 mg capsule 200 mg PO BID Farxiga 10 mg tablet 10 mg PO DAILY Entresto 24-26 mg tablet 1 tab PO BID Brilinta 90 mg tablet 90 mg PO BID torsemide 20 mg tablet 20 mg PO DAILY PRN Rx Instructions: Take 1 tablet by mouth once daily as needed for weight gain greater then 8lbs in 2-3 days as directed. (DME) blood-glucose meter [OneTouch Verio Flex Start] kit See Dose Instructions .ROUTE .MEDSUPPLY Qty: 1 0RF Dose Instruction: As directed Rx Instructions: As directed multivitamin Tablet 1 tab PO QAM aspirin 81 mg Tablet,Delayed Release (Dr/Ec) 81 mg PO QPM pantoprazole 40 mg tablet,delayed release (DR/EC) 40 mg PO QAM nitroglycerin [Nitrostat] 0.4 mg Tablet, Sublingual 0.4 mg sublingual Q5M PRN (Reason: chest pain) Qty: 1 0RF Rx Instructions: max 3 tabs in 15 minutes Trulicity 3 mg/0.5 mL pen injector 3 mg SUBCUT WK Rx Instructions: saturdays amoxicillin 500 mg capsule 2,000 mg PO ONCE PRN (Reason: prior to dental procedures) famotidine 20 mg tablet 20 mg PO QPM isosorbide mononitrate 60 mg tablet extended release 24 hr 60 mg PO QPM atorvastatin 80 mg tablet 80 mg PO QPM allopurinol 300 mg tablet 300 mg PO QPM Referrals Referrals: Lj Cho DO [Primary Care Provider] -
[2024-05-12] MEDS: SODIUM CHLORIDE 0.9% 1,000 ML IV ONE (22:11)
[2024-05-12] MEDS: ONDANSETRON INJ 2 MG/ML 2 ML VIAL IV STA (22:41)
[2024-05-12] MEDS: PIPERACILLIN/TAZOBACTAM 4.5 GM/100 ML BAG IV ONE (22:41)
--- NOTE | 2024-05-12 22:46 | History & Physical Report ---
Date of Service May 12, 2024 Assessment & Plan (1) Sepsis: Plan: Patient with sepsis present on admission, likely secondary to urinary source. SIRS 2/4 (WBC=20.22 with neutrophil predominance and bands), HR >90 on arrival). Borderline low blood pressure initially 93/48, elevated lactate = 2.3. Patient recommended fluid amount for sepsis resuscitation - 2345.4 mL. Has received 1L thus far. Will give IVF cautiously given history of HFrEF, medication non-adherence for the last several days. No symptoms to indicate renal stone. Patient has had kidney stones in the remote past. Should he fail to improve with IVF/Antibiotics would pursue CT abdomen without contrast to look for renal stones. -Admit to PCU -Follow cultures - blood and urine, sent from the ER -Continue IVF - LR at 125mL/hr x 1 L then 100mL/hr x 1L -Monitor UOP -Tylenol PRN pain or fever -Zofran PRN nausea (2) Urinary tract infection: Plan: Patient with UTI and sepsis present on admission. No known history of resistant organisms -Admit to PCU -Follow cultures -Continue Zosyn -Continue IVF - LR at 100mL/hr x 1L for floor ordered (3) CAD (coronary artery disease): Plan: Patient with history of CAD s/p CABG x 4 vessel with subsequent stenting - last in May 2023. He is on lifelong DAPT with ASA and Brillinta. He reports he has not taken his medications for the last several days. No report of chest pain, palpitations, SOB. EKG with no acute ischemic changes. Troponin x 1 is elevated at 52. Has been elevated in the past. -Administer ASA and Brillinta dose now -Telemetry monitoring -Repeat troponin pending -Continue ASA and Brillinta -Continue Acebutolol 200mg po BID with caution to blood pressure in setting of sepsis -Continue Atorvastatin 80mg po daily -Hold Entresto and Torsemide (4) HFrEF (heart failure with reduced ejection fraction): Plan: Patient with history of CAD s/p NE, s/p CABG x 4v with subsequent stenting, most recently 05/2023. History of HFrEF - last echo 08/24/23 with stable EF of 36- 40%. He follows with Cardiology. -Hold Entresto in setting of low blood pressure, mildly elevated Cr from baseline -Hold Farxiga in setting of UTI with sepsis -Hold Torsemide -Hold Isosorbide (5) Diabetes mellitus, type 2: Plan: Patient with DM, reports his blood sugars have been elevated at home for the last several days. BSG drarn=495. Last HgbA1C on 11/29/23 elevated at 7.9. Patient takes Farxiga for DM/CHF. He reports being on Trulicity in the past but has been having difficulty obtaining this medication. Was briefly on Ozempic but reports considerable GI side effects and inability to take this medication. He is on Insulin 70/30 100units daily. -Hold 70/30 -Lantus 20u BID, ISS -Goal blood sugar 110 - 140 Plan Chronic Medical Conditions: Gout - chronic, stable -Continue Allopurinol 300mg po daily GERD - chronic, stable -Continue Pepcid 20mg po BID -Continue Protonix 40mg po BID AUGUSTO - chronic, stable -No device F/E/N- LR at 125mL/hr ordered for ER then 100mL/hr x 1L on floor, electroytes WNL, CC/AHA diet as tolerated Ppx - Heparin TID for DVT PPx Code - Full per discussion with patient Dispo - Admit to PCU for management of sepsis and UTI History of Present Illness Chief Complaint: weakness and fatigue Primary Care Provider: DO Wild Rios Jay aJy is a pleasant 79yo male presenting with 3 days of urinary symptoms - frequency, urgency and dysuria as well as two days of generalized weakness, fatigue, malaise and poor PO intake. Patient with history of CAD s/p CABG and subsequent stenting (most recently 05/15/23) on lifelong DAPT with ASA and Brillinta, HFrEF (on Entresto and Farxiga, Echo 08/24/23 with EF 36-40%), DM, GERD, CKD 3B and Gout. Patient reports developing urinary symptoms of increased frequency and urgency three days ago. Two days ago he developed some urinary incontinence and dribbling as well as generalized weakness, fatigue, malaise, nausea and poor appetite with decreased intake. Also with fever and chills at home. Patient denies chest pain, palpitations, SOB, abdominal pain, vomiting or diarrhea. No flank pain. No additional complaints at this time. Patient has not taken his medications for several days. Patient with sepsis secondary to UTI in the past requiring hospitalization - last at [facility] one year ago. Was hospitalized in [place] as well for similar presentation. In the ER patient afebrile, elevated HR at 96, BP borderline low at 93/48. ER Course: 1L NSS Zosyn 4.5gm Zofran 4mg IV Allergies Allergy/AdvReac Type Severity Reaction Status Date / Time No Known Drug Allergies Allergy Unknown Verified 11/06/23 13:16 Home Medications Medication Instructions Recorded Confirmed Type blood-glucose meter (OneTouch #1 ea 05/09/19 03/11/24 Rx Verio Flex Start kit) insulin syringe-needle U-100 1 mL #200 ea 02/23/20 03/11/24 Rx 31 gauge x 5/16" (BD Insulin Syringe Ultra-Fine) insulin aspar prt-insulin aspart See Rx Instructions subcut BIDM 03/11/21 05/12/24 Rx 100 unit/mL (70-30) subcutaneous #50 mL soln (Novolog Mix 70-30 U-100 Insuln) blood sugar diagnostic #300 ea 04/28/21 03/11/24 Rx aspirin 81 mg tablet,delayed 81 mg PO QPM 08/28/22 05/12/24 History release pantoprazole 40 mg tablet,delayed 40 mg PO BID 08/28/22 05/12/24 History release nitroglycerin 0.4 mg sublingual 0.4 mg sublingual Q5M PRN chest 08/29/22 05/12/24 Rx tablet (Nitrostat) pain #1 btl allopurinol 300 mg tablet 300 mg PO QPM 12/20/22 05/12/24 History amoxicillin 500 mg capsule 2,000 mg PO ONCE PRN prior to 12/20/22 03/11/24 History dental procedures atorvastatin 80 mg tablet 80 mg PO QPM 12/20/22 05/12/24 History dulaglutide 3 mg/0.5 mL 3 mg subcut WK 12/20/22 03/11/24 History subcutaneous pen injector (Trulicity) famotidine 20 mg tablet 20 mg PO BID 12/20/22 05/12/24 History isosorbide mononitrate 60 mg 60 mg PO QPM 12/20/22 03/11/24 History tablet,extended release 24 hr multivitamin 1 tab PO QAM 01/29/23 05/12/24 History acebutolol 200 mg capsule 200 mg PO BID 05/24/23 05/12/24 History dapagliflozin propanediol 10 mg 10 mg PO DAILY 05/24/23 05/12/24 History tablet (Farxiga) sacubitril 24 mg-valsartan 26 mg 1 tab PO BID 05/24/23 05/12/24 History tablet (Entresto) ticagrelor 90 mg tablet (Brilinta) 90 mg PO BID 05/24/23 05/12/24 History torsemide 20 mg tablet 20 mg PO DAILY PRN Weight Gain 05/24/23 05/12/24 History Past Med/Surg History Problem List (Updated 05/12/24 @ 23:02 by Corrie Corrigan DO) HFrEF (heart failure with reduced ejection fraction) Encounter for pre-operative examination Controlled type 2 diabetes mellitus with chronic kidney disease (Chronic) Vitamin D deficiency (Acute) Testicular hypofunction (Acute) Hiatal hernia (Acute) Gastroparesis (Acute) Diabetes mellitus with stage 3 chronic kidney disease (Chronic) Diabetes mellitus with hypoglycemia (Acute) Chronic diastolic (congestive) heart failure (Acute) Atrial fibrillation (Acute) Actinic keratosis (Acute) Impacted cerumen of right ear Vitamin D deficiency Chronic kidney disease, stage 3a Chest pain, exertional (Acute) Atrial flutter (Acute) Elevated troponin (Acute) S/P CABG (coronary artery bypass graft) 4 vessels>2009 Pulmonary hypertension Hyperlipidemia S/P coronary artery stent placement multiple stents placed per daughter>last placed at [facility] 08/2022 (followed by Dr. Lovell/[place]) per hospital notes>severe in-stent restenosis of the LAD with implantation of a drug-eluting stent. CAD (coronary artery disease) Sleep apnea (Acute) no device Right bundle branch block (Acute) Benign prostatic hyperplasia with urinary obstruction (Acute) Medical History Arthritis Dysphagia Hiatal hernia Diabetes mellitus, type 2 Hx of basal cell carcinoma History of atrial fibrillation History of kidney stones History of COVID-2019? date>resolved Hx of gout NSTEMI (non-ST elevated myocardial infarction) ? date Stage 3b chronic kidney disease Esophageal reflux Hypertension Pericardial effusion Surgical History History of carpal tunnel release rt/left History of total knee replacement left History of colonoscopy History of tooth extraction History of cardiac radiofrequency ablation 12/2022 at [facility] for atrial fib H/O transurethral resection of prostate History of ankle surgery History of lithotripsy History of cholecystectomy History of four vessel coronary artery bypass graft 2009>[place] Family History Brother Prostate cancer Diabetes Heart disease Myocardial infarction End stage renal disease Sister Diabetes Mother Heart disease Myocardial infarction Father Heart disease Myocardial infarction Unknown Hypercholesteremia Other No family history of adverse response to anesthesia Denies family history of Ovarian cancer Hearing loss Breast cancer Colorectal cancer Hypertension Social History Smoking Status: Never smoker Second Hand Exposure: Yes (as a child); Do You Dip or Chew Tobacco: No; Hx Alcohol Use: No Hx Substance Use: No Preferred Language: Indonesian Communication Ability: Effective Visual Impairment: No Limitations Hearing Ability: Use of Hearing Aid Director Of Scientific Research Required: No Beliefs That Will Affect Care: None marital status: Current Living Situation: Spouse current occupational status: retired 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 [employer] Feels Safe at Home: Yes Childhood Exposure to Second-Hand Smoke: Yes Diet: regular Diet Comment: no added salt caffeine: Yes Dental Care, Regularly: No Physical Activity Frequency: Daily Seatbelt Use: never Sunscreen Use: No Assistive Devices: Denture - Upper and Hearing Aid - Bilateral Review of Systems Review of Systems: All systems reviewed & are unremarkable except as noted in HPI & below Physical Exam Physical Exam: General: patient ill in appearance, AA&O x 4, answering questions and following commands Skin: warm, dry, intact, no rashes or lesions HEENT: NC/AT, PERRL, EOMI, anicteric sclera, conjunctiva without injection, external ear normal to inspection and nontender, nares patent, dry lips and mucus membranes, dentition intact, no oropharyngeal lesions, neck supple, trachea midline, no LAD, no thyromegaly, no JVD Heart: +S1/S2, regular, no m/r/g Lungs: equal air entry bilaterally, no rales/rhonchi/wheezes Abd: +BS, soft, NT/ND, no masses/organomegaly/ascites Ext: warm, 2+ pulses in UE/LE bilaterally, no clubbing/cyanosis, trace edema of bilateral LE Neuro: nonfocal, patient AA&O x 4, speech intact, no facial droop, moving all extremities on command with equal strength 5/5 Results & Data Results & Data Vital Signs (Past 12 Hours) Vital Signs Temp Pulse Pulse Resp BP BP Pulse Ox 05/12/24 22:14 95 H 22 108/54 L 97 05/12/24 21:34 96 H 24 93/48 L 96 05/12/24 21:34 96 05/12/24 21:33 92 H 13 98 05/12/24 21:30 115/63 05/12/24 21:18 94 H 95 05/12/24 21:15 92 H 95 05/12/24 21:03 94 H 95 05/12/24 21:00 114/61 05/12/24 20:39 92 H 19 99 05/12/24 20:38 89 05/12/24 20:37 127/66 05/12/24 19:42 37.2 C 88 17 117/59 L 99 O2 Del Method 05/12/24 22:14 Room Air 05/12/24 21:34 Room Air 05/12/24 21:34 Room Air 05/12/24 21:33 Room Air 05/12/24 21:30 05/12/24 21:18 Room Air 05/12/24 21:15 Room Air 05/12/24 21:03 Room Air 05/12/24 21:00 05/12/24 20:39 Room Air 05/12/24 20:38 05/12/24 20:37 05/12/24 19:42 Room Air Laboratory Results Laboratory Results WBC 20.22 K/ul (4.8-10.8) H 05/12/24 20:00 RBC 4.58 M/uL (4.70-6.10) L 05/12/24 20:00 Hgb 13.7 g/dl (14.0-18.0) L 05/12/24 20:00 Hct 42.6 % (42.0-52.0) 05/12/24 20:00 MCV 93.0 fL (80.0-100.0) 05/12/24 20:00 MCH 29.9 pg (25.0-34.0) 05/12/24 20:00 MCHC 32.2 g/dL (32.0-36.0) 05/12/24 20:00 RDW Std Deviation 51.6 fL (36.4-46.3) H 05/12/24 20:00 RDW Coeff of Cherelle 15.1 % (11.5-14.5) H 05/12/24 20:00 Plt Count 171 K/uL (130-400) 05/12/24 20:00 MPV 10.4 fL (9.4-12.4) 05/12/24 20:00 Immature Gran % (Auto) 1.4 % 05/12/24 20:00 Neut % (Auto) 85.2 % 05/12/24 20:00 Lymph % (Auto) 6.6 % 05/12/24 20:00 [place] % (Auto) 6.3 % 05/12/24 20:00 Eos % (Auto) 0.3 % 05/12/24 20:00 Baso % (Auto) 0.2 % 05/12/24 20:00 Neut # (Auto) 17.20 K/uL (1.40-6.50) H 05/12/24 20:00 Lymph # (Auto) 1.34 K/uL (1.20-3.40) 05/12/24 20:00 [place] # (Auto) 1.28 K/uL (0.11-0.59) H 05/12/24 20:00 Eos # (Auto) 0.06 K/uL (0.00-0.50) 05/12/24 20:00 Baso # (Auto) 0.05 K/uL (0.00-0.20) 05/12/24 20:00 Immature Gran # (Auto) 0.29 K/uL (0.01-0.20) H 05/12/24 20:00 PT 11.4 Seconds (9.0-12.0) 05/12/24 20:00 INR 1.1 (0.9-1.1) 05/12/24 20:00 APTT 31 Seconds (21-31) 05/12/24 20:00 PTT Ratio 1.2 05/12/24 20:00 Sodium 136 mmol/L (136-145) 05/12/24 20:00 Potassium 4.9 mmol/L (3.5-5.1) 05/12/24 20:00 Chloride 103 mmol/L (98-107) 05/12/24 20:00 Carbon Dioxide 22 mmol/L (21-32) 05/12/24 20:00 Anion Gap 11 (3-11) 05/12/24 20:00 BUN 30 mg/dl (6-23) H 05/12/24 20:00 Creatinine 2.16 mg/dl (0.6-1.4) H 05/12/24 20:00 Est Cr Clr Drug Dosing 33.7 ml/min 05/12/24 20:00 Est GFR ( Amer) 32.1 ml/min 05/12/24 20:00 Est GFR (Non-Af Amer) 27.7 ml/min 05/12/24 20:00 BUN/Creatinine Ratio 13.9 (10-20) 05/12/24 20:00 Glucose 196 mg/dl (70-99(Fasting)) H 05/12/24 20:00 Lactate 2.3 mmol/L (0.4-2.0) H* 05/12/24 22:33 Calcium 9.4 mg/dl (8.6-10.3) 05/12/24 20:00 Magnesium 1.7 mg/dl (1.7-2.4) 05/12/24 20:00 Total Bilirubin 1.1 mg/dl (0.2-1.0) H 05/12/24 20:00 AST 17 U/L (13-39) 05/12/24 20:00 ALT 20 U/L (7-52) 05/12/24 20:00 Alkaline Phosphatase 121 U/L (34-104) H 05/12/24 20:00 Troponin I High Sens 52.9 pg/ml (0-20) H* 05/12/24 20:00 Total Protein 7.3 gm/dl (6.0-8.3) 05/12/24 20:00 Albumin 4.2 gm/dl (3.4-5.0) 05/12/24 20:00 Globulin 3.1 gm/dl (2.5-4.0) 05/12/24 20:00 Albumin/Globulin Ratio 1.4 (0.9-2) 05/12/24 20:00 TSH 0.771 uIu/ml (0.300-4.500) 05/12/24 20:00 Urine Color Yellow 05/12/24 20:00 Urine Appearance Clear (Clear) 05/12/24 20:00 Urine pH 5.5 (4.5-7.5) 05/12/24 20:00 Ur Specific [place] 1.020 (1.000-1.030) 05/12/24 20:00 Urine Protein 2+ (Negative) H 05/12/24 20:00 Urine Glucose (UA) 2+ (Negative) H 05/12/24 20:00 Urine Ketones Negative (Negative) 05/12/24 20:00 Urine Blood 3+ (Negative) H 05/12/24 20:00 Urine Nitrite Negative (Negative) 05/12/24 20:00 Urine Bilirubin Negative (Negative) 05/12/24 20:00 Urine Urobilinogen Negative (Negative) 05/12/24 20:00 Ur Leukocyte Esterase 1+ (Negative) H 05/12/24 20:00 Urine RBC 11-20 /hpf (0-2) H 05/12/24 20:00 Urine WBC 11-20 /hpf (0-5) H 05/12/24 20:00 Ur Epithelial Cells 0-2 /hpf (0-2) 05/12/24 20:00 Urine Bacteria 1+ (None Seen) H 05/12/24 20:00 Diagnostic Findings CXR - per my independent review with sternotomy wires in place, no obvious infiltrate, edema or pneumothorax. Similar to prior image from 12/20/22 ECG Additional Comments: EKG with RBBB, similar to prior Code Status & VTE Plan VTE Prophylaxis Plan VTE Prophylaxis will be ordered: Yes PG Care Time/CCT Total # of Minutes Spent Total Time Spent with Patient: Total time spent is greater than 50% in coordination of care (as documented) at patient's floor/unit and/or counseling patient: Coding Level of Care Code 15488 INT INP/OBS CARE 3/75MIN Diagnoses Sepsis A41.9 Urinary tract infection N39.0 CAD (coronary artery disease) I25.10 HFrEF (heart failure with reduced ejection fraction) I50.20 Diabetes mellitus, type 2 E11.9
[2024-05-12 23:26] LABS: Adenovirus PCR Not Detected (NotDetected); Bordetella parapertussis PCR Not Detected (NotDetected); Bordetella pertussis PCR Not Detected (NotDetected); Chlamydia pneumoniae PCR Not Detected (NotDetected); Coronavirus 229E PCR Not Detected (NotDetected); Coronavirus CoV-2 (COVID19)PCR DETECTED (NotDetected); Coronavirus HKU1 PCR Not Detected (NotDetected); Coronavirus NL63 PCR Not Detected (NotDetected); Coronavirus OC43PCR Not Detected (NotDetected); Human Metapneumovirus PCR Not Detected (NotDetected); Influenza A PCR Not Detected (NotDetected); Influenza B PCR Not Detected (NotDetected); Mycoplasma pneumoniae PCR Not Detected (NotDetected); Parainfluenza Virus 1 PCR Not Detected (NotDetected); Parainfluenza Virus 2 PCR Not Detected (NotDetected); Parainfluenza Virus 3 PCR Not Detected (NotDetected); Parainfluenza Virus 4 PCR Not Detected (NotDetected); Respiratory Syncytial VirusPCR Not Detected (NotDetected); Rhinovirus/Enterovirus PCR Not Detected (NotDetected)
[2024-05-12] MEDS ORDERED: GLUCOSE 10 TAB/TUBE PO PRN (23:27)
[2024-05-12] MEDS ORDERED: DEXTROSE 50% 50 ML SYRINGE IV PRN (23:27)
[2024-05-12] MEDS ORDERED: GLUCOSE 40% GEL 15 GM TUBE PO PRN (23:27)
[2024-05-12] MEDS ORDERED: CARBOHYDRATES FOR HYPOGLYCEMIA PO PRN (23:27)
[2024-05-12] MEDS ORDERED: GLUCAGON FOR INJ 1 MG VIAL SQ PRN (23:27)
[2024-05-12] MEDS ORDERED: ONDANSETRON INJ 2 MG/ML 2 ML VIAL IV PRN (23:27)
[2024-05-12] MEDS ORDERED: ACETAMINOPHEN 325 MG TAB PO PRN (23:27)
[2024-05-13] MEDS: TICAGRELOR 90 MG TAB PO STA (00:27)
[2024-05-13] MEDS: ASPIRIN 81 MG ECTAB PO STA (00:27)
[2024-05-13] MEDS: LACTATED RINGER'S 1,000 ML IV SCH ×2 (00:28→08:55)
[2024-05-13] MEDS: PIPERACILLIN/TAZOBACTAM 4.5 GM/100 ML BAG IV SCH (03:25)
[2024-05-13] MEDS: HEPARIN SOD 5,000 UNIT/0.5 ML VIAL SQ SCH (04:00)
[2024-05-13 06:27] LABS: Hematocrit (blood only) 34.6 % (42.0-52.0); Mean Corpuscular Hemoglobin 29.7 pg (25.0-34.0); Mean Corpuscular Hgb Conc 31.8 g/dL (32.0-36.0); Mean Corpuscular Volume 93.5 fL (80.0-100.0); Mean Platelet Volume 10.8 fL (9.4-12.4); Platelet Count 130 K/uL (130-400); RDW Coefficient of Variation 15.1 % (11.5-14.5); RDW Standard Deviation 52.8 fL (36.4-46.3); White Blood Count 16.99 K/ul (4.8-10.8)
[2024-05-13 06:58] LABS: Albumin Level 3.3 gm/dl (3.4-5.0); BUN Creatinine Ratio 16.2 (10-20); Bilirubin Direct 0.4 mg/dl (0-0.2); Bilirubin,Total 1.5 mg/dl (0.2-1.0); Calcium 8.2 mg/dl (8.6-10.3); Est GFR (African American) 34.4 ml/min; Est GFR (Non-African American) 29.7 ml/min; Potassium 4.7 mmol/L (3.5-5.1); Total Protein 5.8 gm/dl (6.0-8.3)
[2024-05-13 07:05] LABS: Troponin I High Sensitivity 54.1 pg/ml (0-20)
--- NOTE | 2024-05-13 07:15 | XRay Report ---
XR chest 1V not portable CLINICAL HISTORY: Weakness COMPARISON STUDY: Chest radiograph and chest CT December 20, 2022. FINDINGS: Status post median sternotomy. Cardiomediastinal silhouette is stable. No evidence for pulm onary edema. There is no pneumothorax or pleural effusion. Calcified granuloma within the left upper lobe is incidentally noted. IMPRESSION: No acute cardiopulmonary findings. No change in appearance of the chest. ACT 112: Negative or not required by law. Electronically signed by: Jos Holt M.D. 05/13/2024 7:14 AM
[2024-05-13] MEDS ORDERED: PHARMACY GLYCEMIC MGMT CONSULT PRN (07:49)
[2024-05-13] MEDS: ACEBUTOLOL HCL 200 MG CAPSULE PO SCH (08:55)
[2024-05-13] MEDS: TICAGRELOR 90 MG TAB PO SCH (08:55)
[2024-05-13] MEDS: LANTUS PER UNIT CHARGE SQ SCH (08:56)
[2024-05-13] MEDS: PANTOprazole 40 MG TAB PO SCH (08:56)
[2024-05-13] MEDS: FAMOTIDINE 20 MG TAB PO SCH (08:56)
[2024-05-13] MEDS: INSULIN ASPART PER UNIT CHARGE SC SCH (08:57)
--- NOTE | 2024-05-13 10:22 | Pharmacy Report ---
Pharmacy Glycemic Short Note 2 - Date of Service May 13, 2024 - Glycemic Short BSG Results (Last 24 hours): 05/12/24 05/13/24 05/13/24 20:00 05:39 07:50 Glucose 196 H 182 H POC Glucose 188 H OUTPATIENT ANTIDIABETIC REGIMEN: * dapagliflozin 10mg PO daily * dulaglutide 3mg SQ weekly * Novolog Mix 70/30 40units SQ qAM, 60 units with dinner HbA1C:____ ASSESSMENT: * Patient is an 79 year old male with a history of DM2 on insulin therapy at home admitted with sepsis likely secondary to urinary source. Pharmacy consulted to assist with inpatient glycemic management. * BSGs [phone]/dL since admission. Diet ordered. Receiving IV antibiotics. * Continue basal/bolus insulin while admitted. Novolog ~ moderate stress scale ACHS. Agree with Lantus 20 units BID (~60% of home basal regimen) to start. PLAN FOR INPATIENT GLYCEMIC CONTROL: * Hold outpatient oral diabetes medications * Basal insulin * Lantus 20 units SQ BID * Bolus insulin * NovoLog per scale ACHS or Q6hrs while NPO * Goal Range: Low 110 mg/dL - High 140 mg/dL * Correction Factor: 20 mg/dL/unit * Nutritional / Prandial insulin per carb ratio of 1 unit per 7 grams CHO consumed
--- NOTE | 2024-05-13 10:47 | Hospitalist Progress Note ---
Date of Service May 13, 2024 Assessment & Plan (1) Sepsis: (2) UTI (urinary tract infection): (3) COVID-19: (4) CAD (coronary artery disease): (5) HFrEF (heart failure with reduced ejection fraction): (6) S/P CABG (coronary artery bypass graft): (7) Diabetes mellitus with stage 3 chronic kidney disease: (8) Chronic kidney disease, stage 3a: Plan 79-year-old male with past medical history of coronary disease status post CABG on lifelong DAPT with aspirin and Brilinta, chronic systolic congestive heart failure with reduced ejection fraction with EF of 36 to 40%, CKD stage IIIb, gout, type 2 diabetes mellitus, moderate mitral regurgitation who presents today to the ED with 3 days of urinary symptoms along with generalized weakness, fatigue, malaise and poor oral intake and found to be septic secondary to UTI and also found to be COVID-19 positive #Sepsis present on admission likely source UTI #UTI Blood cultures sent on admission are still pending Urine cultures growing gram-negative bacilli White count is improving Blood pressure slowly improved Tachycardia has improved Continue IV Zosyn (day 1) Follow-up cultures Lactic levels have improved Hold off on any more IV fluids given history of heart failure Hold off on torsemide for now #COVID-19 infection Patient denies any sick contacts Patient is asymptomatic except for malaise and fatigue Chest x-ray did not show any evidence of infiltrates or fluid Hold off on remdesivir/steroids Patient is not hypoxic at this point PT/OT consult #Coronary disease status post CABG #Chronic systolic congestive heart failure with reduced ejection fraction of 36 to 40% #Moderate mitral regurgitation Outpatient laboratory animal care veterinarian Dr. Len Lovell ([phone]) Holding Entresto and torsemide in light of sepsis Continue aspirin plus Brilinta and statin Continue acebutolol I/O monitoring Daily weights #CKD stage IIIb/stage IV Outpatient crystal syrup maker is Dr. Alexander Lopez Baseline creatinine is between 1.5-2.0 Entresto and torsemide have been held for now Patient appears to be close to his baseline Avoid nephrotoxic agents including NSAIDs Monitor renal function electrolytes #Type 2 diabetes mellitus Check A1c Pharmacy consult for glycemic management CODE STATUS: Full code DVT prophylaxis: Heparin subcutaneous 3 times daily Awaiting PT/OT consults for discharge recommendations, urine culture and blood culture still pending Care plan discussed with patient, nursing staff Admission and Anticipated Discharge Date Admission Date: May 12, 2024 Subjective Patient seen and examined H&P reviewed Labs reviewed Radiology reviewed Patient still feels very weak and tired although feels better in general. He denies any chills and reports improvement in his urinary symptoms Denies any fever, chills, chest pain, shortness of breath, cough, nausea, vomiting, diarrhea, abdominal pain, sore throat. Main complaint is myalgias and weakness Social history: Lives at home with his . Independent of ADLs. Drives, does not use any cane or walker at baseline Review of Systems Review of Systems: As per HPI Physical Exam Physical Exam: General: No acute distress Psych: Awake and alert, oriented x 3, able to tell me the current [place] president is Zurdo Funes HEENT: Anicteric sclera, moist oral mucosa CVS: Regular rate and rhythm Lungs: Bilateral air entry, no wheezing noted Abdomen: Soft, nontender, no rebound, no guarding Ext: No lower extremity edema, no calf tenderness Neuro: No focal motor deficits noted Results & Data Results & Data Vital Signs (Past 12 Hours) Vital Signs Temp Pulse Resp BP BP Pulse Ox O2 Del Method 05/13/24 07:54 37.1 C 82 18 104/54 L 84/47 L 97 Room Air 05/13/24 04:21 37.4 C 87 20 107/52 L 93 Room Air 05/12/24 23:01 94 H 91/50 L 93 Room Air Laboratory Results Laboratory Results - last 24 hr 05/12/24 05/12/24 05/12/24 20:00 22:08 22:33 WBC 20.22 H RBC 4.58 L Hgb 13.7 L Hct 42.6 MCV 93.0 MCH 29.9 MCHC 32.2 RDW Std Deviation 51.6 H RDW Coeff of Cherelle 15.1 H Plt Count 171 MPV 10.4 Immature Gran % (Auto) 1.4 Neut % (Auto) 85.2 Lymph % (Auto) 6.6 [place] % (Auto) 6.3 Eos % (Auto) 0.3 Baso % (Auto) 0.2 Neut # (Auto) 17.20 H Lymph # (Auto) 1.34 [place] # (Auto) 1.28 H Eos # (Auto) 0.06 Baso # (Auto) 0.05 Immature Gran # (Auto) 0.29 H PT 11.4 INR 1.1 APTT 31 PTT Ratio 1.2 Sodium 136 Potassium 4.9 Chloride 103 Carbon Dioxide 22 Anion Gap 11 BUN 30 H Creatinine 2.16 H Est Cr Clr Drug Dosing 33.7 Est GFR ( Amer) 32.1 Est GFR (Non-Af Amer) 27.7 BUN/Creatinine Ratio 13.9 Glucose 196 H POC Glucose Lactate 2.3 H* Calcium 9.4 Magnesium 1.7 Total Bilirubin 1.1 H Direct Bilirubin AST 17 ALT 20 Alkaline Phosphatase 121 H Troponin I High Sens 52.9 H* Total Protein 7.3 Albumin 4.2 Globulin 3.1 Albumin/Globulin Ratio 1.4 TSH 0.771 Urine Color Yellow Urine Appearance Clear Urine pH 5.5 Ur Specific [place] 1.020 Urine Protein 2+ H Urine Glucose (UA) 2+ H Urine Ketones Negative Urine Blood 3+ H Urine Nitrite Negative Urine Bilirubin Negative Urine Urobilinogen Negative Ur Leukocyte Esterase 1+ H Urine RBC 11-20 H Urine WBC 11-20 H Ur Epithelial Cells 0-2 Urine Bacteria 1+ H Nasal Screen MRSA (PCR) Negative Adenovirus (PCR) Not Detected B. pertussis DNA (PCR) Not Detected B.parapertussis DNA PCR Not Detected C. pneumoniae DNA (PCR) Not Detected Coronavirus OC43 (PCR) Not Detected Coronavirus HKU1 (PCR) Not Detected Coronavirus 229E (PCR) Not Detected SARS-CoV-2 (PCR) DETECTED A Coronavirus NL63 (PCR) Not Detected Human Metapneumovir PCR Not Detected Influenza Type A (PCR) Not Detected Influenza Type B (PCR) Not Detected M. pneumoniae (PCR) Not Detected Parainfluenza 1 (PCR) Not Detected Parainfluenza 2 (PCR) Not Detected Parainfluenza 3 (PCR) Not Detected Parainfluenza 4 (PCR) Not Detected RSV (PCR) Not Detected Entero/Rhino (PCR) Not Detected 05/12/24 05/13/24 05/13/24 22:34 00:32 05:39 WBC 16.99 H RBC 3.70 L Hgb 11.0 L Hct 34.6 L MCV 93.5 MCH 29.7 MCHC 31.8 L RDW Std Deviation 52.8 H RDW Coeff of Cherelle 15.1 H Plt Count 130 MPV 10.8 Immature Gran % (Auto) Neut % (Auto) Lymph % (Auto) [place] % (Auto) Eos % (Auto) Baso % (Auto) Neut # (Auto) Lymph # (Auto) [place] # (Auto) Eos # (Auto) Baso # (Auto) Immature Gran # (Auto) PT INR APTT PTT Ratio Sodium 136 Potassium 4.7 Chloride 106 Carbon Dioxide 22 Anion Gap 8 BUN 33 H Creatinine 2.04 H Est Cr Clr Drug Dosing 35.0 Est GFR ( Amer) 34.4 Est GFR (Non-Af Amer) 29.7 BUN/Creatinine Ratio 16.2 Glucose 182 H POC Glucose Lactate 1.8 Calcium 8.2 L Magnesium Total Bilirubin 1.5 H Direct Bilirubin 0.4 H AST 15 ALT 17 Alkaline Phosphatase 94 Troponin I High Sens 54.1 H* 54.1 H* Total Protein 5.8 L D Albumin 3.3 L Globulin Albumin/Globulin Ratio TSH Urine Color Urine Appearance Urine pH Ur Specific [place] Urine Protein Urine Glucose (UA) Urine Ketones Urine Blood Urine Nitrite Urine Bilirubin Urine Urobilinogen Ur Leukocyte Esterase Urine RBC Urine WBC Ur Epithelial Cells Urine Bacteria Nasal Screen MRSA (PCR) Adenovirus (PCR) B. pertussis DNA (PCR) B.parapertussis DNA PCR C. pneumoniae DNA (PCR) Coronavirus OC43 (PCR) Coronavirus HKU1 (PCR) Coronavirus 229E (PCR) SARS-CoV-2 (PCR) Coronavirus NL63 (PCR) Human Metapneumovir PCR Influenza Type A (PCR) Influenza Type B (PCR) M. pneumoniae (PCR) Parainfluenza 1 (PCR) Parainfluenza 2 (PCR) Parainfluenza 3 (PCR) Parainfluenza 4 (PCR) RSV (PCR) Entero/Rhino (PCR) 05/13/24 07:50 WBC RBC Hgb Hct MCV MCH MCHC RDW Std Deviation RDW Coeff of Cherelle Plt Count MPV Immature Gran % (Auto) Neut % (Auto) Lymph % (Auto) [place] % (Auto) Eos % (Auto) Baso % (Auto) Neut # (Auto) Lymph # (Auto) [place] # (Auto) Eos # (Auto) Baso # (Auto) Immature Gran # (Auto) PT INR APTT PTT Ratio Sodium Potassium Chloride Carbon Dioxide Anion Gap BUN Creatinine Est Cr Clr Drug Dosing Est GFR ( Amer) Est GFR (Non-Af Amer) BUN/Creatinine Ratio Glucose POC Glucose 188 H Lactate Calcium Magnesium Total Bilirubin Direct Bilirubin AST ALT Alkaline Phosphatase Troponin I High Sens Total Protein Albumin Globulin Albumin/Globulin Ratio TSH Urine Color Urine Appearance Urine pH Ur Specific [place] Urine Protein Urine Glucose (UA) Urine Ketones Urine Blood Urine Nitrite Urine Bilirubin Urine Urobilinogen Ur Leukocyte Esterase Urine RBC Urine WBC Ur Epithelial Cells Urine Bacteria Nasal Screen MRSA (PCR) Adenovirus (PCR) B. pertussis DNA (PCR) B.parapertussis DNA PCR C. pneumoniae DNA (PCR) Coronavirus OC43 (PCR) Coronavirus HKU1 (PCR) Coronavirus 229E (PCR) SARS-CoV-2 (PCR) Coronavirus NL63 (PCR) Human Metapneumovir PCR Influenza Type A (PCR) Influenza Type B (PCR) M. pneumoniae (PCR) Parainfluenza 1 (PCR) Parainfluenza 2 (PCR) Parainfluenza 3 (PCR) Parainfluenza 4 (PCR) RSV (PCR) Entero/Rhino (PCR) Diagnostic Findings Chest X-Ray 05/12/24 19:46 XR chest 1V not portable CLINICAL HISTORY: Weakness COMPARISON STUDY: Chest radiograph and chest CT December 20, 2022. FINDINGS: Status post median sternotomy. Cardiomediastinal silhouette is stable. No evidence for pulmonary edema. There is no pneumothorax or pleural effusion. Calcified granuloma within the left upper lobe is incidentally noted. IMPRESSION: No acute cardiopulmonary findings. No change in appearance of the chest. ACT 112: Negative or not required by law. Electronically signed by: Jos Holt M.D. 05/13/2024 7:14 AM PG Care Time/CCT Total # of Minutes Spent Total Time Spent with Patient: Total time spent is greater than 50% in coordination of care (as documented) at patient's floor/unit and/or counseling patient: Coding Level of Care Code 06178 SUB INP/OBS CARE 3/50MIN Diagnoses Sepsis A41.9 UTI (urinary tract infection) N39.0 COVID-19 U07.1 CAD (coronary artery disease) I25.10 HFrEF (heart failure with reduced ejection fraction) I50.20 S/P CABG (coronary artery bypass graft) Z95.1 Diabetes mellitus with stage 3 chronic kidney disease E11.22; N18.3 Chronic kidney disease, stage 3a N18.31
--- NOTE | 2024-05-13 12:45 | Electrocardiogram Report ---
Test Reason : Blood Pressure : */* mmHG Vent. Rate : 86 BPM Atrial Rate : 86 BPM P-R Int : 214 ms QRS Dur : 136 ms QT Int : 380 ms P-R-T Axes : 50 -73 73 degrees QTcB Int : 454 ms Sinus rhythm with 1st degree A-V block Right bundle branch block Left anterior fascicular block Bifascicular block Abnormal ECG When compared with ECG of 29-Dec-2022 12:03, T wave inversion now evident in Anterior leads Confirmed by Lul Mckeon ([id number]) on 05/13/2024 10:58:37 AM Referred By: REFERRED SELF Confirmed By: Lul Mckeon
[2024-05-13] MEDS: ATORVASTATIN 40 MG TAB PO SCH (21:00)
[2024-05-13] MEDS ORDERED: allopurinoL 300 MG TAB PO SCH (21:00)
[2024-05-13] MEDS: ASPIRIN 81 MG ECTAB PO SCH (21:00)
[2024-05-14 07:21] LABS: Estimated Average Glucose 194 mg/dl; Hemoglobin A1C 8.4 % (4.5-5.6)
[2024-05-14 07:41] VITALS: RESP 19
[2024-05-14 08:49] LABS: Albumin Globulin Ratio 1.3 (0.9-2); Albumin Level 3.3 gm/dl (3.4-5.0); BUN Creatinine Ratio 14.8 (10-20); Calcium 8.6 mg/dl (8.6-10.3); Creatinine Clr Calc Pharmacy 31.1 ml/min; Est GFR (African American) 29.9 ml/min; Est GFR (Non-African American) 25.8 ml/min; Globulin 2.6 gm/dl (2.5-4.0); Potassium 4.3 mmol/L (3.5-5.1); Total Protein 5.9 gm/dl (6.0-8.3)
[2024-05-14] MEDS: LANTUS PER UNIT CHARGE SQ SCH (08:52)
[2024-05-14] MEDS: AMOXICILLIN 500 MG CAP PO SCH (10:36)
[2024-05-14 11:08] VITALS: BP 115/66; TEMP 98.1; O2SAT 95
--- NOTE | 2024-05-14 12:11 | Pharmacy Report ---
Pharmacy Glycemic Short Note 2 - Date of Service May 14, 2024 - Glycemic Short BSG Results (Last 24 hours): 05/13/24 05/13/24 05/14/24 16:29 20:24 07:43 Glucose POC Glucose 157 H 122 H 95 05/14/24 05/14/24 08:05 11:06 Glucose 103 H POC Glucose 154 H OUTPATIENT ANTIDIABETIC REGIMEN: * dapagliflozin 10mg PO daily * dulaglutide 3mg SQ weekly * Novolog Mix 70/30 40units SQ qAM, 60 units with dinner HbA1C: 8.4% (05/14) ASSESSMENT: 05/14: * BSGs largely within goal the last 24h: 127-917-12kp/dL. Received 40 units of basal and 22 units of bolus insulin yesterday. * Tolerating diet, continues on IV antibiotics. * Given fasting BSG slightly below goal at 95mg/dL this AM, will decrease Lantus to 15 units BID. No change to Novolog. 05/13: * Patient is an 79 year old male with a history of DM2 on insulin therapy at home admitted with sepsis likely secondary to urinary source. Pharmacy consulted to assist with inpatient glycemic management. * BSGs [phone]/dL since admission. Diet ordered. Receiving IV antibiotics. * Continue basal/bolus insulin while admitted. Novolog ~ moderate stress scale ACHS. Agree with Lantus 20 units BID (~60% of home basal regimen) to start. PLAN FOR INPATIENT GLYCEMIC CONTROL: * Hold outpatient oral diabetes medications * Basal insulin * Lantus 15 units SQ BID * Bolus insulin * NovoLog per scale ACHS or Q6hrs while NPO * Goal Range: Low 110 mg/dL - High 140 mg/dL * Correction Factor: 20 mg/dL/unit * Nutritional / Prandial insulin per carb ratio of 1 unit per 7 grams CHO consumed
--- NOTE | 2024-05-14 13:04 | Discharge Summary ---
Discharge Summary Date of Service May 14, 2024 Principal Dx & Hospital Course #1 = Principal Diagnosis (1) Sepsis: (2) UTI (urinary tract infection): (3) COVID-19: (4) CAD (coronary artery disease): (5) HFrEF (heart failure with reduced ejection fraction): (6) S/P CABG (coronary artery bypass graft): (7) Diabetes mellitus with stage 3 chronic kidney disease: (8) Chronic kidney disease, stage 3a: Plan 79-year-old male with past medical history of coronary disease status post CABG on lifelong DAPT with aspirin and Brilinta, chronic systolic congestive heart failure with reduced ejection fraction with EF of 36 to 40%, CKD stage IIIb, gout, type 2 diabetes mellitus, moderate mitral regurgitation who presents today to the ED with 3 days of urinary symptoms along with generalized weakness, fatigue, malaise and poor oral intake and found to be septic secondary to UTI and also found to be COVID-19 positive #Sepsis present on admission likely source UTI #UTI Blood cultures sent on admission are still pending Urine cultures growing gram-negative bacilli White count is improving Blood pressure slowly improved Tachycardia has improved Continue IV Zosyn (day 1) Follow-up cultures Lactic levels have improved Hold off on any more IV fluids given history of heart failure Hold off on torsemide for now #COVID-19 infection Patient denies any sick contacts Patient is asymptomatic except for malaise and fatigue Chest x-ray did not show any evidence of infiltrates or fluid Hold off on remdesivir/steroids Patient is not hypoxic at this point PT/OT consult #Coronary disease status post CABG #Chronic systolic congestive heart failure with reduced ejection fraction of 36 to 40% #Moderate mitral regurgitation Outpatient project program manager Dr. Len Lovell ([phone]) Holding Entresto and torsemide in light of sepsis Continue aspirin plus Brilinta and statin Continue acebutolol I/O monitoring Daily weights #CKD stage IIIb/stage IV Outpatient pharmacy service associate is Dr. Alexander Lopez Baseline creatinine is between 1.5-2.0 Entresto and torsemide have been held for now Patient appears to be close to his baseline Avoid nephrotoxic agents including NSAIDs Monitor renal function electrolytes #Type 2 diabetes mellitus Check A1c Pharmacy consult for glycemic management CODE STATUS: Full code DVT prophylaxis: Heparin subcutaneous 3 times daily Awaiting PT/OT consults for discharge recommendations, urine culture and blood culture still pending Care plan discussed with patient, nursing staff Admission HPI Per Admitting Provider Wild Goyal is a pleasant 79yo male presenting with 3 days of urinary symptoms - frequency, urgency and dysuria as well as two days of generalized weakness, fatigue, malaise and poor PO intake. Patient with history of CAD s/p CABG and subsequent stenting (most recently 05/15/23) on lifelong DAPT with ASA and Brillinta, HFrEF (on Entresto and Farxiga, Echo 08/24/23 with EF 36-40%), DM, GERD, CKD 3B and Gout. Patient reports developing urinary symptoms of increased frequency and urgency three days ago. Two days ago he developed some urinary incontinence and dribbling as well as generalized weakness, fatigue, malaise, nausea and poor appetite with decreased intake. Also with fever and chills at home. Patient denies chest pain, palpitations, SOB, abdominal pain, vomiting or diarrhea. No flank pain. No additional complaints at this time. Patient has not taken his medications for several days. Patient with sepsis secondary to UTI in the past requiring hospitalization - last at [facility] one year ago. Was hospitalized in [place] as well for similar presentation. In the ER patient afebrile, elevated HR at 96, BP borderline low at 93/48. ER Course: 1L NSS Zosyn 4.5gm Zofran 4mg IV Discharge Plan Discharge Items Patient Disposition: Home - Self-Care Reason For Visit: SEPSIS, UTI Discharge Diagnosis: 1. urinary tract infection due to e.coli - resolving 2. sepsis due to urinary tract infection - resolved 3. COVID-19 infection - stable 4. chronic systolic congestive heart failure 5. type 2 diabetes 6. chronic kidney disease Activity: As commented below Activity Comment: gradually increase your activities over the next week Non-emergency contact: Primary Care Provider Call non-emergency contact if: you have any medication questions, your symptoms worsen and you have a fever Follow-up/Referrals: Reginaldo Salas MD [Physician] - 05/30/24 12:30 pm (Appointment with Dr. Salas, Clinic Licensed Practical Nurse is scheduled for May 30, 2024 at 12:30pm. ) Kathy Donahue MD [Resident] - 05/19/24 12:45 pm (Dr. Cho did not have any available appointments. ) Diet: Carb Consistent or DM2 and Heart Healthy Fluids: 1800ml (7 cups) Addtl Attending Provider Instructions: Mr Goyal, You were hospitalized for a combination of urinary tract infection (UTI) and COVID-19 infection. I suspect that the majority of your symptoms were from the UTI, but your fatigue/weakness may have been from COVID as well. Your chest x-ray did not show any pneumonia. Your labs were stable. Your vital signs remained stable/normal. Your oxygen levels were normal the entire stay. You improved with IV/oral antibiotics. Your COVID infection did not require any specific treatment. Recommendations - 1. for bladder infection/UTI - * amoxicillin 500mg twice daily x 12 more days, next dose TONIGHT on 05/14/24 2. COVID-19 - since it is difficult to know when your first day of your COVID illness began I would just plan to "isolate" at home over the next few days. Isolation means avoiding contact with others in the community, if possible. During your isolation try to limit visitors to your home. If you have to have visitors they should mask and you should mask up as well. Avoid going into public settings during your isolation period. On 05/17/24, if you are feeling well, have no fevers, cough is absent, etc - you can end your isolation period and go about into your community as usual. When you finish your isolation period I would recommend wearing a mask in public for 5 days beyond Sunday, however, for your protection and the protection of others. 3. HOLD your dapagliflozin (Farxiga) as this medication is contraindicated in the setting of urinary tract infections. 4. 70/30 insulin -- during your stay you were requiring about 50-60 units of total insulin each day. This is much less than what you were taking at home. To be on the safe side please do the following -- * lower your MORNING 70/30 insulin dose to 30 units * lower your EVENING 70/30 insulin dose to 50 units Check your blood sugars at least 3 times each day, preferably 4 times (before meals & at bedtime). When you see the senior back end java developer with [employer] bring your log with your blood sugars for their review. 5. Check your weight every morning on the same scale due to your congestive heart failure. Follow the parameters that were previously given to you for your torsemide which is your diuretic water pill. If you are having rapid weight gains please call your project program manager right away for guidance. 6. In the next few days if you have any fever over 100 degrees, develop a cough/shortness of breath, have worsening fatigue or weakness, etc. this may be your COVID getting worse. If you experience worsening COVID symptoms please camila l your family doctor right away. They may prescribe you Paxlovid anti-viral medicine for the COVID. Follow-up - see separate section Return to [facility] if - * you have new fevers over 100 degrees * you have worsening shortness of breath * you have chest pains * you have worsening fatigue or weakness * you have vomiting or abdominal pain * you develop severe diarrhea * any other concerns It was our pleasure to care for you! Addtl Air Pollution Specialist Provider Instructions: Congestive heart failure instructions: Call 911 and go to the Emergency Room if: * You have tightness or pain in your chest that does not go away with rest or Nitroglycerin * You are very short of breath even with rest Call your doctor if any of the following symptoms or problems start or get worse: * Shortness of breath or difficulty breathing * Wake up at night short of breath * Chest pain * Cough * Swelling of your hands, fee, or legs * More fatigued or tired with your normal activity * Palpitations - sudden fast heart beats WEIGHT * Weigh yourself every morning after using the bathroom. * Use the same scale. * Wear the same amount of clothing. * Write your weight down on your chart. * Call your doctor if you gain more than 3 pounds in 1-2 days. This is usually a sign of fluid weight gain from congestive heart failure. MEDICATIONS * Use this discharge instruction sheet for instructions. * Take your medications at the time your doctor ordered. * Do not skip a dose of your medicines. * If you miss a dose of medicine, take as soon as possible, but DO NOT DOUBLE A DOSE. * Read your medicine information when you get home. * Know all of the side effects of your medicine. * Call your doctor's office if you have any side effects. * Be sure all of your doctors know what medicine and herbs you take (including cold, flu, and herbal medicine). * Pain Medicine: If you do not get relief from your pain, please call your doctor for help. Take the following with you to your follow-up doctor appointments: * Weight Chart * Medication List * List of questions Do not drink excessive alcohol, beer or wine. Pending Studies at Discharge: Yes Studies:: blood cultures, but thus far negative (no infection in the blood) Stand-Alone Forms: My [facility], Smoking Cessation Medications and DC Order Prescriptions: New amoxicillin 500 mg Capsule 500 mg PO BID 12 Days Qty: 24 0RF Rx Instructions: start PM of 05/14/24 Continued (DME) blood sugar diagnostic Strip See Dose Instructions .ROUTE .MEDSUPPLY Qty: 300 3RF Dose Instruction: As directed Rx Instructions: TEST 3 TIMES DAILY (DME) insulin syringe-needle U-100 [BD Insulin Syringe Ultra-Fine] 1 mL 31 gauge x 5/16 syringe See Rx Instructions .ROUTE .MEDSUPPLY Qty: 200 5RF Rx Instructions: USE BID E11.2 acebutolol 200 mg capsule 200 mg PO BID Entresto 24-26 mg tablet 1 tab PO BID Brilinta 90 mg tablet 90 mg PO BID (DME) blood-glucose meter [OneTouch Verio Flex Start] kit See Dose Instructions .ROUTE .MEDSUPPLY Qty: 1 0RF Dose Instruction: As directed Rx Instructions: As directed multivitamin Tablet 1 tab PO QAM aspirin 81 mg Tablet,Delayed Release (Dr/Ec) 81 mg PO QPM pantoprazole 40 mg tablet,delayed release (DR/EC) 40 mg PO BID nitroglycerin [Nitrostat] 0.4 mg Tablet, Sublingual 0.4 mg sublingual Q5M PRN (Reason: chest pain) Qty: 1 0RF Rx Instructions: max 3 tabs in 15 minutes Trulicity 3 mg/0.5 mL pen injector 3 mg SUBCUT WK Rx Instructions: saturdays amoxicillin 500 mg capsule 2,000 mg PO ONCE PRN (Reason: prior to dental procedures) famotidine 20 mg tablet 20 mg PO BID isosorbide mononitrate 60 mg tablet extended release 24 hr 60 mg PO QPM atorvastatin 80 mg tablet 80 mg PO QPM allopurinol 300 mg tablet 300 mg PO QPM torsemide 20 mg tablet 20 mg PO DAILY PRN (Reason: Weight Gain) Qty: 0 0RF Rx Instructions: Take 1 tablet by mouth once daily as needed for weight gain greater then 3 lbs over 2-3 days Changed insulin asp prt-insulin aspart [Novolog Mix 70-30 U-100 Insuln] 100 unit/mL (70-30) solution See Rx Instructions .ROUTE .COMPLEX Qty: 50 5RF Dose Instruction: Take 50 units before breakfast and 70 units before dinner or as directed SQ BIDM; Patient Comments: takes 35 units qam/60 units qpm Rx Instructions: Take 30 units before breakfast and 50 units before your evening/dinner meal. Note lower dose. Held Farxiga 10 mg tablet 10 mg PO DAILY Hold Instructions: hold unless Dr Cho or your other outpatient providers tell you it is safe to resume Discharge Orders: Discharge Order (Routine); Ordered 05/14/24 Ordered By: Nicholas Wheat/Other Patient Handouts: High Blood Sugar (Hyperglycemia), Managing Type 2 Diabetes Admission Data Admit Date/Time: 05/12/24 22:33 Attending Provider: Nicholas Jenkins Admit Provider: Corrie Corrigan Primary Care Provider: Lj Cho Other Providers: Corrie Corrigan Hospital Stay Data Consultations 05/12/24 21:49 ED Decision to Admit Stat Pending Results Patient Have Any Pending Studies at Discharge: Yes Discharge Instructions Given to Patient (Per Discharging Provider) Mr Goyal, You were hospitalized for a combination of urinary tract infection (UTI) and COVID-19 infection. I suspect that the majority of your symptoms were from the UTI, but your fatigue/weakness may have been from COVID as well. Your chest x-ray did not show any pneumonia. Your labs were stable. Your vital signs remained stable/normal. Your oxygen levels were normal the entire stay. You improved with IV/oral antibiotics. Your COVID infection did not require any specific treatment. Recommendations - 1. for bladder infection/UTI - * amoxicillin 500mg twice daily x 12 more days, next dose TONIGHT on 05/14/24 2. COVID-19 - since it is difficult to know when your first day of your COVID illness began I would just plan to "isolate" at home over the next few days. Isolation means avoiding contact with others in the community, if possible. During your isolation try to limit visitors to your home. If you have to have visitors they should mask and you should mask up as well. Avoid going into public settings during your isolation period. On 05/17/24, if you are feeling well, have no fevers, cough is absent, etc - you can end your isolation period and go about into your community as usual. When you finish your isolation period I would recommend wearing a mask in public for 5 days beyond Sunday, however, for your protection and the protection of others. 3. HOLD your dapagliflozin (Farxiga) as this medication is contraindicated in the setting of urinary tract infections. 4. 70/30 insulin -- during your stay you were requiring about 50-60 units of total insulin each day. This is much less than what you were taking at home. To be on the safe side please do the following -- * lower your MORNING 70/30 insulin dose to 30 units * lower your EVENING 70/30 insulin dose to 50 units Check your blood sugars at least 3 times each day, preferably 4 times (before meals & at bedtime). When you see the senior back end java developer with [employer] bring your log with your blood sugars for their review. 5. Check your weight every morning on the same scale due to your congestive heart failure. Follow the parameters that were previously given to you for your torsemide which is your diuretic water pill. If you are having rapid weight gains please call your project program manager right away for guidance. 6. In the next few days if you have any fever over 100 degrees, develop a cough/shortness of breath, have worsening fatigue or weakness, etc. this may be your COVID getting worse. If you experience worsening COVID symptoms please call your family doctor right away. They may prescribe you Paxlovid anti-viral medicine for the COVID. Follow-up - see separate section Return to [facility] if - * you have new fevers over 100 degrees * you have worsening shortness of breath * you have chest pains * you have worsening fatigue or weakness * you have vomiting or abdominal pain * you develop severe diarrhea * any other concerns It was our pleasure to care for you! Coding Diagnoses Sepsis A41.9 UTI (urinary tract infection) N39.0 COVID-19 U07.1 CAD (coronary artery disease) I25.10 HFrEF (heart failure with reduced ejection fraction) I50.20 S/P CABG (coronary artery bypass graft) Z95.1 Diabetes mellitus with stage 3 chronic kidney disease E11.22; N18.3 Chronic kidney disease, stage 3a N18.31
[2024-05-14 14:53] VITALS: PULSE 73
== END 2024-05-14 14:54 | disposition home or self-care (01) | DRG 871 ==
LOC: ED 19:37 → 4W 22:33 → SUATTDRO 22:33 → 4W 23:06 → 2E 05-13 00:06

== ENCOUNTER 2024-07-13 19:55 | Observation (INO) ==
--- OUTSIDE RECORDS SUMMARY | 2024-07-13 20:01 | External Medical Summary | Continuity of Care Document ---
Author Name Unknown Organization [facility] [id number] [place] [phone] Care Team Providers Care Scientific Glass Blower Name Role Phone Lj Cho Primary Care Physician [phone] Encounter [facility] [id number] Date(s): 06/25/24 - 06/25/24 [facility] [address] [place] [id number] [phone] Encounter Diagnosis Body mass index [BMI] 35.0-35.9, adult(Discharge Diagnosis) - 06/25/24 Hypertension(Discharge Diagnosis) - 06/25/24 High cholesterol(Discharge Diagnosis) - 06/25/24 Iron deficiency anemia(Discharge Diagnosis) - 06/25/24 Stage 3b chronic kidney disease (CKD)(Discharge Diagnosis) - 06/25/24 CAD (coronary atherosclerotic disease)(Discharge Diagnosis) - 06/25/24 Discharge Disposition: Home or Self Care Attending Physician: DO Cho Franklin J Allergies, Adverse Reactions, Alerts No Known Allergies Assessment and Plan Extracted from: Title:General Exam * Author:DO Cho Franklin J Date:06/25/24 Impression and Plan Diagnosis Stage 3b chronic kidney disease (CKD) (IFI64-SL N18.32, Discharge, Medical). CAD (coronary atherosclerotic disease) (TOI93-IB I25.10, Discharge, Medical). Hypertension (GFH24-LL I10, Discharge, Medical). High cholesterol (LAE80-TG E78.00, Discharge, Medical). Iron deficiency anemia (EOV03-YY D50.9, Discharge, Medical). 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 For the most part, appears euvolemic today; again some slight sock line edema although minor and not unexpected this late in the day He does have furosemide to use as needed, although he has not used one recently Appropriate follow-up with cardiology tomorrow Medication list updated; back on Imdur Fortunately, the orthostatic symptoms he had previously had not returned on this current dose of Imdur Remains on Brilinta and aspirin Diabetes Most recent A1c 8.8%, though he has noted improvement in his home glucose readings since Mounjaro was added Originally on Trulicity, although switched to Ozempic due to availability; did not tolerate Ozempic, now on Mounjaro and tolerating low-dose Jardiance has been added Iron deficiency anemia Tolerating oral iron supplementation without side effects He does note some fatigue, although this may just be a function of age and weather Most recent CBC shows stable hemoglobin CKD, stage III Nephrology note reviewed Recheck BMP; most recent serum creatinine improved Follow-up with nephrology Preventive Flu vaccination today . Immunizations Given and Recorded Vaccine Date Status Refusal Reason influenza virus vaccine, inactivated 06/25/24 Give n influenza virus vaccine, inactivated 05/10/22 Give n SARS-CoV-2 (COVID-19) mRNA BNT-162b2 vax 1 07/29/21 Recorded SARS-CoV-2 (COVID-19) mRNA BNT-162b2 vax 2 10/22/20 Recorded SARS-CoV-2 (COVID-19) mRNA BNT-162b2 vax 3 10/01/20 Recorded pneumococcal 13-valent vaccine 4 07/30/15 Recorded pneumococcal 23-valent vaccine 5 08/13/10 Recorded 1Result Comment: 2022-05-10: Historical information-source unspecified 2Result Comment: 2022-05-10: Historical information-source unspecified 3Result Comment: 2022-05-10: Historical information-source unspecified 4Result Comment: 2022-05-10: Historical information-source unspecified 5Result Comment: 2022-05-10: Historical information-source unspecified Medications acebutolol 200 mg oral capsule 1 cap, PO, bid, TAKE 1 CAPSULE BY MOUTH TWICE DAILY Start Date: 03/07/24 Status: Ordered aspirin 81 mg oral capsule Start: 09/13/22 3:20:00 PM EST, 1 cap, PO, Daily Start Date: 09/13/22 Status: Ordered atorvastatin 80 mg oral tablet Start: 08/09/23 4:45:00 PM EST, 1 tab, PO, Daily, Disp# 90 tab, Refills: 3, Pharmacy: [id number] Start Date: 08/09/23 Status: Ordered Brilinta (ticagrelor) 90 mg oral tablet Start: 03/21/23 3:02:00 PM EDT Start Date: 03/21/23 Status: Ordered dapagliflozin 10 mg oral tablet Start: 06/25/24 2:16:00 PM EST Start Date: 06/25/24 Status: Ordered Dexcom G6 Patient Information Coordinator Kit Start: 05/20/24 3:28:00 PM EDT, See Instructions, Disp# 1 kit, Refills: 0, Use to montor Glucose, Pharmacy: [facility]acy #[id number] Start Date: 05/20/24 Status: Ordered Dexcom G6 Sensor Kit Start: 06/03/24 3:50:00 PM EDT, See Instructions, Disp# 1 kit, Refills: 0, use as instructed, Pharmacy: [facility]/pharmacy #[id number] Start Date: 06/03/24 Status: Ordered Dexcom G6 Transmitter Kit Start: 05/20/24 3:29:00 PM EDT, See Instructions, Disp# 1 kit, Refills: 0, use to monitor glucose, [id number] Start Date: 05/20/24 Status: Ordered Entresto 24 mg-26 mg oral tablet TAKE 1 TABLET BY MOUTH TWICE DAILY Start Date: 03/05/24 Status: Ordered famotidine 20 mg oral tablet Start: 04/09/24 6:07:00 PM EDT, 1 tab, PO, bid, Disp# 180 tab, Refills: 0, Pharmacy: [id number] Start Date: 04/09/24 Status: Ordered insulin regular 100 units/mL human recombinant injectable solution Start: 01/13/15 10:21:00 AM EDT, sliding scale TID . Pt notes its usually 19 units Start Date: 01/13/15 Status: Ordered isosorbide mononitrate 120 mg oral tablet, extended release Start: 06/25/24 2:15:00 PM EST, 1 tab, PO, qAM Start Date: 06/25/24 Status: Ordered multivitamin Start: 08/26/21 9:40:00 AM EST Start Date: 08/26/21 Status: Ordered nitroglycerin 0.4 mg sublingual tablet Start: 09/01/22 3:12:00 PM EST, 1 tab, SL, q5min, Disp# 25 tab, PRN: as needed for chest pain Start Date: 09/01/22 Status: Ordered NovoLOG Mix 70/30 Vial subcutaneous suspension Start: 12/21/23 2:19:00 PM EDT, See Instructions, Disp# 50 mL, Refills: 3, INJECT 40 UNITS SUBCUTANEOUSLY BEFORE BREAKFAST AND 65 UNITS BEFORE DINNER OR DIRECTED TWICE DAILY BEFORE MEALS, Brand Medically Necessary, Pharmacy: [id number] Start Date: 12/21/23 Status: Ordered One Touch Ultra Blue Test Strips Start: 12/25/22 1:22:00 PM EDT, See Instructions, Disp# 300 strip, Refills: 3, use to check glucose three times daily, Pharmacy: [id number] Start Date: 12/25/22 Status: Ordered pantoprazole 40 mg oral delayed release tablet Start: 04/09/24 11:27:00 AM EDT, 1 tab, PO, bid, Disp# 180 tab, Refills: 3, Pharmacy: [id number] Start Date: 04/09/24 Status: Ordered tirzepatide 2.5 mg/0.5 mL subcutaneous solution Start: 06/25/24 2:15:00 PM EST Start Date: 06/25/24 Status: Ordered torsemide 20 mg oral tablet Start: 06/25/24 2:21:00 PM EST, 1 tab, PO, Daily, RN Start Date: 06/25/24 Status: Ordered Mental Status 06/25/24 Barriers to Learning one year None evide nt Mandatory Health Literacy Documentation Yes Health Literacy Communication Barriers N ever Primary Language Syriac Problem List Condition Confirmation Course Effective Dates Status H ealth Status Informant Basal cell carcinoma Confirmed Active Chest pain Confirmed Active Stage 3b chronic kidney disease (CKD) Confirmed Active CAD (coronary atherosclerotic disease) Confirmed Active Diabetes Confirmed Active Dysphagia Confirmed Active High cholesterol Confirmed Active Hypertension Confirmed Active Iron deficiency anemia Confirmed Active Kidney stones Confirmed Active Diagnosis Diagnosis Type Effective Dates Health Status Clinical Service Informant Stage 3b chronic kidney disease (CKD) Discharge Diagnosis 06/25/24 Non-Specified Iron deficiency anemia Discharge Diagnosis 06/25/24 Non-Specified Body mass index [BMI] 35.0-35.9, adult Discharge Diagnosis 06/25/24 Non-Specified Hypertension Discharge Diagnosis 06/25/24 Non-Specified High cholesterol Discharge Diagnosis 06/25/24 Non-Specified CAD (coronary atherosclerotic disease) Discharge Diagnosis 06/25/24 Non-Specified Procedures Procedure Date Related Diagnosis Body Site Status Upper GI (gastrointestinal) endoscopy 1 02/07/23 Completed Cardiac electrophysiology 12/29/22 Completed Chest x-ray 2 12/11/22 Completed Exercise stress ECG test 3 11/13/22 Completed Cardiac catheterization 4 08/27/22 Completed Chest X-ray 5 08/27/22 Completed Excision 09/08/21 Completed Shave biopsy and cauterization of skin 08/26/21 Completed Echocardiogram 6 10/11/20 Complete d Stent placement 2017 Completed Cardiac catheterization 7 02/21/17 Completed Stress echocardiography 8 02/19/17 Completed Shave biopsy and cauterisation of skin 01/03/17 Completed Shave biopsy and cauterizati on of skin 9 01/13/15 Completed Holter monitor 10 01/17/12 Complet ed Cardioversion 11 08/08/10 Complete d ECHO TRANSESOPHAGEAL 12 08/08/10 C ompleted CABG (Coronary artery bypass grafting) planned Completed Knee replacement Complete d 1Impression: - Normal esophagus - Normal stomach - Normal examined duodenum - No specimens collected 2Cardiomegaly with no active disease in the chest. 3Impression: layne scan is negative for ischemia. 4history of see scanned lab report dated 08/27/2022 5Impression: Cardiomegaly with no acute cardiopulmonary abnormality identified 6LV43, EF 60, LVH, LAE, mG9 7history of 8history of 91-right medial chest, 2- left upper chest 10NSR 58-119 (86) DEMI 1% 11AF>NSR 12NL, LV size< no LAT Results Most recent to oldest [Reference Range]: 1 HgbA1C Outside Ref Range 4.5-5.6 (11/29/23 1:19 PM) HGb A1C Outside 7.9 % (11/29/23 1:19 PM) Vital Signs Most recent to oldest [Reference Range]: 1 Height 179 cm (06/25/24 1:52 PM) Patient Weight 113.1 kg (06/25/24 1:52 PM) Body Mass Index 35.3 kg/m2 (06/25/24 1:52 PM) Heart Rate 71 bpm (06/25/24 1:52 PM) Respiratory Rate 18 br/min (06/25/24 1:52 PM) Blood Pressure 118/70mmHg (06/25/24 1:52 PM) Cuff Pulse Pressure 48 mmHg (06/25/24 1:52 PM) Social History Social History Type Response Smoking Status Never smoked cigaret ziyad Sex Male Sex Representation Male (finding) Outpatient Note * DO Cho Franklin J: PERFORM, SIGN, VERIFY Event Display: .Outpt Note Authored Date: [id number] Patient: AMY CONLEY Age: 79 years Sex: Male : 1945 Associated Diagnoses: None Author: DO Cho Franklin J Visit Information Visit type: Scheduled follow-up. Chief Complaint 06/25/2024 13:52 EST would like flu shot. 6 month f/u History of Present Illness Here for 6 month follow up. Was admitted to hospital late April/early/May with UTI. Since discharge, feeling better. No recurrent symptoms. He continues follow-up with nephrology, cardiology, and endocrinology. He had lab work for endocrinology recently which is reviewed today. He is back on Imdur 120 mg daily; we had taken him off of this for some side effects, mainly fatigue; however, he was finding himself taking as needed nitroglycerin through the night, so cardiology readded the Imdur at his last visit. He is on Jardiance and tirzepatide (he had side effects with Ozempic, but seems to be tolerating thus far). He continues on both Brilinta and aspirin; no signs or symptoms of bleeding. He has a history of iron deficiency anemia, although most recent hemoglobin posthospitalization showed a stable hemoglobinof 12.0. Review of Systems Constitutional: Fatigue. Respiratory: No shortness of breath, No cough. Cardiovascular: No palpitations, No bradycardia, No tachycardia. Gastrointestinal: No nausea, No vomiting. Neurologic: Alert and oriented X4. Health Status Allergies: Allergic Reactions (Selected) NKA. Current medications: (Selected) Prescriptions Prescribed Dexcom G6 Patient Information Coordinator Kit: See Instructions, Use to montor Glucose, 1 kit, 0 Refill(s) Dexcom G6 Sensor Kit: See Instructions, use as instructed, 1 kit, 0 Refill(s) Dexcom G6 Transmitter Kit: See Instructions, use to monitor glucose, 1 kit, 0 Refill(s) Dexcom G7 Patient Information Coordinator: See Instructions, use as directed to monitor BS, 1 kit, 0 Refill(s) Dexcom G7 Sensor: See Instructions, used as directed to monitor BS, 3 kit, 0 Refill(s) NovoLOG Mix 70/30 Vial subcutaneous suspension: See Instructions, INJECT 40 UNITS SUBCUTANEOUSLY BEFORE BREAKFAST AND 60 UNITS BEFORE DINNER OR DIRECTED TWICE DAILY BEFORE MEALS, 50 mL, 3 Refill(s) One Touch Ultra Blue Test Strips: See Instructions, use to check glucose three times daily, 300 strip, 3 Refill(s) allopurinol 300 mg oral tablet: 1 tab, PO, Daily, 90 tab, 3 Refill(s) atorvastatin 80 mg oral tablet: 1 tab, PO, Daily, 90 tab, 3 Refill(s) famotidine 20 mg oral tablet: 1 tab, PO, bid, 180 tab, 0 Refill(s) pantoprazole 40 mg oral delayed release tablet: 1 tab, PO, bid, 180 tab, 3 Refill(s) Documented Medications Documented Brilinta (ticagrelor) 90 mg oral tablet: Entresto 24 mg-26 mg oral tablet: TAKE 1 TABLET BY MOUTH TWICE DAILY acebutolol 200 mg oral capsule: 1 cap, PO, bid, TAKE 1 CAPSULE BY MOUTH TWICE DAILY aspirin 81 mg oral capsule: 1 cap, PO, Daily insulin regular 100 units/mL human recombinant injectable solution: sliding scale TID . Pt notes its usually 19 units multivitamin: nitroglycerin 0.4 mg sublingual tablet: 1 tab, SL, q5min, PRN: as needed for chest pain, 25 tab. Problem list: Medical Hypertension / SNOMED CT 2398414330 / Confirmed High cholesterol / SNOMED CT 74194653 / Confirmed Kidney stones / SNOMED CT 735521077 / Confirmed Diabetes / SNOMED CT 375703058 / Confirmed Iron deficiency anemia / SNOMED CT 640322058 / Confirmed Stage 3b chronic kidney disease (CKD) / SNOMED CT 5250840672 / Confirmed CAD (coronary atherosclerotic disease) / SNOMED CT 9010344619 / Confirmed Chest pain / SNOMED CT 47678757 / Confirmed Dysphagia / SNOMED CT 88976581 / Confirmed Basal cell carcinoma / SNOMED CT 367954371 / Confirmed All Problems Hypertension / SNOMED CT 0495008434 / Confirmed High cholesterol / SNOMED CT 43011782 / Confirmed Kidney stones / SNOMED CT 629510186 / Confirmed Diabetes / SNOMED CT 130514572 / Confirmed Iron deficiency anemia / SNOMED CT 561567345 / Confirmed Stage 3b chronic kidney disease (CKD) / SNOMED CT 1938870962 / Confirmed CAD (coronary atherosclerotic disease) / SNOMED CT 4857897109 / Confirmed Chest pain / SNOMED CT 25412838 / Confirmed Dysphagia / SNOMED CT 85898516 / Confirmed Basal cell carcinoma / SNOMED CT 684865062 / Confirmed. Histories Family History: Heart attack Mother Father Brother Cancer Sister . Social History Social & Psychosocial Habits Alcohol 09/05/2022 Risk Assessment: Denies Alcohol Use Tobacco 09/05/2022 Risk Assessment: Denies Tobacco Use . Physical Examination Vital Signs 06/25/2024 13:52 EST Heart Rate 71 bpm Respiratory Rate 18 br/min Systolic Blood Pressure 118 mmHg Diastolic Blood Pressure 70 mmHg Cuff Pulse Pressure 48 mmHg SpO2 98 % Measurements from flowsheet : Measurements 06/25/2024 13:54 EST Osteoporosis Screening Tool 6.42 06/25/2024 13:52 EST Height 179 cm Height Method Standing Patient Weight 113.1 kg Weight 113.100 kg Weight Method Standing Scale Body Mass Index 35.3 kg/m2 Body Surface Area 2.37 m2 Louann Body Weight 74.1 kg Height/Weight Refused Height/Weight Taken General: Alert and oriented. HENT: Normocephalic, Normal hearing, Oral mucosa is moist. Neck: Supple, Non-tender, No lymphadenopathy, No thyromegaly. Respiratory: Lungs are clear to auscultation, Respirations are non-labored, Breath sounds are equal. Cardiovascular: Normal rate, Regular rhythm, Distant heart sounds. , pedal edema at the sock line. Musculoskeletal Normal range of motion. Integumentary: Warm, Dry, [place]. Neurologic: Alert, Oriented, Normal sensory. Cognition and Speech: Oriented, Speech clear and coherent. Psychiatric: Cooperative, Appropriate mood & affect. Health Maintenance Health Maintenance Pending (in the next year) OverDue Medicare Annual Wellness Visit due 05/10/23 and every 1 year Adult Influenza Vaccine due 02/10/24 and every 1 year Due Adult COVID-19 Vaccination due 06/25/24 Unknown Frequency Adult Social Determinants of Health Screening due 06/25/24 Unknown Frequency Adult Tdap/Td Vaccine due 06/25/24 Unknown Frequency Shingles Vaccine due 06/25/24 One-time only Due In Future Diabetes Management A1c not due until 11/29/24 and every 366 day Diabetic Eye Exam not due until 01/26/25 and every 731 day Satisfied (in the past 1 year) Satisfied Body Mass Index on 06/25/24. Satisfied by AARTI Mckeon Kyla Diabetes Management A1c on 11/29/23. Satisfied by GRISELDA Magallon Lynnae Review / Management Results review: Labs from [facility] 06/16/2024 in outside records. . Documentation reviewed: Cardiology consultation and outside records. Endocrinology and nephrology consultations in hospital EMR. . Impression and Plan Diagnosis Stage 3b chronic kidney disease (CKD) (UVH41-FK N18.32, Discharge, Medical). CAD (coronary atherosclerotic disease) (TSH29-XD I25.10, Discharge, Medical). Hypertension (SIK98-IK I10, Discharge, Medical). High cholesterol (YRY08-TW E78.00, Discharge, Medical). Iron deficiency anemia (LWT20-FQ D50.9, Discharge, Medical). 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 For the most part, appears euvolemic today; again some slight sock line edema although minor and not unexpected this late in the day He does have furosemide to use as needed, although he has not used one recently Appropriate follow-up with cardiology tomorrow Medication list updated; back on Imdur Fortunately, the orthostatic symptoms he had previously had not returned on this current dose of Imdur Remains on Brilinta and aspirin Diabetes Most recent A1c 8.8%, though he has noted improvement in his home glucose readings since Mounjaro was added Originally on Trulicity, although switched to Ozempic due to availability; did not tolerate Ozempic, now on Mounjaro and tolerating low-dose Jardiance has been added Iron deficiency anemia Tolerating oral iron supplementation without side effects He does note some fatigue, although this may just be a function of age and weather Most recent CBC shows stable hemoglobin CKD, stage III Nephrology note reviewed Recheck BMP; most recent serum creatinine improved Follow-up with nephrology Preventive Flu vaccination today . Professional Services Total time spent today including review of outside labs and consultations, [id number], and documentation: 45 minutes Electronic Signature on File Electronically Reviewed/Signed by: Lj Cho DO Author Signature Dt/Tm:06/25/2024 02:39 PM Department of Family Medicine [facility] Patient Care team information Care Team Personnel Name: DO Cho Franklin J Position: Physician - Family Med Member Role: Primary Care Provider Address: [address] [place] [address] Care Team Related Persons Name: CHARLOTTE CONLEY
--- NOTE | 2024-07-13 20:10 | Emergency Department Note ---
Impression & Plan Acute UTI ADMIT ED Provider Note HPI: History obtained from patient. The patient is a 79-year-old gentleman with history of insulin-dependent diabetes, who presents the emergency department with a chief complaint of cough, generalized weakness and fatigue, and nausea. Patient presents with his daughter at the bedside states the patient has had the symptoms for the past several weeks but seems to be getting acutely worse over just the past several days. On arrival here to the ED the patient is hemodynamically stable, he has noted to be febrile at 38.5, patient complains of nausea and generalized weakness on arrival but states he is not having any pain. Patient is saturating well on room air on arrival. ROS: - Per HPI Differential Diagnosis: Sepsis, pneumonia, urinary tract infection, viral upper respiratory infection to include COVID-19, influenza A, acute coronary syndrome, viral gastroenteritis, amongst other potential pathologies. *Outpatient medications and allergy history reviewed. PE: General: Alert, frail-appearing, no acute distress HEENT: Normocephalic, trachea midline Eyes: Extraocular eye movement is intact, no scleral erythema Pulmonary: Clear to auscultation bilaterally, no wheezing Cardio: Regular rate and rhythm GI: Abdomen is soft to palpation : No suprapubic tenderness MSK: No evidence of trauma or malformation of the extremities, no edema Skin: No evidence of rash Neuro: Alert, no focal deficits Psychiatric: Cooperative INDEPENDENT INTERPRETATIONS: court recording monitor: (As interpreted by myself): - An order was placed for continuous cardiac monitoring - Patient was noted to be in sinus rhythm with a rate of 97 EKG: (As interpreted by myself): Rate: 96 Rhythm: Sinus rhythm with first-degree AV block Intervals: KY interval 216 ms, QRS 146 ms, QTc within normal limits ST changes: No ST elevation Time: 2025 Chest x-ray: (As interpreted by myself): Likely right-sided pneumonia Interventions provided in ED: -IV ceftriaxone, IV azithromycin, IV fluid bolus Medical Decision Making: IV was established and lab work obtained, patient was placed on laboratory monitor. Lab work shows no leukocytosis, hemoglobin is stable at 12.8, platelet count is normal, neutrophilic shift is noted on differential, venous blood gas shows normal pH, CMP shows creatinine elevation to 1.98 which appears to be the patient's baseline. Lactic acid is normal. High-sensitivity troponin is elevated at 525, EKG per my interpretation does not show any evidence of any acute ischemic changes and appears overall similar to the patient's previous EKG. procalcitonin is within normal limits at 0.22, urinalysis is concerning for infection as it is urine nitrite positive, 2+ leukocyte esterase, with significant pyuria and 4+ bacteria. No evidence of contamination. Chest x-ray per my interpretation is also concerning for some congestive changes versus possible pneumonia on the right side. Patient has had a harsh cough. Viral panel testing is negative. Given the patient's multiple lab abnormalities, concern for UTI and possible pneumonia, I do feel he should be admitted to the hospital for further management and IV antibiotics. Blood cultures were drawn and the patient was started on IV ceftriaxone and IV azithromycin. I discussed the patient's presentation with the on-call hospitalist, Dr. Corea, the patient was placed for admission in stable condition. He was ordered aspirin for troponin elevation, low suspicion for ACS at this time, I suspect this is likely demand ischemia related to the patient's underlying infections. Consultants/Discussions held with other healthcare providers: -Hospitalist, Dr. Corea Disposition discussion held by myself with: -Patient and patient's daughter at the bedside Diagnosis: 1. Urinary tract infection, acute 2. Elevated high-sensitivity troponin level, acute 3. 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 Lovell/[place]) per hospital notes>severe in-stent restenosis of the LAD with implantation of a drug-eluting stent. Sleep apnea (Acute) no device Right bundle branch block (Acute) Benign prostatic hyperplasia with urinary obstruction (Acute) Medical History Arthritis Dysphagia Hiatal hernia Diabetes mellitus, type 2 Hx of basal cell carcinoma History of atrial fibrillation History of kidney stones History of COVID-19 2019? date>resolved Hx of gout NSTEMI (non-ST elevated myocardial infarction) ? date Stage 3b chronic kidney disease Esophageal reflux Hypertension Pericardial effusion Surgical History History of carpal tunnel release rt/left History of total knee replacement left History of colonoscopy History of tooth extraction History of cardiac radiofrequency ablation 12/2022 at [facility] for atrial fib H/O transurethral resection of prostate History of ankle surgery History of lithotripsy History of cholecystectomy History of four vessel coronary artery bypass graft 2009>[place] Family History Brother Prostate cancer Diabetes Heart disease Myocardial infarction End stage renal disease Sister Diabetes Mother Heart disease Myocardial infarction Father Heart disease Myocardial infarction Unknown Hypercholesteremia Other No family history of adverse response to anesthesia Denies family history of Ovarian cancer Hearing loss Breast cancer Colorectal cancer Hypertension Social History Smoking Status: Never smoker Second Hand Exposure: Yes (as a child); Do You Dip or Chew Tobacco: No; Hx Alcohol Use: No Hx Substance Use: No Preferred Language: Zimbabwean Communication Ability: Effective Visual Impairment: No Limitations Hearing Ability: Use of Hearing Aid Art Objects Repairer Required: No Beliefs That Will Affect Care: None marital status: Current Living Situation: Spouse Current Living Situation Comment: with at home current occupational status: retired 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 Other Information That Helps Us Care for You: No Feels Safe at Home: Yes Safety Concerns: Feels Safe At This Time Childhood Exposure to Second-Hand Smoke: Yes Diet: regular Diet Comment: no added salt caffeine: Yes Dental Care, Regularly: No Physical Activity Frequency: Daily Seatbelt Use: never Sunscreen Use: No Assistive Devices: Denture - Upper Allergies Allergies Allergy/AdvReac Type Severity Reaction Status Date / Time No Known Drug Allergies Allergy Unknown Verified 05/30/24 12:29 Home Meds Home Medications Medication Instructions Recorded Confirmed aspirin 81 mg tablet,delayed 81 mg PO QPM 08/28/22 07/13/24 release pantoprazole 40 mg tablet,delayed 40 mg PO BID 08/28/22 07/13/24 release allopurinol 300 mg tablet 300 mg PO QPM 12/20/22 07/13/24 amoxicillin 500 mg capsule 2,000 mg PO ONCE PRN prior to 12/20/22 07/13/24 dental procedures atorvastatin 80 mg tablet 80 mg PO QPM 12/20/22 07/13/24 dulaglutide 3 mg/0.5 mL 3 mg subcut WK 12/20/22 07/13/24 subcutaneous pen injector (Trulicity) famotidine 20 mg tablet 20 mg PO BID 12/20/22 07/13/24 multivitamin 1 tab PO QAM 01/29/23 07/13/24 dapagliflozin propanediol 10 mg 10 mg PO DAILY 05/24/23 07/13/24 tablet (Farxiga) sacubitril 24 mg-valsartan 26 mg 1 tab PO BID 05/24/23 07/13/24 tablet (Entresto) ticagrelor 90 mg tablet (Brilinta) 90 mg PO BID 05/24/23 07/13/24 acebutolol 400 mg capsule 400 mg PO BID 05/30/24 07/13/24 insulin aspar prt-insulin aspart 92 unit subcut DAILY 05/30/24 07/13/24 100 unit/mL (70-30) subcutaneous soln (Novolog Mix 70-30 U-100 Insuln) isosorbide mononitrate 120 mg 120 mg PO DAILY 05/30/24 07/13/24 tablet,extended release 24 hr Previous Rx's Medication Instructions Recorded blood-glucose meter (OneTouch #1 ea 05/09/19 Verio Flex Start kit) insulin syringe-needle U-100 1 mL #200 ea 02/23/20 31 gauge x 5/16" (BD Insulin Syringe Ultra-Fine) blood sugar diagnostic #300 ea 04/28/21 nitroglycerin 0.4 mg sublingual 0.4 mg sublingual Q5M PRN chest 08/29/22 tablet (Nitrostat) pain #1 btl torsemide 20 mg tablet 20 mg PO DAILY PRN Weight Gain #0 05/14/24 tabs tirzepatide 2.5 mg/0.5 mL 2.5 mg (0.5 mL) subcut Q7D #2 mL 05/30/24 subcutaneous pen injector (Hilary) Results & Data (ED) Vital Signs Vital Signs - 24 hr 07/13/24 19:57 07/13/24 20:14 07/13/24 20:14 Temperature 38.5 C H Temperature Source Temporal Artery Scan Pulse Rate 93 H 96 H Pulse Rate [Apical] 95 H Pulse Rate from SpO2 Sensor Pulse Rhythm [Apical] Regular Pulse Strength [Apical] Respiratory Rate 18 26 H 26 H Respiratory Effort / Characteristics Non-Labored Respiratory Depth Normal Respiratory Pattern Blood Pressure 127/67 Blood Pressure [Right Arm] 131/71 Blood Pressure Mean 87 Blood Pressure Mean [Right Arm] 91 Blood Pressure Position [Right Arm] Pulse Oximetry 95 93 95 Oxygen Delivery Method Room Air Room Air Room Air Sepsis Recent Fever Within 48 Hours Yes Sepsis New/Unexplained Change in Mental Status No Sepsis Action Taken by Nursing No Action Required 07/13/24 20:15 07/13/24 20:16 07/13/24 20:30 Temperature Temperature Source Pulse Rate 95 H 95 H Pulse Rate [Apical] 96 H Pulse Rate from SpO2 Sensor 95 H Pulse Rhythm [Apical] Pulse Strength [Apical] Respiratory Rate 31 H 28 H Respiratory Effort / Characteristics Respiratory Depth Respiratory Pattern Blood Pressure 131/71 128/71 Blood Pressure [Right Arm] Blood Pressure Mean 91 85 Blood Pressure Mean [Right Arm] Blood Pressure Position [Right Arm] Pulse Oximetry 94 93 Oxygen Delivery Method Sepsis Recent Fever Within 48 Hours Sepsis New/Unexplained Change in Mental Status Sepsis Action Taken by Nursing 07/13/24 20:42 07/13/24 20:45 07/13/24 20:45 Temperature Temperature Source Pulse Rate 96 H 104 H Pulse Rate [Apical] Pulse Rate from SpO2 Sensor 96 H Pulse Rhythm [Apical] Pulse Strength [Apical] Respiratory Rate 25 H Respiratory Effort / Characteristics Respiratory Depth Respiratory Pattern Blood Pressure 136/74 Blood Pressure [Right Arm] Blood Pressure Mean 105 Blood Pressure Mean [Right Arm] Blood Pressure Position [Right Arm] Pulse Oximetry 95 Oxygen Delivery Method Sepsis Recent Fever Within 48 Hours Sepsis New/Unexplained Change in Mental Status Sepsis Action Taken by Nursing 07/13/24 20:45 07/13/24 21:00 07/13/24 21:12 Temperature Temperature Source Pulse Rate 97 H 99 H Pulse Rate [Apical] Pulse Rate from SpO2 Sensor 99 H 99 H Pulse Rhythm [Apical] Pulse Strength [Apical] Respiratory Rate 21 30 H Respiratory Effort / Characteristics Respiratory Depth Respiratory Pattern Blood Pressure 130/70 Blood Pressure [Right Arm] Blood Pressure Mean 96 Blood Pressure Mean [Right Arm] Blood Pressure Position [Right Arm] Pulse Oximetry 93 93 Oxygen Delivery Method Sepsis Recent Fever Within 48 Hours Sepsis New/Unexplained Change in Mental Status Sepsis Action Taken by Nursing 07/13/24 21:15 07/13/24 21:15 07/13/24 21:27 Temperature Temperature Source Pulse Rate 97 H 99 H Pulse Rate [Apical] Pulse Rate from SpO2 Sensor 97 H 99 H Pulse Rhythm [Apical] Pulse Strength [Apical] Respiratory Rate 28 H 33 H Respiratory Effort / Characteristics Respiratory Depth Respiratory Pattern Blood Pressure 129/72 Blood Pressure [Right Arm] Blood Pressure Mean 83 Blood Pressure Mean [Right Arm] Blood Pressure Position [Right Arm] Pulse Oximetry 94 96 Oxygen Delivery Method Sepsis Recent Fever Within 48 Hours Sepsis New/Unexplained Change in Mental Status Sepsis Action Taken by Nursing 07/13/24 21:31 07/13/24 21:40 07/13/24 21:42 Temperature Temperature Source Pulse Rate 98 H Pulse Rate [Apical] Pulse Rate from SpO2 Sensor 99 H Pulse Rhythm [Apical] Pulse Strength [Apical] Respiratory Rate 39 H Respiratory Effort / Characteristics Respiratory Depth Respiratory Pattern Blood Pressure 141/66 H 115/70 Blood Pressure [Right Arm] Blood Pressure Mean 97 75 Blood Pressure Mean [Right Arm] Blood Pressure Position [Right Arm] Pulse Oximetry 95 Oxygen Delivery Method Sepsis Recent Fever Within 48 Hours Sepsis New/Unexplained Change in Mental Status Sepsis Action Taken by Nursing 07/13/24 21:45 07/13/24 22:09 07/13/24 22:15 Temperature Temperature Source Pulse Rate 100 H Pulse Rate [Apical] Pulse Rate from SpO2 Sensor 99 H Pulse Rhythm [Apical] Pulse Strength [Apical] Respiratory Rate 33 H Respiratory Effort / Characteristics Respiratory Depth Respiratory Pattern Blood Pressure 116/66 110/62 Blood Pressure [Right Arm] Blood Pressure Mean 74 69 Blood Pressure Mean [Right Arm] Blood Pressure Position [Right Arm] Pulse Oximetry 94 Oxygen Delivery Method Sepsis Recent Fever Within 48 Hours Sepsis New/Unexplained Change in Mental Status Sepsis Action Taken by Nursing 07/13/24 22:20 07/13/24 22:24 07/13/24 22:30 Temperature Temperature Source Pulse Rate 97 H Pulse Rate [Apical] 98 H Pulse Rate from SpO2 Sensor 98 H Pulse Rhythm [Apical] Regular Pulse Strength [Apical] Normal Respiratory Rate 31 H 29 H Respiratory Effort / Characteristics Non-Labored Respiratory Depth Normal Respiratory Pattern Regular Blood Pressure 110/64 Blood Pressure [Right Arm] 110/62 Blood Pressure Mean 82 Blood Pressure Mean [Right Arm] 78 Blood Pressure Position [Right Arm] Lying Pulse Oximetry 93 94 Oxygen Delivery Method Room Air Sepsis Recent Fever Within 48 Hours Sepsis New/Unexplained Change in Mental Status Sepsis Action Taken by Nursing 07/13/24 22:30 Temperature Temperature Source Pulse Rate 99 H Pulse Rate [Apical] Pulse Rate from SpO2 Sensor 99 H Pulse Rhythm [Apical] Pulse Strength [Apical] Respiratory Rate 29 H Respiratory Effort / Characteristics Respiratory Depth Respiratory Pattern Blood Pressure Blood Pressure [Right Arm] Blood Pressure Mean Blood Pressure Mean [Right Arm] Blood Pressure Position [Right Arm] Pulse Oximetry 93 Oxygen Delivery Method Sepsis Recent Fever Within 48 Hours Sepsis New/Unexplained Change in Mental Status Sepsis Action Taken by Nursing Laboratory Data 07/13/24 20:08 07/13/24 20:11 Lab Results 07/13/24 07/13/24 07/13/24 Range/Units 20:00 20:08 20:11 WBC 10.36 (4.8-10.8) K/ul RBC 4.19 L (4.70-6.10) M/uL Hgb 12.8 L (14.0-18.0) g/dl Hct 38.5 L (42.0-52.0) % MCV 91.9 (80.0-100.0) fL MCH 30.5 (25.0-34.0) pg MCHC 33.2 (32.0-36.0) g/dL RDW Std Deviation 49.2 H (36.4-46.3) fL RDW Coeff of Cherelle 14.6 H (11.5-14.5) % Plt Count 162 (130-400) K/uL MPV 10.4 (9.4-12.4) fL Immature Gran % (Auto) 0.4 % Neut % (Auto) 88.7 % Lymph % (Auto) 6.0 % Candler % (Auto) 4.0 % Eos % (Auto) 0.6 % Baso % (Auto) 0.3 % Neut # (Auto) 9.20 H (1.40-6.50) K/uL Lymph # (Auto) 0.62 L (1.20-3.40) K/uL Candler # (Auto) 0.41 (0.11-0.59) K/uL Eos # (Auto) 0.06 (0.00-0.50) K/uL Baso # (Auto) 0.03 (0.00-0.20) K/uL Immature Gran # (Auto) 0.04 (0.01-0.20) K/uL PT Cancelled INR Cancelled VBG pH (7.36-7.41) VBG pCO2 (38-50) mmHg VBG pO2 mmHg VBG HCO3 mmol/L VBG O2 Saturation % VBG Base Excess mEq/L Sodium 132 L (136-145) mmol/L Potassium 4.5 (3.5-5.1) mmol/L Chloride 98 (98-107) mmol/L Carbon Dioxide 26 (21-32) mmol/L Anion Gap 8 (3-11) BUN 24 H (6-23) mg/dl Creatinine 1.98 H (0.6-1.4) mg/dl Est Cr Clr Drug Dosing 37.2 ml/min eGFR 33.31 BUN/Creatinine Ratio 12.1 (10-20) Glucose 165 H (70-99(Fasting)) mg/dl POC Glucose 130 H (70-99) mg/dl Lactate 1.7 (0.4-2.0) mmol/L Calcium 9.3 (8.6-10.3) mg/dl Magnesium 1.5 L (1.7-2.4) mg/dl Total Bilirubin 1.0 (0.2-1.0) mg/dl Direct Bilirubin 0.2 (0-0.2) mg/dl AST 21 (13-39) U/L ALT 18 (7-52) U/L Alkaline Phosphatase 108 H (34-104) U/L Troponin I High Sens 525.1 H* (0-20) pg/ml Total Protein 7.0 (6.0-8.3) gm/dl Albumin 4.0 (3.4-5.0) gm/dl Procalcitonin 0.22 (0-0.5) ng/ml Urine Color Urine Appearance (Clear) Urine pH (4.5-7.5) Ur Specific Raven (1.000-1.030) Urine Protein (Negative) Urine Glucose (UA) (Negative) Urine Ketones (Negative) Urine Blood (Negative) Urine Nitrite (Negative) Urine Bilirubin (Negative) Urine Urobilinogen (Negative) Ur Leukocyte Esterase (Negative) Urine WBC (Auto) (0-5) /hpf Urine RBC (Auto) (0-2) /hpf U Hyaline Cast (Auto) (0-2) /lpf U Epithel Cells (Auto) (0-2) /hpf Urine Bacteria (Auto) (None Seen) Adenovirus (PCR) Not Detected (NotDetected) B. pertussis DNA (PCR) Not Detected (NotDetected) B.parapertussis DNA PCR Not Detected (NotDetected) C. pneumoniae DNA (PCR) Not Detected (NotDetected) Coronavirus OC43 (PCR) Not Detected (NotDetected) Coronavirus HKU1 (PCR) Not Detected (NotDetected) Coronavirus 229E (PCR) Not Detected (NotDetected) SARS-CoV-2 (PCR) Not Detected (NotDetected) Coronavirus NL63 (PCR) Not Detected (NotDetected) Human Metapneumovir PCR Not Detected (NotDetected) Influenza Type A (PCR) Not Detected (NotDetected) Influenza Type B (PCR) Not Detected (NotDetected) M. pneumoniae (PCR) Not Detected (NotDetected) Parainfluenza 1 (PCR) Not Detected (NotDetected) Parainfluenza 2 (PCR) Not Detected (NotDetected) Parainfluenza 3 (PCR) Not Detected (NotDetected) Parainfluenza 4 (PCR) Not Detected (NotDetected) RSV (PCR) Not Detected (NotDetected) Entero/Rhino (PCR) Not Detected (NotDetected) 07/13/24 07/13/24 07/13/24 Range/Units 20:36 21:16 21:20 WBC (4.8-10.8) K/ul RBC (4.70-6.10) M/uL Hgb (14.0-18.0) g/dl Hct (42.0-52.0) % MCV (80.0-100.0) fL MCH (25.0-34.0) pg MCHC (32.0-36.0) g/dL RDW Std Deviation (36.4-46.3) fL RDW Coeff of Cherelle (11.5-14.5) % Plt Count (130-400) K/uL MPV (9.4-12.4) fL Immature Gran % (Auto) % Neut % (Auto) % Lymph % (Auto) % Candler % (Auto) % Eos % (Auto) % Baso % (Auto) % Neut # (Auto) (1.40-6.50) K/uL Lymph # (Auto) (1.20-3.40) K/uL Candler # (Auto) (0.11-0.59) K/uL Eos # (Auto) (0.00-0.50) K/uL Baso # (Auto) (0.00-0.20) K/uL Immature Gran # (Auto) (0.01-0.20) K/uL PT 17.4 H INR 1.7 H VBG pH 7.41 (7.36-7.41) VBG pCO2 33 L (38-50) mmHg VBG pO2 31 mmHg VBG HCO3 21 mmol/L VBG O2 Saturation < 60.0 % VBG Base Excess -2.9 mEq/L Sodium (136-145) mmol/L Potassium (3.5-5.1) mmol/L Chloride (98-107) mmol/L Carbon Dioxide (21-32) mmol/L Anion Gap (3-11) BUN (6-23) mg/dl Creatinine (0.6-1.4) mg/dl Est Cr Clr Drug Dosing ml/min eGFR BUN/Creatinine Ratio (10-20) Glucose (70-99(Fasting)) mg/dl POC Glucose (70-99) mg/dl Lactate (0.4-2.0) mmol/L Calcium (8.6-10.3) mg/dl Magnesium (1.7-2.4) mg/dl Total Bilirubin (0.2-1.0) mg/dl Direct Bilirubin (0-0.2) mg/dl AST (13-39) U/L ALT (7-52) U/L Alkaline Phosphatase (34-104) U/L Troponin I High Sens (0-20) pg/ml Total Protein (6.0-8.3) gm/dl Albumin (3.4-5.0) gm/dl Procalcitonin (0-0.5) ng/ml Urine Color Yellow Urine Appearance Cloudy A (Clear) Urine pH 6.0 (4.5-7.5) Ur Specific Raven 1.016 (1.000-1.030) Urine Protein 1+ H (Negative) Urine Glucose (UA) Negative (Negative) Urine Ketones Trace H (Negative) Urine Blood Trace H (Negative) Urine Nitrite Positive A (Negative) Urine Bilirubin Negative (Negative) Urine Urobilinogen Negative (Negative) Ur Leukocyte Esterase 2+ H (Negative) Urine WBC (Auto) >50 H (0-5) /hpf Urine RBC (Auto) 0-2 (0-2) /hpf U Hyaline Cast (Auto) 0-2 (0-2) /lpf U Epithel Cells (Auto) 0-2 (0-2) /hpf Urine Bacteria (Auto) 4+ H (None Seen) Adenovirus (PCR) (NotDetected) B. pertussis DNA (PCR) (NotDetected) B.parapertussis DNA PCR (NotDetected) C. pneumoniae DNA (PCR) (NotDetected) Coronavirus OC43 (PCR) (NotDetected) Coronavirus HKU1 (PCR) (NotDetected) Coronavirus 229E (PCR) (NotDetected) SARS-CoV-2 (PCR) (NotDetected) Coronavirus NL63 (PCR) (NotDetected) Human Metapneumovir PCR (NotDetected) Influenza Type A (PCR) (NotDetected) Influenza Type B (PCR) (NotDetected) M. pneumoniae (PCR) (NotDetected) Parainfluenza 1 (PCR) (NotDetected) Parainfluenza 2 (PCR) (NotDetected) Parainfluenza 3 (PCR) (NotDetected) Parainfluenza 4 (PCR) (NotDetected) RSV (PCR) (NotDetected) Entero/Rhino (PCR) (NotDetected) Administered Medications Magnesium Sulfate/Dextrose (Magnesium Sulfate / D5w) 1 gm in 100 mls @ 50 mls/hr IV ONE ONE Stop: 07/14/24 00:29 Last Admin: 07/13/24 22:33 Dose: 50 mls/hr Documented By: EFRAIN Sodium Chloride (Nss) 1,000 mls @ 80 mls/hr IV .[id number] ALANNAH Stop: 07/14/24 11:14 Last Admin: 07/13/24 22:44 Dose: 80 mls/hr Documented By: EFRAIN Discontinued Medications Aspirin (Aspirin Chew 324 Mg) 324 mg PO NOW STA Stop: 07/13/24 21:07 Last Admin: 07/13/24 21:34 Dose: 324 mg Documented By: CLAUDETTE Sodium Chloride (Nss) 1,000 mls @ 999 mls/hr IV .Q1H1M [facility] Stop: 07/13/24 21:15 Last Infusion: 07/13/24 21:27 Dose: Infused Documented By: Admin: 07/13/24 20:13 Dose: 999 mls/hr Documented By: PAZ Ceftriaxone Sodium (Rocephin) 1,000 mg in 50 mls @ 100 mls/hr IV NOW STA Stop: 07/13/24 21:53 Last Infusion: 07/13/24 22:44 Dose: Infused Documented By: Admin: 07/13/24 21:34 Dose: 100 mls/hr Documented By: CLAUDETTE Azithromycin 500 mg/ Sodium (Chloride) 255 mls @ 127.5 mls/hr IV NOW ONE Stop: 07/13/24 23:59 Last Admin: 07/13/24 22:21 Dose: 127.5 mls/hr Documented By: EFRAIN Imaging Data Radiologist's Impression: Chest X-Ray 07/13/24 20:03 Exam(s): XR CXR 1 VIEW EXAM: XR Chest, 1 View CLINICAL HISTORY: Reason for exam: Sepsis. TECHNIQUE: Frontal view of the chest. COMPARISON: 12/20/2022 FINDINGS: Lungs: Unremarkable. No consolidation. Pleural space: Unremarkable. No pneumothorax. Heart: Unremarkable. No cardiomegaly. Mediastinum: Unremarkable. Normal mediastinal contour. Bones/joints: Postoperative changes median sternotomy. No acute fracture. IMPRESSION: No acute findings in the chest. Electronically signed by: Owen Dorantes MD 07/14/24 00:14 AM Discharge Plan Visit Data Chief Complaint: Hypoglycemia Stated Complaint: COUGH, NAUSEA, SUGAR IS LOW, VOMIT ED Provider: Dariusz Rush Discharge Problem: Acute UTI Patient Disposition: Admitted As Inpatient Discharge Instructions Interventions: ED Discharge Assessment Last Done: 07/13/24 22:58
[2024-07-13] MEDS: SODIUM CHLORIDE 0.9% 1,000 ML IV SCH ×2 (20:13→22:44)
[2024-07-13 20:41] LABS: Basophils # (auto) 0.03 K/uL (0.00-0.20); Basophils % (auto) 0.3 %; Eosinophils # (auto) 0.06 K/uL (0.00-0.50); Eosinophils % (auto) 0.6 %; Hematocrit (blood only) 38.5 % (42.0-52.0); Hemoglobin 12.8 g/dl (14.0-18.0); Immature Granulocytes # (auto) 0.04 K/uL (0.01-0.20); Immature Granulocytes % (auto) 0.4 %; Lymphocytes # (auto) 0.62 K/uL (1.20-3.40); Mean Corpuscular Hemoglobin 30.5 pg (25.0-34.0); Mean Corpuscular Hgb Conc 33.2 g/dL (32.0-36.0); Mean Corpuscular Volume 91.9 fL (80.0-100.0); Mean Platelet Volume 10.4 fL (9.4-12.4); Monocytes # (auto) 0.41 K/uL (0.11-0.59); Neutrophils % (auto) 88.7 %; Platelet Count 162 K/uL (130-400); RDW Coefficient of Variation 14.6 % (11.5-14.5); RDW Standard Deviation 49.2 fL (36.4-46.3); Red Blood Count 4.19 M/uL (4.70-6.10); White Blood Count 10.36 K/ul (4.8-10.8)
[2024-07-13 20:50] LABS: Base Excess VBG -2.9 mEq/L; HCO3 VBG 21 mmol/L; Oxygen Saturation VBG < 60.0 %; PCO2 VBG 33 mmHg (38-50); PO2 VBG 31 mmHg; pH VBG 7.41 (7.36-7.41)
[2024-07-13 20:54] LABS: BUN Creatinine Ratio 12.1 (10-20); Bilirubin Direct 0.2 mg/dl (0-0.2); Calcium 9.3 mg/dl (8.6-10.3); Creatinine Clr Calc Pharmacy 37.2 ml/min; Magnesium 1.5 mg/dl (1.7-2.4); Potassium 4.5 mmol/L (3.5-5.1)
[2024-07-13 21:03] LABS: Troponin I High Sensitivity 525.1 pg/ml (0-20)
[2024-07-13 21:17] LABS: Adenovirus PCR Not Detected (NotDetected); Bordetella parapertussis PCR Not Detected (NotDetected); Bordetella pertussis PCR Not Detected (NotDetected); Chlamydia pneumoniae PCR Not Detected (NotDetected); Coronavirus 229E PCR Not Detected (NotDetected); Coronavirus CoV-2 (COVID19)PCR Not Detected (NotDetected); Coronavirus HKU1 PCR Not Detected (NotDetected); Coronavirus NL63 PCR Not Detected (NotDetected); Coronavirus OC43PCR Not Detected (NotDetected); Human Metapneumovirus PCR Not Detected (NotDetected); Influenza A PCR Not Detected (NotDetected); Influenza B PCR Not Detected (NotDetected); Mycoplasma pneumoniae PCR Not Detected (NotDetected); Parainfluenza Virus 1 PCR Not Detected (NotDetected); Parainfluenza Virus 2 PCR Not Detected (NotDetected); Parainfluenza Virus 3 PCR Not Detected (NotDetected); Parainfluenza Virus 4 PCR Not Detected (NotDetected); Respiratory Syncytial VirusPCR Not Detected (NotDetected); Rhinovirus/Enterovirus PCR Not Detected (NotDetected)
[2024-07-13] MEDS ORDERED: AZITHROMYCIN 500 MG VIAL IV ONE (21:24)
[2024-07-13] MEDS: ASPIRIN CHEW 324 MG PO STA (21:34)
[2024-07-13] MEDS: cefTRIAXone SODIUM 1,000 MG/50 ML BAG IV STA (21:34)
[2024-07-13 21:53] LABS: INR 1.7 (0.9-1.1); Prothrombin Time 17.4 Seconds (9.0-12.0)
[2024-07-13 21:56] LABS: Appearance Urine Cloudy (Clear); Bacteria Urine Automated 4+ (None Seen); Bilirubin Urine Negative (Negative); Blood Urine Trace (Negative); Cast Urine Automated 0-2 /lpf (0-2); Color Urine Yellow; Epithelial Cell Urine Auto 0-2 /hpf (0-2); Glucose Urine UA Negative (Negative); Ketones Urine Trace (Negative); Leukocyte Esterase Urine 2+ (Negative); Nitrite Urine Positive (Negative); Protein Urine 1+ (Negative); RBC Urine Automated 0-2 /hpf (0-2); Specific Gravity Urine 1.016 (1.000-1.030); Urobilinogen Urine Negative (Negative); WBC Urine Automated >50 /hpf (0-5)
[2024-07-13] MEDS: AZITHROMYCIN 500 MG in SODIUM CHLORIDE 0.9% 250 ML IV ONE (22:21)
[2024-07-13] MEDS: MAGNESIUM SULFATE / D5W 1 GM/100 ML BAG IV ONE (22:33)
--- NOTE | 2024-07-13 22:33 | History & Physical Report ---
Date of Service July 13, 2024 Assessment & Plan (1) Sepsis: (2) Acute UTI: (3) Pneumonia: (4) Diabetes mellitus with hypoglycemia: (5) Acute kidney injury superimposed on CKD: Plan Sepsis- Lowest blood pressure 93/60 with heart rate 100, and temperature 38.5 From the ED patient received the following: Ceftriaxone 2 g IV, azithromycin 500 mg p.o., aspirin 324 mg, and normal saline 1 L bolus Urinary tract infection- Most recent admission from 05/12-05/14/2024 with sepsis due to E. coli UTI Follow urine culture and sensitivity Continue ceftriaxone 2 g IV daily begun in the ED Status post 1 L normal saline bolus from the ED NSS at 80 mL/h x 1 L Pneumonia- BioFire testing negative for viral process Likely atypical infection Continue ceftriaxone 2 g IV daily as noted above Continue azithromycin 500 mg p.o. daily Sputum Gram stain and culture Hypoglycemia associated with diabetes mellitus- Hold Trulicity, tirzepatide, insulin 70/30, and dapagliflozin Glucose 165 on admission His daughter reports that his intake is significantly decreased over the past week Placed on Accu-Cheks with NovoLog SSI, holding any long-acting insulin for now till oral intake resumes Acute kidney injury superimposed on CKD- Creatinine 1.98, with base 1.59 IV fluids as above, and recheck laboratories in the a.m. History of Present Illness Chief Complaint: The patient presents to the emergency department, with his daughter at bedside, with complaint of intermittently productive cough, generalized weakness, fatigue, and nausea without vomiting. The symptoms initially began several weeks ago, but became acutely worse over the past few days, and with decreased oral intake and a glucose fingerstick of 42 yesterday, his daughter became concerned and had him come to the ED for assessment Primary Care Provider: Lj Cho DO The patient is an 79-year-old male with a past medical history including diabetes mellitus type 2, CKD, vitamin D deficiency, hiatal hernia, gastro paresis, history of hypoglycemia, chronic diastolic CHF, atrial fibrillation, sleep apnea, history of coronary stent placement, pulmonary hypertension, and BPH with LUTS. He presents to the emergency department for progressively worsening symptoms as noted above, in particular became concerned with a glucose of 42 due to decreased oral intake yesterday Allergies Allergy/AdvReac Type Severity Reaction Status Date / Time No Known Drug Allergies Allergy Unknown Verified 05/30/24 12:29 Home Medications Medication Instructions Recorded Confirmed Type blood-glucose meter (OneTouch #1 ea 05/09/19 07/13/24 Rx Verio Flex Start kit) insulin syringe-needle U-100 1 mL #200 ea 02/23/20 07/13/24 Rx 31 gauge x 5/16" (BD Insulin Syringe Ultra-Fine) blood sugar diagnostic #300 ea 04/28/21 07/13/24 Rx aspirin 81 mg tablet,delayed 81 mg PO QPM 08/28/22 07/13/24 History release pantoprazole 40 mg tablet,delayed 40 mg PO BID 08/28/22 07/13/24 History release nitroglycerin 0.4 mg sublingual 0.4 mg sublingual Q5M PRN chest 08/29/22 07/13/24 Rx tablet (Nitrostat) pain #1 btl allopurinol 300 mg tablet 300 mg PO QPM 12/20/22 07/13/24 History amoxicillin 500 mg capsule 2,000 mg PO ONCE PRN prior to 12/20/22 07/13/24 History dental procedures atorvastatin 80 mg tablet 80 mg PO QPM 12/20/22 07/13/24 History dulaglutide 3 mg/0.5 mL 3 mg subcut WK 12/20/22 07/13/24 History subcutaneous pen injector (Trulicity) famotidine 20 mg tablet 20 mg PO BID 12/20/22 07/13/24 History multivitamin 1 tab PO QAM 01/29/23 07/13/24 History dapagliflozin propanediol 10 mg 10 mg PO DAILY 05/24/23 07/13/24 History tablet (Farxiga) sacubitril 24 mg-valsartan 26 mg 1 tab PO BID 05/24/23 07/13/24 History tablet (Entresto) ticagrelor 90 mg tablet (Brilinta) 90 mg PO BID 05/24/23 07/13/24 History torsemide 20 mg tablet 20 mg PO DAILY PRN Weight Gain #0 05/14/24 07/13/24 Rx tabs acebutolol 400 mg capsule 400 mg PO BID 05/30/24 07/13/24 History insulin aspar prt-insulin aspart 92 unit subcut DAILY 05/30/24 07/13/24 History 100 unit/mL (70-30) subcutaneous soln (Novolog Mix 70-30 U-100 Insuln) isosorbide mononitrate 120 mg 120 mg PO DAILY 05/30/24 07/13/24 History tablet,extended release 24 hr tirzepatide 2.5 mg/0.5 mL 2.5 mg (0.5 mL) subcut Q7D #2 mL 05/30/24 07/13/24 Rx subcutaneous pen injector (Hilary) Past Med/Surg History Problem List (Updated 07/14/24 @ 00:38 by Pavan Corea MD) Acute kidney injury superimposed on CKD Pneumonia Sepsis Acute UTI (Acute) Encounter for pre-operative examination Controlled type 2 diabetes mellitus with chronic kidney disease (Chronic) Vitamin D deficiency (Acute) Testicular hypofunction (Acute) Hiatal hernia (Acute) Gastroparesis (Acute) Diabetes mellitus with hypoglycemia (Acute) Chronic diastolic (congestive) heart failure (Acute) Atrial fibrillation (Acute) Actinic keratosis (Acute) Impacted cerumen of right ear Vitamin D deficiency Chest pain, exertional (Acute) Atrial flutter (Acute) Elevated troponin (Acute) Pulmonary hypertension Hyperlipidemia S/P coronary artery stent placement multiple stents placed per daughter>last placed at [facility] 08/2022 (followed by Dr. Lovell/[facility]) per hospital notes>severe in-stent restenosis of the LAD with implantation of a drug-eluting stent. Sleep apnea (Acute) no device Right bundle branch block (Acute) Benign prostatic hyperplasia with urinary obstruction (Acute) Medical History Arthritis Dysphagia Hiatal hernia Diabetes mellitus, type 2 Hx of basal cell carcinoma History of atrial fibrillation History of kidney stones History of COVID-19 2019? date>resolved Hx of gout NSTEMI (non-ST elevated myocardial infarction) ? date Stage 3b chronic kidney disease Esophageal reflux Hypertension Pericardial effusion Surgical History History of carpal tunnel release rt/left History of total knee replacement left History of colonoscopy History of tooth extraction History of cardiac radiofrequency ablation 12/2022 at [facility] for atrial fib H/O transurethral resection of prostate History of ankle surgery History of lithotripsy History of cholecystectomy History of four vessel coronary artery bypass graft 2009>[place] Family History Brother Prostate cancer Diabetes Heart disease Myocardial infarction End stage renal disease Sister Diabetes Mother Heart disease Myocardial infarction Father Heart disease Myocardial infarction Unknown Hypercholesteremia Other No family history of adverse response to anesthesia Denies family history of Ovarian cancer Hearing loss Breast cancer Colorectal cancer Hypertension Social History Smoking Status: Never smoker Second Hand Exposure: Yes (as a child); Do You Dip or Chew Tobacco: No; Hx Alcohol Use: No Hx Substance Use: No Preferred Language: [place] Communication Ability: Effective Visual Impairment: No Limitations Hearing Ability: Use of Hearing Aid Pillow Cleaner Required: No Beliefs That Will Affect Care: None marital status: Current Living Situation: Spouse Current Living Situation Comment: with at home current occupational status: retired 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 [employer] Feels Safe at Home: Yes Childhood Exposure to Second-Hand Smoke: Yes Diet: regular Diet Comment: no added salt caffeine: Yes Dental Care, Regularly: No Physical Activity Frequency: Daily Seatbelt Use: never Sunscreen Use: No Assistive Devices: Denture - Upper Review of Systems Review of Systems: The patient denies chest pain, palpitations, lower extremity swelling, sore throat, fevers, chills, sweat, vomiting, diarrhea , constipation, abdominal pain, pelvic pain, blood in urine or stool, dysuria, urinary frequency or urgency, loss of consciousness, rash, abnormal bruising or bleeding, focal weakness, numbness or tingling in arms or legs, generalized arthralgias or myalgias, back or neck pain, or night sweats. The review of systems is otherwise negative other than for that already noted above, and at least 10 systems have been reviewed. Physical Exam Physical Exam: The patient is awake, alert and oriented 3, well developed and well nourished, normocephalic and atraumatic, lying in bed and in no acute distress. HEENT--PERRL, EOMI, mucous membranes and oropharynx mildly dry. Neck--supple. No JVD. No bruits. Thyroid normal, trachea midline, no adenopathy. Heart--normal S1 and S2. No murmurs, rubs or gallops. Lungs--coarse breath sounds bilaterally. No respiratory distress, no accessory muscle use. Abdomen--normal bowel sounds and soft. Nontender. Nondistended. Mildly obese Extremities-- Trace bilateral pretibial pitting edema. Dermatologic--normal skin turgor, normal color, no abnormal lymph nodes, no rash. Neurologic--cranial nerves II through XII grossly intact. Rheumatologic--normal range of motion. Psychiatric--normal affect. Results & Data Results & Data Vital Signs (Past 12 Hours) Vital Signs Temp Pulse Pulse Resp BP BP Pulse Ox 07/13/24 22:20 98 H 31 H 110/62 93 07/13/24 21:42 98 H 39 H 95 07/13/24 21:40 115/70 07/13/24 21:31 141/66 H 07/13/24 21:27 99 H 33 H 96 07/13/24 21:15 97 H 28 H 94 07/13/24 21:15 129/72 07/13/24 21:12 99 H 30 H 93 07/13/24 21:00 130/70 07/13/24 20:45 97 H 21 93 07/13/24 20:45 136/74 07/13/24 20:45 104 H 07/13/24 20:42 96 H 25 H 95 07/13/24 20:30 95 H 28 H 128/71 93 07/13/24 20:16 96 H 07/13/24 20:15 95 H 31 H 131/71 94 07/13/24 20:14 95 H 26 H 131/71 95 07/13/24 20:14 96 H 26 H 93 07/13/24 19:57 38.5 C H 93 H 18 127/67 95 O2 Del Method 07/13/24 22:20 Room Air 07/13/24 21:42 07/13/24 21:40 07/13/24 21:31 07/13/24 21:27 07/13/24 21:15 07/13/24 21:15 07/13/24 21:12 07/13/24 21:00 07/13/24 20:45 07/13/24 20:45 07/13/24 20:45 07/13/24 20:42 07/13/24 20:30 07/13/24 20:16 07/13/24 20:15 07/13/24 20:14 Room Air 07/13/24 20:14 Room Air 07/13/24 19:57 Room Air Laboratory Results Laboratory Results WBC 10.36 K/ul (4.8-10.8) 07/13/24 20:08 RBC 4.19 M/uL (4.70-6.10) L 07/13/24 20:08 Hgb 12.8 g/dl (14.0-18.0) L 07/13/24 20:08 Hct 38.5 % (42.0-52.0) L 07/13/24 20:08 MCV 91.9 fL (80.0-100.0) 07/13/24 20:08 MCH 30.5 pg (25.0-34.0) 07/13/24 20:08 MCHC 33.2 g/dL (32.0-36.0) 07/13/24 20:08 RDW Std Deviation 49.2 fL (36.4-46.3) H 07/13/24 20:08 RDW Coeff of Cherelle 14.6 % (11.5-14.5) H 07/13/24 20:08 Plt Count 162 K/uL (130-400) 07/13/24 20:08 MPV 10.4 fL (9.4-12.4) 07/13/24 20:08 Immature Gran % (Auto) 0.4 % 07/13/24 20:08 Neut % (Auto) 88.7 % 07/13/24 20:08 Lymph % (Auto) 6.0 % 07/13/24 20:08 [place] % (Auto) 4.0 % 07/13/24 20:08 Eos % (Auto) 0.6 % 07/13/24 20:08 Baso % (Auto) 0.3 % 07/13/24 20:08 Neut # (Auto) 9.20 K/uL (1.40-6.50) H 07/13/24 20:08 Lymph # (Auto) 0.62 K/uL (1.20-3.40) L 07/13/24 20:08 [place] # (Auto) 0.41 K/uL (0.11-0.59) 07/13/24 20:08 Eos # (Auto) 0.06 K/uL (0.00-0.50) 07/13/24 20:08 Baso # (Auto) 0.03 K/uL (0.00-0.20) 07/13/24 20:08 Immature Gran # (Auto) 0.04 K/uL (0.01-0.20) 07/13/24 20:08 PT 17.4 Seconds (9.0-12.0) H 07/13/24 21:16 INR 1.7 (0.9-1.1) H 07/13/24 21:16 VBG pH 7.41 (7.36-7.41) 07/13/24 20:36 VBG pCO2 33 mmHg (38-50) L 07/13/24 20:36 VBG pO2 31 mmHg 07/13/24 20:36 VBG HCO3 21 mmol/L 07/13/24 20:36 VBG O2 Saturation < 60.0 % 07/13/24 20:36 VBG Base Excess -2.9 mEq/L 07/13/24 20:36 Sodium 132 mmol/L (136-145) L 07/13/24 20:11 Potassium 4.5 mmol/L (3.5-5.1) 07/13/24 20:11 Chloride 98 mmol/L (98-107) 07/13/24 20:11 Carbon Dioxide 26 mmol/L (21-32) 07/13/24 20:11 Anion Gap 8 (3-11) 07/13/24 20:11 BUN 24 mg/dl (6-23) H 07/13/24 20:11 Creatinine 1.98 mg/dl (0.6-1.4) H 07/13/24 20:11 Est Cr Clr Drug Dosing 37.2 ml/min 07/13/24 20:11 eGFR 33.31 07/13/24 20:11 BUN/Creatinine Ratio 12.1 (10-20) 07/13/24 20:11 Glucose 165 mg/dl (70-99(Fasting)) H 07/13/24 20:11 POC Glucose 130 mg/dl (70-99) H 07/13/24 20:00 Lactate 1.7 mmol/L (0.4-2.0) 07/13/24 20:08 Calcium 9.3 mg/dl (8.6-10.3) 07/13/24 20:11 Magnesium 1.5 mg/dl (1.7-2.4) L 07/13/24 20:11 Total Bilirubin 1.0 mg/dl (0.2-1.0) 07/13/24 20:11 Direct Bilirubin 0.2 mg/dl (0-0.2) 07/13/24 20:11 AST 21 U/L (13-39) 07/13/24 20:11 ALT 18 U/L (7-52) 07/13/24 20:11 Alkaline Phosphatase 108 U/L (34-104) H 07/13/24 20:11 Troponin I High Sens 427.7 pg/ml (0-20) H* 07/13/24 22:52 Total Protein 7.0 gm/dl (6.0-8.3) 07/13/24 20:11 Albumin 4.0 gm/dl (3.4-5.0) 07/13/24 20:11 Procalcitonin 0.22 ng/ml (0-0.5) 07/13/24 20:08 Urine Color Yellow 07/13/24 21:20 Urine Appearance Cloudy (Clear) A 07/13/24 21:20 Urine pH 6.0 (4.5-7.5) 07/13/24 21:20 Ur Specific [place] 1.016 (1.000-1.030) 07/13/24 21:20 Urine Protein 1+ (Negative) H 07/13/24 21:20 Urine Glucose (UA) Negative (Negative) 07/13/24 21:20 Urine Ketones Trace (Negative) H 07/13/24 21:20 Urine Blood Trace (Negative) H 07/13/24 21:20 Urine Nitrite Positive (Negative) A 07/13/24 21:20 Urine Bilirubin Negative (Negative) 07/13/24 21:20 Urine Urobilinogen Negative (Negative) 07/13/24 21:20 Ur Leukocyte Esterase 2+ (Negative) H 07/13/24 21:20 Urine WBC (Auto) >50 /hpf (0-5) H 07/13/24 21:20 Urine RBC (Auto) 0-2 /hpf (0-2) 07/13/24 21:20 U Hyaline Cast (Auto) 0-2 /lpf (0-2) 07/13/24 21:20 U Epithel Cells (Auto) 0-2 /hpf (0-2) 07/13/24 21:20 Urine Bacteria (Auto) 4+ (None Seen) H 07/13/24 21:20 Adenovirus (PCR) Not Detected (NotDetected) 07/13/24 20:11 B. pertussis DNA (PCR) Not Detected (NotDetected) 07/13/24 20:11 B.parapertussis DNA PCR Not Detected (NotDetected) 07/13/24 20:11 C. pneumoniae DNA (PCR) Not Detected (NotDetected) 07/13/24 20:11 Coronavirus OC43 (PCR) Not Detected (NotDetected) 07/13/24 20:11 Coronavirus HKU1 (PCR) Not Detected (NotDetected) 07/13/24 20:11 Coronavirus 229E (PCR) Not Detected (NotDetected) 07/13/24 20:11 SARS-CoV-2 (PCR) Not Detected (NotDetected) 07/13/24 20:11 Coronavirus NL63 (PCR) Not Detected (NotDetected) 07/13/24 20:11 Human Metapneumovir PCR Not Detected (NotDetected) 07/13/24 20:11 Influenza Type A (PCR) Not Detected (NotDetected) 07/13/24 20:11 Influenza Type B (PCR) Not Detected (NotDetected) 07/13/24 20:11 M. pneumoniae (PCR) Not Detected (NotDetected) 07/13/24 20:11 Parainfluenza 1 (PCR) Not Detected (NotDetected) 07/13/24 20:11 Parainfluenza 2 (PCR) Not Detected (NotDetected) 07/13/24 20:11 Parainfluenza 3 (PCR) Not Detected (NotDetected) 07/13/24 20:11 Parainfluenza 4 (PCR) Not Detected (NotDetected) 07/13/24 20:11 RSV (PCR) Not Detected (NotDetected) 07/13/24 20:11 Entero/Rhino (PCR) Not Detected (NotDetected) 07/13/24 20:11 Impressions Chest X-Ray 07/13/24 20:03 Exam(s): XR CXR 1 VIEW EXAM: XR Chest, 1 View CLINICAL HISTORY: Reason for exam: Sepsis. TECHNIQUE: Frontal view of the chest. COMPARISON: 12/20/2022 FINDINGS: Lungs: Unremarkable. No consolidation. Pleural space: Unremarkable. No pneumothorax. Heart: Unremarkable. No cardiomegaly. Mediastinum: Unremarkable. Normal mediastinal contour. Bones/joints: Postoperative changes median sternotomy. No acute fracture. IMPRESSION: No acute findings in the chest. Electronically signed by: Owen Dorantes MD 07/14/24 00:14 AM Code Status & VTE Plan Code Status Full code VTE Prophylaxis Plan VTE Prophylaxis will be ordered: Yes PG Care Time/CCT Total # of Minutes Spent Total Time Spent with Patient: Total time spent is greater than 50% in coordination of care (as documented) at patient's floor/unit and/or counseling patient: Coding Level of Care Code 70356 INT INP/OBS CARE 3/75MIN Diagnoses Sepsis A41.9; R65.20; N17.9 Acute renal failure type: unspecified Sepsis acute organ dysfunction status: with acute organ dysfunction Sepsis type: sepsis due to unspecified organism Severe sepsis acute organ dysfunction type: acute renal failure Severe sepsis shock status: without septic shock Acute UTI N39.0 Pneumonia J18.9 Diabetes mellitus with hypoglycemia E11.649 Acute kidney injury superimposed on CKD N17.9; N18.9 (1) Sepsis Acute renal failure type: unspecified Sepsis acute organ dysfunction status: with acute organ dysfunction Sepsis type: sepsis due to unspecified organism Severe sepsis acute organ dysfunction type: acute renal failure Severe sepsis shock status: without septic shock Qualified Code(s): A41.9 - Sepsis, unspecified organism; R65.20 - Severe sepsis without septic shock; N17.9 - Acute kidney failure, unspecified
[2024-07-13] MEDS ORDERED: CARBOHYDRATES FOR HYPOGLYCEMIA PO PRN (23:36)
[2024-07-13] MEDS ORDERED: DEXTROSE 50% 50 ML SYRINGE IV PRN (23:36)
[2024-07-13] MEDS ORDERED: GLUCAGON FOR INJ 1 MG VIAL SQ PRN (23:36)
[2024-07-13] MEDS ORDERED: ACETAMINOPHEN 325 MG TAB PO PRN (23:36)
[2024-07-13] MEDS ORDERED: GLUCOSE 10 TAB/TUBE PO PRN (23:36)
[2024-07-13] MEDS ORDERED: NITROGLYCERIN SL 0.4 MG/TAB TAB SL PRN (23:36)
[2024-07-13] MEDS ORDERED: ALBUT/IPRATROP 3MG/0.5MG NEB 3 ML VIAL NEB PRN (23:36)
[2024-07-13] MEDS ORDERED: GLUCOSE 40% GEL 15 GM TUBE PO PRN (23:36)
--- NOTE | 2024-07-14 00:15 | XRay Report ---
Exam(s): XR CXR 1 VIEW EXAM: XR Chest, 1 View CLINICAL HISTORY: Reason for exam: Sepsis. TECHNIQUE: Frontal view of the chest. COMPARISON: 12/20/2022 FINDINGS: Lungs: Unremarkable. No consolidation. Pleural space: Unremarkable. No pneumothorax. Heart: Unremarkable. No cardiomegaly. Mediastinum: Unremarkable. Normal mediastinal contour. Bones/joints: Postoperative changes median sternotomy. No acute fracture. IMPRESSION: No acute findings in the chest. Electronically signed by: Owen Dorantes MD 07/14/24 00:14 AM
[2024-07-14 06:14] LABS: Basophils # (auto) 0.04 K/uL (0.00-0.20); Basophils % (auto) 0.4 %; Eosinophils # (auto) 0.08 K/uL (0.00-0.50); Eosinophils % (auto) 0.8 %; Hematocrit (blood only) 33.8 % (42.0-52.0); Hemoglobin 11.2 g/dl (14.0-18.0); Immature Granulocytes # (auto) 0.02 K/uL (0.01-0.20); Immature Granulocytes % (auto) 0.2 %; Lymphocytes % (auto) 15.1 %; Mean Corpuscular Hemoglobin 30.4 pg (25.0-34.0); Mean Corpuscular Hgb Conc 33.1 g/dL (32.0-36.0); Mean Corpuscular Volume 91.8 fL (80.0-100.0); Mean Platelet Volume 10.5 fL (9.4-12.4); Monocytes # (auto) 0.82 K/uL (0.11-0.59); Monocytes % (auto) 8.2 %; Neutrophils # (auto) 7.49 K/uL (1.40-6.50); Neutrophils % (auto) 75.3 %; Platelet Count 141 K/uL (130-400); RDW Coefficient of Variation 14.4 % (11.5-14.5); RDW Standard Deviation 49.1 fL (36.4-46.3); Red Blood Count 3.68 M/uL (4.70-6.10); White Blood Count 9.95 K/ul (4.8-10.8)
[2024-07-14 06:29] LABS: Albumin Level 3.1 gm/dl (3.4-5.0); Calcium 7.9 mg/dl (8.6-10.3); Magnesium 1.8 mg/dl (1.7-2.4); Potassium 3.9 mmol/L (3.5-5.1)
[2024-07-14 06:35] LABS: BUN Creatinine Ratio 13.2 (10-20); Phosphorus 3.4 mg/dl (2.5-4.9)
--- NOTE | 2024-07-14 07:10 | Hospitalist Progress Note ---
Date of Service July 14, 2024 Assessment & Plan (1) Sepsis: (2) Acute UTI: (3) Acute kidney injury superimposed on CKD: (4) Diabetes mellitus with hypoglycemia: Plan Plan 1) Sepsis/Hypotension Lowest blood pressure 93/60 with heart rate 100, and temperature 38.5 From the ED patient received the following: Ceftriaxone 2 g IV, azithromycin 500 mg, PO, aspirin 324 mg, and normal saline 1 L bolus Blood cultures pending Ordered NSS, 1 L, 125 mL/hr (2) Acute UTI/Recurrent UTI's Most recent admission from 05/12-05/14/2024 with sepsis due to E. coli UTI Ur Cx positive for E. coli, sensitivities pending Continue ceftriaxone 2 g IV daily begun in the ED Status post 1 L normal saline bolus from the ED, NSS at 80 mL/h x 1 L Possible etiologies for recurrent UTI's include Farxiga, urinary stasis (urinary retention) due to untreated BPH (3) Pneumonia: BioFire testing negative for viral process Likely atypical infection Continue ceftriaxone 2 g IV daily as noted above Continue azithromycin 500 mg, PO, daily Sputum Gram stain and culture - vaccinated against flu, Covid, and pneumococcal vaccine earlier this yr; had Covid 3-4 months ago (4) Diabetes mellitus with hypoglycemia: Hold Trulicity, tirzepatide, insulin 70/30, and dapagliflozin Glucose 165 on admission, BSG's normal so far during stay His daughter reports that his intake is significantly decreased over the past week Placed on Accu-Cheks with NovoLog SSI, holding any long-acting insulin for now till oral intake resumes A1C, 8.4 Consider discontinuing dapagliflozin (Farxiga) upon discharge Increase dosage of Mounjaro from 2.5 to 5.0 mg, weekly, SQ (to compensate for Farxiga discontinuation) (5) Acute kidney injury superimposed on CKD: Creatinine, 1.82 <-- 1.98, (baseline 1.59) IV fluids as above (6) BPH - pt w/ symptoms of BPH: frequent nocturia, increased urinary freq at baseline - will prescribe tamsulosin, 0.4 mg, daily as an outpt Code status: Full code Disposition: PCU-Tele VTE Prophylaxis: Heparin, 5000 U, q12hrs, SQ FENGI: Carb consistent T2DM, heart healthy diet Admission and Anticipated Discharge Date Admission Date: July 13, 2024 Supervising Physician Co-Signing Physician Notes I personally examined the patient and verified all augustin points of history and exam, discussed case, and agree with decision making with Dr Yoon feeling better out of bed urinary symptoms improving as well vitals noted nad heent nc at mmm breathing unlabored no accessory muscles good effort skin no rashes no pallor or icterus neuro no focal deficits recurrent UTIs w UTI/sepsis present on admission - improving. continue abx, supportive care. farxiga/BPH likely culprits - stop farxiga, start flomax. as far as glycemic control - A1c 8.4 so simply stopping farxiga with no other changes will likely lead to unacceptable high sugars - discussed with pt today re: raising insulin vs looking at diet for where he can eliminate carbs. (fairly poor diet recall - boost in AM, bruschetta for dinner, takes a cupcake to bed, drinks no calories besides the AM boost - but no recent weight loss - and basal energy expenditure would suggest at least ~1900 camila/day to maintain -- so unless bruschetta serving is quite large, appears some calorie recall is missing) DVT proph - heparin SQ Subjective PCP: Dr. Cho The patient presented to the ED, with daughter at bedside, complaints of intermittently productive cough, generalized weakness, fatigue, and nausea without vomiting. Sx began several weeks ago, became acutely worse over past few days, with decreased oral intake, glucose fingerstick of 42 yesterday, daughter became concerned, had him come to ED for assessment. Patient is 79 yo M w/ PMHx of T2DM, CKD, vitamin D deficiency, hiatal hernia, gastroparesis, history of hypoglycemia, chronic diastolic CHF, atrial fibrillation, sleep apnea, history of coronary stent placement, pulmonary hypertension, and BPH with LUTS. This morning the patient is feeling much better subjectively w/ only minor dysuria with urination this morning but resolving increased frequency/urgency. Patient w/out feelings of feverish but w/ chills overnight. Review of Systems Constitutional: + chills (some chills o/n) and + fatigue (improving fatigue); no fever Respiratory: + cough and + chest congestion; no dyspn ea, no hemoptysis and no pain with cough Cardiovascular: no chest pain, no palpitations and no lightheadedness Gastrointestinal: no abdominal pain, no nausea, no vomiting, no constipation and no diarrhea/loose stools Genitourinary: + dysuria (earlier had burning, last uri nation minimal burning) and + urinary frequency Neurologic: no tingling, no numbness and no headache(s) Physical Exam Constitutional: WD/WN, vitals as above Respiratory: normal respiratory effort, lungs clear to auscultation Cardiovascular: RRR, no murmur, no edema Extremities: normal capillary refill; no calf tenderness and no pedal edema Gastrointestinal (Abdomen): normal bowel sounds, soft, nontender, no hepatosplenomegaly Psychiatric: A+Ox3, euthymic affect Genitourinary: bladder normal to palpation; no CVA tenderness Results & Data Results & Data Vital Signs (Past 12 Hours) Vital Signs Temp Pulse Pulse Resp BP BP Pulse Ox 07/14/24 03:56 36.8 C 71 20 97/58 L 94 07/13/24 23:52 07/13/24 23:52 36.7 C 95 H 18 103/59 L 95 07/13/24 22:54 37.3 C 98 H 20 93/60 L 94 07/13/24 22:42 99 H 16 95 07/13/24 22:30 99 H 29 H 93 07/13/24 22:30 110/64 07/13/24 22:24 97 H 29 H 94 07/13/24 22:20 98 H 31 H 110/62 93 07/13/24 22:15 110/62 07/13/24 22:09 100 H 33 H 94 07/13/24 21:45 116/66 07/13/24 21:42 98 H 39 H 95 07/13/24 21:40 115/70 07/13/24 21:31 141/66 H 07/13/24 21:27 99 H 33 H 96 07/13/24 21:15 97 H 28 H 94 07/13/24 21:15 129/72 07/13/24 21:12 99 H 30 H 93 07/13/24 21:00 130/70 07/13/24 20:45 97 H 21 93 07/13/24 20:45 136/74 07/13/24 20:45 104 H 07/13/24 20:42 96 H 25 H 95 07/13/24 20:30 95 H 28 H 128/71 93 07/13/24 20:16 96 H 07/13/24 20:15 95 H 31 H 131/71 94 07/13/24 20:14 95 H 26 H 131/71 95 07/13/24 20:14 96 H 26 H 93 07/13/24 19:57 38.5 C H 93 H 18 127/67 95 O2 Del Method 07/14/24 03:56 Room Air 07/13/24 23:52 Room Air 07/13/24 23:52 Room Air 07/13/24 22:54 Room Air 07/13/24 22:42 07/13/24 22:30 07/13/24 22:30 07/13/24 22:24 07/13/24 22:20 Room Air 07/13/24 22:15 07/13/24 22:09 07/13/24 21:45 07/13/24 21:42 07/13/24 21:40 07/13/24 21:31 07/13/24 21:27 07/13/24 21:15 07/13/24 21:15 07/13/24 21:12 07/13/24 21:00 07/13/24 20:45 07/13/24 20:45 07/13/24 20:45 07/13/24 20:42 07/13/24 20:30 07/13/24 20:16 07/13/24 20:15 07/13/24 20:14 Room Air 07/13/24 20:14 Room Air 07/13/24 19:57 Room Air (1) Sepsis Acute renal failure type: unspecified Sepsis acute organ dysfunction status: with acute organ dysfunction Sepsis type: sepsis due to unspecified organism Severe sepsis acute organ dysfunction type: acute renal failure Severe sepsis shock status: without septic shock Qualified Code(s): A41.9 - Sepsis, unspecified organism; R65.20 - Severe sepsis without septic shock; N17.9 - Acute kidney failure, unspecified
[2024-07-14 07:49] LABS: Estimated Average Glucose 194 mg/dl; Hemoglobin A1C 8.4 % (4.5-5.6)
[2024-07-14] MEDS: INSULIN ASPART PER UNIT CHARGE SC SCH (07:53)
[2024-07-14] MEDS: TICAGRELOR 90 MG TAB PO SCH (09:31)
[2024-07-14] MEDS: PANTOprazole 40 MG TAB PO SCH (09:31)
[2024-07-14] MEDS: ACEBUTOLOL HCL 200 MG CAPSULE PO SCH (09:31)
[2024-07-14] MEDS: FAMOTIDINE 20 MG TAB PO SCH (09:32)
[2024-07-14] MEDS: guaiFENesin 600 MG TABCR PO SCH (09:33)
[2024-07-14] MEDS: ISOSORBIDE MONO EXTENDED REL 60 MG TABCR PO SCH (09:33)
[2024-07-14] MEDS: MULTIVITAMIN TAB PO SCH (09:33)
--- NOTE | 2024-07-14 09:52 | Cardiology Consultation ---
Date of Consultation July 14, 2024 Assessment & Plan (1) Elevated troponin: (2) CAD (coronary artery disease): (3) S/P CABG (coronary artery bypass graft): (4) Bifascicular block: (5) Acute UTI: (6) Acute kidney injury superimposed on CKD: (7) Sepsis: Plan Mr. Goyal is an 79 year old male with a history of CAD s/p CABG x 4 Vessels, Multiple Subsequent PCI's, Atrial Flutter s/p Caval Tricuspid Isthmus Ablation 12/29/22, RBBB with a LAFB, Type 2 Diabetes Mellitus, Hypertension, Dyslipidemia, Pulmonary Hypertension, Chronic Diastolic CHF, CKD, BPH,and Sleep Apnea (did not tolerate CPAP). who was admitted to [facility] on 07/13/24 with an Acute UTI, Possible Sepsis, JULIO CESAR, and was noted incidentally to have an Elevated High Sensitivity Troponin I -- which likely represents Demand Ischemia. His symptoms included a cough, fever, nausea, generalized weakness. He states that he felt like he had a cold for about the past 3 weeks which included a cough and malaise. However within a day or 2 of presenting to the ER, his symptoms became much worse, he felt much weaker, his cough was persistent. Chest x-ray showed no acute processes, but his urine analysis was positive for urine nitrites, leukocyte esterase, urine WBCs, and +4 urine bacteria. His WBC count was not elevated, but he does have a leukocytic shift. Diagnosed with a UTI, and possible sepsis. Urine and blood cultures are pending, procalcitonin level is within normal limits. Patient was subsequently admitted for further evaluation and treatment. He was noted to be hypomagnesemic on admission, and that has been corrected. His high sensitivity troponin I was initially elevated at 525.1 pg/mL and has subsequently trended down to 427.7 pg/mL. His EKG shows normal sinus rhythm with first-degree AV block, RBBB with LAFB, but no acute changes. neurophysiology tech has shown sinus rhythm with an IVCD and occasional PVCs. Patient has been treated with IV antibiotics and feels 100% better than he did at the time of admission. Patient has not had any of his angina pectoris or any anginal symptoms at any time during this illness. He does not have any signs or symptoms of heart failure, nor has he had any symptoms suggestive of dysrhythmia. We discussed his acute UTI, possible sepsis, acute kidney injury on top of his chronic kidney disease -- and how these conditions can lead to an elevated high sensitivity troponin, especially in somebody with known multivessel CAD. That this does not appear to be an acute coronary event. In the absence of any of his angina pectoris or any dyspnea -- we would not recommend further ischemic workup at this time. Recommend the followin. Continue to treat underlying UTI, possible sepsis. 2. Continue Acebutolol 400 mg b.i.d.. 3. Continue Aspirin 81 mg daily. 4. Continue atorvastatin 80 mg daily. 5. Continue Imdur ER 120 mg daily 6. Continue Brilinta 90 mg b.i.d.. 7. Hold and consider discontinuing Farxiga, this is his 2nd UTI in recent months. 8. Agree with holding Entresto due to JULIO CESAR. Thank you for asking us to see this patient in consultation. Please contact Dr. Melissa or myself if the patient develops any cardiopulmonary symptoms. History of Present Illness Reason for Consultation: -- Elevated High Sensitivity Troponin I Level. Requesting Physician: Owen Rose DO Attending Physician: Kieran Melissa MD History of Present Illness Mr. Goyal is an 79 year old male with a history of CAD s/p CABG x 4 Vessels, Multiple Subsequent PCI's, Atrial Flutter s/p Caval Tricuspid Isthmus Ablation 12/29/22, RBBB with a LAFB, Type 2 Diabetes Mellitus, Hypertension, Dyslipidemia, Pulmonary Hypertension, Chronic Diastolic CHF, CKD, BPH,and Sleep Apnea (did not tolerate CPAP). His primary custom applicator is Dr. Lovell in [place]. Patient presented to [facility] ER on 07/13/24 with a cough, fever, nausea, generalized weakness. He states that he felt like he had a cold for about the past 3 weeks which included a cough and malaise. However within a day or 2 of presenting to the ER, his symptoms became much worse, he felt much weaker, his cough was persistent. Chest x-ray showed no acute processes, but his urine analysis was positive for urine nitrites, leukocyte esterase, urine WBCs, and +4 urine bacteria. His WBC count was not elevated, but he does have a leukocytic shift. Diagnosed with a UTI, and possible sepsis. Urine and blood cultures are pending, procalcitonin level is within normal limits. Patient was subsequently admitted for further evaluation and treatment. He was noted to be hypomagnesemic on admission, and that has been corrected. His high sensitivity troponin I was initially elevated at 525.1 pg/mL and has subsequently trended down to 427.7 pg/mL. His EKG shows normal sinus rhythm with first-degree AV block, RBBB with LAFB, but no acute changes. neurophysiology tech has shown sinus rhythm with an IVCD and occasional PVCs. Patient has been treated with IV antibiotics and feels 100% better than he did at the time of admission. Patient has not had any anginal symptoms at any time during his illness. He has not experienced any of his angina pectoris. He specifically denies any chest pain, heaviness, tightness, pressure, or discomfort. He denies any neck, jaw, back, or arm pain. He denies any shortness of breath, unusual dyspnea exertion, recent changes in exertional tolerance, orthopnea, or PND. He further denies any palpitations, syncope, or near-syncope. He has had the following studies/procedures: 1. CABG x 4 Vessels prior to 2012 in [place]. 2. Cardiac Cath 08/28/2022 [facility] (Dr. Ortiz): Patent LM stent. Proximal LAD stent patent. Mid LAD stent patent. Distal LAD instent 95%, with KAREN II flow. Ostial D2 99%. Ostial circumflex 100% AIRCRAFT MACHINIST. Dominant circumflex. Small OM1 100% and fills via L to L collaterals. Small OM2 and OM3 with severe CAD. Small to medium nondominant RCA with diffuse severe disease. HAILE to LAD atretic (appears to anastomose with small diagonal which is occluded. SVG jump graft to OM to PL widely patent and patent SVG stent. SVG provides flow into the AV groove circumflex and OM and PDA branches. Underwent PCI of LAD in-stent restenosis with 2.25 x 15 mm Óscar LAURIE. Postdilated 2.5 NC. 3. Echo 12/21/2022: Low normal LV systolic function. EF 50% to 55%. Possible mild hypokinesis of the inferolateral wall. Hypokinesis of the mid to distal anterolateral and distal anterior wall segments. Mild LVH. Moderate left atrial dilation. Sclerotic aortic valve. Moderate MR. RVSP 56 4. ALIREZA and Caval Tricuspid Isthmus Ablation 12/29/[address] Mckeon. Family History: Mother at 54 from [place]. Father at 60 with [place]. Sister at 54 with [place]. Brother at 30 with [place]. Social History: -- He lives at home with his . He has 2 daughters, 6 grandchildren and 6 great-grandchildren. -- He denies tobacco, alcohol, or drug abuse. Allergies Allergy/AdvReac Type Severity Reaction Status Date / Time No Known Drug Allergies Allergy Unknown Verified 05/30/24 12:29 Home Medications Medication Instructions Recorded Confirmed Type blood-glucose meter (OneTouch #1 ea 05/09/19 07/13/24 Rx Verio Flex Start kit) insulin syringe-needle U-100 1 mL #200 ea 02/23/20 07/13/24 Rx 31 gauge x 5/16" (BD Insulin Syringe Ultra-Fine) blood sugar diagnostic #300 ea 04/28/21 07/13/24 Rx aspirin 81 mg tablet,delayed 81 mg PO QPM 08/28/22 07/13/24 History release pantoprazole 40 mg tablet,delayed 40 mg PO BID 08/28/22 07/13/24 History release nitroglycerin 0.4 mg sublingual 0.4 mg sublingual Q5M PRN chest 08/29/22 07/13/24 Rx tablet (Nitrostat) pain #1 btl allopurinol 300 mg tablet 300 mg PO QPM 12/20/22 07/13/24 History amoxicillin 500 mg capsule 2,000 mg PO ONCE PRN prior to 12/20/22 07/13/24 History dental procedures atorvastatin 80 mg tablet 80 mg PO QPM 12/20/22 07/13/24 History dulaglutide 3 mg/0.5 mL 3 mg subcut WK 12/20/22 07/13/24 History subcutaneous pen injector (Trulicity) famotidine 20 mg tablet 20 mg PO BID 12/20/22 07/13/24 History multivitamin 1 tab PO QAM 01/29/23 07/13/24 History dapagliflozin propanediol 10 mg 10 mg PO DAILY 05/24/23 07/13/24 History tablet (Farxiga) sacubitril 24 mg-valsartan 26 mg 1 tab PO BID 05/24/23 07/13/24 History tablet (Entresto) ticagrelor 90 mg tablet (Brilinta) 90 mg PO BID 05/24/23 07/13/24 History torsemide 20 mg tablet 20 mg PO DAILY PRN Weight Gain #0 05/14/24 07/13/24 Rx tabs acebutolol 400 mg capsule 400 mg PO BID 05/30/24 07/13/24 History insulin aspar prt-insulin aspart 92 unit subcut DAILY 05/30/24 07/13/24 History 100 unit/mL (70-30) subcutaneous soln (Novolog Mix 70-30 U-100 Insuln) isosorbide mononitrate 120 mg 120 mg PO DAILY 05/30/24 07/13/24 History tablet,extended release 24 hr tirzepatide 2.5 mg/0.5 mL 2.5 mg (0.5 mL) subcut Q7D #2 mL 05/30/24 07/13/24 Rx subcutaneous pen injector (Mounjaro) Patient History Medical History Arthritis Dysphagia Hiatal hernia Diabetes mellitus, type 2 Hx of basal cell carcinoma History of atrial fibrillation History of kidney stones History of COVID-19 2019? date>resolved Hx of gout NSTEMI (non-ST elevated myocardial infarction) ? date Stage 3b chronic kidney disease Esophageal reflux Hypertension Pericardial effusion Surgical History History of carpal tunnel release rt/left History of total knee replacement left History of colonoscopy History of tooth extraction History of cardiac radiofrequency ablation 12/2022 at [facility] for atrial fib H/O transurethral resection of prostate History of ankle surgery History of lithotripsy History of cholecystectomy History of four vessel coronary artery bypass graft 2009>[place] Family History Brother Prostate cancer Diabetes Heart disease Myocardial infarction End stage renal disease Sister Diabetes Mother Heart disease Myocardial infarction Father Heart disease Myocardial infarction Unknown Hypercholesteremia Other No family history of adverse response to anesthesia Denies family history of Ovarian cancer Hearing loss Breast cancer Colorectal cancer Hypertension Social History Smoking Status: Never smoker Second Hand Exposure: Yes (as a child); Do You Dip or Chew Tobacco: No; Hx Alcohol Use: No Hx Substance Use: No Preferred Language: Ukrainian Communication Ability: Effective Visual Impairment: No Limitations Hearing Ability: Use of Hearing Aid Head Of Art Required: No Beliefs That Will Affect Care: None marital status: Current Living Situation: Spouse Current Living Situation Comment: with at home current occupational status: retired 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 Physical Exam Physical Exam: BP 95/45, pulse 70 and regular. GENERAL: Patient in no acute distress. HEENT: Head is atraumatic, normocephalic. EOM's intact. Facies symmetric. No perioral cyanosis. NECK: No JVD. JVP is not elevated. Carotid upstrokes are + 2 bilaterally without bruits. CHEST/LUNGS: Clear to auscultation throughout all lung rodriguez. No wheezes, rales, or crackles. CVS: S1 and S2 are regular without murmurs, gallops, or rubs. PMI is nonpalpable. No lifts, heaves, or thrills. No abdominal aortic or renal bruits. Well-healed median sternotomy are scar is present ABDOMINAL EXAM: Bowel sounds are present. EXTREMITIES: No clubbing or cyanosis. No edema. NEUROLOGIC EXAM: Patient is awake, alert, and oriented. Pleasant and cooperative. Answers questions appropriately. Speech is clear. SIGNAL INTELLIGENCE/ELECTRONIC WARFARE: -- NSR with 1st degree AV block and an I VCD, occasional PVC's. Results & Data Vital Signs (Past 12 Hours) Vital Signs Temp Pulse Pulse Resp BP BP Pulse Ox 07/14/24 07:25 73 07/14/24 07:00 36.8 C 67 20 95/45 L 94 07/14/24 03:56 36.8 C 71 20 97/58 L 94 07/13/24 23:52 07/13/24 23:52 36.7 C 95 H 18 103/59 L 95 07/13/24 22:54 37.3 C 98 H 20 93/60 L 94 07/13/24 22:42 99 H 16 95 07/13/24 22:30 99 H 29 H 93 07/13/24 22:30 110/64 07/13/24 22:24 97 H 29 H 94 07/13/24 22:20 98 H 31 H 110/62 93 07/13/24 22:15 110/62 07/13/24 22:09 100 H 33 H 94 O2 Del Method 07/14/24 07:25 07/14/24 07:00 Room Air 07/14/24 03:56 Room Air 07/13/24 23:52 Room Air 07/13/24 23:52 Room Air 07/13/24 22:54 Room Air 07/13/24 22:42 07/13/24 22:30 07/13/24 22:30 07/13/24 22:24 07/13/24 22:20 Room Air 07/13/24 22:15 07/13/24 22:09 Laboratory Results Laboratory Results - last 24 hr 07/13/24 07/13/24 07/13/24 20:00 20:08 20:11 WBC 10.36 RBC 4.19 L Hgb 12.8 L Hct 38.5 L MCV 91.9 MCH 30.5 MCHC 33.2 RDW Std Deviation 49.2 H RDW Coeff of Cherelle 14.6 H Plt Count 162 MPV 10.4 Immature Gran % (Auto) 0.4 Neut % (Auto) 88.7 Lymph % (Auto) 6.0 [place] % (Auto) 4.0 Eos % (Auto) 0.6 Baso % (Auto) 0.3 Neut # (Auto) 9.20 H Lymph # (Auto) 0.62 L [place] # (Auto) 0.41 Eos # (Auto) 0.06 Baso # (Auto) 0.03 Immature Gran # (Auto) 0.04 PT Cancelled INR Cancelled VBG pH VBG pCO2 VBG pO2 VBG HCO3 VBG O2 Saturation VBG Base Excess Sodium 132 L Potassium 4.5 Chloride 98 Carbon Dioxide 26 Anion Gap 8 BUN 24 H Creatinine 1.98 H Est Cr Clr Drug Dosing 37.2 eGFR 33.31 BUN/Creatinine Ratio 12.1 Glucose 165 H POC Glucose 130 H Estimat Average Glucose Hemoglobin A1c Lactate 1.7 Calcium 9.3 Phosphorus Magnesium 1.5 L Total Bilirubin 1.0 Direct Bilirubin 0.2 AST 21 ALT 18 Alkaline Phosphatase 108 H Troponin I High Sens 525.1 H* Total Protein 7.0 Albumin 4.0 Procalcitonin 0.22 Urine Color Urine Appearance Urine pH Ur Specific [place] Urine Protein Urine Glucose (UA) Urine Ketones Urine Blood Urine Nitrite Urine Bilirubin Urine Urobilinogen Ur Leukocyte Esterase Urine WBC (Auto) Urine RBC (Auto) U Hyaline Cast (Auto) U Epithel Cells (Auto) Urine Bacteria (Auto) Adenovirus (PCR) Not Detected B. pertussis DNA (PCR) Not Detected B.parapertussis DNA PCR Not Detected C. pneumoniae DNA (PCR) Not Detected Coronavirus OC43 (PCR) Not Detected Coronavirus HKU1 (PCR) Not Detected Coronavirus 229E (PCR) Not Detected SARS-CoV-2 (PCR) Not Detected Coronavirus NL63 (PCR) Not Detected Human Metapneumovir PCR Not Detected Influenza Type A (PCR) Not Detected Influenza Type B (PCR) Not Detected M. pneumoniae (PCR) Not Detected Parainfluenza 1 (PCR) Not Detected Parainfluenza 2 (PCR) Not Detected Parainfluenza 3 (PCR) Not Detected Parainfluenza 4 (PCR) Not Detected RSV (PCR) Not Detected Entero/Rhino (PCR) Not Detected 07/13/24 07/13/24 07/13/24 20:36 21:16 21:20 WBC RBC Hgb Hct MCV MCH MCHC RDW Std Deviation RDW Coeff of Cherelle Plt Count MPV Immature Gran % (Auto) Neut % (Auto) Lymph % (Auto) [place] % (Auto) Eos % (Auto) Baso % (Auto) Neut # (Auto) Lymph # (Auto) [place] # (Auto) Eos # (Auto) Baso # (Auto) Immature Gran # (Auto) PT 17.4 H INR 1.7 H VBG pH 7.41 VBG pCO2 33 L VBG pO2 31 VBG HCO3 21 VBG O2 Saturation < 60.0 VBG Base Excess -2.9 Sodium Potassium Chloride Carbon Dioxide Anion Gap BUN Creatinine Est Cr Clr Drug Dosing eGFR BUN/Creatinine Ratio Glucose POC Glucose Estimat Average Glucose Hemoglobin A1c Lactate Calcium Phosphorus Magnesium Total Bilirubin Direct Bilirubin AST ALT Alkaline Phosphatase Troponin I High Sens Total Protein Albumin Procalcitonin Urine Color Yellow Urine Appearance Cloudy A Urine pH 6.0 Ur Specific [place] 1.016 Urine Protein 1+ H Urine Glucose (UA) Negative Urine Ketones Trace H Urine Blood Trace H Urine Nitrite Positive A Urine Bilirubin Negative Urine Urobilinogen Negative Ur Leukocyte Esterase 2+ H Urine WBC (Auto) >50 H Urine RBC (Auto) 0-2 U Hyaline Cast (Auto) 0-2 U Epithel Cells (Auto) 0-2 Urine Bacteria (Auto) 4+ H Adenovirus (PCR) B. pertussis DNA (PCR) B.parapertussis DNA PCR C. pneumoniae DNA (PCR) Coronavirus OC43 (PCR) Coronavirus HKU1 (PCR) Coronavirus 229E (PCR) SARS-CoV-2 (PCR) Coronavirus NL63 (PCR) Human Metapneumovir PCR Influenza Type A (PCR) Influenza Type B (PCR) M. pneumoniae (PCR) Parainfluenza 1 (PCR) Parainfluenza 2 (PCR) Parainfluenza 3 (PCR) Parainfluenza 4 (PCR) RSV (PCR) Entero/Rhino (PCR) 07/13/24 07/14/24 07/14/24 22:52 05:31 07:09 WBC 9.95 RBC 3.68 L Hgb 11.2 L Hct 33.8 L MCV 91.8 MCH 30.4 MCHC 33.1 RDW Std Deviation 49.1 H RDW Coeff of Cherelle 14.4 Plt Count 141 MPV 10.5 Immature Gran % (Auto) 0.2 Neut % (Auto) 75.3 Lymph % (Auto) 15.1 [place] % (Auto) 8.2 Eos % (Auto) 0.8 Baso % (Auto) 0.4 Neut # (Auto) 7.49 H Lymph # (Auto) 1.50 [place] # (Auto) 0.82 H Eos # (Auto) 0.08 Baso # (Auto) 0.04 Immature Gran # (Auto) 0.02 PT INR VBG pH VBG pCO2 VBG pO2 VBG HCO3 VBG O2 Saturation VBG Base Excess Sodium 137 Potassium 3.9 Chloride 107 Carbon Dioxide 22 Anion Gap 8 BUN 24 H Creatinine 1.82 H Est Cr Clr Drug Dosing 40.0 eGFR 36.86 BUN/Creatinine Ratio 13.2 Glucose 110 H POC Glucose 136 H Estimat Average Glucose 194 Hemoglobin A1c 8.4 H Lactate Calcium 7.9 L Phosphorus 3.4 Magnesium 1.8 Total Bilirubin Direct Bilirubin AST ALT Alkaline Phosphatase Troponin I High Sens 427.7 H* Total Protein Albumin 3.1 L Procalcitonin Urine Color Urine Appearance Urine pH Ur Specific [place] Urine Protein Urine Glucose (UA) Urine Ketones Urine Blood Urine Nitrite Urine Bilirubin Urine Urobilinogen Ur Leukocyte Esterase Urine WBC (Auto) Urine RBC (Auto) U Hyaline Cast (Auto) U Epithel Cells (Auto) Urine Bacteria (Auto) Adenovirus (PCR) B. pertussis DNA (PCR) B.parapertussis DNA PCR C. pneumoniae DNA (PCR) Coronavirus OC43 (PCR) Coronavirus HKU1 (PCR) Coronavirus 229E (PCR) SARS-CoV-2 (PCR) Coronavirus NL63 (PCR) Human Metapneumovir PCR Influenza Type A (PCR) Influenza Type B (PCR) M. pneumoniae (PCR) Parainfluenza 1 (PCR) Parainfluenza 2 (PCR) Parainfluenza 3 (PCR) Parainfluenza 4 (PCR) RSV (PCR) Entero/Rhino (PCR) Diagnostic Findings CXR 07/13/24: Lungs: Unremarkable. No consolidation. Pleural space: Unremarkable. No pneumothorax. Heart: Unremarkable. No cardiomegaly. Mediastinum: Unremarkable. Normal mediastinal contour. Bones/joints: Postoperative changes median sternotomy. No acute fracture. IMPRESSION: No acute findings in the chest. Medications Administered Medication List Acebutolol HCl (Acebutolol Hcl 200 Mg Capsule) 400 mg PO BID [facility] Stop: 08/13/24 08:59 Last Admin: 07/14/24 09:31 Dose: 400 mg Documented By: AM Famotidine (Famotidine 20 Mg Tab) 20 mg PO BID [facility] Stop: 08/13/24 08:59 Last Admin: 07/14/24 09:32 Dose: 20 mg Documented By: AM Guaifenesin (Guaifenesin 600 Mg Tabcr) 600 mg PO Q12 ALANNAH Stop: 08/13/24 08:59 Last Admin: 07/14/24 09:33 Dose: 600 mg Documented By: AM Sodium Chloride (Nss) 1,000 mls @ 80 mls/hr IV .[id number] [facility] Stop: 07/14/24 11:14 Last Admin: 07/13/24 22:44 Dose: 80 mls/hr Documented By: EFRAIN Insulin Aspart (Insulin Aspart Per Unit Charge) 0 units SC ACHS ALANNAH Stop: 08/13/24 07:29 Last Admin: 07/14/24 07:53 Dose: 2 units Documented By: AM Co-signed By: PK Isosorbide Mononitrate (Isosorbide [place] Extended Rel 60 Mg Tabcr) 120 mg PO DA DOMINIQUE ALANNAH Stop: 08/13/24 08:59 Last Admin: 07/14/24 09:33 Dose: 120 mg Documented By: AM Multivitamins (Multivitamin Tab) 1 tab PO QAM ALANNAH Stop: 08/13/24 08:59 Last Admin: 07/14/24 09:33 Dose: 1 tab Documented By: AM Pantoprazole Sodium (Pantoprazole 40 Mg Tab) 40 mg PO BID [facility] Stop: 08/13/24 08:59 Last Admin: 07/14/24 09:31 Dose: 40 mg Documented By: AM Ticagrelor (Ticagrelor 90 Mg Tab) 90 mg PO BID ALANNAH Stop: 08/13/24 08:59 Last Admin: 07/14/24 09:31 Dose: 90 mg Documented By: AM Discontinued Medications Aspirin (Aspirin Chew 324 Mg) 324 mg PO NOW STA Stop: 07/13/24 21:07 Last Admin: 07/13/24 21:34 Dose: 324 mg Documented By: CLAUDETTE Sodium Chloride (Nss) 1,000 mls @ 999 mls/hr IV .Q1H1M ALANNAH Stop: 07/13/24 21:15 Last Infusion: 07/13/24 21:27 Dose: Infused Documented By: Admin: 07/13/24 20:13 Dose: 999 mls/hr Documented By: PAZ Ceftriaxone Sodium (Rocephin) 1,000 mg in 50 mls @ 100 mls/hr IV NOW STA Stop: 07/13/24 21:53 Last Infusion: 07/13/24 22:44 Dose: Infused Documented By: Admin: 07/13/24 21:34 Dose: 100 mls/hr Documented By: CLAUDETTE Azithromycin 500 mg/ Sodium (Chloride) 255 mls @ 127.5 mls/hr IV NOW ONE Stop: 07/13/24 23:59 Last Infusion: 07/14/24 00:25 Dose: Infused Documented By: Admin: 07/13/24 22:21 Dose: 127.5 mls/hr Documented By: EFRAIN Magnesium Sulfate/Dextrose (Magnesium Sulfate / D5w) 1 gm in 100 mls @ 50 mls/hr IV ONE ONE Stop: 07/14/24 00:29 Last Infusion: 07/14/24 00:34 Dose: Infused Documented By: Admin: 07/13/24 22:33 Dose: 50 mls/hr Documented By: EFRAIN PG Care Time/CCT Total # of Minutes Spent Total Time Spent with Patient: Total time spent is greater than 50% in coordination of care (as documented) at patient's floor/unit and/or counseling patient: 45 Coding [place] [address] INT INP/OBS CARE 3/75MIN Patient Type Established History Comprehensive Exam Comprehensive Medical Decision Making High Complexity Diagnoses Elevated troponin R77.8 CAD (coronary artery disease) I25.10 Associated angina: without angina Coronary Disease-Associated Artery/Lesion type: unspecified vessel or lesion type [place] vs. transplanted heart: [place] heart S/P CABG (coronary artery bypass graft) Z95.1 Bifascicular block I45.2 Acute UTI N39.0 Acute kidney injury superimposed on CKD N17.9; N18.9 Sepsis A41.9; R65.20; N17.9 Acute renal failure type: unspecified Sepsis acute organ dysfunction status: with acute organ dysfunction Sepsis type: sepsis due to unspecified organism Severe sepsis acute organ dysfunction type: acute renal failure Severe sepsis shock status: without septic shock Time Spent (min) 80 (2) CAD (coronary artery disease) Associated angina: without angina Coronary Disease-Associated Artery/Lesion type: unspecified vessel or lesion type [place] vs. transplanted heart: [place] heart Qualified Code(s): I25.10 - Atherosclerotic heart disease of [place] coronary artery without angina pectoris (7) Sepsis Acute renal failure type: unspecified Sepsis acute organ dysfunction status: with acute organ dysfunction Sepsis type: sepsis due to unspecified organism Severe sepsis acute organ dysfunction type: acute renal failure Severe sepsis shock status: without septic shock Qualified Code(s): A41.9 - Sepsis, unspecified organism; R65.20 - Severe sepsis without septic shock; N17.9 - Acute kidney failure, unspecified
[2024-07-14] MEDS: HEPARIN SOD 5,000 UNIT/0.5 ML VIAL SQ SCH (10:44)
--- NOTE | 2024-07-14 12:03 | XCELERA ---
[id number] [id number]
--- NOTE | 2024-07-14 13:59 | Electrocardiogram Report ---
Test Reason : Blood Pressure : */* mmHG Vent. Rate : 96 BPM Atrial Rate : 96 BPM P-R Int : 216 ms QRS Dur : 146 ms QT Int : 378 ms P-R-T Axes : * -73 51 degrees QTcB Int : 477 ms Sinus rhythm with 1st degree A-V block Right bundle branch block Left anterior fascicular block Bifascicular block Abnormal ECG When compared with ECG of 12-May-2024 19:51, Septal infarct is now Present Confirmed by Kieran Melissa ([id number]) on 07/14/2024 1:58:42 PM Referred By: REFERRED SELF Confirmed By: Kieran Melissa
[2024-07-14] MEDS: SODIUM CHLORIDE 0.9% 1,000 ML IV SCH (15:16)
--- NOTE | 2024-07-14 17:11 | Billing Data ---
Date of Service July 14, 2024 Coding Level of Care Code 23605 SUB INP/OBS CARE
[2024-07-14] MEDS: ATORVASTATIN 40 MG TAB PO SCH (20:21)
[2024-07-14] MEDS: ASPIRIN 81 MG ECTAB PO SCH (20:23)
[2024-07-14] MEDS: allopurinoL 300 MG TAB PO SCH (20:23)
[2024-07-14] MEDS: AZITHROMYCIN 250 MG TAB PO SCH (20:23)
[2024-07-14] MEDS: cefTRIAXone SODIUM 2,000 MG/50 ML BAG IV SCH (20:24)
[2024-07-15 06:41] LABS: Basophils # (auto) 0.02 K/uL (0.00-0.20); Basophils % (auto) 0.3 %; Eosinophils # (auto) 0.17 K/uL (0.00-0.50); Eosinophils % (auto) 2.8 %; Hematocrit (blood only) 33.7 % (42.0-52.0); Hemoglobin 11.2 g/dl (14.0-18.0); Immature Granulocytes # (auto) 0.02 K/uL (0.01-0.20); Immature Granulocytes % (auto) 0.3 %; Lymphocytes # (auto) 1.03 K/uL (1.20-3.40); Lymphocytes % (auto) 16.8 %; Mean Corpuscular Hemoglobin 30.5 pg (25.0-34.0); Mean Corpuscular Hgb Conc 33.2 g/dL (32.0-36.0); Mean Corpuscular Volume 91.8 fL (80.0-100.0); Mean Platelet Volume 10.6 fL (9.4-12.4); Monocytes # (auto) 0.49 K/uL (0.11-0.59); Neutrophils # (auto) 4.39 K/uL (1.40-6.50); Neutrophils % (auto) 71.8 %; Platelet Count 136 K/uL (130-400); RDW Coefficient of Variation 14.6 % (11.5-14.5); RDW Standard Deviation 49.2 fL (36.4-46.3); Red Blood Count 3.67 M/uL (4.70-6.10); White Blood Count 6.12 K/ul (4.8-10.8)
[2024-07-15 07:02] LABS: Albumin Level 3.2 gm/dl (3.4-5.0); BUN Creatinine Ratio 14.9 (10-20); Calcium 7.8 mg/dl (8.6-10.3); Creatinine Clr Calc Pharmacy 41.8 ml/min; Magnesium 1.9 mg/dl (1.7-2.4); Phosphorus 2.9 mg/dl (2.5-4.9); Potassium 4.1 mmol/L (3.5-5.1)
[2024-07-15 07:21] VITALS: BP 128/65; PULSE 79; RESP 24; TEMP 98.2; O2SAT 96
[2024-07-15 09:38] LABS: Prothrombin Time 10.9 Seconds (9.0-12.0)
--- NOTE | 2024-07-15 10:00 | Hospitalist Progress Note ---
Date of Service July 15, 2024 Assessment & Plan (1) Sepsis: (2) Acute UTI: (3) Acute kidney injury superimposed on CKD: (4) Diabetes mellitus with hypoglycemia: Plan Plan 1) Sepsis/Hypotension Lowest blood pressure 93/60 with heart rate 100, and temperature 38.5 From the ED patient received the following: Ceftriaxone 2 g IV, azithromycin 500 mg, PO, aspirin 324 mg, and normal saline 1 L bolus Blood cultures pending Ordered NSS, 1 L, 125 mL/hr (2) Acute UTI/Recurrent UTI's Most recent admission from 05/12-05/14/2024 with sepsis due to E. coli UTI Ur Cx positive for E. coli, sensitivities pending Continued ceftriaxone 2 g IV daily during hospital stay Status post 1 L normal saline bolus from the ED, NSS at 80 mL/h x 1 L Discharge on cefpodoxime, BID Possible etiologies for recurrent UTI's include Farxiga, urinary stasis (urinary retention) due to untreated BPH (3) Pneumonia: BioFire testing negative for viral process Likely atypical infection Continue ceftriaxone 2 g IV daily as noted above Continue azithromycin 500 mg, PO, daily Sputum Gram stain and culture - vaccinated against flu, Covid, and pneumococcal vaccine earlier this yr; had Covid 3-4 months ago (4) Diabetes mellitus with hypoglycemia: Hold Trulicity, tirzepatide, insulin 70/30, and dapagliflozin Glucose 165 on admission, BSG's normal so far during stay His daughter reports that his intake is significantly decreased over the past week Placed on Accu-Cheks with NovoLog SSI, holding any long-acting insulin for now till oral intake resumes A1C, 8.4 Consider discontinuing dapagliflozin (Farxiga) upon discharge Increase dosage of Mounjaro from 2.5 to 5.0 mg, weekly, SQ (to compensate for Farxiga discontinuation) upon discharge (5) Acute kidney injury superimposed on CKD: Creatinine, 1.82 <-- 1.98, (baseline 1.59) IV fluids as above (6) BPH - pt w/ symptoms of BPH: frequent nocturia, increased urinary freq at baseline - will prescribe tamsulosin, 0.4 mg, daily as an outpt Code status: Full code Disposition: PCU-Tele VTE Prophylaxis: Heparin, 5000 U, q12hrs, SQ FENGI: Carb consistent T2DM, heart healthy diet Admission and Anticipated Discharge Date Admission Date: July 13, 2024 Subjective PCP: Dr. Cho The patient presented to the ED, with daughter at bedside, complaints of intermittently productive cough, generalized weakness, fatigue, and nausea without vomiting. Sx began several weeks ago, became acutely worse over past few days, with decreased oral intake, glucose fingerstick of 42 yesterday, daughter became concerned, had him come to ED for assessment. Patient is 79 yo M w/ PMHx of T2DM, CKD, vitamin D deficiency, hiatal hernia, gastroparesis, history of hypoglycemia, chronic diastolic CHF, atrial fibrillation, sleep apnea, history of coronary stent placement, pulmonary hypertension, and BPH with LUTS. This morning the patient is feeling much better subjectively w/ only minor dysuria with urination this morning but resolving increased frequency/urgency. Patient w/out feelings of feverish but w/ chills overnight. Review of Systems Constitutional: + chills (some chills o/n) and + fatigue (improving fatigue); no fever Respiratory: + cough and + chest congestion; no dyspn ea, no hemoptysis and no pain with cough Cardiovascular: no chest pain, no palpitations and no lightheadedness Gastrointestinal: no abdominal pain, no nausea, no vomiting, no constipation and no diarrhea/loose stools Genitourinary: + dysuria (earlier had burning, last uri nation minimal burning) and + urinary frequency Neurologic: no tingling, no numbness and no headache(s) Physical Exam Constitutional: WD/WN, vitals as above Respiratory: normal respiratory effort, lungs clear to auscultation Cardiovascular: RRR, no murmur, no edema Extremities: normal capillary refill; no calf tenderness and no pedal edema Gastrointestinal (Abdomen): normal bowel sounds, soft, nontender, no hepatosplenomegaly Psychiatric: A+Ox3, euthymic affect Genitourinary: bladder normal to palpation; no CVA tenderness Results & Data Results & Data Vital Signs (Past 12 Hours) Vital Signs Temp Pulse Pulse Resp BP Pulse Ox O2 Del Method 07/15/24 03:23 36.9 C 76 114/61 95 Room Air 07/14/24 22:54 36.6 C 79 20 123/69 95 Room Air 07/14/24 22:01 79 07/14/24 20:12 37.0 C 96 H 18 130/74 96 Room Air 07/14/24 19:20 Room Air (1) Sepsis Acute renal failure type: unspecified Sepsis acute organ dysfunction status: with acute organ dysfunction Sepsis type: sepsis due to unspecified organism Severe sepsis acute organ dysfunction type: acute renal failure Severe sepsis shock status: without septic shock Qualified Code(s): A41.9 - Sepsis, unspecified organism; R65.20 - Severe sepsis without septic shock; N17.9 - Acute kidney failure, unspecified
--- NOTE | 2024-07-15 12:39 | Discharge Summary ---
Date of Service July 15, 2024 Admission HPI Per Admitting Provider The patient is an 79-year-old male with a past medical history including diabetes mellitus type 2, CKD, vitamin D deficiency, hiatal hernia, gastro paresis, history of hypoglycemia, chronic diastolic CHF, atrial fibrillation, sleep apnea, history of coronary stent placement, pulmonary hypertension, and BPH with LUTS. He presents to the emergency department for progressively worsening symptoms as noted above, in particular became concerned with a glucose of 42 due to decreased oral intake yesterday Admission Exam Per Admitting Provider The patient is awake, alert and oriented 3, well developed and well nourished, normocephalic and atraumatic, lying in bed and in no acute distress. HEENT--PERRL, EOMI, mucous membranes and oropharynx mildly dry. Neck--supple. No JVD. No bruits. Thyroid normal, trachea midline, no adenopathy. Heart--normal S1 and S2. No murmurs, rubs or gallops. Lungs--coarse breath sounds bilaterally. No respiratory distress, no accessory muscle use. Abdomen--normal bowel sounds and soft. Nontender. Nondistended. Mildly obese Extremities-- Trace bilateral pretibial pitting edema. Dermatologic--normal skin turgor, normal color, no abnormal lymph nodes, no rash. Neurologic--cranial nerves II through XII grossly intact. Rheumatologic--normal range of motion. Psychiatric--normal affect. Principal Diagnosis complicated UTI, potential urosepsis Discharge Exam Constitutional WD/WN, vitals as above Respiratory normal respiratory effort, + cough and able to speak in complete sentences Cardiovascular RRR, no murmur, no edema Extremities: normal capillary refill; no calf tenderness and no pedal edema Gastrointestinal (Abdomen) normal bowel sounds, soft, nontender, no hepatosplenomegaly Psychiatric A+Ox3, euthymic affect Discharge Data Allergies Allergy/AdvReac Type Severity Reaction Status Date / Time No Known Drug Allergies Allergy Unknown Verified 05/30/24 12:29 Consultations 07/13/24 21:39 ED Decision to Admit Stat 07/13/24 22:33 Consult Cardiology Routine Hospital Course (1) Sepsis: (2) Acute UTI: (3) Acute kidney injury superimposed on CKD: (4) Diabetes mellitus with hypoglycemia: Plan Plan 1) Sepsis/Hypotension Lowest blood pressure 93/60 with heart rate 100, and temperature 38.5 From the ED patient received the following: Ceftriaxone 2 g IV, azithromycin 500 mg, PO, aspirin 324 mg, and normal saline 1 L bolus Blood cultures, negative after 24 hrs, will F/U for 48 hrs Ordered NSS, 1 L, 125 mL/hr (2) Acute UTI/Recurrent UTI's Most recent admission from 05/12-05/14/2024 with sepsis due to E. coli UTI Ur Cx positive for E. coli, sensitivities pending Continue ceftriaxone 2 g IV daily begun in the ED Status post 1 L normal saline bolus from the ED, NSS at 80 mL/h x 1 L Possible etiologies for recurrent UTI's include Farxiga, urinary stasis (urinary retention) due to untreated BPH (3) Pneumonia: BioFire testing negative for viral process Likely atypical infection Continue ceftriaxone 2 g IV daily as noted above Completed 3-day course of azithromycin 500 mg, PO, daily Sputum Gram stain and culture - vaccinated against flu, Covid, and pneumococcal vaccine earlier this yr; had Covid 3-4 months ago (4) Diabetes mellitus with hypoglycemia: Hold Trulicity, tirzepatide, insulin 70/30, and dapagliflozin Glucose 165 on admission, BSG's normal so far during stay His daughter reports that his intake is significantly decreased over the past week Placed on Accu-Cheks with NovoLog SSI, holding any long-acting insulin for now till oral intake resumes A1C, 8.4 Discontinued dapagliflozin (Farxiga) upon discharge Increase dosage of Mounjaro from 2.5 to 5.0 mg, weekly, SQ (to compensate for Farxiga discontinuation) (5) Acute kidney injury superimposed on CKD: Creatinine, 1.74 <-- 1.98, (baseline 1.59) IV fluids as above (6) BPH - pt w/ mild symptoms of BPH: frequent nocturia only - can consider monitoring symptoms as outpt w/ tamsulosin Rx if indicated Code status: Full code Disposition: PCU-Tele VTE Prophylaxis: Heparin, 5000 U, q12hrs, SQ FENGI: Carb consistent T2DM, heart healthy diet Total Time Total Time Spent Total Time Spent (In Minutes): <30 Discharge Plan Discharge Items Patient Disposition: Home - Self-Care Reason For Visit: PNEUMONIA,HYPOXIA,NSTEMI Discharge Diagnosis: complicated UTI Activity: Resume your previous activity Non-emergency contact: Primary Care Provider Call non-emergency contact if: you have any medication questions and your symptoms worsen Follow-up/Referrals: Lj Cho DO [Primary Care Provider] - 07/21/24 9:45 am (Hospital follow up scheduled with Dr. Donahue on July 21, 2024 at 9:45am) Diet: Carb Consistent or DM2 Addtl Attending Provider Instructions: You were admitted to the hospital for concerns for urosepsis with hypotension, increased urinary frequency/urgency and dysuria, feverish w/ chills. You were treated with IV antibiotics (Ceftriaxone) and IV fluids. A discharge summary will be sent to your primary care physician to ensure continuity of care. Please bring this discharge summary with you to your next office appointment so that your provider can review it at that time. Follow-up appointments: We have requested a follow-up appointment with your primary care physician within one week of discharge. Please call their office if you do not hear from them. Keep all your follow-up appointments as already scheduled. If you cannot make an appointment, notify your provider. Medications: Your medication list has been reviewed and reconciled upon discharge to ensure accuracy and continuity of care. An updated list of all your medications is included with your hospital discharge paperwork. Please review this list closely, and make note of any changes. We sent a new medication called cefpedoxime to your pharmacy. Take cefpedoxime, 200 mg/one tablet, twice a day, for 5 days. We sent a new medication called Mounjaro to your pharmacy. Take Mounjaro, 5 mg, subcutaneous injection, weekly, for 4 weeks. You should stop taking the Farxiga. Take your medications as instructed; do not skip a dose of your medicines. Make sure all of your doctors know every medicine you are taking (including hfeb-rgz-lcgtyye medicines, vitamins, and supplements). Call your primary care provider before taking any new medicines (including lopf-och-glaffah medicines, vitamins, and supplements), because some of these may interact with your current medications, or may make your symptoms worse. Tell your primary care provider if you cannot afford your medications. CONTACT YOUR PRIMARY CARE PROVIDER if you experience any of the following: fevers, chills recurrent UTI symptoms--urinary freq/urg, dysuria Difficulty following your treatment plan, or difficulty taking medications CALL 911 OR GO TO THE EMERGENCY DEPARTMENT if you experience any of the f ollowing: Sudden, severe abdominal pain or nausea/vomiting Severe chest pain, or chest pain that radiates (moves) to your jaw or arm Sudden, severe shortness of breath or difficulty breathing Thank you for allowing us to participate in your care Pending Studies at Discharge: Yes Studies:: blood Cx, 48 hr growth Stand-Alone Forms: My [facility] [place] [employer], Smoking Cessation Medications and DC Order Prescriptions: New cefpodoxime 200 mg tablet 200 mg PO Q12H Qty: 10 0RF Rx Instructions: must administer with a meal/food Mounjaro 5 mg/0.5 mL pen injector 5 mg subcut .qweek 28 Days Qty: 2 0RF Continued (DME) blood sugar diagnostic Strip See Dose Instructions .ROUTE .MEDSUPPLY Qty: 300 3RF Dose Instruction: As directed Rx Instructions: TEST 3 TIMES DAILY (DME) insulin syringe-needle U-100 [BD Insulin Syringe Ultra-Fine] 1 mL 31 gauge x 5/16 syringe See Rx Instructions .ROUTE .MEDSUPPLY Qty: 200 5RF Rx Instructions: USE BID E11.2 Entresto 24-26 mg tablet 1 tab PO BID Brilinta 90 mg tablet 90 mg PO BID (DME) blood-glucose meter [OneTouch Verio Flex Start] kit See Dose Instructions .ROUTE .MEDSUPPLY Qty: 1 0RF Dose Instruction: As directed Rx Instructions: As directed acebutolol 400 mg capsule 400 mg PO BID insulin asp prt-insulin aspart [Novolog Mix 70-30 U-100 Insuln] 100 unit/mL (70-30) solution 92 unit subcut DAILY Rx Instructions: Take 32 units before breakfast and 60 units before your evening/dinner meal isosorbide mononitrate 120 mg tablet extended release 24 hr 120 mg PO DAILY multivitamin Tablet 1 tab PO QAM aspirin 81 mg Tablet,Delayed Release (Dr/Ec) 81 mg PO QPM pantoprazole 40 mg tablet,delayed release (DR/EC) 40 mg PO BID nitroglycerin [Nitrostat] 0.4 mg Tablet, Sublingual 0.4 mg sublingual Q5M PRN (Reason: chest pain) Qty: 1 0RF Rx Instructions: max 3 tabs in 15 minutes Trulicity 3 mg/0.5 mL pen injector 3 mg SUBCUT WK Rx Instructions: saturdays amoxicillin 500 mg capsule 2,000 mg PO ONCE PRN (Reason: prior to dental procedures) famotidine 20 mg tablet 20 mg PO BID atorvastatin 80 mg tablet 80 mg PO QPM allopurinol 300 mg tablet 300 mg PO QPM torsemide 20 mg tablet 20 mg PO DAILY PRN (Reason: Weight Gain) Qty: 0 0RF Rx Instructions: Take 1 tablet by mouth once daily as needed for weight gain greater then 3 lbs over 2-3 days Discontinued Farxiga 10 mg tablet 10 mg PO DAILY Hold Instructions: hold unless Dr Cho or your other outpatient providers tell you it is safe to resume Mounjaro 2.5 mg/0.5 mL pen injector 2.5 mg subcut Q7D Qty: 2 3RF Discharge Orders: Discharge Order (Routine); Ordered 07/15/24 Ordered By: Lul Wheat/Other Patient Handouts: Managing Type 2 Diabetes Admission Data Admit Date/Time: 07/13/24 22:33 Attending Provider: Owen Rose Admit Provider: Pavan Corea Primary Care Provider: Lj Cho Other Providers: Kieran Melissa; Pavan Corea Other Interventions: Discharge Summary Assessment (RN) Last Done: 07/15/24 10:32 Supervising Physician Co-Signing Physician Notes I personally examined the patient and verified all augustin points of history and exam, discussed case, and agree with decision making with Dr Yoon Feels better overall. Walking around well. Would like to go home. Discussed outpatient sugar control, discussed inpatient euglycemia despite far less medicationstrying to illustrate the impact of eating habit changes. He still did not really express an understanding of this, although he did discuss that he has a continuous glucose monitor. vitals noted nad heent nc at mmm breathing unlabored no accessory muscles good effort skin no rashes no pallor or icterus neuro no focal deficits recurrent UTIs w UTI/sepsis present on admission - improving. E. coli sensitive to all cephalosporinswe will finish out treatment with cefpodoxime, safe to go home. as far as glycemic control - A1c 8.4 so simply stopping farxiga with no other changes will likely lead to unacceptable high sugars - given that his home regimen is almost 100 units of 7030, and he had euglycemia in spite of only 5 units of short acting log insulin yesterday, I tried to strongly illustrate to him that most of his glycemic control is driven by his eating habitshe did not entirely express an understanding of this in spite of multiple attempts to illustratedI encouraged him to follow his glycemic control with his continuous glucose monitor and learn from how foods impact his glucose control. Stopping Farxiga for now, increasing Mounjaro, I would anticipate that even moderate lifestyle change would probably show significant improvement in his glycemic control given that what we are seeing here in the hospital. Outpatient PCP follow-up to continue to discuss and encourage. As it relates to possible BPH, while he is an 79-year-old male, it sounds like he does not have a whole lot of other lower urinary tract symptoms at this timeso we will hold off on active management of potential BPH and have him continue to follow with PCP. DVT proph - heparin SQ
--- NOTE | 2024-07-15 13:18 | Billing Data ---
Date of Service July 15, 2024 Coding Level of Care Code 48355 IN/OBS DISCH 30 MIN/LESS
--- NOTE | 2024-07-15 13:39 | Electrocardiogram Report ---
Test Reason : Blood Pressure : */* mmHG Vent. Rate : 76 BPM Atrial Rate : 76 BPM P-R Int : 208 ms QRS Dur : 148 ms QT Int : 430 ms P-R-T Axes : -11 -75 30 degrees QTcB Int : 483 ms Sinus rhythm with occasional Premature ventricular complexes Right bundle branch block Left anterior fascicular block Bifascicular block Septal infarct (cited on or before 13-Jul-2024) Abnormal ECG When compared with ECG of 13-Jul-2024 20:26, Premature ventricular complexes are now Present Questionable change in initial forces of Septal leads Confirmed by Kieran Melissa ([id number]) on 07/15/2024 1:39:07 PM Referred By: REFERRED SELF Confirmed By: Kieran Melissa
--- NOTE | 2024-07-15 14:15 | Electrocardiogram Report ---
Test Reason : Blood Pressure : */* mmHG Vent. Rate : 80 BPM Atrial Rate : 80 BPM P-R Int : 244 ms QRS Dur : 150 ms QT Int : 416 ms P-R-T Axes : 70 -79 56 degrees QTcB Int : 479 ms Sinus rhythm with 1st degree A-V block Right bundle branch block Left anterior fascicular block Bifascicular block Abnormal ECG When compared with ECG of 14-Jul-2024 05:11, (unconfirmed) Premature ventricular complexes are no longer Present MA interval has increased Criteria for Septal infarct are no longer Present Confirmed by Kieran Melissa ([id number]) on 07/15/2024 2:15:10 PM Referred By: REFERRED SELF Confirmed By: Kieran Melissa
== END 2024-07-15 13:20 | disposition home or self-care (01) | DRG 871 ==
LOC: ED 19:55 → SUATTDRO 22:33 → 2E 22:33 → INTOOBSV 22:33 → 2E 22:58

== ENCOUNTER 2025-01-22 16:17 | Observation (INO) ==
[2025-01-22] MEDS: SODIUM CHLORIDE 0.9% 500 ML IV ONE ×2 (16:45→17:23)
--- NOTE | 2025-01-22 16:59 | Emergency Department Note ---
Impression & Plan Acute hyperkalemia, JULIO CESAR (acute kidney injury), Epididymitis ED Provider Note NAME: AMY CONLEY AGE: 79 SEX: M : 1945 ARRIVES VIA: Walk-In INFORMANT: [Patient] ED PROVIDER(S): [Bernardino Lala MD] CHIEF COMPLAINT: Abnormal laboratories HISTORY OF PRESENT ILLNESS: The patient is an 79-year-old male who had routine lab work done and was called to come to our hospital as his potassium was over 6. The patient admits to some ongoing fatigue but otherwise has no complaints. He has not had fever or chest pain. No vomiting or diarrhea. He is currently on Bactrim for epididymitis and UTI, he has been on this med for about 7 days. He was initially on cefdinir but completed the course and was not completely better, this is why the Bactrim was started. PMHx/PSHx/Social Hx: See Below PHYSICAL EXAM: GENERAL: Patient is in no acute distress. HEENT: No acute trauma, normocephalic atraumatic, mucous membranes moist, no nasal congestion. NECK: No stridor, no adenopathy, no meningismus, trachea is midline. LUNGS: Clear to auscultation bilaterally, no wheeze, no rhonchi, breath sounds equal. HEART: Subtle systolic murmur, regular rate and rhythm. ABDOMEN: Soft, nontender, no peritonitis. EXTREMITIES: No cyanosis, full range of motion of all the joints without pain or difficulty. NEUROLOGIC: Oriented x 3, no acute motor or sensory deficits, no focal weakness. SKIN: No jaundice, no diaphoresis. Groin: Enlarged left testicle which is tender, no scrotal erythema. DIFFERENTIAL DIAGNOSIS: Renal failure, electrolyte imbalance, medication reaction, dehydration, among others. EMERGENCY DEPARTMENT PROCEDURES: MEDICAL DECISION MAKING: Laboratory workup from earlier today showed a normal white count. There was a mild anemia seen. There was a normal platelet count. Potassium had been elevated at 6.1. There was evidence for acute kidney injury with a creatinine of 2.31. No concerning liver enzyme elevation. On today's ED testing, potassium returned somewhat improved at 5.6. The acute kidney injury was a bit worse at 2.41. There was a normal magnesium value. On exam, the patient did have a left testicular enlargement and discomfort. He was not toxic or febrile. The patient received IV saline for hydration, 1 L. He received IV ceftriaxone as antibiotic coverage. The patient's acute kidney injury and hyperkalemia are likely a result of his Bactrim use. Given the findings, I do think a hospital stay is warranted. He has failed outpatient management. I did speak with the patient and case management. The on-call hospitalist was consulted. Prior/Outside records/notes reviewed: Urology note from 12/22/2024 describing his epididymitis and findings as well as outpatient plan. ECG per my interpretation: Indication was hyperkalemia. ECG shows a sinus rhythm with a first-degree AV block. The rate is 78. There is a right bundle branch block. There is no acute ST elevation, no PVCs. The QTc is 476. Continuous Cardiac Monitoring per my interpretation: An order was placed for continuous cardiac monitoring. The monitor shows a rate of 89 with sinus rhythm with a first-degree block. Imaging/x-ray results per my interpretation: Chronic Medical/Social conditions affecting care: Advanced age. Care/Management discussed with: Case management, the on-call hospitalist. 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 Lovell/[facility]) per hospital notes>severe in-stent restenosis of the LAD with implantation of a drug-eluting stent. Vitamin D deficiency Benign prostatic hyperplasia with urinary obstruction (Acute) Chronic diastolic (congestive) heart failure (Acute) Diabetes mellitus with hypoglycemia (Acute) Diabetes mellitus with stage 3 chronic kidney disease Gastroparesis (Acute) Hiatal hernia (Acute) Hypertension Right bundle branch block (Acute) Sleep apnea (Acute) no device Testicular hypofunction (Acute) Vitamin D deficiency (Acute) Hyperlipidemia CAD (coronary artery disease) Medical History Gastroparesis BPH (benign prostatic hyperplasia) On anticoagulant therapy Hyperlipidemia Hypertension CAD (coronary artery disease) Diabetes mellitus, type 2 IDDM History of pneumonia treated at [facility] 07/2024 inpatient for UTI/Sepsis/Pneumonia - no current issues. Hx of non-ST elevation myocardial infarction (NSTEMI) 08/2022 - cardiac cath with one stent at [facility] at the time of event, was also treated a couple weeks later at [facility] with a second stent. denies having a NSTEMI in 07/2024 at [facility] inpatient. Sleep apnea quit using cpap at night History of transesophageal echocardiography (ALIREZA) Hx of sepsis treated inpatient [facility] 07/2024 HFrEF (heart failure with reduced ejection fraction) had echo 07/2024, has a f/u echo scheduled with Dr Lovell end of October 2024. Chronic kidney disease, stage 3a Arthritis Hiatal hernia Hx of basal cell carcinoma History of atrial fibrillation resolved. History of kidney stones History of COVID-2019? -- resolved Hx of gout Esophageal reflux Pericardial effusion pt and daughter unsure of details - possible history? Surgical History Hx of left cataract extraction (11/05/24) History of esophagogastroduodenoscopy (EGD) History of heart artery stent total of 7 stents - last placed at [facility] 08/2022 (followed by Dr. Lovell/[facility]) per hospital notes>severe in-stent restenosis of the LAD with implantation of a drug-eluting stent. History of cardiac cath multiple ([facility] and [facility]), has a total of 7 stents. History of carpal tunnel release rt/left History of total knee replacement left History of colonoscopy History of tooth extraction History of cardiac radiofrequency ablation 12/2022 at [facility] for atrial fib H/O transurethral resection of prostate History of ankle surgery History of lithotripsy History of cholecystectomy History of four vessel coronary artery bypass graft 2009 @ [facility] Family History Brother Prostate cancer Diabetes Heart disease Myocardial infarction End stage renal disease Sister Diabetes Mother Heart disease Myocardial infarction Father Heart disease Myocardial infarction Unknown Hypercholesteremia Other No family history of adverse response to anesthesia Denies family history of Ovarian cancer Hearing loss Breast cancer Colorectal cancer Hypertension Social History Smoking Status: Never smoker Tobacco Type: Cigarettes Second Hand Exposure: No; Do You Dip or Chew Tobacco: No; Tobacco Cessation Education Requested by Patient: No Hx Alcohol Use: No Hx Substance Use: No Preferred Language: Turkmen Communication Ability: Effective Visual Impairment: No Limitations Hearing Ability: Use of Hearing Aid 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: No Beliefs That Will Affect Care: None marital status: Current Living Situation: Spouse Current Living Situation Comment: with at home current occupational status: retired 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 Other Information That Helps Us Care for You: No Feels Safe at Home: Yes Safety Concerns: Feels Safe At This Time Childhood Exposure to Second-Hand Smoke: Yes Diet: regular Diet Comment: no added salt caffeine: Yes Dental Care, Regularly: No Physical Activity Frequency: Daily Seatbelt Use: never Sunscreen Use: No Assistive Devices: None Allergies Allergies Allergy/AdvReac Type Severity Reaction Status Date / Time No Known Drug Allergies Allergy Unknown Verified 01/22/25 19:43 Home Meds Home Medications Medication Instructions Recorded Confirmed aspirin 81 mg tablet,delayed 81 mg PO QPM 08/28/22 01/22/25 release pantoprazole 40 mg tablet,delayed 40 mg PO BID 08/28/22 01/22/25 release allopurinol 300 mg tablet 300 mg PO QPM 12/20/22 01/22/25 atorvastatin 80 mg tablet 80 mg PO QPM 12/20/22 01/22/25 famotidine 20 mg tablet 20 mg PO BID 12/20/22 01/22/25 multivitamin 1 tab PO QAM 01/29/23 01/22/25 sacubitril 24 mg-valsartan 26 mg 1 tab PO BID 05/24/23 01/22/25 tablet (Entresto) ticagrelor 90 mg tablet (Brilinta) 90 mg PO BID 05/24/23 01/22/25 isosorbide mononitrate 120 mg 120 mg PO QAM 05/30/24 01/22/25 tablet,extended release 24 hr insulin aspar prt-insulin aspart 0 unit subcut UD 12/07/24 01/22/25 100 unit/mL (70-30) subcutaneous soln (Novolog Mix 70-30 U-100 Insuln) tirzepatide 7.5 mg/0.5 mL 7.5 mg subcut WK 12/07/24 01/22/25 subcutaneous pen injector (Hilary) acebutolol 200 mg capsule 200 mg PO QAM 01/22/25 01/22/25 acebutolol 200 mg capsule 400 mg PO HS 01/22/25 01/22/25 Previous Rx's Medication Instructions Recorded blood-glucose meter (OneTouch #1 ea 05/09/19 Verio Flex Start kit) insulin syringe-needle U-100 1 mL #200 ea 02/23/20 31 gauge x 5/16" (BD Insulin Syringe Ultra-Fine) blood sugar diagnostic #300 ea 04/28/21 nitroglycerin 0.4 mg sublingual 0.4 mg sublingual Q5M PRN chest 08/29/22 tablet (Nitrostat) pain #1 btl torsemide 20 mg tablet 20 mg PO DAILY PRN Weight Gain #0 05/14/24 tabs Results & Data (ED) Vital Signs Vital Signs - 24 hr 01/22/25 16:17 01/22/25 16:33 01/22/25 17:06 Temperature 36.6 C Temperature Source Temporal Artery Scan Pulse Rate 89 86 Pulse Rate from SpO2 Sensor Respiratory Rate 16 Blood Pressure 117/62 Blood Pressure Mean 80 Pulse Oximetry 99 Oxygen Delivery Method Room Air Sepsis Recent Fever Within 48 Hours No Sepsis New/Unexplained Change in Mental Status N/A Sepsis Action Taken by Nursing No Action Required 01/22/25 17:06 Temperature Temperature Source Pulse Rate 83 Pulse Rate from SpO2 Sensor 83 Respiratory Rate 20 Blood Pressure 145/82 H Blood Pressure Mean 103 Pulse Oximetry 95 Oxygen Delivery Method Sepsis Recent Fever Within 48 Hours Sepsis New/Unexplained Change in Mental Status Sepsis Action Taken by [facility] Medications Current Medication List: was personally reviewed by me Laboratory Data Attestation: I reviewed the patient's lab results. 01/22/25 16:30 Lab Results 01/22/25 01/22/25 Range/Units 16:30 17:19 Sodium 134 L (136-145) mmol/L Potassium 5.6 H (3.5-5.1) mmol/L Chloride 104 (98-107) mmol/L Carbon Dioxide 22 (21-32) mmol/L Anion Gap 8 (3-11) BUN 32 H (6-23) mg/dl Creatinine 2.41 H (0.6-1.4) mg/dl Est Cr Clr Drug Dosing 29.4 ml/min eGFR 26.31 BUN/Creatinine Ratio 13.3 (10-20) Glucose 169 H (70-99(Fasting)) mg/dl Calcium 9.8 (8.6-10.3) mg/dl Magnesium 1.8 (1.7-2.4) mg/dl Urine Color Yellow Urine Appearance Clear (Clear) Urine pH 5.5 (4.5-7.5) Ur Specific [place] 1.012 (1.000-1.030) Urine Protein Negative (Negative) Urine Glucose (UA) Negative (Negative) Urine Ketones Negative (Negative) Urine Blood Negative (Negative) Urine Nitrite Negative (Negative) Urine Bilirubin Negative (Negative) Urine Urobilinogen Negative (Negative) Ur Leukocyte Esterase Trace H (Negative) Urine WBC (Auto) 0-5 (0-5) /hpf Urine RBC (Auto) 0-2 (0-2) /hpf U Hyaline Cast (Auto) 3-5 H (0-2) /lpf U Epithel Cells (Auto) 3-5 H (0-2) /hpf Urine Bacteria (Auto) None Seen (None Seen) Urine Comment Administered Medications Acebutolol HCl (Acebutolol Hcl 200 Mg Capsule) 400 mg PO BID [facility] Stop: 02/21/25 20:59 Last Admin: 01/22/25 21:10 Dose: 400 mg Documented By: Allopurinol (Allopurinol 300 Mg Tab) 300 mg PO QPM [facility] Stop: 02/21/25 20:59 Last Admin: 01/22/25 21:09 Dose: 300 mg Documented By: Aspirin (Aspirin 81 Mg Ectab) 81 mg PO QPM [facility]NA[facility] Stop: 02/21/25 20:59 Last Admin: 01/22/25 21:09 Dose: 81 mg Documented By: Atorvastatin Calcium (Atorvastatin 40 Mg Tab) 80 mg PO QPM [facility] Stop: 02/21/25 20:59 Last Admin: 01/22/25 21:09 Dose: 80 mg Documented By: Famotidine (Famotidine 20 Mg Tab) 20 mg PO BID [facility] Stop: 02/21/25 20:59 Last Admin: 01/22/25 21:09 Dose: 20 mg Documented By: Sodium Chloride (Nss) 1,000 mls @ 80 mls/hr IV .[id number] [facility] Stop: 01/25/25 17:59 Last Admin: 01/22/25 18:01 Dose: 80 mls/hr Documented By: BERTRAND Insulin Aspart (Insulin Aspart Per Unit Charge) 0 units SC ACHS [facility] Stop: 02/21/25 18:29 Last Admin: 01/22/25 21:10 Dose: Not Given Documented By: Admin: 01/22/25 18:42 Dose: Not Given Documented By: BERTRAND Pantoprazole Sodium (Pantoprazole 40 Mg Tab) 40 mg PO BID [facility] Stop: 02/21/25 20:59 Last Admin: 01/22/25 21:09 Dose: 40 mg Documented By: LINDA Sacubitril/Valsartan (Valsartan/Sacubitril 26/24mg Tab) 1 tab PO BID [facility] Stop: 02/21/25 20:59 Last Admin: 01/22/25 21:09 Dose: 1 tab Documented By: LINDA Ticagrelor (Ticagrelor 90 Mg Tab) 90 mg PO BID [facility] Stop: 02/21/25 20:59 Last Admin: 01/22/25 21:10 Dose: 90 mg Documented By: LINDA Discontinued Medications Sodium Chloride (Nss) 500 mls @ 999 mls/hr IV .Q31M ONE Stop: 01/22/25 17:07 Last Infusion: 01/22/25 19:04 Dose: Infused Documented By: REPLACED BY [facility] Admin: 01/22/25 16:45 Dose: 999 mls/hr Documented By: BERTRAND Sodium Chloride (Nss) 500 mls @ 999 mls/hr IV .Q31M ONE Stop: 01/22/25 17:44 Last Infusion: 01/22/25 19:05 Dose: Infused Documented By: Admin: 01/22/25 17:23 Dose: 999 mls/hr Documented By: BERTRAND Ceftriaxone Sodium (Rocephin) 2,000 mg in 50 mls @ 100 mls/hr IV NOW STA Stop: 01/22/25 17:52 Last Infusion: 01/22/25 19:04 Dose: Infused Documented By: Admin: 01/22/25 18:01 Dose: 100 mls/hr Documented By: BERTRAND Insulin Human NPH (Insulin Human Nph) 15 units SC BIDM [facility] Stop: 02/21/25 18:44 Last Admin: 01/22/25 18:44 Dose: 15 units Documented By: BERTRAND Co-signed By: RIGOBERTO Discharge Plan Visit Data Chief Complaint: Abnormal Labs/Diagnostic Testing Stated Complaint: LOW POTASSIUM, REF BY ED Provider: Bernardino Lala Discharge Problem: Acute hyperkalemia, JULIO CESAR (acute kidney injury), Epididymitis Patient Disposition: Admitted As Inpatient Condition: Fair Discharge Instructions Interventions: ED Discharge Assessment Last Done: 01/22/25 19:29
[2025-01-22 17:07] LABS: BUN Creatinine Ratio 13.3 (10-20); Calcium 9.8 mg/dl (8.6-10.3); Creatinine Clr Calc Pharmacy 29.4 ml/min; Magnesium 1.8 mg/dl (1.7-2.4); Potassium 5.6 mmol/L (3.5-5.1)
[2025-01-22] MEDS ORDERED: ACETAMINOPHEN 325 MG TAB PO PRN (17:44)
[2025-01-22] MEDS ORDERED: ONDANSETRON INJ 2 MG/ML 2 ML VIAL IV PRN (17:44)
[2025-01-22 17:55] LABS: Appearance Urine Clear (Clear); Bacteria Urine Automated None Seen (None Seen); Bilirubin Urine Negative (Negative); Blood Urine Negative (Negative); Color Urine Yellow; Glucose Urine UA Negative (Negative); Ketones Urine Negative (Negative); Leukocyte Esterase Urine Trace (Negative); Nitrite Urine Negative (Negative); Protein Urine Negative (Negative); RBC Urine Automated 0-2 /hpf (0-2); Specific Gravity Urine 1.012 (1.000-1.030); Urobilinogen Urine Negative (Negative); WBC Urine Automated 0-5 /hpf (0-5); pH Urine 5.5 (4.5-7.5)
[2025-01-22] MEDS: SODIUM CHLORIDE 0.9% 1,000 ML IV SCH (18:01)
[2025-01-22] MEDS: cefTRIAXone SODIUM 2,000 MG/50 ML BAG IV STA (18:01)
--- NOTE | 2025-01-22 18:02 | History & Physical Report ---
Date of Service January 22, 2025 Assessment & Plan (1) Left epididymitis: (2) Hyperkalemia: (3) Chronic kidney disease, stage 3a: (4) Diabetes mellitus with stage 3 chronic kidney disease: Plan This is a 79 year old male with past medical history of BPH, CHF, diabetes, gastroparesis, hypertension, RBBB who presented to the ED today for abnormal labs. While in the emergency department he was found to have a normal WBC. His potassium had decreased to 5.6. His creatinine was elevated at 2.41. His urinalysis was pending. He was given 1 L of normal saline and a dose of Rocephin. #Hyperkalemia/JULIO CESAR on CKD Likely secondary to Bactrim K downtrending at 5.6. Creat 2.41 Baseline creatinine: 1.7-2.0 S/p 1L NSScontinue additional gentle fluid rehydration upon admission. Stop Bactrim. Low K diet Pt/OT consulted secondary to weakness/fatigue AM CBC/BMP #Left epididymitis With ongoing symptoms including chills, left testicle pain/tenderness CBC w/o leukocytosis S/p IV Rocephin in ED, continue upon admission Follows with urology outpatient, recently seen 12/2024 Consulted urology inpatient due to ongoing symptoms, appreciate recommendations. #Type 2 DM On 01/22 A1c 7.7 On insulin, Hilary outpatient Continue insulin while inpatient, pharmacy consulted to aide w/ glycemic management. Gin Rose #CHF/hypertension- Continue Entresto; Brilinta; Imdur; ASA #GERD: PPI, Pepcid #HLD: statin #Gout: allopurinol DVT prophylaxis: SCD's Code: full History of Present Illness Primary Care Provider: Lj Cho DO This is a 79 year old male with past medical history of BPH, CHF, diabetes, gastroparesis, hypertension, RBBB who presented to the ED today for abnormal labs. Wild was seen and examined with his family at bedside. He reports that he has had ongoing left epididymitis and has been following with urology for these issues. About 1 week ago he started to have recurrent symptoms including chills, left testicle pain/tenderness. He was given a course Of Bactrim and has taken this for about 7 days. He states that in this timeframe he has felt fatigued. Even though he does feel fatigued, he still able to perform activities of daily living. He was doing work in his shed prior to coming to the hospital today. He denies any abdominal pain, nausea, vomiting, chest pain, shortness of breath. Denies any lower extremity edema. Denies any hematuria, increased freq uency/urgency, dysuria. He states that his testicle is tender to palpation but since starting Bactrim has not caused him much issues. While in the emergency department he was found to have a normal WBC. His potassium had decreased to 5.6. His creatinine was elevated at 2.41. His urinalysis was pending. He was given 1 L of normal saline and a dose of Rocephin. Code discussion did take place with the patient and he did confirm he is a full code Allergies Allergy/AdvReac Type Severity Reaction Status Date / Time No Known Drug Allergies Allergy Unknown Verified 01/22/25 19:43 Home Medications Medication Instructions Recorded Confirmed Type blood-glucose meter (OneTouch #1 ea 05/09/19 12/30/24 Rx Verio Flex Start kit) insulin syringe-needle U-100 1 mL #200 ea 02/23/20 12/30/24 Rx 31 gauge x 5/16" (BD Insulin Syringe Ultra-Fine) blood sugar diagnostic #300 ea 04/28/21 12/30/24 Rx aspirin 81 mg tablet,delayed 81 mg PO QPM 08/28/22 01/22/25 History release pantoprazole 40 mg tablet,delayed 40 mg PO BID 08/28/22 01/22/25 History release nitroglycerin 0.4 mg sublingual 0.4 mg sublingual Q5M PRN chest 08/29/22 01/22/25 Rx tablet (Nitrostat) pain #1 btl allopurinol 300 mg tablet 300 mg PO QPM 12/20/22 01/22/25 History atorvastatin 80 mg tablet 80 mg PO QPM 12/20/22 01/22/25 History famotidine 20 mg tablet 20 mg PO BID 12/20/22 01/22/25 History multivitamin 1 tab PO QAM 01/29/23 01/22/25 History sacubitril 24 mg-valsartan 26 mg 1 tab PO BID 05/24/23 01/22/25 History tablet (Entresto) ticagrelor 90 mg tablet (Brilinta) 90 mg PO BID 05/24/23 01/22/25 History torsemide 20 mg tablet 20 mg PO DAILY PRN Weight Gain #0 05/14/24 01/22/25 Rx tabs isosorbide mononitrate 120 mg 120 mg PO QAM 05/30/24 01/22/25 History tablet,extended release 24 hr insulin aspar prt-insulin aspart 0 unit subcut UD 12/07/24 01/22/25 History 100 unit/mL (70-30) subcutaneous soln (Novolog Mix 70-30 U-100 Insuln) tirzepatide 7.5 mg/0.5 mL 7.5 mg subcut WK 12/07/24 01/22/25 History subcutaneous pen injector (Mounjaro) acebutolol 200 mg capsule 200 mg PO QAM 01/22/25 01/22/25 History acebutolol 200 mg capsule 400 mg PO HS 01/22/25 01/22/25 History Past Med/Surg History Problem List (Updated 01/22/25 @ 22:31 by Bernardino Lala MD) Epididymitis (Acute) JULIO CESAR (acute kidney injury) (Acute) Acute hyperkalemia (Acute) Hyperkalemia Left epididymitis Bifascicular block Pulmonary hypertension S/P CABG (coronary artery bypass graft) 4 vessels>2009 S/P coronary artery stent placement multiple stents placed per daughter>last placed at [facility] 08/2022 (followed by Dr. Lovell/[facility]) per hospital notes>severe in-stent restenosis of the LAD with implantation of a drug-eluting stent. Vitamin D deficiency Benign prostatic hyperplasia with urinary obstruction (Acute) Chronic diastolic (congestive) heart failure (Acute) Diabetes mellitus with hypoglycemia (Acute) Diabetes mellitus with stage 3 chronic kidney disease Gastroparesis (Acute) Hiatal hernia (Acute) Hypertension Right bundle branch block (Acute) Sleep apnea (Acute) no device Testicular hypofunction (Acute) Vitamin D deficiency (Acute) Hyperlipidemia CAD (coronary artery disease) Medical History Gastroparesis BPH (benign prostatic hyperplasia) On anticoagulant therapy Hyperlipidemia Hypertension CAD (coronary artery disease) Diabetes mellitus, type 2 IDDM History of pneumonia treated at [facility] 07/2024 inpatient for UTI/Sepsis/Pneumonia - no current issues. Hx of non-ST elevation myocardial infarction (NSTEMI) 08/2022 - cardiac cath with one stent at [facility] at the time of event, was also treated a couple weeks later at [facility] with a second stent. denies having a NSTEMI in 07/2024 at [facility] inpatient. Sleep apnea quit using cpap at night History of transesophageal echocardiography (ALIREZA) Hx of sepsis treated inpatient [facility] 07/2024 HFrEF (heart failure with reduced ejection fraction) had echo 07/2024, has a f/u echo scheduled with Dr Lovell end of October 2024. Chronic kidney disease, stage 3a Arthritis Hiatal hernia Hx of basal cell carcinoma History of atrial fibrillation resolved. History of kidney stones History of COVID-2019? -- resolved Hx of gout Esophageal reflux Pericardial effusion pt and daughter unsure of details - possible history? Surgical History Hx of left cataract extraction (11/05/24) History of esophagogastroduodenoscopy (EGD) History of heart artery stent total of 7 stents - last placed at [facility] 08/2022 (followed by Dr. Lovell/[facility]) per hospital notes>severe in-stent restenosis of the LAD with implantation of a drug-eluting stent. History of cardiac cath multiple ([facility] and [facility]), has a total of 7 stents. History of carpal tunnel release rt/left History of total knee replacement left History of colonoscopy History of tooth extraction History of cardiac radiofrequency ablation 12/2022 at [facility] for atrial fib H/O transurethral resection of prostate History of ankle surgery History of lithotripsy History of cholecystectomy History of four vessel coronary artery bypass graft 2009 @ [facility] Family History Brother Prostate cancer Diabetes Heart disease Myocardial infarction End stage renal disease Sister Diabetes Mother Heart disease Myocardial infarction Father Heart disease Myocardial infarction Unknown Hypercholesteremia Other No family history of adverse response to anesthesia Denies family history of Ovarian cancer Hearing loss Breast cancer Colorectal cancer Hypertension Social History Smoking Status: Never smoker Tobacco Type: Cigarettes Second Hand Exposure: No; Do You Dip or Chew Tobacco: No; Tobacco Cessation Education Requested by Patient: No Hx Alcohol Use: No Hx Substance Use: No Preferred Language: Swedish Communication Ability: Effective Visual Impairment: No Limitations Hearing Ability: Use of Hearing Aid Manager Of Software Required: No Beliefs That Will Affect Care: None marital status: Current Living Situation: Spouse Current Living Situation Comment: with at home current occupational status: 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 [employer] Other Information That Helps Us Care for You: No Feels Safe at Home: Yes Safety Concerns: Feels Safe At This Time Childhood Exposure to Second-Hand Smoke: Yes Diet: regular Diet Comment: no added salt caffeine: Yes Dental Care, Regularly: No Physical Activity Frequency: Daily Seatbelt Use: never Sunscreen Use: No Assistive Devices: None Physical Exam Physical Exam: General: no acute distress; non-toxic appearing; well-nourished; cooperative HEENT: normocephalic, atraumatic; no scleral icterus; PERRLA w/ EOMs intact; vision and hearing grossly intact Neck: trachea midline Skin: warm, dry without signs of tenting; no cyanosis; no rashes, bruising, lesions, or erythema noted CV: RRR; S1/S2 normal; no murmurs/rubs/gallops Lungs: no acute respiratory distress; symmetrical chest wall expansion; clear breath sounds across all lung rodriguez w/o adventitious sounds; no wheezing ABD: Soft, NTP; BS present; no rebound/guarding; no distention MSK:no edema noted in the LEs b/l, nonerythematous Neuro: A&Ox3; normal mood and affect; fluent speech; no focal deficits Results & Data Results & Data Vital Signs (Past 12 Hours) Vital Signs Temp Pulse Resp BP Pulse Ox O2 Del Method 01/22/25 17:06 86 01/22/25 16:33 Room Air 01/22/25 16:17 36.6 C 89 16 117/62 99 Supervising Physician Co-Signing Physician Notes During face to face encounter, I obtained a history and physical examination, discussed plan of care with patient and answered any questions. I discussed plan of care with RENEE Du. I reviewed above note and agree with it except for the following: Patient will be admitted for hyperkalemia and epididymitis. will hold bactrim and place on IV antibiotics. PG Care Time/CCT Total # of Minutes Spent Total Time Spent with Patient: Total time spent is greater than 50% in coordination of care (as documented) at patient's floor/unit and/or counseling patient: Coding Level of Care Code 77547 INT INP/OBS CARE MIN Diagnoses Left epididymitis N45.1 Hyperkalemia E87.5 Chronic kidney disease, stage 3a N18.31 Diabetes mellitus with stage 3 chronic kidney disease E11.22; N18.3
[2025-01-22] MEDS ORDERED: PHARMACY GLYCEMIC MGMT CONSULT PRN (18:03)
[2025-01-22] MEDS ORDERED: GLUCOSE 40% GEL 15 GM TUBE PO PRN (18:30)
[2025-01-22] MEDS ORDERED: DEXTROSE 50% 50 ML SYRINGE IV PRN (18:30)
[2025-01-22] MEDS ORDERED: GLUCOSE 10 TAB/TUBE PO PRN (18:30)
[2025-01-22] MEDS ORDERED: CARBOHYDRATES FOR HYPOGLYCEMIA PO PRN (18:30)
[2025-01-22] MEDS ORDERED: GLUCAGON FOR INJ 1 MG VIAL SQ PRN (18:30)
[2025-01-22] MEDS: INSULIN ASPART PER UNIT CHARGE SC SCH (18:42)
[2025-01-22] MEDS: INSULIN HUMAN NPH SC SCH (18:44)
--- NOTE | 2025-01-22 19:57 | Urology Consultation ---
Date of Consultation January 22, 2025 Assessment & Plan (1) Left epididymitis: Patient has been admitted on the hospitalist service. From a urologic perspective we recommend the following: The patient clinically has epididymitis and this was noted on previous ultrasound as noted previously in this document We will check a repeat ultrasound to see if there is any interval change Patient has been placed on antibiotics in form of Rocephin and appropriate urine culture has been sent. Antibiotics should continue but can be tailored based on his clinical response as well as culture results (of note, when patient initially presented on 12/07/2024 his urine culture was negative for growth) The patient can employ scrotal support or ice packs as needed for comfort Would recommend performing intermittent bladder scans to check for postvoid residuals. If patient has significant postvoid residuals appropriate actions will be taken (potential straight catheterizationtest but the need for this is yet to be determined) Additional recommendations will be forthcoming based on pending ultrasound and his clinical course as unfolds Addendum: Patient's ultrasound results obtained. This shows the patient has increased vascularity left testicle and epididymitis concerning for epididymal right orchitis. A left scrotal hydrocele is also noted which is increased in size. There is no evidence of testicular torsion on the study. Will continue with plan as outlined above. History of Present Illness Reason for Consultation: Testicular pain Attending Physician: Eric Steinberg History of Present Illness This is an 79-year-old male who presented to the emergency department secondary to abnormal labs. Urology has been asked to see the patient due to concern for epididymitis. The patient notes that he was seen in the emergency department on 12/07/2024 secondary to urinary tract infection as well as left testicular swelling. At that time the patient had a scrotal ultrasound that showed concerns for left epididymitis. Patient was discharged on a course of cefdinir for 14 days. Patient did follow-up with urology concerning his epididymitis and was seen on 12/22/2024. The patient was counseled on completing the full course of antibiotics and instructed to follow-up with urology in approximately 6 months or sooner if he had any concerning signs or symptoms. Patient notes that he again started having symptom concerning for urinary tract infection approximately 1 week ago. He was having some chills and increased left testicular pain and tenderness. He denies any dysuria or hematuria and notes that he has a good flow of urine. He also feels that he can empty his bladder completely. He was given a course of oral Bactrim and took this medication for approximately 7 days. Patient also reports some generalized fatigue. Patient does report that since he started taking the Bactrim his left testicular pain has improved. In anticipation of a follow-up appointment with his primary care physician he had outpatient labs performed and was directed to go to the emergency department secondary to these labs. In the emergency department he did have labs drawn where CBC revealed white blood cell count and platelet count were normal. His hemoglobin and hematocrit were 12.3 and 36.6. Chemistry profile showed that his sodium was 134 and his potassium was 5.6. His BUN and creatinine were 32 and 2.4. (Of note the patient did have an outpatient chemistry profile today where his sodium was 135 and his potassium was 6.1. His BUN and creatinine were 29 and 2.3.). The patient did have a urinalysis today that showed trace leukocyte Estrace. There is no bacteria or pyuria noted on the study and the study was also negative for nitrites. At the time of my interview the patient was resting comfortably in bed he was in no distress. Allergies Allergy/AdvReac Type Severity Reaction Status Date / Time No Known Drug Allergies Allergy Unknown Verified 01/22/25 19:43 Home Medications Medication Instructions Recorded Confirmed Type blood-glucose meter (OneTouch #1 ea 05/09/19 12/30/24 Rx Verio Flex Start kit) insulin syringe-needle U-100 1 mL #200 ea 02/23/20 12/30/24 Rx 31 gauge x 5/16" (BD Insulin Syringe Ultra-Fine) blood sugar diagnostic #300 ea 04/28/21 12/30/24 Rx aspirin 81 mg tablet,delayed 81 mg PO QPM 08/28/22 01/22/25 History release pantoprazole 40 mg tablet,delayed 40 mg PO BID 08/28/22 01/22/25 History release nitroglycerin 0.4 mg sublingual 0.4 mg sublingual Q5M PRN chest 08/29/22 01/22/25 Rx tablet (Nitrostat) pain #1 btl allopurinol 300 mg tablet 300 mg PO QPM 12/20/22 01/22/25 History atorvastatin 80 mg tablet 80 mg PO QPM 12/20/22 01/22/25 History famotidine 20 mg tablet 20 mg PO BID 12/20/22 01/22/25 History multivitamin 1 tab PO QAM 01/29/23 01/22/25 History sacubitril 24 mg-valsartan 26 mg 1 tab PO BID 05/24/23 01/22/25 History tablet (Entresto) ticagrelor 90 mg tablet (Brilinta) 90 mg PO BID 05/24/23 01/22/25 History torsemide 20 mg tablet 20 mg PO DAILY PRN Weight Gain #0 05/14/24 01/22/25 Rx tabs isosorbide mononitrate 120 mg 120 mg PO QAM 05/30/24 01/22/25 History tablet,extended release 24 hr insulin aspar prt-insulin aspart 0 unit subcut UD 12/07/24 01/22/25 History 100 unit/mL (70-30) subcutaneous soln (Novolog Mix 70-30 U-100 Insuln) tirzepatide 7.5 mg/0.5 mL 7.5 mg subcut WK 12/07/24 01/22/25 History subcutaneous pen injector (Mounjaro) acebutolol 200 mg capsule 200 mg PO QAM 01/22/25 01/22/25 History acebutolol 200 mg capsule 400 mg PO HS 01/22/25 01/22/25 History Patient History Medical History Gastroparesis BPH (benign prostatic hyperplasia) On anticoagulant therapy Hyperlipidemia Hypertension CAD (coronary artery disease) Diabetes mellitus, type 2 IDDM History of pneumonia treated at [facility] 07/2024 inpatient for UTI/Sepsis/Pneumonia - no current issues. Hx of non-ST elevation myocardial infarction (NSTEMI) 08/2022 - cardiac cath with one stent at [facility] at the time of event, was also treated a couple weeks later at [facility] with a second stent. denies having a NSTEMI in 07/[address] [facility] inpatient. Sleep apnea quit using cpap at night History of transesophageal echocardiography (ALIREZA) Hx of sepsis treated inpatient [facility] 07/2024 HFrEF (heart failure with reduced ejection fraction) had echo 07/2024, has a f/u echo scheduled with Dr Lovell end of October 2024. Chronic kidney disease, stage 3a Arthritis Hiatal hernia Hx of basal cell carcinoma History of atrial fibrillation resolved. History of kidney stones History of COVID-2019? -- resolved Hx of gout Esophageal reflux Pericardial effusion pt and daughter unsure of details - possible history? Surgical History Hx of left cataract extraction (11/05/24) History of esophagogastroduodenoscopy (EGD) History of heart artery stent total of 7 stents - last placed at [facility] 08/2022 (followed by Dr. Lovell/[facility]) per hospital notes>severe in-stent restenosis of the LAD with implantation of a drug-eluting stent. History of cardiac cath multiple ([facility] and [facility]), has a total of 7 stents. History of carpal tunnel release rt/left History of total knee replacement left History of colonoscopy History of tooth extraction History of cardiac radiofrequency ablation 12/2022 at [facility] for atrial fib H/O transurethral resection of prostate History of ankle surgery History of lithotripsy History of cholecystectomy History of four vessel coronary artery bypass graft 2009 @ [facility] Family History Brother Prostate cancer Diabetes Heart disease Myocardial infarction End stage renal disease Sister Diabetes Mother Heart disease Myocardial infarction Father Heart disease Myocardial infarction Unknown Hypercholesteremia Other No family history of adverse response to anesthesia Denies family history of Ovarian cancer Hearing loss Breast cancer Colorectal cancer Hypertension Social History Smoking Status: Never smoker Tobacco Type: Cigarettes Second Hand Exposure: No; Do You Dip or Chew Tobacco: No; Tobacco Cessation Education Requested by Patient: No Hx Alcohol Use: No Hx Substance Use: No Preferred Language: Ecuadorean Communication Ability: Effective Visual Impairment: No Limitations Hearing Ability: Use of Hearing Aid Second Time Worker Required: No Beliefs That Will Affect Care: None marital status: Current Living Situation: Spouse Current Living Situation Comment: with at home current occupational status: 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[employer] Other Information That Helps Us Care for You: No Feels Safe at Home: Yes Safety Concerns: Feels Safe At This Time Childhood Exposure to Second-Hand Smoke: Yes Diet: regular Diet Comment: no added salt caffeine: Yes Dental Care, Regularly: No Physical Activity Frequency: Daily Seatbelt Use: never Sunscreen Use: No Assistive Devices: None Review of Systems Review of Systems: All systems reviewed & are unremarkable except as noted in HPI & below Physical Exam Constitutional: WD/WN, vitals as above Eyes: no conjunctival abnormality ENMT: Ears: no hearing impairment and no external ear abnormality Mouth: no oropharynx abnormality Neck: trachea midline Respiratory: normal respiratory effort; no respiratory distress and no labored breathing Cardiovascular: Rate/Rhythm: regular rate and regular rhythm Gastrointestinal (Abdomen): Abdomen is soft and nontender to palpation Musculoskeletal: No calf tenderness Skin: no rashes Neurologic: moves all extremities Psychiatric: A+Ox3, euthymic affect Genitourinary: No CVA tenderness with percussion bilaterally Patient's scrotum was examined and he did have slight swelling of the left testicle. Testicle is slightly tender to palpation. There is no erythema of the scrotum. There are no areas of eschar. I did not appreciate any masses. Results & Data Vital Signs (Past 12 Hours) Vital Signs Temp Pulse Resp BP Pulse Ox O2 Del Method 01/22/25 19:29 80 18 138/77 98 Room Air 01/22/25 17:06 83 20 145/82 H 95 01/22/25 17:06 86 01/22/25 16:33 Room Air 01/22/25 16:17 36.6 C 89 16 117/62 99 PG Care Time/CCT Total # of Minutes Spent Total Time Spent with Patient: Total time spent is greater than 50% in coordination of care (as documented) at patient's floor/unit and/or counseling patient: Coding Level of Care Code 46088 INT INP/OBS CARE 3/75MIN Diagnoses Left epididymitis N45.1
[2025-01-22] MEDS: PANTOprazole 40 MG TAB PO SCH (21:09)
[2025-01-22] MEDS: ATORVASTATIN 40 MG TAB PO SCH (21:09)
[2025-01-22] MEDS: allopurinoL 300 MG TAB PO SCH (21:09)
[2025-01-22] MEDS: ASPIRIN 81 MG ECTAB PO SCH (21:09)
[2025-01-22] MEDS: VALSARTAN/SACUBITRIL 26/24MG TAB PO SCH (21:09)
[2025-01-22] MEDS: FAMOTIDINE 20 MG TAB PO SCH (21:09)
[2025-01-22] MEDS: ACEBUTOLOL HCL 200 MG CAPSULE PO SCH (21:10)
[2025-01-22] MEDS: TICAGRELOR 90 MG TAB PO SCH (21:10)
--- NOTE | 2025-01-22 22:57 | Ultrasound Report ---
EXAMINATION: US TESTICULAR AND SCROTAL, COMPARISON: December 07, 2024. HISTORY: Swelling TECHNIQUE: The scrotum was scanned in standard fashion with specialized ultrasound transducer(s) using both cao scale and spectral and color Doppler techniques. Findings: There is increased vascularity of the left testicle. Complex left-sided hydrocele, with extensive internal debris, having a volume of approximately 37 mL. No evidence of a focal lesion. The right testicle measures 5.1 x 3.2 x 2.2 cm and the left measures 3.8 x 2.7 x 2.8 cm. There is no evidence of torsion. Scattered epididymal cysts. Increased vascularity of the left epididymis. The left epididymis demonstrates heterogeneous echotexture. Impression: Significantly increased vascularity of the left testicle and epididymis suggesting epididymoorchitis. A reactive left scrotal hydrocele is increased. Electronically signed by Lul Goyal 01-22-2025 10:57 PM
[2025-01-23] MEDS: INSULIN ASPART PER UNIT CHARGE SC SCH (00:42)
[2025-01-23 06:22] LABS: Hematocrit (blood only) 34.7 % (42.0-52.0); Hemoglobin 11.3 g/dl (14.0-18.0); Mean Corpuscular Hemoglobin 31.4 pg (25.0-34.0); Mean Corpuscular Hgb Conc 32.6 g/dL (32.0-36.0); Mean Corpuscular Volume 96.4 fL (80.0-100.0); Platelet Count 182 K/uL (130-400); RDW Coefficient of Variation 14.5 % (11.5-14.5); RDW Standard Deviation 50.9 fL (36.4-46.3); White Blood Count 7.95 K/ul (4.8-10.8)
[2025-01-23 06:54] LABS: BUN Creatinine Ratio 11.8 (10-20); Calcium 8.6 mg/dl (8.6-10.3); Potassium 5.3 mmol/L (3.5-5.1)
[2025-01-23] MEDS: MOXIFLOXACIN HCL 0.5% OP SOLN 3 ML BTL OPR SCH (07:42)
[2025-01-23] MEDS: MULTIVITAMIN TAB PO SCH (07:43)
[2025-01-23] MEDS: ISOSORBIDE MONO EXTENDED REL 60 MG TABCR PO SCH (07:43)
--- NOTE | 2025-01-23 10:10 | Electrocardiogram Report ---
Test Reason : Blood Pressure : */* mmHG Vent. Rate : 78 BPM Atrial Rate : 78 BPM P-R Int : 268 ms QRS Dur : 156 ms QT Int : 418 ms P-R-T Axes : 18 -73 56 degrees QTcB Int : 476 ms Sinus rhythm with 1st degree A-V block Right bundle branch block Left anterior fascicular block Bifascicular block Abnormal ECG Confirmed by Lul Mckeon ([id number]) on 01/23/2025 10:09:36 AM Referred By: NO PCP Confirmed By: Lul Mckeon
--- NOTE | 2025-01-23 13:41 | Urology Progress Note ---
Date of Service January 23, 2025 Assessment & Plan (1) Epididymitis: Plan Pt afebrile and hemodynamically stable Labs -WBCs 7.95, Creatinine 2.20 Urine culture 6/6 negative Voiding spontaneously Scrotal US suggestive of left epididymoorchitis, reactive left scrotal hydrocele Pt reports symptoms are improving overall Recommend continuing with supportive care and antibiotic therapy Can check bladder scan/PVRs to ensure he is emptying No acute intervention warranted Will arrange outpatient follow-up with our service Urology will sign off, please call with any further questions/concerns or changes in patient's status Admission and Anticipated Discharge Date Admission Date: January 22, 2025 Subjective Pt seen at bedside today Awake and resting in bed on arrival No acute distress Overall feeling better Reports he is voiding without issue Denies hematuria or dysuria Denies scrotal or testicular pain or swelling No fevers Review of Systems Constitutional: as per Subjective / HPI Genitourinary: + as per Subjective / HPI Physical Exam Constitutional: no acute distress Respiratory: no respiratory distress and no labored breathing Skin: No visible rashes or lesions to exposed skin areas Neurologic: moves all extremities and awake Psychiatric: A+Ox3, euthymic affect Genitourinary: Right testis is nontender and palpably normal. Left testis is mildly tender and enlarged to palpation. No scrotal erythema. No open areas or drainage. No induration. No fluctuance. Results & Data Vital Signs (Past 12 Hours) Vital Signs Temp Pulse Pulse Resp BP BP Pulse Ox 01/23/25 10:29 36.4 C L 74 16 112/66 97 01/23/25 07:31 36.4 C L 77 20 101/64 98 01/23/25 07:08 88 01/23/25 03:12 36.5 C 83 12 92/58 L 95 O2 Del Method 01/23/25 10:29 Room Air 01/23/25 07:31 Room Air 01/23/25 07:08 01/23/25 03:12 Room Air PG Care Time/CCT Total # of Minutes Spent Total Time Spent with Patient: Total time spent is greater than 50% in coordination of care (as documented) at patient's floor/unit and/or counseling patient: Coding Level of Care Code 66878 SUB INP/OBS CARE 2/35MIN Diagnoses Epididymitis N45.1
--- NOTE | 2025-01-23 14:21 | Pharmacy Report ---
Pharmacy Glycemic Short Note 2 - Date of Service January 23, 2025 - Glycemic Short BSG Results (Last 24 hours): 01/22/25 01/22/25 01/23/25 16:30 20:31 00:42 Glucose 169 H POC Glucose 100 H 97 01/23/25 01/23/25 01/23/25 05:51 08:18 11:14 Glucose 103 H POC Glucose 120 H 112 H 01/23/25 12:08 Glucose POC Glucose 109 H OUTPATIENT ANTIDIABETIC REGIMEN: * Novolog 70/30-- 40 units with breakfast, 60 units with dinner * Farxiga 10mg po daily * Mounjaro 7.5mg SQ weekly HbA1c: 7.7% on 01/22/25 ASSESSMENT: * Wild is an 79 year old male admitted 01/22 for left epididymitis, hyperk alemia, and JULIO CESAR on CKD. Pharmacy has been consulted for glycemic management while he is admitted. * BSG on admit yesterday was 169mg/dl. 15 units of NPH insulin x 1 was given and a weight based bolus insulin regimen with a stress between 1 and 2 was started. * Fasting BSG this morning was 120mg/dL and at lunch time was 109mg/dL. Did not give him basal insulin this morning since his blood glucose was below goal. Added a Lantus scale (0,5, or 10 units depending on BSG) at HS. CR was also loosened some. PLAN FOR INPATIENT GLYCEMIC CONTROL: * Hold outpatient diabetes medications * Basal insulin * NPH 15 units x 1 01/22, then Lantus scale (0, 5, or 10 units depending on BSG) starting this HS. * Bolus insulin * NovoLog per scale ACHS or Q6hrs while NPO * Goal Range: Low 110 mg/dL - High 140mg/dL * Correction Factor: 20 mg/dL/unit * Nutritional / Prandial insulin per carb ratio of 1 unit per 8 grams CHO consumed
[2025-01-23 14:33] LABS: BUN Creatinine Ratio 11.4 (10-20); Calcium 8.5 mg/dl (8.6-10.3); Creatinine Clr Calc Pharmacy 30.8 ml/min
[2025-01-23] MEDS: SODIUM ZIRCONIUM CYCLOSILICATE 10 GM PACKET PO SCH (16:24)
[2025-01-23] MEDS: cefTRIAXone SODIUM 2,000 MG/50 ML BAG IV SCH (17:31)
[2025-01-23] MEDS: LANTUS PER UNIT CHARGE SC SCH (20:09)
--- NOTE | 2025-01-23 23:52 | Hospitalist Progress Note ---
Date of Service January 23, 2025 Assessment & Plan (1) Left epididymitis: (2) Hyperkalemia: (3) Chronic kidney disease, stage 3a: (4) Diabetes mellitus with stage 3 chronic kidney disease: Plan This is a 79 year old male with past medical history of BPH, CHF, diabetes, gastroparesis, hypertension, RBBB who presented to the ED today for abnormal labs. While in the emergency department he was found to have a normal WBC. His potassium had decreased to 5.6. His creatinine was elevated at 2.41. His urinalysis was pending. He was given 1 L of normal saline and a dose of Rocephin. #Hyperkalemia/JULIO CESAR on CKD Likely secondary to Bactrim Repeated potassium twice, is again above 6, will keep for another day. creat. is downtrending. Baseline creatinine: 1.7-2.0 Stop Bactrim. Low K diet Pt/OT consulted secondary to weakness/fatigue will add lokelma TID #Left epididymitis With ongoing symptoms including chills, left testicle pain/tenderness CBC w/o leukocytosis S/p IV Rocephin in ED, continue upon admission Follows with urology outpatient, recently seen 12/2024 Consulted urology inpatient due to ongoing symptoms, appreciate recommendations. continue ceftriaxone, can place on cefdinir at discharge #Type 2 DM On 01/22 A1c 7.7 On insulin, Hilary outpatient Continue insulin while inpatient, pharmacy consulted to aide w/ glycemic management. Gin Rose #CHF/hypertension- Continue Entresto; Brilinta; Imdur; ASA #GERD: PPI, Pepcid #HLD: statin #Gout: allopurinol DVT prophylaxis: SCD's Code: full Admission and Anticipated Discharge Date Admission Date: January 22, 2025 Subjective 79 yo male reports no new symptoms. Review of Systems Review of Systems: All systems reviewed & are unremarkable except as noted in HPI & below Physical Exam Physical Exam: General: no acute distress; non-toxic appearing; well-nourished; cooperative HEENT: normocephalic, atraumatic; Neck: trachea midline CV: RRR; S1/S2 normal; no murmurs/rubs/gallops Lungs: no acute respiratory distress; symmetrical chest wall expansion; clear breath sounds ABD: Soft, NTP; BS present; no rebound/guarding; no distention MSK:no edema noted in the LEs b/l, nonerythematous Neuro: A&Ox3; normal mood and affect; fluent speech; no focal deficits Results & Data Results & Data Vital Signs (Past 12 Hours) Vital Signs Temp Pulse Pulse Resp BP Pulse Ox O2 Del Method 01/23/25 23:10 36.4 C L 79 12 120/72 97 Room Air 01/23/25 19:08 36.3 C L 72 14 104/63 95 Room Air 01/23/25 16:19 80 01/23/25 14:24 36.3 C L 78 20 100/61 98 Room Air PG Care Time/CCT Total # of Minutes Spent Total Time Spent with Patient: Total time spent is greater than 50% in coordination of care (as documented) at patient's floor/unit and/or counseling patient: Coding Level of Care Code 97956 SUB INP/OBS CARE 3/50MIN Diagnoses Left epididymitis N45.1 Hyperkalemia E87.5 Chronic kidney disease, stage 3a N18.31 Diabetes mellitus with stage 3 chronic kidney disease E11.22; N18.3
[2025-01-24 06:36] LABS: Hematocrit (blood only) 33.8 % (42.0-52.0); Mean Corpuscular Hemoglobin 31.3 pg (25.0-34.0); Mean Corpuscular Hgb Conc 32.5 g/dL (32.0-36.0); Mean Platelet Volume 10.4 fL (9.4-12.4); Platelet Count 178 K/uL (130-400); RDW Coefficient of Variation 14.6 % (11.5-14.5); RDW Standard Deviation 51.5 fL (36.4-46.3); Red Blood Count 3.52 M/uL (4.70-6.10); White Blood Count 7.46 K/ul (4.8-10.8)
[2025-01-24 07:03] LABS: BUN Creatinine Ratio 11.2 (10-20); Calcium 8.5 mg/dl (8.6-10.3); Creatinine Clr Calc Pharmacy 31.5 ml/min; Potassium 5.3 mmol/L (3.5-5.1)
[2025-01-24 11:19] VITALS: BP 103/63; RESP 20; TEMP 97.3; O2SAT 99
[2025-01-24 14:56] LABS: BUN Creatinine Ratio 11.8 (10-20); Calcium 8.5 mg/dl (8.6-10.3); Creatinine Clr Calc Pharmacy 30.8 ml/min; Potassium 5.1 mmol/L (3.5-5.1)
--- NOTE | 2025-01-24 15:50 | Discharge Summary ---
Discharge Summary Date of Service January 24, 2025 Principal Dx & Hospital Course #1 = Principal Diagnosis (1) Left epididymitis: (2) Hyperkalemia: (3) Chronic kidney disease, stage 3a: (4) Diabetes mellitus with stage 3 chronic kidney disease: Plan This is a 79 year old male with past medical history of BPH, CHF, diabetes, gastroparesis, hypertension, RBBB who presented to the ED today for abnormal labs. While in the emergency department he was found to have a normal WBC. His potassium had decreased to 5.6. His creatinine was elevated at 2.41. His urinalysis was pending. He was given 1 L of normal saline and a dose of Rocephin. #Hyperkalemia/JULIO CESAR on CKD Likely secondary to Bactrim potassium downtrending. creat. is downtrending. Baseline creatinine: 1.7-2.0 Stop Bactrim. Low K diet Pt/OT consulted secondary to weakness/fatigue will add lokelma TID for short term. will recommend rechecking potassium a few days after discharge #Left epididymitis With ongoing symptoms including chills, left testicle pain/tenderness CBC w/o leukocytosis S/p IV Rocephin in ED, continue upon admission Follows with urology outpatient, recently seen 12/2024 Consulted urology inpatient due to ongoing symptoms, appreciate recommendations. treated with ceftriaxone, will discharge on cefdinir/doxycycline at discharge #Type 2 DM On 01/22 A1c 7.7 On insulin, Hilary outpatient Continue insulin while inpatient, pharmacy consulted to aide w/ glycemic management. Gin Rose #CHF/hypertension- Continue Entresto; Brilinta; Imdur; ASA #GERD: PPI, Pepcid #HLD: statin #Gout: allopurinol Admission HPI Per Admitting Provider This is a 79 year old male with past medical history of BPH, CHF, diabetes, gastroparesis, hypertension, RBBB who presented to the ED today for abnormal labs. Wild was seen and examined with his family at bedside. He reports that he has had ongoing left epididymitis and has been following with urology for these issues. About 1 week ago he started to have recurrent symptoms including chills, left testicle pain/tenderness. He was given a course Of Bactrim and has taken this for about 7 days. He states that in this timeframe he has felt fatigued. Even though he does feel fatigued, he still able to perform activities of daily living. He was doing work in his shed prior to coming to the hospital today. He denies any abdominal pain, nausea, vomiting, chest pain, shortness of breath. Denies any lower extremity edema. Denies any hematuria, increased frequency/urgency, dysuria. He states that his testicle is tender to palpation but since starting Bactrim has not caused him much issues. While in the emergency department he was found to have a normal WBC. His potassium had decreased to 5.6. His creatinine was elevated at 2.41. His urinalysis was pending. He was given 1 L of normal saline and a dose of Rocephin. Code discussion did take place with the patient and he did confirm he is a full code Discharge Exam General: no acute distress; non-toxic appearing; well-nourished; cooperative HEENT: normocephalic, atraumatic; Neck: trachea midline CV: RRR; S1/S2 normal; no murmurs/rubs/gallops Lungs: no acute respiratory distress; symmetrical chest wall expansion; clear breath sounds ABD: Soft, NTP; BS present; no rebound/guarding; no distention MSK:no edema noted in the LEs b/l, nonerythematous Neuro: A&Ox3; normal mood and affect; fluent speech; no focal deficits Discharge Plan Discharge Items Patient Disposition: Home - Self-Care Reason For Visit: HYPERKALEMIA Discharge Diagnosis: hyperkalemia Condition on Discharge: Fair Activity: Resume your previous activity Non-emergency contact: Primary Care Provider Call non-emergency contact if: you have any medication questions Follow-up/Referrals: Lj Cho DO [Primary Care Provider] - Diet: Low Potassium (2gm) Addtl Attending Provider Instructions: Limit sunlight while on doxycycline. Recommend followup with PCP in 1-2 weeks Recommend followup with Urology. Start cefdinir tomorrow morning. Continue Lokelma for one more day. Recheck potassium on Sunday or Sunday. Pending Studies at Discharge: No Stand-Alone Forms: [employer], Smoking Cessation Medications and DC Order Prescriptions: New doxycycline hyclate 100 mg tablet 100 mg PO BID 10 Days Qty: 20 0RF cefdinir 300 mg capsule 300 mg PO BID Qty: 14 0RF Lokelma 10 gram Powder In Packet 10 g PO DAILY@0600,1200,1800 Qty: 4 0RF Continued (DME) blood sugar diagnostic Strip See Dose Instructions .ROUTE .MEDSUPPLY Qty: 300 3RF Dose Instruction: As directed Rx Instructions: TEST 3 TIMES DAILY (DME) insulin syringe-needle U-100 [BD Insulin Syringe Ultra-Fine] 1 mL 31 gauge x 5/16 syringe See Rx Instructions .ROUTE .MEDSUPPLY Qty: 200 5RF Rx Instructions: USE BID E11.2 Entresto 24-26 mg tablet 1 tab PO BID Brilinta 90 mg tablet 90 mg PO BID (DME) blood-glucose meter [[employer] Flex Start] kit See Dose Instructions .ROUTE .MEDSUPPLY Qty: 1 0RF Dose Instruction: As directed Rx Instructions: As directed isosorbide mononitrate 120 mg tablet extended release 24 hr 120 mg PO QAM multivitamin Tablet 1 tab PO QAM aspirin 81 mg Tablet,Delayed Release (Dr/Ec) 81 mg PO QPM pantoprazole 40 mg tablet,delayed release (DR/EC) 40 mg PO BID nitroglycerin [Nitrostat] 0.4 mg Tablet, Sublingual 0.4 mg sublingual Q5M PRN (Reason: chest pain) Qty: 1 0RF Rx Instructions: max 3 tabs in 15 minutes famotidine 20 mg tablet 20 mg PO BID atorvastatin 80 mg tablet 80 mg PO QPM allopurinol 300 mg tablet 300 mg PO QPM insulin asp prt-insulin aspart [Novolog Mix 70-30 U-100 Insuln] 100 unit/mL (70-30) solution 0 unit SUBCUT UD Rx Instructions: INJECT 30 UNITS BEFORE BREAKFAST AND 30 UNITS BEFORE DINNER. Mounjaro 7.5 mg/0.5 mL pen injector 7.5 mg SUBCUT WK Rx Instructions: saturdays acebutolol 200 mg capsule 200 mg PO QAM acebutolol 200 mg capsule 400 mg PO HS Rx Instructions: TAKE TWO CAPSULES AT BEDTIME torsemide 20 mg tablet 20 mg PO DAILY PRN (Reason: Weight Gain) Qty: 0 0RF Rx Instructions: Take 1 tablet by mouth once daily as needed for weight gain greater then 3 lbs over 2-3 days Discharge Orders: Discharge Order (Routine); Ordered 01/24/25 Ordered By: Eric Steinberg Admission Data Admit Date/Time: 01/22/25 17:44 Attending Provider: Eric Steinberg Admit Provider: Eric Steinberg Primary Care Provider: Lj Cho Other Providers: Reginaldo Holcomb; Francis Lauren Other Interventions: Discharge Summary Assessment (RN) Last Done: 01/24/25 16:42 Hospital Stay Data Consultations 01/22/25 17:29 ED Decision to Admit Stat 01/22/25 17:44 Consult Urology Routine Diagnostic Imagining Performed 01/22/25 19:48 US scrotum/testicle Stat Pending Results Patient Have Any Pending Studies at Discharge: No Discharge Instructions Given to Patient (Per Discharging Provider) Limit sunlight while on doxycycline. Recommend followup with PCP in 1-2 weeks Recommend followup with Urology. Start cefdinir tomorrow morning. Continue Lokelma for one more day. Recheck potassium on Sunday or Sunday. Total Time Total Time Spent Total Time Spent (In Minutes): 32 Coding Level of Care Code 34958 INP/OBS DISCH >30 MIN Diagnoses Left epididymitis N45.1 Hyperkalemia E87.5 Chronic kidney disease, stage 3a N18.31 Diabetes mellitus with stage 3 chronic kidney disease E11.22; N18.3
[2025-01-24 16:45] VITALS: PULSE 68
== END 2025-01-24 17:45 | disposition home or self-care (01) | DRG 728 ==
LOC: ED 16:17 → INTOOBSV 17:44 → 2N 17:44